=== PATIENT | female | born 1945 | race Caucasian/White ===

== ENCOUNTER → 2016-05-03 | Outpatient (CLI) | payer MEDICARE, OTHER ==
[~2016-05-03] VITALS: Ht 154.9 cm; Wt 93.4 kg
[~2016-05-03] MED LIST: AC325T PO; ALBU0.632 IH; ALBU0.8322 IH; ALBU8.5H2 IH; ASP81TEC PO; BUDE6HFA IH; CATHETER FLUSH 10 ML SYR IV PRN; CEFD300C3 PO; CEPH500C PO; CLOP75TA PO; CYCL10TA9 PO; D50KC PO; DCS100C PO; DOXE25CA46 PO; DOXY100C2 PO; FENO145T2 PO; FLT05NA16 NSEACH; HYDR-1231 PO; HYDR-3812 PO; HYDR-3816 PO; LANS15CA PO; LANS30CA PO; LEVO750T6 PO; LISI5TAB PO; LORA10CA PO; LORA10TA7 PO; LRT10T PO; LVT.088T PO; METO25TA PO; METO25TA2 PO; MNTL10T PO; OMEP20CA12 PO; OXYB5TAB9 PO; PNT40TEC PO; PRD20T PO; PRV20T PO; REGADENOSON 0.4 MG/5 ML SYR (LEXISCAN) IV ONE; ROFL500T3 PO; SIMV20TA3 PO; TIOT18CA IH; TRM50T PO; ZPACK
--- OUTSIDE RECORDS SUMMARY | 2016-05-03 07:53 | XMS REPORT | Continuity of Care Document ---
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 If you do not see the information that you expected, contact Release of Information in the Health Information Management department at [phone] for further assistance in locating additional records.[facility] Active Allergies and Adverse Reactions Not on File Current Medications Not on file Active Problems Not on file Social History Tobacco Use Types Packs/Day Years Used Date Never Assessed Plan of Care Health Maintenance Due Date Last Done Comments Physical (Comprehensive) 1952 Exam Pertussis Vaccine 1957 Tetanus Vaccine 1963 Breast Cancer Screening 1986 Colorectal Cancer 01/22/1996 Screening Shingles Vaccine 2006 Osteoporosis Screening 2011 Prevnar/Pneumovax (#1) 2011 Influenza Vaccine 12/10/2015 Results from Last 3 Months Not on file
[2016-05-03 08:55] VITALS: BP 138/71
[2016-05-03 08:56] VITALS: BP 121/72
[2016-05-03 08:59] VITALS: BP 139/69
[2016-05-03 09:01] VITALS: BP 135/73
--- NOTE | 2016-05-06 08:06 | STRESS TEST ---
PROCEDURE PHYSICIAN: FANTASMA CHEW DATE OF PROCEDURE: 05/03/2016 RESTING AND POST REGADENOSON TECHNETIUM 99M TETROFOSMIN SPECT CT IMAGING: ORDERING PHYSICIAN: Dr. Chew PRIMARY PHYSICIAN: Dr. Win CLINICAL DIAGNOSES: 1. Dyspnea. 2. Coronary artery disease. Baseline images were carried out after injection of 10.92 mCi technetium 99m tetrofosmin. This was followed by 0.4 mg of regadenoson and 32.7 mCi of technetium 99m tetrofosmin. The electrocardiogram showed sinus rhythm at baseline and did not change significantly with regadenoson infusion. She had mild chest discomfort following regadenoson infusion, which resolved within a few minutes. Review of images at rest and following stress, does not indicate any significant perfusion defects consistent with significant myocardial ischemia or infarction. Gated images show normal global left ventricular systolic function with normal regional wall motion. Left ventricular ejection fraction is calculated to be 79%. The left ventricular end-diastolic volume is 29 mL. TID is absent (0.98). CONCLUSION: 1. No evidence of significant myocardial ischemia or infarction on this study. 2. Normal regional wall motion. 3. Normal global left ventricular systolic function with a calculated ejection fraction of 79%. 4. Normal left ventricular cavity size. Job ID: [id number] Dictated Date: 05/05/2016 15:36:53 Manager Primary Date: 05/06/2016 07:59:59 / tbk
== END ==
LOC: CARD 07:50
PROVIDERS: ATTEND Internal Medicine Cardiovascular Disease
DX: I25.10 Atherosclerotic heart disease of native coronary artery without angina pectoris (principal); I65.23 Occlusion and stenosis of bilateral carotid arteries; E78.4 Other hyperlipidemia; R06.02 Shortness of breath
CPT/HCPCS: 78452; 93017

== ENCOUNTER 2016-06-13 12:38 | Emergency (ER) | payer MEDICARE, OTHER ==
[~2016-06-13] VITALS: Ht 154.9 cm; Wt 92.5 kg
[~2016-06-13 12:38] MED LIST changes: -CATHETER FLUSH 10 ML SYR IV PRN; -HYDR-3812 PO; -REGADENOSON 0.4 MG/5 ML SYR (LEXISCAN) IV ONE
--- OUTSIDE RECORDS SUMMARY | 2016-06-13 12:45 | XMS REPORT | Continuity of Care Document ---
Author Author [facility] Organization [facility] Address Unknown Phone Unavailable Care Team Providers Care Orientation And Mobility Instructor Name Role Phone Tawnya Wilson PCP [phone] Source Comments Some departments are not documenting in the electronic medical record. If you do not see the information that you expected, contact Release of Information in the Health Information Management department at [phone] for further assistance in locating additional records.[facility] Active Allergies and Adverse Reactions Not on [...]
[2016-06-13] MEDS ORDERED: NS IV 500 ML 500 ML IV ONE (13:16)
[2016-06-13 13:34] LABS: BASOPHILS % (AUTO) 1 % (0-10); EOSINOPHILS # (AUTO) 0.1 10^3/uL (0.0-0.3); EOSINOPHILS % (AUTO) 1 % (0-10); LYMPHOCYTES # (AUTO) 1.2 X 10^3 (1.0-4.0); LYMPHOCYTES % (AUTO) 21 % (12-44); MEAN CORPUSCULAR HEMOGLOBIN 32 PG (25-34); MEAN CORPUSCULAR HGB CONC 33 G/DL (32-36); MEAN CORPUSCULAR VOLUME 97 FL (80-99); MEAN PLATELET VOLUME 8.9 FL (7.4-10.4); MONOCYTES # (AUTO) 0.4 X 10^3 (0.0-1.0); MONOCYTES % (AUTO) 7 % (0-12); NEUTROPHILS % (AUTO) 71 % (42-75); PLATELET COUNT 275 10^3/uL (130-400); RED BLOOD COUNT 4.56 10^6/uL (4.35-5.85); RED CELL DISTRIBUTION WIDTH 13.4 % (10.0-14.5); WHITE BLOOD COUNT 5.7 10^3/uL (4.3-11.0)
[2016-06-13 13:50] LABS: ERYTHROCYTE SEDIMENTATION RATE 18 MM/HR (0-30)
[2016-06-13 14:13] LABS: ALBUMIN 3.6 G/DL (3.2-4.5); BILIRUBIN,TOTAL 0.4 MG/DL (0.1-1.0); CALCIUM 9.5 MG/DL (8.5-10.1); CREATININE SERUM 1.1 MG/DL (0.60-1.30); POTASSIUM 4.2 MMOL/L (3.6-5.0); TOTAL PROTEIN 7.2 G/DL (6.4-8.2); hs C REACTIVE PROTEIN 3.08 MG/DL (0.00-0.50)
[2016-06-13] MEDS ORDERED: HYDR-3812 PO (14:41)
--- NOTE | 2016-06-13 14:41 | ED General ---
General Chief Complaint: General Problems/Pain Stated Complaint: BODYACHES/NAUSEA POSS MED REACTION Nursing Triage Note: ARRIVED VIA AMBULATORY WITH COMPLAINTS OF GENERALIZED BODY ACHES AND NAUSEA SINCE HAVING HER STRESS TEST ON MAY 03. Nursing Sepsis Screen: No Definite Risk Source of Information: Patient, Old Records Exam Limitations: No Limitations History of Present Illness Time Seen by Provider: 13:06 Initial Comments This 71-year-old woman presents to the emergency room with complaints of generalized pain since having a stress test on May 03. She denies any new medications. She saw her wool classer to stop TriCor and vitamin D. This visit was on June 01. She reports having one episode of rectal bleeding on Monday. She had a colonoscopy in December with reported polyps identified. She also has a history of hemorrhoids. She denies any other acute symptoms such as fever, vomiting, cough, etc. Allergies and Home Medications Allergies Coded Allergies: Sulfa (Sulfonamide Antibiotics) (Verified Allergy, Intermediate, HIVES, ) sulfamethoxazole (Unverified Allergy, Unknown, 02/09/14) trimethoprim (Unverified Allergy, Unknown, 02/09/14) yellow dye (Unverified Allergy, Unknown, 02/09/14) Uncoded Allergies: SULFA (Allergy, Unknown, RASH, 09/26/13) Home Medications Cyclobenzaprine Hcl 10 Mg Tablet #10 1 EACH PO Q8H PRN PRN SPASMS Prescribed by: KARTIK BRANDT on 06/21/14 1114 Docusate Sodium 100 Mg Capsule 300 MG PO DAILY (Reported) TAKES 3 (100MG) CAPSULES DAILY Ergocalciferol 50,000 Unit Capsule 50,000 UNIT PO ON WEDNESDAYS (Reported) Fenofibrate,Micronized 145 Mg Tablet 145 MG PO DAILY (Reported) Hydrocodone Bit/Acetaminophen 1 Tab Tablet #24 1 TAB PO Q6H PRN PRN PAIN Prescribed by: KARTIK BRANDT on 06/21/14 1114 Hydrocodone/Acetaminophen 1 Each Tablet #10 1 EACH PO Q6H PRN PRN PAIN Prescribed by: ZAY FORDE on 06/13/16 1441 Loratadine 10 Mg Tablet 10 MG PO DAILY (Reported) Metoprolol Succinate 25 Mg Tab.sr.24h 25 MG PO DAILY (Reported) Pantoprazole Sodium 40 Mg Tablet. #30 1 TAB PO DAILY Prescribed by: KARINA RUIZ on 09/27/13 1019 Roflumilast 500 Mcg Tablet 500 MCG PO DAILY (Reported) Tiotropium [place] 1 Inh Aerp 1 CAP IH DAILY (Reported) Constitutional: see HPI EENTM: no symptoms reported Respiratory: no symptoms reported Cardiovascular: no symptoms reported Gastrointestinal: see HPI Genitourinary: no symptoms reported Musculoskeletal: see HPI Skin: no symptoms reported Psychiatric/Neurological: No Symptoms Reported Hematologic/Lymphatic: No Symptoms Reported Past Evpkoxd-Cydyle-Eaqxhk Hx Patient Social History Recent Foreign Travel: No Contact w/Someone Who Travel: No Recent Infectious Disease Expo: No Recent Hopitalizations: No Immunizations Up To Date Tetanus Booster (TDap): Unknown PED Vaccines UTD: No Date of Pneumonia Vaccine: Jun 08, 2010 Date of Influenza Vaccine: Dec 29, 2014 Seasonal Allergies Seasonal Allergies: Yes Surgeries HX Surgeries: Yes (CEA, CATARACTS, LEFT FOOT HEEL SPUR) Surgeries: Adenoidectomy, Breast, Cardiac, CABG, Eye Surgery, Gallbladder, Hysterectomy, Tonsillectomy Respiratory Hx Respiratory Disorders: Yes (COPD) Respiratory Disorders: COPD Cardiovascular Hx Cardiac Disorders: Yes (CHF) Cardiac Disorders: Coronary Artery Disease, Hypertension Neurological Hx Neurological Disorders: No Reproductive System Hx Reproductive Disorders: No Sexually Transmitted Disease: No HIV/AIDS: No Female Reproductive Disorders: Denies Genitourinary Hx Genitourinary Disorders: Yes (STAGE 4) Genitourinary Disorders: Renal Failure Gastrointestinal Hx Gastrointestinal Disorders: Yes (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) Gastrointestinal Disorders: Gastroesophageal Reflux Musculoskeletal Hx Musculoskeletal Disorders: Yes Musculoskeletal Disorders: Back Injury, Chronic Back Pain Endocrine Hx Endocrine Disorders: No HEENT HX ENT Disorders: Yes (CATARACT SURGERY) HEENT Disorders: Cataract Loss of Vision: Denies Hearing Impairment: Denies Cancer Hx Cancer: No Psychosocial Hx Psychiatric Problems: No Integumentary HX Skin/Integumentary Disorder: No Blood Transfusions Hx Blood Disorders: No Adverse Reaction to a Blood Tr: No Family Medical History Family Medial History: Family history: Cardiovascular disease 19 MOTHER G8 BROTHER Family history: Diabetes mellitus 19 MOTHER Family history: Gastrointestinal disease 19 FATHER Family history: Hypertension 19 MOTHER G8 BROTHER Myocardial infarction 19 MOTHER Physical Exam Vital Signs Vital Sign - Last 12Hours 06/13/16 13:00 Temp 97.6 Pulse 108 Resp 16 B/P 178/100 Pulse Ox 97 Capillary Refill : Less Than 3 Seconds General Appearance: No Apparent Distress WD/WN HEENT: PERRL/EOMI Normal ENT Inspection Pharynx Normal Neck: Normal Inspection Respiratory: Lungs Clear Normal Breath Sounds No Accessory Muscle Use No Respiratory Distress Cardiovascular: Regular Rate, Rhythm No Edema No Murmur Gastrointestinal: Normal Bowel Sounds Non Tender Soft Back: Normal Inspection Extremity: Normal Inspection No Pedal Edema Neurologic/Psychiatric: Alert Oriented x3 No Motor/Sensory Deficits Normal Mood/Affect hospital cna II-XII Norm as Tested Skin: Normal Color Warm/Dry Progress/Results/Core Measures Results/Orders Lab Results My Orders Medications Given in ED Vital Signs/I&O Blood Pressure Mean: 126 Progress Note : Progress Note No significant abnormalities were found on lab workup or exam. Departure Impression Impression: Primary Impression: Myalgia Disposition: 01 HOME, SELF-CARE Condition: Stable Departure-Patient Inst. Decision time for Depature: 14:35 Referrals: SHOLA BANSAL MD (PCP/Family) Primary Care Physician Patient Instructions: NO INSTRUCTIONS GIVEN Add. Discharge Instructions: Return to care if symptoms worsen. Stay well-hydrated. Follow up with your primary care provider as soon as possible. All discharge instructions reviewed with patient and/or family. Voiced understanding. Scripts Hydrocodone/Acetaminophen (Hydrocodon -Acetaminophen 5-325)1 Each Tablet1 Each PO Q6H PRN PAIN #10 TAB Prov:ZAY ISAAC MD 06/13/16 Copy Copies To 1: SHOLA BANSAL MD, JOSHUA T MD Jun 13, 2016 14:41 Mean Corpuscular Volume 97 80-99 FL Mean Platelet Volume 8.9 7.4-10.4 FL Monocytes # (Auto) 0.4 0.0-1.0 X 10^3 Monocytes (%) (Auto) 7 0-12 % Neutrophils # (Auto) 4.0 1.8-7.8 X 10^3 Neutrophils (%) (Auto) 71 42-75 % Platelet Count 275 130-400 10^3/uL Potassium Level 4.2 3.6-5.0 MMOL/L Red Blood Count 4.56 4.35-5.85 10^6/uL Red Cell Distribution Width 13.4 10.0-14.5 % Rheumatoid Factor NEGATIVE NEGATIVE Sodium Level 137 135-145 MMOL/L Total Bilirubin 0.4 0.1-1.0 MG/DL Total Creatine Kinase 8 L 29-168 U/L Total Protein 7.2 6.4-8.2 G/DL White Blood Count 5.7 4.3-11.0 10^3/uL My Orders Orders-ZAY ISAAC MD Cbc With Automated Diff (06/13/16 13:16) Comprehensive Metabolic Panel (06/13/16 13:16) Creatine Kinase (06/13/16 13:16) Hs C Reactive Protein (06/13/16 13:16) Erythrocyte Sedimentation Rate (06/13/16 13:16) Saline Lock/Iv-Start (06/13/16 13:16) Ns Iv 500 Ml (Sodium Chloride 0.9%) (06/13/16 13:16) Rheumatoid Factor (06/13/16 13:16) Medications Given in ED Current Medications Medications Dose Ordered Sig/Patty Route Start Time Stop Time Status Last Admin Dose Admin Sodium Chloride 500 ml @ 0 mls/hr Q0M ONCE IV 06/13/16 13:16 06/13/16 13:18 DC 06/13/16 13:27 1,000 MLS/HR Vital Signs/I&O Vital Sign - Last 12Hours 06/13/16 13:00 Temp 97.6 Pulse 108 Resp 16 B/P 178/100 Pulse Ox 97 Blood Pressure Mean: 126 Departure Impression Impression: Primary Impression: Myalgia Disposition: 01 HOME, SELF-CARE Condition: Stable Departure-Patient Inst. Decision time for Depature: 14:35 Referrals: SHOLA BANSAL MD (PCP/Family) Primary Care Physician Patient Instructions: NO INSTRUCTIONS GIVEN Add. Discharge Instructions: Return to care if symptoms worsen. Stay well-hydrated. Follow up with your primary care provider as soon as possible. All discharge instructions reviewed with patient and/or family. Voiced understanding. Scripts Hydrocodone/Acetaminophen (Hydrocodon -Acetaminophen 5-325)1 Each Tablet1 Each PO Q6H PRN PAIN #10 TAB Prov:ZAY ISAAC MD 06/13/16 Copy Copies To 1: SHOLA BANSAL MD, JOSHUA T MD Jun 13, 2016 14:41
[2016-06-13 14:54] VITALS: BP 182/92
== END 2016-06-13 14:54 | disposition home or self-care (01) ==
LOC: EDUNIT# 12:38 → ER 12:42
DX: M79.1 Myalgia (principal); I12.9 Hypertensive chronic kidney disease with stage 1 through stage 4 chronic kidney disease, or unspecified chronic kidney disease; N18.4 Chronic kidney disease, stage 4 (severe); J44.9 Chronic obstructive pulmonary disease, unspecified; Z95.1 Presence of aortocoronary bypass graft; Z79.899 Other long term (current) drug therapy
CPT/HCPCS: 36415; 80053; 82550; 85025; 85652; 86141; 86430; 96360

== ENCOUNTER 2016-06-27 21:24 | Emergency (ER) | payer MEDICARE, OTHER ==
[~2016-06-27] VITALS: Ht 154.9 cm; Wt 93.9 kg
[~2016-06-27 21:24] MED LIST changes: +HYDR-3812 PO
--- OUTSIDE RECORDS SUMMARY | 2016-06-27 21:30 | XMS REPORT | Continuity of Care Document ---
Author Author [facility] Organization [facility] Address Unknown Phone Unavailable Care Team Providers Care Health Informatics Instructor Name Role Phone Tawnya Wilson PCP [phone] Source Comments Some departments are not documenting in the electronic medical record. If you do not see the information that you expected, contact Release of Information in the Health Information Management department at [phone] for further assistance in locating additional records.[facility] Active Allergies and Adverse Reactions [...]
[2016-06-27] MEDS ORDERED: HYDROcodone/APAP 7.5 MG/325 MG (LORTAB, LORCET PLUS) TABLET PO STA (23:15)
--- NOTE | 2016-06-27 23:17 | ED Back Pain ---
General Chief Complaint: General Problems/Pain Stated Complaint: L LEG/GROIN PAIN Nursing Triage Note: C/O CHRONIC BILATERAL LEG/HIP/PELVIC PAIN. SEEN HERE APPROX. 1 WEEK AGO FOR SAME. Nursing Sepsis Screen: No Definite Risk Source of Information: Patient Exam Limitations: No Limitations History of Present Illness Time Seen by Provider: 23:05 Initial Comments Here with complaint of low back pain. She fell 2 weeks ago onto the left leg and has had low back pain since. She does have history of kyphoplasty and similar pain when she had lumbar compression fracture. She is unable to get into her doctor. She has tried Tylenol and that has not helped. Denies bowel or bladder incontinence, numbness between her legs or weakness. Location: Lumbar Spine, Paraspinous Muscles Timing/Duration: 1 Week Severity: Moderate Pain/Injury Location: Back Radiation: Buttocks, Upper Legs Method of Injury: Fall Associated Symptoms: muscle spasmsNo weakness, No numbness in legs/feet, No tingling in legs/feet, No sensory/motor loss, lower back painNo loss of bladder control, No loss of bowel control Allergies and Home Medications Allergies Coded Allergies: Sulfa (Sulfonamide Antibiotics) (Verified Allergy, Intermediate, HIVES, ) sulfamethoxazole (Unverified Allergy, Unknown, 02/09/14) trimethoprim (Unverified Allergy, Unknown, 02/09/14) yellow dye (Unverified Allergy, Unknown, 02/09/14) Uncoded Allergies: SULFA (Allergy, Unknown, RASH, 09/26/13) Home Medications Cyclobenzaprine Hcl 10 Mg Tablet #10 1 EACH PO Q8H PRN PRN SPASMS Prescribed by: KARTIK BRANDT on 06/21/14 1114 Docusate Sodium 100 Mg Capsule 300 MG PO DAILY (Reported) TAKES 3 (100MG) CAPSULES DAILY Ergocalciferol 50,000 Unit Capsule 50,000 UNIT PO ON WEDNESDAYS (Reported) Fenofibrate,Micronized 145 Mg Tablet 145 MG PO DAILY (Reported) Hydrocodone Bit/Acetaminophen 1 Tab Tablet #24 1 TAB PO Q6H PRN PRN PAIN Prescribed by: KARTIK BRANDT on 06/21/14 1114 Hydrocodone/Acetaminophen 1 Each Tablet #10 1 EACH PO Q6H PRN PRN PAIN Prescribed by: ZAY FORDE on 06/13/16 1441 Loratadine 10 Mg Tablet 10 MG PO DAILY (Reported) Metoprolol Succinate 25 Mg Tab.sr.24h 25 MG PO DAILY (Reported) Pantoprazole Sodium 40 Mg Tablet. #30 1 TAB PO DAILY Prescribed by: KARINA RUIZ on 09/27/13 1019 Roflumilast 500 Mcg Tablet 500 MCG PO DAILY (Reported) Tiotropium [place] 1 Inh Aerp 1 CAP IH DAILY (Reported) Constitutional: see HPI Respiratory: no symptoms reported Cardiovascular: no symptoms reported Gastrointestinal: no symptoms reported Musculoskeletal: back pain muscle pain muscle stiffness Skin: no symptoms reported Psychiatric/Neurological: No Symptoms Reported Past Hcngqlq-Otnhsf-Vclvak Hx Patient Social History Alcohol Use: Denies Use Recreational Drug Use: No Smoking Status: Never a Smoker Recent Foreign Travel: No Contact w/Someone Who Travel: No Recent Infectious Disease Expo: No Recent Hopitalizations: No Immunizations Up To Date Tetanus Booster (TDap): Unknown PED Vaccines UTD: No Date of Pneumonia Vaccine: Jun 08, 2010 Date of Influenza Vaccine: Dec 29, 2014 Seasonal Allergies Seasonal Allergies: Yes Surgeries HX Surgeries: Yes (CEA, CATARACTS, LEFT FOOT HEEL SPUR) Surgeries: Adenoidectomy, Breast, Cardiac, CABG, Eye Surgery, Gallbladder, Hysterectomy, Tonsillectomy Respiratory Hx Respiratory Disorders: Yes (COPD) Respiratory Disorders: COPD Cardiovascular Hx Cardiac Disorders: Yes (CHF) Cardiac Disorders: Coronary Artery Disease, Hypertension Neurological Hx Neurological Disorders: No Reproductive System : No Hx Reproductive Disorders: No Sexually Transmitted Disease: No HIV/AIDS: No Female Reproductive Disorders: 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, Menopausal Genitourinary Hx Genitourinary Disorders: Yes (STAGE 4) Genitourinary Disorders: Renal Failure Gastrointestinal Hx Gastrointestinal Disorders: Yes (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) Gastrointestinal Disorders: Gastroesophageal Reflux Musculoskeletal Hx Musculoskeletal Disorders: Yes Musculoskeletal Disorders: Back Injury, Chronic Back Pain Endocrine Hx Endocrine Disorders: No HEENT HX ENT Disorders: Yes (CATARACT SURGERY) HEENT Disorders: Cataract Loss of Vision: Denies Hearing Impairment: Denies Cancer Hx Cancer: No Psychosocial Hx Psychiatric Problems: No Integumentary HX Skin/Integumentary Disorder: No Blood Transfusions Hx Blood Disorders: No Adverse Reaction to a Blood Tr: No Reviewed Nursing Assessment Reviewed/Agree w Nursing PMH: Yes Family Medical History Family Medial History: Family history: Cardiovascular disease 19 MOTHER G8 BROTHER Family history: Diabetes mellitus 19 MOTHER Family history: Gastrointestinal disease 19 FATHER Family history: Hypertension 19 MOTHER G8 BROTHER Myocardial infarction 19 MOTHER Physical Exam Vital Signs Vital Sign - Last 12Hours 06/27/16 21:56 Temp 98.0 Pulse 104 Resp 18 B/P 196/89 Pulse Ox 94 O2 Delivery Room Air Capillary Refill : Less Than 3 Seconds General Appearance: No Apparent Distress WD/WN HEENT: PERRL/EOMI Pharynx Normal Neck: Non Tender Supple Cardiovascular: Regular Rate, Rhythm No Murmur Respiratory: Lungs Clear No Respiratory Distress Gastrointestinal: Non Tender Soft Back: Other (mild tenderness to the upper lumbar spine.) Neurologic/Psychiatric: Alert Oriented x3 Skin: Normal Color Warm/Dry Progress/Results/Core Measures Results/Orders My Orders Orders-KARTIK BRANDT MD Hydrocodone/Apap 7.5/325 Tab (Lortab 7. (06/27/16 23:15) Ct Lumbar Spine Wo (06/27/16 23:15) Vital Signs/I&O Vital Sign - Last 12Hours 06/27/16 21:56 Temp 98.0 Pulse 104 Resp 18 B/P 196/89 Pulse Ox 94 O2 Delivery Room Air Blood Pressure Mean: 124 Progress Note : Progress Note Seen and evaluated. Lumbar spine CT ordered. Hydrocodone 7.5 mg by mouth. Improved after meds. No significant findings on CT scan. Discharged home with return precautions. Patient and family verbalized understanding instructions and agreement with plan. Prednisone 40 mg by mouth given. We will continue this outpatient. 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 Mild anterior listhesis of L4 over L5 secondary to degenerative facet disease. No dominant disc herniation or gross central or neuroforaminal stenosis seen. No acute fracture. Reviewed: Reviewed [place] Hawk Study, Reviewed by Me Departure Impression Impression: Primary Impression: Lumbar radiculopathy, acute Disposition: HOME, SELF-CARE Condition: Improved Departure-Patient Inst. Decision time for Depature: 00:49 Referrals: SHOLA BANSAL MD (PCP/Family) Primary Care Physician Patient Instructions: Lumbar Muscle Strain (DC), Radiculopathy (DC) Add. Discharge Instructions: All discharge instructions reviewed with patient and/or family. Voiced understanding. Take medications as directed. Do not take Tylenol with the prescribed hydrocodone as both have acetaminophen and it. Follow-up with your DrWisam this week for recheck. Call in the morning for appointment. Drink plenty of fluids. Return for worse pain, fever, vomiting, weakness, breathing problems or other concerns as needed. Scripts Hydrocodone/Acetaminophen (Hydrocodon-Acetaminoph 7.5-325)1 Each Tablet1 Each PO Q6H #14 TAB Prov:KARTIK BRANDT MD 06/28/16 Prednisone 20 Mg Tab40 Mg PO DAILY #12 TAB Ref 0 Prov:KARTIK BRANDT MD 06/28/16 KARTIK BRANDT MD Jun 27, 2016 23:17
[2016-06-28] MEDS ORDERED: predniSONE 20 MG TAB PO ONE (00:45)
[2016-06-28] MEDS ORDERED: PRD20T PO (00:51)
[2016-06-28] MEDS ORDERED: HYDR-3816 PO (00:51)
[2016-06-28 00:55] VITALS: BP 182/79
--- NOTE | 2016-06-28 08:03 | Diagnostic Imaging Report ---
PROCEDURE: CT lumbar spine without contrast. TECHNIQUE: Multiple contiguous axial images were obtained through the lumbar spine without the use of intravenous contrast. Sagittal and coronal reformations were then performed. INDICATION: Back pain. Bilateral lower extremity pain. COMPARISON: MRI lumbar spine without contrast 08/19/2014. FINDINGS: There are 5 lumbar type vertebral bodies. Stable compression deformity of the L1 vertebral body without retropulsion of fragments. There are interval vertebroplasty changes within L1. There is mild anterolisthesis of L4 on L5. Alignment is otherwise unremarkable. No new compression deformities. No acute fractures. Mild scattered degenerative endplate changes. Moderate to advanced facet arthropathy at L4-L5 and L5-S1. No high-grade spinal canal or neural foraminal narrowing on this noncontrast exam. Arterial calcifications including a normal caliber abdominal aorta. Cholecystectomy. IMPRESSION: 1. Stable compression deformity of L1 with interval vertebroplasty changes. No new fractures in the lumbar spine. 2. Moderate to advanced facet arthropathy bilaterally at L4-L5 and L5-S1 may be a pain generator. 3. No evidence of high-grade neural impingement on this noncontrast exam. Dictated by: Dictated on workstation # [id number]
== END 2016-06-28 00:55 | disposition home or self-care (01) ==
LOC: EDUNIT# 21:24 → ER 21:26
DX: M54.16 Radiculopathy, lumbar region (principal); I10 Essential (primary) hypertension; J44.9 Chronic obstructive pulmonary disease, unspecified
CPT/HCPCS: 72131; 99281

== ENCOUNTER 2016-09-04 13:19 | Emergency (ER) | payer MEDICARE, OTHER ==
[~2016-09-04] VITALS: Ht 63.5 cm; Wt 87.5 kg
[2016-09-04] MEDS ORDERED: fentaNYL INJECTION 100 MCG/2 ML AMP IM STA (13:43)
--- NOTE | 2016-09-04 13:43 | ED Fall/Injury ---
General Chief Complaint: Trauma-Non Activation Stated Complaint: FALL/L SIDE PAIN Nursing Triage Note: AMBULATED TO ROOM 05 WITH COMPLAINTS OF LEFT ARM PAIN AFTER TRIPPING AND FALLING YESTERDAY. Source: patient, family (daughter) Exam Limitations: no limitations History of Present Illness Time seen by provider: 13:34 Initial Comments Last night the patient was getting up to go to the bathroom and had a fall. She is not sure what she tripped on. She no she did not hit her head or lose consciousness. She landed on her left shoulder between the bed and the wall. She immediately got up and did not lose continence. She has no headache or bleeding. She does have 3 or 4 days of nausea. She states she has chronic renal failure ever since her CABG. She also states that she has been putting out less and less urine and attributes this to her eating Advil "like candy". She denies dysuria, hematuria, discharge. Allergies and Home Medications Allergies Coded Allergies: Sulfa (Sulfonamide Antibiotics) (Verified Allergy, Intermediate, HIVES, ) sulfamethoxazole (Unverified Allergy, Unknown, 02/09/14) trimethoprim (Unverified Allergy, Unknown, 02/09/14) yellow dye (Unverified Allergy, Unknown, 02/09/14) Uncoded Allergies: SULFA (Allergy, Unknown, RASH, 09/26/13) Home Medications Cephalexin 500 Mg Capsule, 500 MG PO BID for 5 Days, #10 Ref 0 Prescribed by: IGNACIA BURKETT on 09/04/16 1526 Cyclobenzaprine Hcl 10 Mg Tablet, 1 EACH PO Q8H PRN for SPASMS, #10 Prescribed by: KARTIK BRANDT on 06/21/14 1114 Docusate Sodium 100 Mg Capsule, 300 MG PO DAILY, (Reported) TAKES 3 (100MG) CAPSULES DAILY Ergocalciferol 50,000 Unit Capsule, 50,000 UNIT PO ON WEDNESDAYS, (Reported) Fenofibrate,Micronized 145 Mg Tablet, 145 MG PO DAILY, (Reported) Hydrocodone Bit/Acetaminophen 1 Tab Tablet, 1 TAB PO Q6H PRN for PAIN, #24 Prescribed by: KARTIK BRANDT on 06/21/14 1114 Hydrocodone/Acetaminophen 1 Each Tablet, 1 EACH PO Q6H PRN for PAIN, #10 Prescribed by: ZAY FORDE on 06/13/16 1441 Hydrocodone/Acetaminophen 1 Each Tablet, 1 EACH PO Q6H, #14 Prescribed by: KARTIK BRANDT on 06/28/16 0051 Loratadine 10 Mg Tablet, 10 MG PO DAILY, (Reported) Metoprolol Succinate 25 Mg Tab.sr.24h, 25 MG PO DAILY, (Reported) Pantoprazole Sodium 40 Mg Tablet.dr, 1 TAB PO DAILY, #30 Ref 3 Prescribed by: KARINA RUIZ on 09/27/13 1019 Prednisone 20 Mg Tab, 40 MG PO DAILY, #12 Ref 0 Prescribed by: KARTIK BRANDT on 06/28/16 0051 Roflumilast 500 Mcg Tablet, 500 MCG PO DAILY, (Reported) Tiotropium [place] 1 Inh Aerp, 1 CAP IH DAILY, (Reported) Constitutional: see HPI, No chills, No diaphoresis Eyes: Denies Blurred Vision, Denies Pain, Denies Photophobia Ears, Nose, Mouth, Throat: denies ear pain, denies ear discharge, denies nose pain, denies epistaxis, denies loose teeth Respiratory: No cough, No short of breath Cardiovascular: No chest pain, No syncope Gastrointestinal: No abdominal pain, No constipation, No diarrhea, No nausea, No vomiting Genitourinary: No discharge, No dysuria, frequency, No incontinence, nocturia : No (postmenopausal) Musculoskeletal: see HPI, No back pain, joint pain (left shoulder), No joint swelling Skin: No pruritus, No rash Past Emuhjeg-Whjczf-Glkztx Hx Patient Social History Alcohol Use: Denies Use Recreational Drug Use: No Smoking Status: Never a Smoker Recent Foreign Travel: No Contact w/Someone Who Travel: No Recent Infectious Disease Expo: No Recent Hopitalizations: No Immunizations Up To Date Tetanus Booster (TDap): Unknown PED Vaccines UTD: No Date of Pneumonia Vaccine: Jun 08, 2010 Date of Influenza Vaccine: Dec 29, 2014 Seasonal Allergies Seasonal Allergies: Yes Surgeries HX Surgeries: Yes (CEA, CATARACTS, LEFT FOOT HEEL SPUR) Surgeries: Adenoidectomy, Breast, Cardiac, CABG, Eye Surgery, Gallbladder, Hysterectomy, Tonsillectomy Respiratory Hx Respiratory Disorders: Yes (COPD) Respiratory Disorders: COPD Cardiovascular Hx Cardiac Disorders: Yes (CHF) Cardiac Disorders: Coronary Artery Disease, Hypertension Neurological Hx Neurological Disorders: No Reproductive System Hx Reproductive Disorders: No Sexually Transmitted Disease: No HIV/AIDS: No Female Reproductive Disorders: Denies 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, 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 Genitourinary Hx Genitourinary Disorders: Yes (STAGE 4) Genitourinary Disorders: Renal Failure Gastrointestinal Hx Gastrointestinal Disorders: Yes (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) Gastrointestinal Disorders: Gastroesophageal Reflux Musculoskeletal Hx Musculoskeletal Disorders: Yes Musculoskeletal Disorders: Back Injury, Chronic Back Pain Endocrine Hx Endocrine Disorders: No HEENT HX ENT Disorders: Yes (CATARACT SURGERY) HEENT Disorders: Cataract Loss of Vision: Denies Hearing Impairment: Denies Cancer Hx Cancer: No Psychosocial Hx Psychiatric Problems: No Integumentary HX Skin/Integumentary Disorder: No Blood Transfusions Hx Blood Disorders: No Adverse Reaction to a Blood Tr: No Family Medical History Family Medial History: Family history: Cardiovascular disease 19 MOTHER G8 BROTHER Family history: Diabetes mellitus 19 MOTHER Family history: Gastrointestinal disease 19 FATHER Family history: Hypertension 19 MOTHER G8 BROTHER Myocardial infarction 19 MOTHER Physical Exam Vital Signs Vital Sign - Last 12Hours 09/04/ 13:32 Temp 98.0 Pulse 83 Resp 16 B/P (MAP) 165/93 Pulse Ox 97 Capillary Refill : Less Than 3 Seconds General Appearance: WD/WN, mild distress HEENT: PERRL/EOMI, normal ENT inspection, TMs normal, pharynx normal Neck: non-tender, full range of motion, supple, normal inspection Cardiovascular: normal peripheral pulses, regular rate, rhythm, no edema Respiratory: chest non-tender, lungs clear, normal breath sounds Peripheral Pulses: 3+ Dorsalis Pedis (R), 3+ Left Dors-Pedis (L), 3+ Radial Pulses (R), 3+ Radial Pulses (L) Gastrointestinal: normal bowel sounds, non tender, soft Back: normal inspection, no vertebral tenderness Extremities: normal range of motion, no pedal edema, no calf tenderness, normal capillary refill, swelling (mild left shoulder swelling and tenderness to palpation) Neurologic/Psychiatric: manager telemetry II-XII nml as tested, no motor/sensory deficits, alert, oriented x 3, other (distal left arm wrist and hand and fingers with normal sensation and motor intact) Skin: normal color, warm/dry [place] Coma Score Best Eye Response: (4) Open Spontaneously Best Verbal Response: (5) Oriented Best Motor Response: (6) Obeys Commands Darin Total: 15 Progress/Results/Core Measures Results/Orders Lab Results Laboratory Tests Test 09/04/16 13:50 09/04/16 14:03 Range/Units Urine Color YELLOW Urine Clarity SLIGHTLY CLOUDY Urine pH 6 5-9 Urine Specific [place] 1.015 L 1.016-1.022 Urine Protein NEGATIVE NEGATIVE Urine Glucose (UA) NEGATIVE NEGATIVE Urine Ketones NEGATIVE NEGATIVE Urine Nitrite NEGATIVE NEGATIVE Urine Bilirubin NEGATIVE NEGATIVE Urine Urobilinogen NORMAL NORMAL MG/DL Urine Leukocyte Esterase 3+ H NEGATIVE Urine RBC (Auto) 2+ H NEGATIVE Urine RBC NONE /HPF Urine WBC 10-25 H /HPF Urine Squamous Epithelial Cells 25-50 H /HPF Urine Crystals NONE /LPF Urine Bacteria FEW H /HPF Urine Casts NONE /LPF Urine Mucus NEGATIVE /LPF Urine Culture Indicated NO White Blood Count 6.7 4.3-11.0 10^3/uL Red Blood Count 3.89 L 4.35-5.85 10^6/uL Hemoglobin 12.4 11.5-16.0 G/DL Hematocrit 39 35-52 % Mean Corpuscular Volume 99 80-99 FL Mean Corpuscular Hemoglobin 32 25-34 PG Mean Corpuscular Hemoglobin Concent 32 32-36 G/DL Red Cell Distribution Width 13.4 10.0-14.5 % Platelet Count 276 130-400 10^3/uL Mean Platelet Volume 8.8 7.4-10.4 FL Neutrophils (%) (Auto) 73 42-75 % Lymphocytes (%) (Auto) 16 12-44 % Monocytes (%) (Auto) 8 0-12 % Eosinophils (%) (Auto) 2 0-10 % Basophils (%) (Auto) 1 0-10 % Neutrophils # (Auto) 4.9 1.8-7.8 X 10^3 Lymphocytes # (Auto) 1.1 1.0-4.0 X 10^3 Monocytes # (Auto) 0.5 0.0-1.0 X 10^3 Eosinophils # (Auto) 0.2 0.0-0.3 10^3/uL Basophils # (Auto) 0.0 0.0-0.1 10^3/uL Sodium Level 141 135-145 MMOL/L Potassium Level 3.7 3.6-5.0 MMOL/L Chloride Level 107 98-107 MMOL/L Carbon Dioxide Level 25 21-32 MMOL/L Anion Gap 9 5-14 MMOL/L Blood Urea Nitrogen 19 H 7-18 MG/DL Creatinine 0.93 0.60-1.30 MG/DL Estimat Glomerular Filtration Rate 60 BUN/Creatinine Ratio 20 Glucose Level 102 70-105 MG/DL Calcium Level 8.8 8.5-10.1 MG/DL Total Bilirubin 0.3 0.1-1.0 MG/DL Aspartate Amino Transf (AST/SGOT) 10 5-34 U/L Alanine Aminotransferase (ALT/SGPT) 13 0-55 U/L Alkaline Phosphatase 79 40-136 U/L Total Protein 6.4 6.4-8.2 G/DL Albumin 3.1 L 3.2-4.5 G/DL My Orders Orders - IGNACIA BURKETT Shoulder, Left, 3 Views (09/04/16 13:43) Clavicle, Left (09/04/16 13:43) Elbow, Left, 3 Views (09/04/16 13:43) Cbc With Automated Diff (09/04/16 13:43) Comprehensive Metabolic Panel (09/04/16 13:43) Ua Culture If Indicated (09/04/16 13:43) Fentanyl Injection (Sublimaze Injection (09/04/16 13:43) Ondansetron Injection (Zofran Injectio (09/04/16 13:45) Ondansetron Oral Dissolve Tab (Zofran (09/04/16 14:00) Medications Given in ED Current Medications Medications Dose Ordered Sig/Patty Route Start Time Stop Time Status Last Admin Dose Admin Ondansetron HCl 4 mg ONCE ONCE PO 09/04/16 14:00 09/04/16 14:01 DC 09/04/16 14:05 4 MG Vital Signs/I&O Vital Sign - Last 12Hours 09/04/16 09/04/16 13:32 15:44 Temp 98.0 Pulse 83 78 Resp 16 16 B/P (MAP) 165/93 Pulse Ox 97 98 Blood Pressure Mean: 117 Progress Note : Time: 18:12 Progress Note With her frequency and is not totally clear expiration why she had a fall middle the night we'll get some basic lab and UA as well as x-ray of her painful spots to include the left clavicle, shoulder, elbow. She says she does have some chronic renal failure and has been swallowing Advil wholesale so we will that he wanted that should her creatinine. Diagnostic Imaging Diagonstic Imaging: Xray Comments No [facility] [place], [place] NAME: LA NENA JUSTICE [facility] REC#: [id number] PT STATUS: REG ER : 1945 PHYSICIAN: IGNACIA BURKETT MD ADMIT DATE: 09/04/16/ER Draft Date of Exam:09/04/16 CLAVICLE, LEFT INDICATION: Left clavicular pain after fall. COMPARISON: Left shoulder radiographs performed concurrently. FINDINGS AND IMPRESSION: 1. No acute fracture of the left clavicle. 2. The sternoclavicular and acromioclavicular joints are normal in alignment. Dictated on workstation # [id number] Dict: 09/04/16 1430 Trans: 09/04/16 1432 [id number] Interpreted by: ANNA BELLE MD Electronically signed by: NAME: LA NENA JUSTICE [facility] REC#: [id number] PHYSICIAN: IGNACIA BURKETT MD CC: ANNA BELLE MD; IGNACIA BURKETT Page 1 of 1 RADIOLOGY REPORT [facility] [place] CC: ANNA BELLE MD; IGNACIA BURKETT Page 1 of 1 RADIOLOGY REPORT NAME: LA NENA JUSTICE [facility] REC#: [id number] PT STATUS: REG ER : 1945 PHYSICIAN: IGNACIA BURKETT MD ADMIT DATE: 09/04/16/ER Signed Date of Exam: 09/04/16 ELBOW, LEFT, 3 VIEWS INDICATION: Left elbow pain after injury. COMPARISON: None available. TECHNIQUE: 3 views of left elbow. FINDINGS: No acute fracture or traumatic malalignment. Joint spaces are well-maintained. No elbow joint effusion. IMPRESSION: 1. No acute fracture or traumatic malalignment of the left elbow. Dictated by: Dictated on workstation # [id number] Dict: 09/04/16 1431 Trans: 09/04/16 1506 Interpreted by: ANNA BELLE MD Electronically signed by: ANNA BELLE MD 09/04/16 1506 NAME: LA NENA JUSTICE [facility] REC#: [id number] PHYSICIAN: IGNACIA BURKETT MD CC: ANNA BELLE MD; IGNACIA BURKETT Page 1 of 1 RADIOLOGY REPORT VIA [place], [place] CC: ANNA BELLE MD; IGNACIA BURKETT Page 1 of 1 RADIOLOGY REPORT NAME: LA NENA JUSTICE [facility] REC#: [id number] PT STATUS: REG ER : 1945 PHYSICIAN: IGNACIA BURKETT MD ADMIT DATE: 09/04/16/ER Signed Date of Exam: 09/04/16 SHOULDER, LEFT, 3 VIEWS INDICATION: Left shoulder pain after fall. TECHNIQUE: 3 views of the left shoulder. FINDINGS: No acute fracture or traumatic malalignment. Subacromial space is maintained. No abnormal soft tissue foci of mineralization to indicate calcific tendinitis. No left-sided pneumothorax. Partial imaged CABG changes of the chest. IMPRESSION: 1. No fracture or traumatic malalignment involving the left shoulder. Dictated by: Dictated on workstation # [id number] Dict: 09/04/16 1432 Trans: 09/04/16 1506 Interpreted by: ANNA BELLE MD Electronically signed by: ANNA BELLE MD 09/04/16 1506 Departure Impression Impression: Primary Impression: Fall Qualified Codes: W19.XXXA - Unspecified fall, initial encounter Additional Impression: UTI (urinary tract infection) Qualified Codes: N30.00 - Acute cystitis without hematuria Disposition: 01 HOME, SELF-CARE Condition: Stable Departure-Patient Inst. Decision time for Depature: 15:22 Referrals: SAUD VILLALOBOS MD (PCP/Family) Primary Care Physician Patient Instructions: Preventing Falls in the Older Adult Add. Discharge Instructions: Your urine may have demonstrated you have a small urinary tract infection so you should take the antibiotics twice daily with some food or drink until they' re completed. Follow up with your primary care physician in one to 2 weeks. You may return to the ER or go your primary care physician sooner if you're having new or worsening symptoms such as nausea, fever, chills, diarrhea. If you're having pain you should use Tylenol and be very sparing with the NSAIDs such as Advil, ibuprofen, Aleve, Naprosyn per your primary care physician's instructions. If you're having falls this can be from getting up to go to the bathroom too much at night which can be caused by uncontrolled diabetes or other problems can be followed by her primary care physician. Make sure to have adequate lighting and get all the rugs and small animals or debris out of the way of your path from the bed to the bathroom. If you're taking diuretics you should attempt take these earlier in the afternoon so they are not affecting you after you go to bed. It May be also reasonable to have help getting up going to the bathroom at night from a family member if possible. All discharge instructions reviewed with patient and/or family. Voiced understanding. Scripts Cephalexin (Keflex) 500 Mg Capsule 500 MG PO BID for 5 Days, #10 CAP 0 Refills Prov: IGNACIA BURKETT 09/04/16 Copy Copies To 1: SAUD VILLALOBOS MD, TITUS J September 04, 2016 13:43
[2016-09-04] MEDS ORDERED: ONDANSETRON 4 MG/2 ML (SDV) Z0FRAN IM ONE (13:45)
[2016-09-04 13:58] LABS: BILIRUBIN,URINE NEGATIVE (NEGATIVE); KETONES,URINE NEGATIVE (NEGATIVE); LEUKOCYTE ESTERASE ,URINE 3+ (NEGATIVE); NITRITE,URINE NEGATIVE (NEGATIVE); PH,URINE 6 (5-9); PROTEIN,URINE NEGATIVE (NEGATIVE); UROBILINOGEN,URINE NORMAL (NORMAL)
[2016-09-04] MEDS ORDERED: ONDANSETRON 4 MG (ZOFRAN) ORAL DISSOLVE TAB PO ONE (14:00)
[2016-09-04 14:09] LABS: BASOPHILS % (AUTO) 1 % (0-10); EOSINOPHILS # (AUTO) 0.2 10^3/uL (0.0-0.3); EOSINOPHILS % (AUTO) 2 % (0-10); LYMPHOCYTES # (AUTO) 1.1 X 10^3 (1.0-4.0); LYMPHOCYTES % (AUTO) 16 % (12-44); MEAN CORPUSCULAR HEMOGLOBIN 32 PG (25-34); MEAN CORPUSCULAR HGB CONC 32 G/DL (32-36); MEAN CORPUSCULAR VOLUME 99 FL (80-99); MEAN PLATELET VOLUME 8.8 FL (7.4-10.4); MONOCYTES # (AUTO) 0.5 X 10^3 (0.0-1.0); MONOCYTES % (AUTO) 8 % (0-12); NEUTROPHILS # (AUTO) 4.9 X 10^3 (1.8-7.8); NEUTROPHILS % (AUTO) 73 % (42-75); PLATELET COUNT 276 10^3/uL (130-400); RED BLOOD COUNT 3.89 10^6/uL (4.35-5.85); RED CELL DISTRIBUTION WIDTH 13.4 % (10.0-14.5); WHITE BLOOD COUNT 6.7 10^3/uL (4.3-11.0)
[2016-09-04 14:16] LABS: SQUAMOUS EPITHELIAL CELL,UR 25-50 /HPF
[2016-09-04 14:28] LABS: ALBUMIN 3.1 G/DL (3.2-4.5); BILIRUBIN,TOTAL 0.3 MG/DL (0.1-1.0); CALCIUM 8.8 MG/DL (8.5-10.1); CREATININE SERUM 0.93 MG/DL (0.60-1.30); POTASSIUM 3.7 MMOL/L (3.6-5.0); TOTAL PROTEIN 6.4 G/DL (6.4-8.2)
--- NOTE | 2016-09-04 14:33 | Diagnostic Imaging Report ---
INDICATION: Left clavicular pain after fall. COMPARISON: Left shoulder radiographs performed concurrently. FINDINGS AND IMPRESSION: 1. No acute fracture of the left clavicle. 2. The sternoclavicular and acromioclavicular joints are normal in alignment. Dictated by: Dictated on workstation # [id number]
--- NOTE | 2016-09-04 14:34 | Diagnostic Imaging Report ---
INDICATION: Left elbow pain after injury. COMPARISON: None available. TECHNIQUE: 3 views of left elbow. FINDINGS: No acute fracture or traumatic malalignment. Joint spaces are well-maintained. No elbow joint effusion. IMPRESSION: 1. No acute fracture or traumatic malalignment of the left elbow. Dictated by: Dictated on workstation # [id number]
--- NOTE | 2016-09-04 14:35 | Diagnostic Imaging Report ---
INDICATION: Left shoulder pain after fall. TECHNIQUE: 3 views of the left shoulder. FINDINGS: No acute fracture or traumatic malalignment. Subacromial space is maintained. No abnormal soft tissue foci of mineralization to indicate calcific tendinitis. No left-sided pneumothorax. Partial imaged CABG changes of the chest. IMPRESSION: 1. No fracture or traumatic malalignment involving the left shoulder. Dictated by: Dictated on workstation # [id number]
[2016-09-04] MEDS ORDERED: CEPH-507 PO (15:26)
[2016-09-04 15:44] VITALS: BP 129/68
== END 2016-09-04 15:44 | disposition home or self-care (01) ==
LOC: EDUNIT# 13:19 → ER 13:21
DX: S49.92XA Unspecified injury of left shoulder and upper arm, initial encounter (principal); S59.909A Unspecified injury of unspecified elbow, initial encounter; S29.9XXA Unspecified injury of thorax, initial encounter; N30.00 Acute cystitis without hematuria; I12.9 Hypertensive chronic kidney disease with stage 1 through stage 4 chronic kidney disease, or unspecified chronic kidney disease; N18.9 Chronic kidney disease, unspecified; I25.10 Atherosclerotic heart disease of native coronary artery without angina pectoris; J44.9 Chronic obstructive pulmonary disease, unspecified; Z79.899 Other long term (current) drug therapy; Z95.1 Presence of aortocoronary bypass graft; W01.0XXA Fall on same level from slipping, tripping and stumbling without subsequent striking against object, initial encounter; Y92.013 Bedroom of single-family (private) house as the place of occurrence of the external cause; Y99.8 Other external cause status
CPT/HCPCS: 36415; 73000; 73030; 73080; 80053; 81000; 85025; 99283

== ENCOUNTER 2016-12-29 13:09 | Outpatient (CLI) | payer MEDICARE, OTHER ==
[~2016-12-29] VITALS: Ht 154.9 cm; Wt 89.4 kg
[~2016-12-29 13:09] MED LIST changes: +CEPH-507 PO
[2016-12-29] MEDS ORDERED: HYDR-3812 PO (13:43)
== END 2016-12-29 13:45 ==
LOC: PREOP 13:09
PROVIDERS: ATTEND Surgery
DX: Z01.818 Encounter for other preprocedural examination; R10.13 Epigastric pain; K92.1 Melena; R19.7 Diarrhea, unspecified; R11.0 Nausea

== ENCOUNTER 2017-01-25 05:34 | Outpatient (CLI) | payer MEDICARE, OTHER ==
[~2017-01-25] VITALS: Ht 154.9 cm; Wt 89.4 kg
[2017-01-25] MEDS ORDERED: TIOT18CA2 IH (09:51)
[2017-01-25] MEDS ORDERED: ROFL500T4 PO (09:51)
[2017-01-25] MEDS ORDERED: ASPI-586 PO (09:51)
[2017-01-25] MEDS ORDERED: PANT40TA3 PO (09:51)
[2017-01-25] MEDS ORDERED: FLUT1DIS28 IH (09:51)
[2017-01-25] MEDS ORDERED: METO-270 PO (09:51)
[2017-01-25] MEDS ORDERED: DOCU100C37 PO (09:51)
[2017-01-25] MEDS ORDERED: CHOL200014 PO (09:51)
[2017-01-25] MEDS ORDERED: LORA10TA7 PO (09:51)
[2017-01-25] MEDS ORDERED: CYCL5TAB PO (09:51)
== END 2017-01-25 09:52 ==
LOC: PREOP 05:34
PROVIDERS: ATTEND Surgery
DX: Z01.818 Encounter for other preprocedural examination (principal); R19.7 Diarrhea, unspecified; K92.1 Melena; K21.9 Gastro-esophageal reflux disease without esophagitis; R10.13 Epigastric pain; R11.0 Nausea

== ENCOUNTER 2017-01-30 09:01 | Day surgery (SDC) | payer MEDICARE, OTHER ==
[~2017-01-30] VITALS: Ht 154.9 cm; Wt 89.4 kg
[~2017-01-30 09:01] MED LIST changes: +ASPI-586 PO; +CHOL200014 PO; +CYCL5TAB PO; +DOCU100C37 PO; +FLUT1DIS28 IH; +METO-270 PO; +PANT40TA3 PO; +ROFL500T4 PO; +TIOT18CA2 IH
[2017-01-30] MEDS ORDERED: FLUMAZENIL (ROMAZICON) 0.1 MG/ML 5 ML VIAL INJ ONE (09:02)
[2017-01-30] MEDS ORDERED: NALOXONE 0.4 MG/ML 1 ML (NARCAN) VIAL IV ONE ×2 (09:02→12:45)
[2017-01-30] MEDS ORDERED: ATROPINE INJ 0.4 MG/ML SDV IV ONE (09:02)
--- OUTSIDE RECORDS SUMMARY | 2017-01-30 09:05 | XMS REPORT ---
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 Active 24108365184367988 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 30274961 Problem COPD (chronic obstructive pulmonary disease) J44.9 Active 97409393 Problem Hyperlipidemia E78.5 Active 94874455 Problem Coronary artery disease involving [place] coronary artery of [place] heart without angina pectoris I25.10 Active 3647317991141 Problem Chronic prescription opiate use Z79.899 Active 770069768 Problem Essential hypertension I10 Active 43414328 Problem Osteopenia M85.80 Active 942053513 ALLERGIES Unknown Allergies SOCIAL HISTORY No smoking Hx information available PLAN OF CARE VITAL SIGNS MEDICATIONS Medication Instructions Dosage Frequency Start Date End Date Duration Status Hydrocodone-Acetaminophen 7.5-325 MG Orally every 6 hrs 1 Tablet as needed 6h 25 Jun, 2014 Active RESULTS No Results PROCEDURES No Known procedures IMMUNIZATIONS No Known Immunizations
--- OUTSIDE RECORDS SUMMARY | 2017-01-30 09:05 | XMS REPORT | Clinical Summary ---
Author Author [facility] Organization [facility] Address Unknown Phone Unavailable Care Team Providers Care Cage Manager Name Role Phone PCP Unavailable Source Comments Some departments are not documenting in the electronic medical record. If you do not see the information that you expected, contact Release of Information in the Health Information Management department at [phone] for further assistance in locating additional records.[facility] Allergies Not on File Current Medications Not on file Active Problems Not on file Social History Tobacco Use Types Packs/Day Years Used Date Never Assessed Sex Assigned at Date Recorded Not on file Last Filed Vital Signs Not on file Plan of Treatment Health Maintenance Due Date Last Done Comments HEPATITIS C SCREENING 1945 PHYSICAL (COMPREHENSIVE) 1953 EXAM PERTUSSIS VACCINE 1957 TETANUS VACCINE 1963 BREAST CANCER SCREENING 1986 COLORECTAL CANCER 01/22/1996 SCREENING SHINGLES VACCINE 2006 OSTEOPOROSIS SCREENING 2011 PREVNAR/PNEUMOVAX (#1) 2011 INFLUENZA VACCINE 11/08/2016 Results Not on filefrom Last 3 Months
--- OUTSIDE RECORDS SUMMARY | 2017-01-30 09:05 | XMS REPORT ---
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 Active 40411265371600940 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 91313265 Problem COPD (chronic obstructive pulmonary disease) J44.9 Active 39368412 Problem Hyperlipidemia E78.5 Active 02645697 Problem Coronary artery disease involving [place] coronary artery of [place] heart without angina pectoris I25.10 Active 4648299005525 Problem Chronic prescription opiate use Z79.899 Active 204535681 Problem Essential hypertension I10 Active 60318265 Problem Osteopenia M85.80 Active 439896738 ALLERGIES No Information SOCIAL HISTORY Never Assessed PLAN OF CARE VITAL SIGNS MEDICATIONS Medication Instructions Dosage Frequency Start Date End Date Duration Status Spiriva HandiHaler 18MCG INHALE THE CONTENTS OF 1 CAPSULE DAILY 90 Active Toprol XL 25MG TAKE 1 TABLET DAILY Active Loratadine 10MG TAKE 1 TABLET DAILY Active Tylenol 325 mg 3 Tablet by Oral route every 4 hours PRN Jun, Active Aspirin 81 mg 1 tablet by Oral route 1 time per day Jun, Active Metoprolol Succinate ER 25 MG Orally Once a day 1 tablet 24h Active Advair Diskus 100/50 USE 1 INHALATION TWICE A DAY 90 Active Daliresp 500MCG TAKE 1 TABLET DAILY 90 Active Protonix 40 mg take 1 tablet (40 mg) by oral route once daily Sep, Active Colace 100 mg 1 Tablet by Oral route 1 time per day Apr, Active Vitamin D 1000 UNIT Orally Once a day 1 tablet 24h Active Hydrocodone-Acetaminophen 7.5-325 MG Orally every 6 hrs 1 Tablet as needed 6h Jun, Active RESULTS No Results PROCEDURES No Known procedures IMMUNIZATIONS No Known Immunizations MEDICAL (GENERAL) HISTORY Type Description Date Medical History CT revealed compression fracture at L1. Medical History chronic obstructive pulmonary disease (COPD) Medical History Right breast lump, lumpectomy was performed in 1975. Medical History hypertension Medical History renal failure Medical History hyperlipidemia Medical History obesity Medical History coronary artery disease Medical History Carotid stenosis Surgical History Bilateral cataract removal 01/2014 Surgical History cholecystectomy 08/1993 Surgical History hernia repair 09/1993 Surgical History hysterectomy 02/1995 Surgical History tonsillectomy 1950 Surgical History lumpectomy, right breast 1975 Surgical History carotid endarterectomy 09/2012 Surgical History EGD Surgical History Left foot heel spur removal 1995 Surgical History kyphoplasty 08/26/2014 Surgical History CABG 03/10/2011 Hospitalization History Multiple hospitalizations for cardiac problems and COPD exacerbations.
--- OUTSIDE RECORDS SUMMARY | 2017-01-30 09:05 | XMS REPORT ---
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 94219026462098292 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
--- OUTSIDE RECORDS SUMMARY | 2017-01-30 09:06 | XMS REPORT ---
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
--- OUTSIDE RECORDS SUMMARY | 2017-01-30 09:06 | XMS REPORT ---
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 Active 69815045670522300 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 53326957 Problem COPD (chronic obstructive pulmonary disease) J44.9 Active 39606501 Problem Hyperlipidemia E78.5 Active 44243449 Problem Coronary artery disease involving [place] coronary artery of [place] heart without angina pectoris I25.10 Active 1659924545538 Problem Chronic prescription opiate use Z79.899 Active 661890726 Problem Essential hypertension I10 Active 17812458 Problem Osteopenia M85.80 Active 787200023 ALLERGIES Unknown Allergies SOCIAL HISTORY No smoking Hx information available PLAN OF CARE VITAL SIGNS MEDICATIONS Medication Instructions Dosage Frequency Start Date End Date Duration Status Hydrocodone-Acetaminophen 7.5-325 MG Orally every 6 hrs 1 Tablet as needed 6h 25 Jun, 2014 Active RESULTS No Results PROCEDURES No Known procedures IMMUNIZATIONS No Known Immunizations
[2017-01-30] MEDS ORDERED: NS IV 500 ML 500 ML IV ONE ×2 (09:15→14:15)
[2017-01-30] MEDS ORDERED: NS IV 500 ML 500 ML ONE ×2 (09:16→12:47)
[2017-01-30 09:45] VITALS: BP 142/74
[2017-01-30] MEDS ORDERED: fentaNYL INJECTION 100 MCG/2 ML AMP ONE ×2 (11:24)
[2017-01-30] MEDS ORDERED: MIDAZOLAM 2 MG/2 ML (VERSED) VIAL ONE ×5 (11:24→11:25)
[2017-01-30] MEDS ORDERED: HURRICAINE EXT TUBE (BENZOCAINE) ONE (11:25)
--- NOTE | 2017-01-30 11:35 | History & Physicial ---
History of Present Illness History of Present Illness Reason for visit/HPI to undergo an upper endoscopy regarding epigastric pain and reflux symptoms, along with colonoscopy to investigate chronic diarrhea and hematochezia Date of Admission Date Seen by Provider: Jan 30, 2017 Time Seen by Provider: 11:32 I consulted on this patient on 01/30/17 11:32 Attending Physician Christiane Duran MD Admitting Physician Herb Johnston MD Consult Allergies and Home Medications Allergies Coded Allergies: Sulfa (Sulfonamide Antibiotics) (Verified Allergy, Intermediate, HIVES, ) sulfamethoxazole (Unverified Allergy, Unknown, 02/09/14) trimethoprim (Unverified Allergy, Unknown, 02/09/14) yellow dye (Unverified Allergy, Unknown, 02/09/14) Home Medications Aspirin 81 Mg Tablet.dr, 81 MG PO DAILY, (Reported) Cholecalciferol (Vitamin D3) 2,000 Unit Tablet, 2,000 UNIT PO DAILY, (Reported) Cyclobenzaprine HCl 5 Mg Tablet, 5 MG PO TID PRN for MUSCLE SPASMS, (Reported) Docusate Sodium 100 Mg Capsule, 100 MG PO BID PRN for CONSTIPATION-1ST LINE, ( Reported) Fluticasone/Salmeterol 1 Each Blst.w.dev, 1 EACH IH BID, (Reported) Hydrocodone/Acetaminophen 1 Each Tablet, 1-2 EACH PO Q4H PRN for PAIN, (Reported ) Loratadine 10 Mg Tablet, 10 MG PO DAILY, (Reported) Metoprolol Succinate 25 Mg Tab.er.24h, 25 MG PO DAILY, (Reported) Pantoprazole Sodium 40 Mg Tablet.dr, 40 MG PO DAILY, (Reported) Roflumilast 500 Mcg Tablet, 500 MCG PO DAILY, (Reported) Tiotropium [place] 1 Inh Aerp, 1 CAP IH HS, (Reported) Past Wmrvvbs-Hugztf-Oledxr Hx Patient Social History Marrital Status: Employed/Student: retired Alcohol Use: Denies Use Recreational Drug Use: No Smoking Status: Never a Smoker Recent Foreign Travel: No Contact w/other who traveled: No Recent Hopitalizations: No Recent Infectious Disease Expo: No Immunizations Up To Date Tetanus Booster (TDap): Unknown Pediatric: No Date of Pneumonia Vaccine: Jun 08, 2010 Date of Influenza Vaccine: Dec 29, 2016 Seasonal Allergies Seasonal Allergies: Yes Surgeries Yes (CEA, CATARACTS, LEFT FOOT HEEL SPUR) Adenoidectomy, Breast, Cardiac, CABG, Eye Surgery, Gallbladder, Hysterectomy, Tonsillectomy Respiratory Yes (COPD) Currently Using CPAP: No Currently Using BIPAP: No Cardiovascular Yes (CHF) Coronary Artery Disease, Hypertension Neurological No Reproductive System Hx Reproductive Disorders: No Sexually Transmitted Disease: No HIV/AIDS: No Female Reproductive Disorders: Denies 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, Menopausal Genitourinary Renal Failure Gastrointestinal Yes (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) Gastroesophageal Reflux Musculoskeletal Yes Back Injury, Chronic Back Pain Endocrine History of Endocrine Disorders: No HEENT HEENT Disorders: Cataract Loss of Vision: Denies Hearing Impairment: Denies Cancer No Psychosocial History of Psychiatric Problem: No Integumentary History of Skin or Integumenta: No Blood Transfusions History of Blood Disorders: No Adverse Reaction to a Blood Tr: No Family Medical History Family Hx: Family history: Cardiovascular disease 19 MOTHER G8 BROTHER Family history: Diabetes mellitus 19 MOTHER Family history: Gastrointestinal disease 19 FATHER Family history: Hypertension 19 MOTHER G8 BROTHER Myocardial infarction 19 MOTHER Constitutional: malaise EENTM: no symptoms reported Respiratory: cough Cardiovascular: no symptoms reported Gastrointestinal: abdominal pain (RUQ), diarrhea, other Genitourinary: no symptoms reported Musculoskeletal: no symptoms reported Skin: no symptoms reported Psychiatric/Neurological: No Symptoms Reported Physical Exam Vital Signs Vital Sign - Last 12Hours 01/30/17 09:45 Temp 97.5 Pulse 79 Resp 20 B/P (MAP) 142/74 Pulse Ox 94 O2 Delivery Room Air Capillary Refill : General Appearance: No Apparent Distress HEENT: TMs Normal Neck: Normal Inspection Gastrointestinal: Non Tender, Soft Rectal: Deferred Neurologic/Psychiatric: Alert, Oriented x3 Assessment/Plan Assessment and Plan lady with epigastric pain. Coronary artery disease, stable. Chronic diarrhea and hematochezia. Poor upper endoscopy with colonoscopy. Problems: CHRISTIANE DURAN MD Jan 30, 2017 11:35 am
--- NOTE | 2017-01-30 11:36 | Conscious Sedation/ASA ---
Conscious Sedation Pre-Proced Time Reviewed: 11:36 ASA Class: 2, 3 Airway Mallampati Classification: ([place] appropriate class) I. II. III, IV Lungs Heart ASA score ASA 1: a normal healthy patient ASA 2: a patient with a mild systemic disease (mid diabetes, controlled hypertension, obesity ASA 3: a patient with a severe systemic disease that limits activity (angina , COPD, prior Myocardial infarction) ASA 4: a patient with an incapacitating disease that is a constant threat to life (CHF, renal failure) ASA 5: a moribund patient not expected to survive 24 hrs. (ruptured aneurysm) ASA 6: a declared brain patient whose organs are being harvested. For emergent operations, add the letter E after the classification Grade 2 Sedation Plan: Discussed options with patient/fam Note The patient is an appropriate candidate to undergo the planned procedure, sedation, and anesthesia. The patient immediately re-assessed prior to indication. CHRISTIANE PORTILLO MD Jan 30, 2017 11:36 am
[2017-01-30] MEDS: MIDAZOLAM 2 MG/2 ML (VERSED) VIAL IVP PRN ×5 (11:48→12:04)
[2017-01-30] MEDS: fentaNYL INJECTION 100 MCG/2 ML AMP IVP PRN ×4 (11:49→12:05)
[2017-01-30] MEDS ORDERED: ALBUTEROL INHALER HFA (VENTOLIN HFA) 8 GM IH ONE (12:06)
[2017-01-30] MEDS: FLUMAZENIL (ROMAZICON) 0.1 MG/ML 5 ML VIAL IV PRN ×2 (12:11→12:12)
--- NOTE | 2017-01-30 12:29 | Endo Procedure Record ---
Endo Procedure Report Date of Procedure Jan 30, 2017 Surgeon (s) CHRISTIANE PORTILLO MD Post Procedure/Op Diagnosis EGD: Distal gastritis. Short hiatal hernia Colonoscopy: Internal hemorrhoids. Sigmoid diverticulosis Procedure Performed EGD with antral biopsy Colonoscopy to cecum Description of Procedure Anesthesia Type: Conscious Sedation Specimen(s) collected/removed antral mucosa for H. pylori Description of the Procedure Indication for procedures: This lady came in for an upper endoscopy to evaluate epigastric pain along with symptoms of reflux disease and colonoscopy to investigate chronic diarrhea and intermittent rectal bleeding. Informed consent was obtained after reviewing the procedures in detail. Description of the procedures: EGD: She was placed in left lateral rectus position and her vital signs were monitored. Conscious sedation was achieved using Versed and fentanyl. The flexible gastroscope was introduced down the esophagus, past the stomach, into the proximal duodenum Findings Esophagus: A short hiatal hernia without inflammation. Stomach: Distal gastritis. Biopsy for H. pylori was obtained. Duodenum normal She tolerated the procedure well and was turned around in preparation for colonoscopy. Impression: Epigastric pain.mild distal gastritis. Helicobacter status pending. Colonoscopy: Examination of the perianal area revealed skin tags and a minimal degree of external hemorrhoids. Digital examination was otherwise unremarkable. The colonoscope was then introduced into the rectum and advanced to the cecum. It was then withdrawn slowly and the mucosa examined in a systematic fashion. Findings: Internal hemorrhoids, the possible source of her bleeding Very few sigmoid diverticula. At the end colonoscopy, she became more obtunded and her oxygen saturation decreased. Therefore, we called the REPAIRER VENEER SHEET on-duty, who secured airway by placing a laryngeal mask airway. With a few minutes of assisted ventilation, her oxygen saturation and level of consciousness improved. She was then extubated with quaker of her oxygen saturation and vital signs to satisfactory levels. Impression rectal bleeding due to hemorrhoids. Will treat conservatively. Copies To: SAUD VILLALOBOS MD, XAVIER M MD Jan 30, 2017 12:29 pm
--- NOTE | 2017-01-30 12:31 | Discharge Inst-Simple/Standard ---
Discharge Inst-Standard Discharge Medications New, Converted or Re-Newed RX: Other Patient Instructions/Follow Up Plan of Care/Instructions/FU: follow-up with her primary Activity as Tolerated: Yes Discharge Diet: No Restrictions CHRISTIANE PORTILLO MD Jan 30, 2017 12:31 pm
[2017-01-30 12:40] VITALS: BP 144/76
[2017-01-30] MEDS ORDERED: ONDANSETRON 4 MG/2 ML (SDV) Z0FRAN ONE ×2 (12:47→13:42)
[2017-01-30 13:10] VITALS: BP 123/59
[2017-01-30] MEDS ORDERED: ONDANSETRON 4 MG/2 ML (SDV) Z0FRAN IVP ONE (13:30)
[2017-01-30] MEDS ORDERED: ONDANSETRON 4 MG/5 ML ORAL SOLN (ZOFRAN) 5 ML PO ONE (13:45)
--- NOTE | 2017-01-30 15:25 | Anesthesia-Procedure Note ---
Procedure Start/Stop Time Date of Procedure: Jan 30, 2017 Start Time: 12:05 Stop Time: 12:20 Procedures/Interventions Procedures Called emergently to endo lab for near patient arrest. Upon arrival, patient was apneic with oxygen saturations 45-50%. Agonal respirations present and EKG showed sinus radha of 50. Immediately took over mask ventilations with 100% O2 but after 30-60 seconds, patient was not improving. Reversal of midazolam and fentanyl had been given by nursing. At this point, I intubated patient with #4 Mac blade. Grade 1 view obtained and tube was passed with ease. Ventilations were given and O2 sats improved into the 90s. End tidal CO2 was noted to be mid 80s. Once spontaneous respirations returned, patient was assisted. Vital signs improved and she was following commands. Patient was extubated and in good condition. Care was returned to nursing staff. Please see nursing record for vital signs. RAJAN MARSH CRNA Jan 30, 2017 15:25
[2017-01-30 16:05] VITALS: BP 123/59
== END 2017-01-30 16:05 | disposition home or self-care (01) ==
LOC: ENDO 09:01
PROVIDERS: ATTEND Surgery
DX: K29.70 Gastritis, unspecified, without bleeding (principal); K64.8 Other hemorrhoids; K57.30 Diverticulosis of large intestine without perforation or abscess without bleeding; J44.9 Chronic obstructive pulmonary disease, unspecified; I25.10 Atherosclerotic heart disease of native coronary artery without angina pectoris; I10 Essential (primary) hypertension; I50.9 Heart failure, unspecified; Z95.1 Presence of aortocoronary bypass graft

== ENCOUNTER → 2017-05-26 | Outpatient (CLI) | payer MEDICARE, OTHER ==
[~2017-05-26] MED LIST changes: +ACHD5005 PO; +HYDR-34 PO; -HYDR-3812 PO; -METO-270 PO; +METO-387 PO
--- NOTE | 2017-05-26 13:28 | Diagnostic Imaging Report ---
PROCEDURE: CT head without contrast. TECHNIQUE: Multiple contiguous axial images were obtained through the brain without the use of intravenous contrast. INDICATION: Fall one week ago, complaining of headache and dizziness. COMPARISON: No prior studies are available for comparison. FINDINGS: The ventricles and sulci are within normal limits. There is [id number] periventricular hypodensity noted consistent with chronic microvascular ischemia. No sulcal effacement is identified. There is no midline shift. No acute intra-axial or extra-axial hemorrhage is detected. Cisterns are patent. There is a mucus retention cyst or polyp in the left maxillary sinus. IMPRESSION: Chronic changes. No acute intracranial process is detected. Dictated by: Dictated on workstation # [id number]
== END ==
LOC: RAD 12:59
PROVIDERS: ATTEND Family Medicine
DX: S09.90XA Unspecified injury of head, initial encounter (principal); W19.XXXA Unspecified fall, initial encounter
CPT/HCPCS: 70450

== ENCOUNTER → 2017-09-19 | Outpatient (CLI) | payer MEDICARE, OTHER ==
--- NOTE | 2017-09-19 13:24 | Diagnostic Imaging Report ---
INDICATION: Report of abdominal aortic aneurysm. TECHNIQUE: Multiple real-time grayscale sonographic images were obtained of the abdominal aorta. CORRELATION STUDY: None. FINDINGS: The abdominal aorta is largely obscured by overlying bowel gas. Only the mid aspect is able to be visualized demonstrating dimension of 1.6 cm. IMPRESSION: 1. This is a fairly limited, essentially nondiagnostic abdominal ultrasound evaluation of the aorta. The visualized portions of the mid aspect are nonaneurysmal; however, majority of the abdominal aorta cannot be visualized. Dictated by: Dictated on workstation # [id number]
== END ==
LOC: RAD 08:03
PROVIDERS: ATTEND Internal Medicine Cardiovascular Disease
DX: I71.4 Abdominal aortic aneurysm, without rupture (principal)
CPT/HCPCS: 76775

== ENCOUNTER → 2017-10-06 | Outpatient (CLI) | payer MEDICARE, OTHER | LOC: CARD 10:29 | PROVIDERS: ATTEND Internal Medicine Cardiovascular Disease | DX: I25.10 Atherosclerotic heart disease of native coronary artery without angina pectoris (principal); I77.89 Other specified disorders of arteries and arterioles; J44.9 Chronic obstructive pulmonary disease, unspecified; R60.9 Edema, unspecified; E66.8 Other obesity; N18.9 Chronic kidney disease, unspecified; R09.02 Hypoxemia | CPT/HCPCS: 93306 ==

== ENCOUNTER → 2017-11-08 | Outpatient (CLI) | payer MEDICARE, OTHER ==
--- NOTE | 2017-11-08 11:24 | Diagnostic Imaging Report ---
PROCEDURE: CT abdomen and pelvis without contrast. TECHNIQUE: Multiple contiguous axial images were obtained through the abdomen and pelvis without the use of intravenous contrast. INDICATION: History of left internal iliac aneurysm. Followup. COMPARISON: 09/29/2009 FINDINGS: Included portions of the lung bases are clear. Small hiatal hernia is noted. CT ABDOMEN: Normal appendix is identified. Small bowel loops are nondistended. There is colonic diverticulosis, but no CT evidence of acute diverticulitis. Evaluation of solid organs demonstrates hypodense cysts within the superior pole of the right kidney and hypodense probable pelvic cysts within the inferior pole of the left kidney. No renal or ureteral calculi are seen on either side. Additionally, there is no hydronephrosis or other evidence of obstruction. The spleen, pancreas, liver, and adrenal glands have an unremarkable noncontrast CT appearance. There is no loculated fluid collection, free fluid, nor free air within the abdomen. No abnormal mesenteric or retroperitoneal adenopathy is seen. Note is made of slight stranding of the central mesenteric fat. Note is also made of moderate calcified aortic and arterial atherosclerosis. Right-sided fat-containing Spigelian hernia is identified. [place] measures 2.8 cm in diameter. Bony structures show no acute abnormalities. CT PELVIS: There is focal aneurysmal dilatation involving the left internal iliac artery where it measures 1.6 cm in diameter. This is minimally increased compared to 1.4 cm previously. Urinary bladder is unopacified. No calculi are seen within urinary bladder. There is no loculated fluid collection, free fluid, nor free air within the pelvis. No abnormal adenopathy is identified. Bony structures show interval development of curvilinear sclerosis within the right femoral head consistent with osteonecrosis. IMPRESSION: 1. Minimal increase in size of left internal iliac artery aneurysm. 2. Moderate diffuse calcified aortic and arterial atherosclerosis. 3. 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 4. Minimal stranding of the central mesenteric fat. This is stable compared to prior exam. Findings are also nonspecific, can be seen with mesenteric adenitis/panniculitis. 5. Small hiatal hernia. 6. Colonic diverticulosis, but no CT evidence of acute diverticulitis. Dictated by: Dictated on workstation # [id number]
--- NOTE | 2017-11-08 12:52 | Diagnostic Imaging Report ---
INDICATION: Routine screening. COMPARISON: 09/24/2013 and 01/24/2011. TECHNIQUE: 2D and 3D bilateral screening mammography was performed with CAD. FINDINGS: Scattered fibroglandular densities are identified bilaterally. Extensive vascular calcifications are again noted bilaterally. The intraparenchymal lymph node in the outer left breast is stable. No spiculated mass or malignant appearing microcalcifications are seen. The axillae are unremarkable. IMPRESSION: No mammographic features suspicious for malignancy are identified. ACR BI-RADS Category 2: Benign findings. Result letter will be mailed to the patient. Note: At least 10% of breast cancer is not imaged by mammography. Dictated by: Dictated on workstation # [id number]
== END ==
LOC: RAD 10:41
PROVIDERS: ATTEND Family Medicine
DX: Z12.31 Encounter for screening mammogram for malignant neoplasm of breast (principal); I72.3 Aneurysm of iliac artery; I70.0 Atherosclerosis of aorta; M87.851 Other osteonecrosis, right femur; K44.9 Diaphragmatic hernia without obstruction or gangrene; K57.30 Diverticulosis of large intestine without perforation or abscess without bleeding
CPT/HCPCS: 74176; 77067

== ENCOUNTER 2017-12-10 00:55 | Emergency (ER) | payer MEDICARE, OTHER ==
[~2017-12-10] VITALS: Ht 154.9 cm; Wt 93.4 kg
[~2017-12-10 00:55] MED LIST changes: -CHOL200014 PO; +CHOL200085 PO
[2017-12-10] MEDS ORDERED: NITROGLYCERIN 0.4 MG SL TABS BTL 25'S SL PRN (01:15)
[2017-12-10] MEDS ORDERED: ASPIRIN 81 MG CHEW (CHILDREN'S ASA) PO ONE (01:15)
[2017-12-10] MEDS: ONDANSETRON 4 MG/2 ML (SDV) Z0FRAN IVP ONE (01:28)
[2017-12-10] MEDS: SCOPOLAMINE 1.5 MG (TRANSDERM-SCOP) PATCH TD ONE (01:28)
[2017-12-10 01:35] LABS: BASOPHILS % (AUTO) 1 % (0-10); EOSINOPHILS # (AUTO) 0.1 10^3/uL (0.0-0.3); EOSINOPHILS % (AUTO) 2 % (0-10); HEMATOCRIT 44 % (35-52); HEMOGLOBIN 14.4 G/DL (11.5-16.0); LYMPHOCYTES # (AUTO) 1.5 X 10^3 (1.0-4.0); LYMPHOCYTES % (AUTO) 22 % (12-44); MEAN CORPUSCULAR HEMOGLOBIN 32 PG (25-34); MEAN CORPUSCULAR HGB CONC 33 G/DL (32-36); MEAN CORPUSCULAR VOLUME 98 FL (80-99); MEAN PLATELET VOLUME 8.9 FL (7.4-10.4); MONOCYTES # (AUTO) 0.6 X 10^3 (0.0-1.0); MONOCYTES % (AUTO) 9 % (0-12); NEUTROPHILS # (AUTO) 4.6 X 10^3 (1.8-7.8); NEUTROPHILS % (AUTO) 68 % (42-75); PLATELET COUNT 226 10^3/uL (130-400); RED CELL DISTRIBUTION WIDTH 13.9 % (10.0-14.5); WHITE BLOOD COUNT 6.8 10^3/uL (4.3-11.0)
[2017-12-10 01:43] LABS: PROTHROMBIN TIME PATIENT 13.4 SEC (12.2-14.7)
[2017-12-10 02:05] LABS: ALANINE AMINOTRANSFERASE 15 U/L (0-55); ALBUMIN 4.1 GM/DL (3.2-4.5); ALKALINE PHOSPHATASE 116 U/L (40-136); AMYLASE 87 U/L (25-125); BILIRUBIN,TOTAL 0.4 MG/DL (0.1-1.0); BUN/CREATININE RATIO 16; CALCIUM 9.7 MG/DL (8.5-10.1); CARBON DIOXIDE 27 MMOL/L (21-32); CHLORIDE 103 MMOL/L (98-107); CREATINE KINASE 9 U/L (29-168); GFR ESTIMATED 40; GLUCOSE 110 MG/DL (70-105); LIPASE 147 U/L (8-78); MAGNESIUM 2.2 MG/DL (1.8-2.4); POTASSIUM 3.9 MMOL/L (3.6-5.0); SODIUM 142 MMOL/L (135-145); TOTAL PROTEIN 7.5 GM/DL (6.4-8.2)
[2017-12-10 02:13] LABS: CREATINE KINASE MB 0.5 NG/ML (<6.6); MYOGLOBIN SERUM 34.6 NG/ML (10.0-92.0)
[2017-12-10 02:30] LABS: BILIRUBIN,URINE NEGATIVE (NEGATIVE); CLARITY,URINE CLEAR; COLOR,URINE YELLOW; GLUCOSE, URINE (UA) NEGATIVE (NEGATIVE); KETONES,URINE NEGATIVE (NEGATIVE); NITRITE,URINE NEGATIVE (NEGATIVE); PH,URINE 7 (5-9); PROTEIN,URINE 1+ (NEGATIVE); UROBILINOGEN,URINE NORMAL (NORMAL)
[2017-12-10 02:36] LABS: LEUKOCYTE ESTERASE ,URINE 2+ (NEGATIVE); RBC,URINE 0-2 /HPF
[2017-12-10 02:37] LABS: BACTERIA,URINE TRACE /HPF
[2017-12-10] MEDS: MECLIZINE 25 MG (ANTIVERT) TAB PO ONE (03:03)
[2017-12-10] MEDS ORDERED: SCOP1PAT11 TD (03:33)
[2017-12-10] MEDS ORDERED: ACHD5005 PO (03:33)
[2017-12-10] MEDS ORDERED: RX-MECLIZINE HCL (ANTIVERT) 25 MG TAB #4 PPK PO STA (03:33)
[2017-12-10] MEDS ORDERED: ONDA4TAB8 PO (03:33)
[2017-12-10] MEDS ORDERED: HYDR50CA PO (03:33)
[2017-12-10] MEDS ORDERED: HYOS0.1283 SL (03:33)
[2017-12-10] MEDS ORDERED: RX-HYOSCYAMINE 0.125 MG SL (LEVSIN) PPK#6 SL STA (03:33)
[2017-12-10] MEDS ORDERED: RX-ONDANSETRON 4 MG ODT (ZOFRAN) PPK #4 PO STA (03:33)
--- NOTE | 2017-12-10 03:34 | ED Abdominal Pain ---
General Chief Complaint: Abdominal/GI Problems Stated Complaint: DIZZY,CP,LEFT ARM PAIN,NAUSEA,ABD PAIN(TUMORS) Nursing Triage Note: ABD PAIN DUE TO TUMORS FOUND PREVIOUSLY. NAUSE AND VOMITING. Sepsis Screen: No Definite Risk Source of Information: Patient History of Present Illness Date Seen by Provider: Dec 10, 2017 Time Seen by Provider: 01:03 Initial Comments PT ARRIVES VIA POV C/O GENERALIZED ABDOMINAL PAIN --STATES PAIN MOVES AROUND, BUT HAS BEEN MOSTLY ON RIGHT SIDE AND IN EPIGASTRIC AREA NOW C/O NAUSEA AND VOMITED X 4 NO DIARRHEA, HAS BEEN CONSTIPATED--HAD A SMALL BM TODAY C/O SWEATS WITH NAUSEA C/O DIZZINESS--SPINNING SENSATION C/O LEFT ARM PAIN OFF AND ON STATES PAIN BEGAN SOMETIME THIS AFTERNOON NOTHING WORSENS OR IMPROVES PAIN STATES SHE HAD CT SCAN 11/08/17 FOR FOLLOW UP FROM A CT SCAN DONE A YEAR AGO AT [facility] STATES '[place]" WHEN SHE HAD A CT SCAN AFTER SHE OVERDOSED ON TYLENOL AND WAS ADMITTED TO [facility] PCP: DR. BANSAL--LAST VISIT 11/17 FOR ROUTINE EXAM AND FOLLOW UP ON CT SCAN. NO ADDITIONAL TESTS OR REFERRAL HAS BEEN MADE AT THIS TIME. Allergies and Home Medications Allergies Coded Allergies: Sulfa (Sulfonamide Antibiotics) (Verified Allergy, Intermediate, HIVES, ) sulfamethoxazole (Unverified Allergy, Unknown, 02/09/14) trimethoprim (Unverified Allergy, Unknown, 02/09/14) yellow dye (Unverified Allergy, Unknown, 02/09/14) Home Medications Aspirin 81 Mg Tablet.dr, 81 MG PO DAILY, (Reported) Cholecalciferol (Vitamin D3) 2,000 Unit Tablet, 2,000 UNIT PO DAILY, (Reported) Cyclobenzaprine HCl 5 Mg Tablet, 5 MG PO TID PRN for MUSCLE SPASMS, (Reported) Docusate Sodium 100 Mg Capsule, 100 MG PO BID PRN for CONSTIPATION-1ST LINE, ( Reported) Fluticasone/Salmeterol 1 Each Blst.w.dev, 1 EACH IH BID, (Reported) Hydrocodone Bit/Acetaminophen 1 Each Tablet, 1-2 EACH PO Q4H PRN for PAIN, ( Reported) Hydrocodone Bit/Acetaminophen 1 Tab Tab, 1 EACH PO Q4H Prescribed by: DRAKE ANTUNEZ on 12/10/17 0333 Hydroxyzine Pamoate 50 Mg Capsule, 50 MG PO Q6H Prescribed by: DRAKE ANTUNEZ on 12/10/17332 Hyoscyamine Sulfate 0.125 Mg Tab.subl, 1-2 TAB SL Q4H Prescribed by: DRAKE ANTUNEZ on 12/10/17332 Loratadine 10 Mg Tablet, 10 MG PO DAILY, (Reported) Metoprolol Succinate 25 Mg Tab.er.24h, 25 MG PO DAILY, (Reported) Ondansetron 4 Mg Tab.rapdis, 4 MG PO Q4H Prescribed by: DRAKE ANTUNEZ on 12/10/17332 Pantoprazole Sodium 40 Mg Tablet.dr, 40 MG PO DAILY, (Reported) Roflumilast 500 Mcg Tablet, 500 MCG PO DAILY, (Reported) Scopolamine 1 Each Patch.td72, 1 EACH TD Q72 HOURS Prescribed by: DRAKE ANTUNEZ on 12/10/17332 Tiotropium [place] 1 Inh Aerp, 1 CAP IH HS, (Reported) Patient Home Medication List Home Medication List Reviewed: Yes Review of Systems Review of Systems Constitutional: see HPI, dizziness; No fever Respiratory: No Symptoms Reported; Denies Cough, Denies Shortness of Air Cardiovascular: Lightheadedness; Denies Palpitations, Denies Syncope Gastrointestinal: See HPI, Abdominal Pain, Nausea, Poor Appetite, Poor Fluid Intake, Vomiting Genitourinary: No Symptoms Reported Musculoskeletal: No back pain Skin: no symptoms reported Psychiatric/Neurological: No Symptoms Reported Endocrine: No Symptoms Reported Hematologic/Lymphatic: No Symptoms Reported Past Aknfnea-Taurxc-Qwfoyt Hx Patient Social History Alcohol Use: Denies Use Recreational Drug Use: No Smoking Status: Never a Smoker Recent Foreign Travel: No Contact w/Someone Who Travel: No Recent Infectious Disease Expo: No Recent Hopitalizations: No Physical Abuse: No Sexual Abuse: No Immunizations Up To Date Tetanus Booster (TDap): Unknown PED Vaccines UTD: No Date of Pneumonia Vaccine: Jun 08, 2010 Date of Influenza Vaccine: Dec 29, 2016 Seasonal Allergies Seasonal Allergies: Yes Past Medical History Surgeries: Yes (CEA, CATARACTS, LEFT FOOT HEEL SPUR, KYPHOPLASTY, BILAT KNEE SCOPE,HERNIA REPAIR; BENIGN RIGHT BREAST LUMPECTOMY; HYST/BSO; CARDIAC CATH-- THEN CABG, NO STENTS. 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) Gastroesophageal Reflux Musculoskeletal: Yes Back Injury, Chronic Back Pain Endocrine: No Cataract Loss of Vision: Denies Hearing Impairment: Denies Cancer: No Psychosocial: No Nursing Suicide Risk Score: 0 Integumentary: No Blood Disorders: No Adverse Reaction/Blood Tranf: No Family Medical History Family history: Cardiovascular disease 19 MOTHER G8 BROTHER Family history: Diabetes mellitus 19 MOTHER Family history: Gastrointestinal disease 19 FATHER Family history: Hypertension 19 MOTHER G8 BROTHER Myocardial infarction 19 MOTHER Physical Exam Vital Signs Vital Signs - First Documented 12/10/17 01:01 Temp 97.5 Pulse 82 Resp 36 B/P (MAP) 180/107 (131) Pulse Ox 96 Capillary Refill : Less Than 3 Seconds Height/Weight/BMI Height: 5'1.00" Weight: 206lbs. 0.0oz. 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 tested, no motor/sensory deficits, alert, normal mood/affect, oriented x 3 Skin: normal color, warm/dry Progress/Results/Core Measures Results/Orders Lab Results Laboratory Tests Test 12/10/17 01:25 12/10/17 02:25 Range/Units White Blood Count 6.8 4.3-11.0 10^3/uL Red Blood Count 4.50 4.35-5.85 10^6/uL Hemoglobin 14.4 11.5-16.0 G/DL Hematocrit 44 35-52 % Mean Corpuscular Volume 98 80-99 FL Mean Corpuscular Hemoglobin 32 25-34 PG Mean Corpuscular Hemoglobin Concent 33 32-36 G/DL Red Cell Distribution Width 13.9 10.0-14.5 % Platelet Count 226 130-400 10^3/uL Mean Platelet Volume 8.9 7.4-10.4 FL Neutrophils (%) (Auto) 68 42-75 % Lymphocytes (%) (Auto) 22 12-44 % Monocytes (%) (Auto) 9 0-12 % Eosinophils (%) (Auto) 2 0-10 % Basophils (%) (Auto) 1 0-10 % Neutrophils # (Auto) 4.6 1.8-7.8 X 10^3 Lymphocytes # (Auto) 1.5 1.0-4.0 X 10^3 Monocytes # (Auto) 0.6 0.0-1.0 X 10^3 Eosinophils # (Auto) 0.1 0.0-0.3 10^3/uL Basophils # (Auto) 0.0 0.0-0.1 10^3/uL Prothrombin Time 13.4 12.2-14.7 SEC INR Comment 1.0 0.8-1.4 Activated Partial Thromboplast Time 26 24-35 SEC Sodium Level 142 135-145 MMOL/L Potassium Level 3.9 3.6-5.0 MMOL/L Chloride Level 103 98-107 MMOL/L Carbon Dioxide Level 27 21-32 MMOL/L Anion Gap 12 5-14 MMOL/L Blood Urea Nitrogen 21 H 7-18 MG/DL Creatinine 1.30 0.60-1.30 MG/DL Estimat Glomerular Filtration Rate 40 BUN/Creatinine Ratio 16 Glucose Level 110 H 70-105 MG/DL Calcium Level 9.7 8.5-10.1 MG/DL Corrected Calcium 9.6 8.5-10.1 MG/DL Magnesium Level 2.2 1.8-2.4 MG/DL Total Bilirubin 0.4 0.1-1.0 MG/DL Aspartate Amino Transf (AST/SGOT) 14 5-34 U/L Alanine Aminotransferase (ALT/SGPT) 15 0-55 U/L Alkaline Phosphatase 116 40-136 U/L Total Creatine Kinase 9 L 29-168 U/L Creatine Kinase MB 0.5 <6.6 NG/ML Myoglobin 34.6 10.0-92.0 NG/ML Troponin I < 0.30 <0.30 NG/ML B-Type Natriuretic Peptide 41.0 <100.0 PG/ML Total Protein 7.5 6.4-8.2 GM/DL Albumin 4.1 3.2-4.5 GM/DL Amylase Level 87 25-125 U/L Lipase 147 H 8-78 U/L Urine Color YELLOW Urine Clarity CLEAR Urine pH 7 5-9 [address]rine [address] [place] 1.010 L 1.016-1.022 Urine Protein 1+ H NEGATIVE Urine Glucose (UA) NEGATIVE NEGATIVE Urine Ketones NEGATIVE NEGATIVE Urine Nitrite NEGATIVE NEGATIVE Urine Bilirubin NEGATIVE NEGATIVE Urine Urobilinogen NORMAL NORMAL MG/DL Urine Leukocyte Esterase 2+ H NEGATIVE Urine RBC (Auto) 2+ H NEGATIVE Urine RBC 0-2 /HPF Urine WBC 2-5 /HPF Urine Squamous Epithelial Cells 5-10 /HPF Urine Crystals NONE /LPF Urine Bacteria TRACE /HPF Urine Casts NONE /LPF Urine Mucus SMALL H /LPF Urine Culture Indicated NO My Orders Orders - DRAKE ANTUNEZ DO Cbc With Automated Diff (12/10/17 01:03) Magnesium (12/10/17 01:03) Chest 1 View, Ap/Pa Only (12/10/17 01:03) Ekg Tracing (12/10/17 01:03) Cardiac Profile 1 (12/10/17 01:03) Comprehensive Metabolic Panel (12/10/17 01:03) Myoglobin Serum (12/10/17 01:03) Protime With Inr (12/10/17 01:03) Partial Thromboplastin Time (12/10/17 01:03) O2 (12/10/17 01:03) Monitor-Rhythm Ecg Trace Only (12/10/17 01:03) Aspirin Chewable Tablet (Baby Aspirin Ch (12/10/17 01:15) Nitroglycerin 0.4 Mg Btl 25's (Nitrostat (12/10/17 01:15) Saline Lock/Iv-Start (12/10/17 01:03) Creatine Kinase (12/10/17 01:03) Creatine Kinase Mb (12/10/17 01:03) Lipase (12/10/17 01:03) Amylase (12/10/17 01:03) BNP (12/10/17 01:03) Ondansetron Injection (Zofran Injectio (12/10/17 01:15) Ua Culture If Indicated (12/10/17 01:03) Scopolamine Patch (Transderm-Scop Patch) (12/10/17 01:15) Ct Abdomen/Pelvis Wo (12/10/17 02:09) Meclizine Tablet (Antivert Tablet) (12/10/17 03:00) Rx-Hyoscyamine Tab (Rx-Levsin Sl) (12/10/17 03:33) Rx-Meclizine Hcl (Rx-Antivert) (12/10/17 03:33) Rx-Hydrocodone/Apap 5-325 Mg (Rx-Vicodin (12/10/17 03:45) Rx-Ondansetron Po (Rx-Zofran Po) (12/10/17 03:33) Medications Given in ED Current Medications Medications Dose Ordered Sig/Patty Route Start Time Stop Time Status Last Admin Dose Admin Meclizine HCl 50 mg ONCE ONCE PO 12/10/17 03:00 12/10/17 03:01 DC 12/10/17 03:03 50 MG Ondansetron HCl 4 mg ONCE ONCE IVP 12/10/17 01:15 12/10/17 01:16 DC 12/10/17 01:28 4 MG Scopolamine 1.5 mg ONCE ONCE TD 12/10/17 01:15 12/10/17 01:16 DC 12/10/17 01:28 1.5 MG Vital Signs/I&O 12/10/17 12/10/17 01:01 03:38 Temp 97.5 98.0 Pulse 82 70 Resp 36 18 B/P (MAP) 180/107 (131) 138/112 Pulse Ox 96 96 Blood Pressure Mean: 131 Progress Progress Note : Progress Note ALL SYMPTOMS RESOLVED AT DISMISSAL Initial ECG Impression Date: Dec 09, 2017 Initial ECG Impression Time: 01:11 Initial ECG Rate: 76 Initial ECG Rhythm: Normal Sinus Initial ECG Impression: Normal Diagnostic Imaging Comments CT CHEST/ABDOMEN/PELVIS--MILD STRANDING OF MESENTERIC FAT BELOW PANCREAS- POSSIBLE PANCREATITIS, IF CONSISTENT WITH LAB. OTHERWISE MAY BE MILD PERITONITIS OR MESENTERIC ADENITIS. --PER [facility] VIA FAX @ [phone] ACUTE ABDOMEN XRAYS--NO ACUTE PROCESS, PENDING RADIOLOGIST REVIEW Reviewed: Reviewed by Hi Departure Communication (Admissions) [id number]--SPOKE WITH DR. JANSEN, WILL FOLLOW UP IN CLINIC THIS WEEK Impression Primary Impression: MILD PANCREATITIS Additional Impression: Vertigo Disposition: 01 HOME, SELF-CARE Condition: Improved Departure-Patient Inst. Referrals: SHOLA BANSAL MD (PCP/Family) Primary Care Physician Patient Instructions: Pancreatitis (DC), Vertigo (a Type of Dizziness) (DC), Vestibular Exercises Add. Discharge Instructions: LEAVE SCOPOLAMINE PATCH IN PLACE FOR 3 DAYS SLOW POSITION CHANGES CLEAR LIQUIDS--WATER, BROTH, JELLO, GATORADE--NO FOOD UNTIL YOU ARE RECHECKED TAKE YOUR REGULAR MEDICATIONS PRESCRIBED FOLLOW UP WITH [facility] THIS WEEK FOR FURTHER CARE RETURN TO ER IF WORSE All discharge instructions reviewed with patient and/or family. Voiced understanding. Scripts Hydrocodone Bit/Acetaminophen (Hydrocodone/Acetaminophen 5/325mg Tablet) 1 Tab Tab 1 EACH PO Q4H, #15 TAB Prov: BELINDA ANTUNEZA K DO 12/10/17 Ondansetron (Zofran Odt) 4 Mg Tab.rapdis 4 MG PO Q4H for Nausea/Vomiting, #10 TAB Prov: HARMONYDRAKE K DO 12/10/17 Hydroxyzine Pamoate (Vistaril) 50 Mg Capsule 50 MG PO Q6H for Dizziness, #20 CAP Prov: HARMONYDRAKE K DO 12/10/17 Scopolamine (Transderm-Scop) 1 Each Patch.td72 1 EACH TD Q72 HOURS for Dizziness, #3 PATCH Prov: HARMONYBELINDAA K DO 12/10/17 Hyoscyamine Sulfate (Levsin-Sl) 0.125 Mg Tab.subl 1-2 TAB SL Q4H for Abdominal Pain, #15 TAB Prov: HARMONYBELINDAA K DO 12/10/17 HARMONYBELINDAA K DO Dec 10, 2017 03:34
[2017-12-10 03:38] VITALS: BP 138/112
[2017-12-10] MEDS ORDERED: RX-HYDROCODONE/APAP 5/325 MG #4 TAB PK PO PRN (03:45)
--- NOTE | 2017-12-10 08:47 | Diagnostic Imaging Report ---
PROCEDURE: CT abdomen and pelvis without contrast. TECHNIQUE: Multiple contiguous axial images were obtained through the abdomen and pelvis without the use of intravenous contrast. INDICATION: Abdominal pain. FINDINGS: The heart size is normal. The lung bases are clear. The liver is normal in size without focal lesions. The gallbladder surgically absent. There is no biliary ductal dilatation. Spleen is normal. The pancreas and adrenal glands are unremarkable. There is some atrophy of both kidneys. There is mild atherosclerotic calcification of the aorta which is nonaneurysmal. Bowel gas pattern is nonspecific. There is no free air. There is no ascites. There are no focal inflammatory changes. Bladder is normal. There has been an L1 kyphoplasty. Osseous structures are otherwise unremarkable. IMPRESSION: No acute abnormality in the abdomen or pelvis. Previous L1 kyphoplasty Mild atrophy of the kidneys Dictated by: Dictated on workstation # [id number]
--- NOTE | 2017-12-10 08:50 | Diagnostic Imaging Report ---
INDICATION: Chest pain. TECHNIQUE: Single view chest 1:45 AM. CORRELATION STUDY: 01/21/2016 FINDINGS: Poststernotomy changes. Heart size enlarged. Vasculature overall within normal limits. Minimal scarring or atelectasis left mid lung field. No infiltrate. IMPRESSION: 1. Poststernotomy changes. Cardiac enlargement without failure. Dictated by: Dictated on workstation # [id number]
== END 2017-12-10 03:38 | disposition home or self-care (01) ==
LOC: EDUNIT# 00:55 → ER 00:58
DX: K85.90 Acute pancreatitis without necrosis or infection, unspecified (principal); R42 Dizziness and giddiness; R10.84 Generalized abdominal pain; J44.9 Chronic obstructive pulmonary disease, unspecified; I11.0 Hypertensive heart disease with heart failure; I50.9 Heart failure, unspecified; I25.10 Atherosclerotic heart disease of native coronary artery without angina pectoris; K21.9 Gastro-esophageal reflux disease without esophagitis; Z82.49 Family history of ischemic heart disease and other diseases of the circulatory system; Z88.2 Allergy status to sulfonamides; Z88.8 Allergy status to other drugs, medicaments and biological substances; Z98.890 Other specified postprocedural states; Z87.19 Personal history of other diseases of the digestive system; Z90.11 Acquired absence of right breast and nipple; Z90.710 Acquired absence of both cervix and uterus; Z95.1 Presence of aortocoronary bypass graft; Z90.89 Acquired absence of other organs
CPT/HCPCS: 36415; 71045; 74176; 80053; 81000; 82150; 82550; 82553; 83690; 83735; 83874; 83880; 84484; 85025; 85610; 85730; 93005; 93041; 96374

== ENCOUNTER → 2018-09-14 | Outpatient (CLI) | payer MEDICARE, OTHER ==
[~2018-09-14] MED LIST changes: +CHOL200014 PO; -CHOL200085 PO; +HYDR50CA PO; +HYOS0.1283 SL; +ONDA4TAB8 PO; +ROFL500T PO; -ROFL500T4 PO; +SCOP1PAT11 TD
--- NOTE | 2018-09-14 17:21 | Diagnostic Imaging Report ---
PROCEDURE: US renal, bilateral. TECHNIQUE: Multiple real-time grayscale images were obtained over the kidneys in various projections, bilaterally. INDICATION: Chronic kidney disease, stage III. FINDINGS: Right kidney is small measuring 7.7 x 4.0 x 3.3 cm. Left kidney measures 9.9 x 4.5 x 4.8 cm. There is some cortical thinning, bilaterally, particularly on the right. No calculi are seen. There is no hydronephrosis. There appear to be cysts in each kidney. Right kidney cyst measures 2.8 x 1.1 x 1.7 cm and the left kidney measures 1.8 x 1.2 x 1.5 cm. Bladder is decompressed. IMPRESSION: Cortical thinning, bilaterally, and bilateral renal cysts. No calculi or hydronephrosis is detected. Dictated by: Dictated on workstation # [id number]
== END ==
LOC: RAD 11:08
PROVIDERS: ATTEND Internal Medicine Nephrology
DX: N18.3 Chronic kidney disease, stage 3 (moderate) (principal); N28.1 Cyst of kidney, acquired
CPT/HCPCS: 76770

== ENCOUNTER → 2018-10-02 | Outpatient (CLI) | payer MEDICARE, OTHER ==
[2018-10-02 09:08] LABS: ALBUMIN 3.9 GM/DL (3.2-4.5); BILIRUBIN,TOTAL 0.3 MG/DL (0.1-1.0); CALCIUM 9.3 MG/DL (8.5-10.1); CREATININE SERUM 2.19 MG/DL (0.60-1.30); POTASSIUM 4.7 MMOL/L (3.6-5.0); TOTAL PROTEIN 7.2 GM/DL (6.4-8.2)
== END ==
LOC: CARD 08:00
PROVIDERS: ATTEND Internal Medicine Cardiovascular Disease
DX: I25.10 Atherosclerotic heart disease of native coronary artery without angina pectoris (principal); I77.89 Other specified disorders of arteries and arterioles; E78.2 Mixed hyperlipidemia; R07.9 Chest pain, unspecified
CPT/HCPCS: 36415; 80053; 80061; 93306

== ENCOUNTER → 2018-11-09 | Outpatient (CLI) | payer MEDICARE, OTHER ==
[~2018-11-09] MED LIST changes: +CEPH500T PO; +TRAM50TA2 PO
--- NOTE | 2018-11-09 10:00 | Diagnostic Imaging Report ---
INDICATION: CAROTID ARTERIAL DISEASE. DYSPNEA. MITRAL REGURGITATION. TECHNIQUE: Two views of the chest COMPARISON: 12/10/2017. FINDINGS: The lung volumes are normal. No focal consolidation is seen. Bibasilar atelectasis is present. No large pleural effusion or pneumothorax is seen. Stable enlarged cardiac silhouette with post CABG changes noted. No acute osseous abnormality is seen. IMPRESSION: Bibasilar opacities favored to represent atelectasis. No focal consolidations. Stable cardiomegaly. Dictated by: Dictated on workstation # [id number]
== END ==
LOC: RAD 09:07
PROVIDERS: ATTEND Physician Assistant
DX: I25.10 Atherosclerotic heart disease of native coronary artery without angina pectoris (principal); I65.29 Occlusion and stenosis of unspecified carotid artery; I34.0 Nonrheumatic mitral (valve) insufficiency; E78.2 Mixed hyperlipidemia; R91.8 Other nonspecific abnormal finding of lung field
CPT/HCPCS: 71046

== ENCOUNTER 2018-11-13 09:09 | Emergency (ER) | payer MEDICARE, OTHER ==
[~2018-11-13] VITALS: Ht 157.5 cm; Wt 95.3 kg
[~2018-11-13 09:09] MED LIST changes: -CEPH500T PO; -TRAM50TA2 PO
--- OUTSIDE RECORDS SUMMARY | 2018-11-13 09:14 | XMS REPORT ---
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9 Active 631019984 Problem Lumbar compression fracture, sequela S32.000S Active 702125349 Problem Chronic prescription opiate use Z79.899 Active 053356911 Problem Vertigo R42 Active 374379878 Problem CKD stage G3b/A1, GFR 30-44 and albumin creatinine ratio <30 mg/g N18.3 Active 265175476 Problem Other chronic pain G89.29 Active 25390572 Problem Osteopenia M85.80 Active 545653696 Problem COPD (chronic obstructive pulmonary disease) J44.9 Active 41295851 Problem Chronic gastritis without bleeding, unspecified gastritis type K29.50 Active 6179213 Problem Avascular necrosis of bone of right hip M87.051 Active 031702001 Problem Nocturnal hypoxia G47.34 Active 881105350 ALLERGIES No Information ENCOUNTERS Encounter Location Date Diagnosis [facility] [place] [address] [facility] [id number] [address] Jun, [facility] [place] [id number] [place] [address] Dec, Vertigo R42 ; Acute pancreatitis without infection or necrosis, unspecified pancreatitis type K85.90 ; Essential hypertension I10 ; CKD stage G3b/A1, GFR 30-44 and albumin creatinine ratio <30 mg/g N18.3 and BMI 40.0-44.9, adult Z68.41 [place] [id number] [place] [address] Dec, [place] [address] [address] Dec, [place] [id number] [place] [address] Nov, 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 ; Wheezing R06.2 ; Mesenteric panniculitis K65.4 and BMI 40.0-44.9, adult Z68.41 [place] [id number] [place] [address] Sep, 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 [place] [id number] [place] [address] Sep, 2018 COPD (chronic obstructive pulmonary disease) J44.9 ; BMI 40.0-44.9, adult Z68.41 ; 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 ; Chronic gastritis without bleeding, unspecified gastritis type K29.50 and Breast cancer screening Z12.31 [place] [id number] [place] [address] August, [place] [id number] [place] [address] Jun, [place] [id number] [place] [address] May, Essential hypertension I10 ; Hyperlipidemia E78.5 ; Injury of head, initial encounter S09.90XA ; CKD stage G3b/A1, GFR 30-44 and albumin creatinine ratio <30 mg/g N18.3 ; Generalized edema R60.1 ; COPD (chronic obstructive pulmonary disease) J44.9 ; Tubular adenoma D36.9 ; Chronic gastritis without bleeding, unspecified gastritis type K29.50 ; Vertigo R42 ; Pain in right knee M25.561 ; Pain in left knee M25.562 ; Other chronic pain G89.29 ; Avascular necrosis of bone of right hip M87.051 and BMI 40.0-44.9, adult Z68.41 [facility] [place] [id number] [place] [address] Apr, [facility] [place] [id number] [place] [address] Apr, [facility] [place] [id number] [place] [address], [place] [address] Oct, [facility] [place] [address] [id number] [address] Sep, [facility] [place] [id number] [address] Jun, [facility] [place] [id number] [place] [address] Jun, [facility] [place] [id number] [address] Jun, [facility] [place] [address] [address] Jun, [facility] [place] [address] [id number] [address] May, [facility] [place] [address] [address] Apr, [facility] [place] [address] [id number] [address] Mar, [facility] [place] [address] [address] Feb, [facility] [place] [id number] [place] [address] Jan, Low vitamin B12 level E53.8 and Elevated MCV R71.8 [facility] [place] [id number] [place] [address] Jan, [facility] [place] [id number] [place] [address] Dec, Essential hypertension I10 and Elevated MCV R71.8 [facility] [place] [id number] [place] [address] Dec, Lumbar compression fracture, sequela S32.000S ; Chronic prescription opiate use Z79.899 ; Hyperlipidemia E78.5 ; Essential hypertension I10 and Shortness of breath R06.02 [place] [id number] [place] [address] Nov, [place] [id number] [place] [address] Oct, [facility] [place] [id number] [place] [address] Sep, [facility] [place] [id number] [place] [address] Sep, Primary osteoarthritis of right knee M17.11 [place] [id number] [place] [address] August, Essential hypertension I10 ; Pain in right knee M25.561 ; Pain in left knee M25.562 and Lumbar compression fracture, sequela S32.000S [facility] [place] [address] [place] [address] Jul, [facility] [place] [id number] [place] [address] Jun, [facility] [place] [id number] [place] [address] 09 May, 2015 Chronic prescription opiate use Z79.899 and Lumbar compression fracture, sequela S32.000S [facility] [place] [id number] [place] [address] Apr, [facility] [place] [id number] [place] [address] Apr, [facility] [place] [id number] [place] [address] Apr, Lumbar compression fracture, sequela S32.000S ; Dysuria R30.0 and Chronic prescription opiate use Z79.899 [facility] [place] [id number] [place] [address] Jan, [facility] [place] [address] [address] Nov, Osteopenia 733.90 [place] [id number] [place] [address] Nov, [facility] [place] [id number] [place] [address] Nov, [facility] [place] [id number] [place] [address] Oct, [facility] [place] [id number] [place] [address] Oct, Chronic airway obstruction, not elsewhere classified 496 ; Chronic kidney disease, unspecified 585.9 ; Lumbar compression fracture 805.4 and Screening for colon cancer V76.51 [facility] [place] [id number] [place] [address] Sep, [facility] [place] [id number] [place] [address] August, Status post kyphoplasty V45.89 [facility] [place] [id number] [place] [address] August, Vertebral compression fracture 805.8 [facility] [place] [id number] [place] [address] August, [facility] [place] [address] [facility] [id number] [place] [address] August, Lumbar back pain 724.2 and Frequent falls V15.88 [facility] [address] [id number] [place] [address] August, [facility] [address] [facility] [id number] [place] [address] Jul, [facility] [address] [id number] [address] Jul, [facility] [address] [id number] [place] [address] Jun, [facility] [address] [facility] [id number] [place] [address] Jun, [facility] [address] [facility] [id number] [place] [address] Jun, [facility] [address] [facility] [id number] [address] 24 Jun, 2014 [facility] [address] [facility] [id number] [place] [address] Jun, [facility] [address] [facility] [id number] [place] [address] Jun, [facility] [address] [facility] [id number], [place] [address] Jun, [facility] [place] [facility] [address] [facility] [id number][place] [address] 19 Jun, 2014 [facility] [place] [facility] [address] [id number] [place] [address] 18 Jun, 2014 [facility] [place] [facility] [address] [facility] [id number][place] [address] 18 Jun, 2014 [facility] [place] [facility] [address] [facility] [id number] [address] Jun, [facility] [place] [facility] [address] [facility] [id number] [place] [address] 18 Jun, 2014 [facility] [place] [facility] [address] [id number] [place] [address] 18 Jun, 2014 [facility] [place] [facility] [address] [id number] [place] [address] 18 Jun, 2014 [facility] [place] [facility] [address] [id number] [place] [address] 12 Jun, 2014 [facility] [place] [facility] [address] [id number] [place] [address] 12 Jun, 2014 [facility] [place] [facility] [address] [id number] [place] [address] 10 Jun, 2014 [facility] [place] [facility] [address] [id number] [place] [address] 10 Jun, 2014 [facility] [place] [facility] [address] [id number] [place] [address] 10 Jun, 2014 [facility] [place] [facility] [address] [id number] [place] [address] 10 Jun, 2014 [facility] [place] [facility] [address] [id number] [place] [address] Jun, 2014 [facility] [place] [facility] [address] [id number] [place] [address] Jun, 2014 [facility] [place] [facility] [address] [id number] [place] [address] 08 Jun, 2014 [facility] [place] [facility] [address] [id number] [place] [address] 08 Jun, 2014 [facility] [place] [facility] [address] [id number] [place] [address] 06 Jun, 2014 [facility] [place] [facility] [address] [id number] [place] [address] 05 Jun, 2014 [facility] [place] [facility] [address] [id number] [place] [address] Jun, [facility] [place] [facility] [address] [id number] [place] [address] May, [facility] [place] [facility] [address] [id number] [place] [address] May, [facility] [place] [facility] [address] [id number] [place] [address] Mar, [facility] [place] [facility] [address] [id number] [place] [address] Mar, [facility] [place] [facility] [address] [id number] [place] [address] Mar, [facility] [place] [facility] [address] [id number] [place] [address] Mar, [facility] [place] [facility] [address] [id number] [place] [address] Feb, [facility] [place] [facility] [address] [id number] [place] [address] Feb, [facility] [place] [facility] [address] [id number] [place] [address] Oct, [facility] [place] [facility] [address] [id number] [place] [address] Oct, [facility] [place] [facility] [address] [id number] [place] [address] Sep, [facility] [place] [facility] [address] [id number] [address] Sep, [facility] [place] [facility] [address] [id number] [place] [address] Sep, [facility] [place] [facility] [address] [id number] [place] [address] Sep, [facility] [place] [facility] [address] [id number] [place] [address] Sep, [facility] [place] [facility] [address] [id number] [address] Sep, [facility] [place] [facility] [address] [id number] [place] [address] Sep, [facility] [place] [facility] [address] [id number] [place] [address] Sep, [facility] [place] [facility] [address] [id number] [place] [address] Sep, [facility] [place] [facility] [address] [id number] [place] [address] Jun, [facility] [place] [facility] [address] [id number] [place] [address] Jun, [facility] [place] [facility] [address] [id number] [place] [address] May, [facility] [place] [facility] [address] [id number] [place] [address] May, [facility] [place] [facility] [address] [id number] [place] [address] May, [facility] [place] [facility] [address] [id number] [place] [address] May, [facility] [place] [facility] [address] [facility] [id number] [place] [address] Apr, [facility] [place] [facility] [address] [id number] [place] [address] Apr, [facility] [place] [facility] [address] [id number] [place] [address] Apr, [facility] [place] [facility] [address] [id number] [place] [address] Apr, [facility] [place] [facility] [address] [id number] [place] [address] Mar, [facility] [place] [facility] [address] [id number] [place] [address] Mar, [facility] [place] [address] [facility] [id number] [place] [address] Feb, [facility] [place] [address] [facility] [id number] [address] Feb, IMMUNIZATIONS No Known Immunizations SOCIAL HISTORY Never Assessed REASON FOR VISIT Refill request PLAN OF CARE VITAL SIGNS MEDICATIONS Unknown Medications RESULTS No Results PROCEDURES No Known procedures INSTRUCTIONS MEDICATIONS ADMINISTERED No Known Medications MEDICAL (GENERAL) HISTORY Type Description Date Medical [...] Surgical History carotid endarterectomy 09/2012 Surgical History Left foot heel spur removal 1995 Surgical History kyphoplasty 08/26/2014 Surgical History CABG 03/10/2011 Surgical History Left carpal tunnel release 12/[address] Nix- tubular adenoma repeat colonoscopy 2015 with more polyps removed, recommended follow up colonoscopy in 3 years. 11/2014 Surgical History colonoscopy- internal hemorrhoids, done by Dr. Duran 01/2017 Surgical History EGD- gastritis, done by Dr. Duran 01/2017 Hospitalization History Multiple hospitalizations for cardiac problems and COPD exacerbations. Hospitalization History [place]- for Tylenol overdose 09/2016
--- OUTSIDE RECORDS SUMMARY | 2018-11-13 09:14 | XMS REPORT ---
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 Active [id number] Problem Diverticulosis of large intestine without hemorrhage K57.30 Active 048677299 Problem Bilateral carotid artery stenosis I65.23 Active 12981457 Problem Essential hypertension I10 Active 32074244 Problem Bilateral primary osteoarthritis of knee M17.0 Active 237704539 Problem Coronary artery disease involving paimiut coronary artery of paimiut heart without angina pectoris I25.10 Active 3852881073678 Problem Hyperlipidemia E78.5 Active 52066648 Problem Tubular adenoma D36.9 Active 248929335 Problem Lumbar compression fracture, sequela S32.000S Active 793069855 Problem Chronic prescription opiate use Z79.899 Active 274034537 Problem Vertigo R42 Active 096116922 Problem CKD stage G3b/A1, GFR 30-44 and albumin creatinine ratio <30 mg/g N18.3 Active 343494706 Problem Other chronic pain G89.29 Active 01390780 Problem Osteopenia M85.80 Active 752474565 Problem COPD (chronic obstructive pulmonary disease) J44.9 Active 97674108 Problem Chronic gastritis without bleeding, unspecified gastritis type K29.50 Active 0150989 Problem Avascular necrosis of bone of right hip M87.051 Active 363424921 Problem Nocturnal hypoxia G47.34 Active 608742747 ALLERGIES No Information ENCOUNTERS Encounter Location Date Diagnosis [facility] [address] [facility] [id number] [address] Jun, [facility] [address] [place] [id number] [place] [address] Dec, Vertigo R42 ; Acute pancreatitis without infection or necrosis, unspecified pancreatitis type K85.90 ; Essential hypertension I10 ; CKD stage G3b/A1, GFR 30-44 and albumin creatinine ratio <30 mg/g N18.3 and BMI 40.0-44.9, adult Z68.41 [place] [address] [address] Dec, [place] [address] [address] Dec, [place] [address] [address] Nov, 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 ; Wheezing R06.2 ; Mesenteric panniculitis K65.4 and BMI 40.0-44.9, adult Z68.41 [place] [address] [address] Sep, 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 [place] [address] [place] [id number] [place] [address] Sep, COPD (chronic obstructive pulmonary disease) J44.9 ; BMI 40.0-44.9, adult Z68.41 ; 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 ; Chronic gastritis without bleeding, unspecified gastritis type K29.50 and Breast cancer screening Z12.31 [place] [address] [place] [id number] [place] [address] August, [place] [address] [place] [id number] [place] [address] Jun, [address] [address] May, Essential hypertension I10 ; Hyperlipidemia E78.5 [...] hip M87.051 and BMI 40.0-44.9, adult Z68.41 [facility] [id number] [place] [address] Apr, [facility] [address] [id number] [address] Apr, [facility] [id number] [place] [address] Oct, [facility] [id number] [place] [address] Sep, [facility] [id number] [place] [address] Jun, [facility] [address] [id number] [address] Jun, [facility] [address] [id number] [address] Jun, [facility] [address] [id number] [address] Jun, [facility] [address] [id number] [address] May, [facility] [address] [address] Apr, [facility] [address] [id number] [address] Mar, [facility] [address], [place] [address] Feb, [facility] [id number] [place] [address] Jan, Low vitamin B12 level E53.8 and Elevated MCV R71.8 [facility] [id number] [place] [address] Jan, [facility] [id number] [place] [address] Dec, Essential hypertension I10 and Elevated MCV R71.8 [facility] [address] [id number] [place] [address] Dec, Lumbar compression fracture, sequela S32.000S ; Chronic prescription opiate use Z79.899 ; Hyperlipidemia E78.5 ; Essential hypertension I10 and Shortness of breath R06.02 [facility] [address] [id number] [place] [address] Nov, [facility] [address] [id number] [place] [address] Oct, [facility] [id number] [place] [address] Sep, [facility] [address] [id number] [place] [address] Sep, Primary osteoarthritis of right knee M17.11 [facility] [address] [place] [address] August, Essential hypertension I10 ; Pain in right knee M25.561 ; Pain in left knee M25.562 and Lumbar compression fracture, sequela S32.000S [facility] [address] [place] [address] Jul, [facility] [address] [id number] [place] [address] Jun, [facility] [address] [place] [address] 09 May, 2015 Chronic prescription opiate use Z79.899 and Lumbar compression fracture, sequela S32.000S [facility] [address] [address] Apr, [facility] [address] [place] [id number] [place] [address] Apr, [facility] [address] [place] [id number] [place] [address] Apr, Lumbar compression fracture, sequela S32.000S ; Dysuria R30.0 and Chronic prescription opiate use Z79.899 [facility] [address] [place] [address] Jan, [facility] [address] [place] [id number] [place] [address] Nov, Osteopenia 733.90 [place] [address] [place] [id number] [place] [address] Nov, [facility] [address] [address] [id number] [place] [address] Nov, [facility] [address] [address] [id number] [place] [address] Oct, [facility] [address] [id number] [place] [address] Oct, Chronic airway obstruction, not elsewhere classified 496 ; Chronic kidney disease, unspecified 585.9 ; Lumbar compression fracture 805.4 and Screening for colon cancer V76.51 [facility] [address] [place] [address] Sep, [facility] [address] [id number] [place] [address] August, Status post kyphoplasty V45.89 [facility] [address] [id number] [place] [address] August, Vertebral compression fracture 805.8 [place] [address] [address] [id number] [place] [address] August, [facility] [address] [facility] [id number], [place] [address] August, Lumbar back pain 724.2 and Frequent falls V15.88 [facility] [address] [facility] [id number], [place] [address] August, [facility] [address] [place] [address] Jul, [facility] [address] [facility] [id number], [place] [address] Jul, [facility] [address] [facility] [id number] [place] [address], [place] [address] Jun, [facility] [address] [facility] [id number], [place] [address] Jun, [facility] [address], [place] [address] Jun, [facility] [address] [facility] [id number], [place] [address] 24 Jun, 2014 [facility] [address], [place] [address] Jun, [facility] [address], [place] [address] Jun, [facility] [address], [place] [address] Jun, [facility] [address] [facility] [id number], [place] [address] 19 Jun, 2014 [facility] [id number] [address] 18 Jun, 2014 [facility] [address] [facility] [id number], [place] [address] 18 Jun, 2014 [facility] [address], [place] [address] 18 Jun, 2014 [facility] [place] [facility] [address] [id number] [place] [address] 18 Jun, 2014 [facility] [place] [facility] [address] [id number] [place] [address] 18 Jun, 2014 [facility] [place] [facility] [address] [id number] [place] [address] 18 Jun, 2014 [facility] [place] [facility] [address] [id number] [place] [address] 12 Jun, 2014 [facility] [place] [facility] [address] [id number] [place] [address] 12 Jun, 2014 [facility] [place] [facility] [address] [id number] [place] [address] 10 Jun, 2014 [facility] [place] [facility] [address] [id number] [place] [address] 10 Jun, 2014 [facility] [place] [facility] [address] [id number] [place] [address] 10 Jun, 2014 [facility] [place] [facility] [address] [id number] [place] [address] 10 Jun, 2014 [facility] [place] [facility] [address] [id number] [place] [address] Jun, 2014 [facility] [place] [facility] [address] [id number] [place] [address] 09 Jun, 2014 [facility] [place] [facility] [address] [id number] [place] [address] 08 Jun, 2014 [facility] [place] [facility] [address] [id number] [place] [address] 08 Jun, 2014 [facility] [place] [facility] [address] [id number] [place] [address] 06 Jun, 2014 [facility] [place] [facility] [address] [id number] [place] [address] 05 Jun, 2014 [facility] [place] [facility] [address] [id number] [place] [address] Jun, [facility] [place] [facility] [address] [id number] [place] [address] May, [facility] [place] [facility] [address] [id number] [place] [address] May, [facility] [place] [facility] [address] [facility] [id number] [place] [address] Mar, [facility] [place] [facility] [address] [id number] [place] [address] Mar, [facility] [place] [facility] [address] [id number] [place] [address] Mar, [facility] [place] [facility] [address] [id number] [place] [address] Mar, [facility] [place] [facility] [address] [id number] [place] [address] Feb, [facility] [place] [facility] [address] [id number] [place] [address] Feb, [facility] [place] [facility] [address] [id number] [place] [address] Oct, [facility] [place] [facility] [address] [id number] [place] [address] Oct, [facility] [place] [facility] [address] [id number] [place] [address] Sep, [facility] [place] [facility] [address] [id number], [place] [address] Sep, [facility] [place] [facility] [address] [id number] [place] [address] Sep, [facility] [place] [facility] [address] [id number] [place] [address] Sep, [facility] [place] [facility] [address] [id number] [place] [address] Sep, [facility] [place] [facility] [address] [id number] [place] [address] Sep, [facility] [place] [facility] [address] [id number] [place] [address] Sep, [facility] [place] [facility] [address] [id number] [place] [address] Sep, [facility] [place] [facility] [address] [id number] [place] [address] Sep, [facility] [place] [facility] [address] [id number] [place] [address] Jun, [facility] [place] [facility] [address] [id number] [place] [address] Jun, [facility] [place] [facility] [address] [id number] [place] [address] May, [facility] [place] [facility] [address] [id number] [place] [address] May, [facility] [place] [facility] [address] [id number] [place] [address] May, [facility] [place] [facility] [address] [id number] [place] [address] May, [facility] [place] [facility] [address] [id number] [place] [address] Apr, [facility] [place] [facility] [address] [id number] [place] [address] Apr, [facility] [place] [facility] [address] [id number] [place] [address] Apr, [facility] [place] [facility] [address] [id number] [place] [address] Apr, [facility] [place] [facility] [address] [id number] [place] [address] Mar, [facility] [place] [facility] [address] [id number] [place] [address] Mar, [facility] [address] [facility] [id number] [place] [address] Feb, [facility] [address] [facility] [id number] [place] [address] Feb, IMMUNIZATIONS No Known Immunizations SOCIAL HISTORY Never Assessed REASON FOR VISIT PLAN OF CARE VITAL SIGNS MEDICATIONS Unknown [...] cardiac problems and COPD exacerbations. Hospitalization History [place]- for Tylenol overdose 09/2016
--- OUTSIDE RECORDS SUMMARY | 2018-11-13 09:14 | XMS REPORT | Clinical Summary ---
Author Author [facility] Organization [facility] Address Unknown Phone Unavailable Care Team Providers Care Roaster Helper Name Role Phone Tawnya Wilson NP PCP Source Comments Some departments are not documenting in the electronic medical record. If you d o not see the information that you expected, contact Release of Information in [facility] [employer] Information Management department at [phone] for further assistan ce in locating additional records.[facility] Allergies Not on File Medications Not on file Active Problems Not on file Social History Date Tobacco Use Types Packs/Day Years Used Never Assessed Sex Assigned at Date Recorded Not on file Industry Job Start Date Occupation Not on file Not on file Not on file Travel End Travel History Travel Start No recent travel history available. Last Filed Vital Signs Not on file Plan of Treatment Health Maintenance Due Date Last Done Comments HEPATITIS C SCREENING 1946 PHYSICAL (COMPREHENSIVE) 1953 EXAM DTAP/TDAP VACCINES (1 - 01/22/1964 Tdap) BREAST CANCER SCREENING 1986 COLORECTAL CANCER 01/22/1996 SCREENING SHINGLES RECOMBINANT 01/22/1996 VACCINE (1 of 2) OSTEOPOROSIS 2011 SCREENING/MONITORING PNEUMONIA (PCV13/PPSV23) 2011 VACCINES (1 of 2 - PCV13) INFLUENZA VACCINE 01/08/2019 Results Not on filefrom Last 3 Months Insurance Type Payer Benefit Subscriber ID Effective Phone Address Plan / Dates Group Medicare MEDICARE MEDICARE xxxxxxxxxx 2011- PART A AND Present B HMO xxxxxxxxxxx 2011 FOR LIFE -Present Advance 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
--- OUTSIDE RECORDS SUMMARY | 2018-11-13 09:15 | XMS REPORT ---
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 Active [id number] Problem Diverticulosis of large intestine without hemorrhage K57.30 Active 168963127 Problem Bilateral carotid artery stenosis I65.23 Active 40643991 Problem Essential hypertension I10 Active 23235999 Problem Bilateral primary osteoarthritis of knee M17.0 Active 731541322 Problem 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.10 Active 5220166407566 Problem Hyperlipidemia E78.5 Active 24144431 Problem Tubular adenoma D36.9 Active 972771049 Problem Lumbar compression fracture, sequela S32.000S Active 271462294 Problem Chronic prescription opiate use Z79.899 Active 488933250 Problem Vertigo R42 Active 627052170 Problem CKD stage G3b/A1, GFR 30-44 and albumin creatinine ratio <30 mg/g N18.3 Active 197455354 Problem Other chronic pain G89.29 Active 32944917 Problem Osteopenia M85.80 Active 654835360 Problem COPD (chronic obstructive pulmonary disease) J44.9 Active 16567386 Problem Chronic gastritis without bleeding, unspecified gastritis type K29.50 Active 8535174 Problem Avascular necrosis of bone of right hip M87.051 Active 541937080 Problem Nocturnal hypoxia G47.34 Active [id number] ALLERGIES No Information ENCOUNTERS Encounter Location Date Diagnosis [facility] [place] [address] [facility] [id number] [address] Jun, [facility] [place] [address] [place] [id number] [place] [address] Dec, Vertigo R42 ; Acute pancreatitis without infection or necrosis, unspecified pancreatitis type K85.90 ; Essential hypertension I10 ; CKD stage G3b/A1, GFR 30-44 and albumin creatinine ratio <30 mg/g N18.3 and BMI 40.0-44.9, adult Z68.41 [place] [address] [address] Dec, [place] [address] [address] Dec, [place] [address] [address] Nov, 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 ; Wheezing R06.2 ; Mesenteric panniculitis K65.4 and BMI 40.0-44.9, adult Z68.41 [place] [address] [address] Sep, 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 [place] [id number] [place] [address] Sep, COPD (chronic obstructive pulmonary disease) J44.9 ; BMI 40.0-44.9, adult Z68.41 ; 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 ; Chronic gastritis without bleeding, unspecified gastritis type K29.50 and Breast cancer screening Z12.31 [place] [id number] [place] [address] August, [place] [id number] [place] [address] Jun, [address] [address] May, Essential hypertension I10 ; Hyperlipidemia E78.5 [...] [place] [id number] [place] [address] Apr, [facility] [place] [id number] [address] Apr, [facility] [place] [id number] [place] [address] Oct, [facility] [place] [id number] [place] [address] Sep, [facility] [place] [id number] [place] [address] Jun, [facility] [place] [id number] [address] Jun, [facility] [place] [id number] [address] Jun, [facility] [place] [id number] [address] Jun, [facility] [place] [id number] [address] May, [facility] [place] [address] [address] Apr, [facility] [place] [id number] [address] Mar, [facility] [place] [address] [address] Feb, [facility] [place] [id number] [place] [address] Jan, Low vitamin B12 level E53.8 and Elevated MCV R71.8 [facility] [place] [id number] [place] [address] Jan, [facility] [place] [id number] [place] [address] Dec, Essential hypertension I10 and Elevated MCV R71.8 [facility] [place] [id number] [place] [address] Dec, Lumbar compression fracture, sequela S32.000S ; Chronic prescription opiate use Z79.899 ; Hyperlipidemia E78.5 ; Essential hypertension I10 and Shortness of breath R06.02 [facility] [place] [id number] [place] [address] Nov, [facility] [place] [id number] [place] [address] Oct, [facility] [place] [id number] [place] [address] Sep, [facility] [place] [id number] [place] [address] Sep, Primary osteoarthritis of right knee M17.11 [facility] [place] [address] [place] [address] August, Essential hypertension I10 ; Pain in right knee M25.561 ; Pain in left knee M25.562 and Lumbar compression fracture, sequela S32.000S [facility] [place] [address] [place] [address] Jul, [facility] [place] [id number] [place] [address] Jun, [facility] [place] [address] [place] [address] 09 May, 2015 Chronic prescription opiate use Z79.899 and Lumbar compression fracture, sequela S32.000S [facility] [place] [address] [address] Apr, [facility] [place] [id number] [place] [address] Apr, [facility] [place] [id number] [place] [address] Apr, Lumbar compression fracture, sequela S32.000S ; Dysuria R30.0 and Chronic prescription opiate use Z79.899 [facility] [place] [address] [place] [address] Jan, [facility] [place] [id number] [place] [address] Nov, Osteopenia 733.90 [place] [id number] [place] [address] Nov, [facility] [place] [id number] [place] [address] Nov, [facility] [place] [id number] [place] [address] Oct, [facility] [place] [id number] [place] [address] Oct, Chronic airway obstruction, not elsewhere classified 496 ; Chronic kidney disease, unspecified 585.9 ; Lumbar compression fracture 805.4 and Screening for colon cancer V76.51 [facility] [place] [address] [place] [address] Sep, [facility] [place] [id number] [place] [address] August, Status post kyphoplasty V45.89 [facility] [place] [id number] [place] [address] August, Vertebral compression fracture 805.8 [place] [id number] [place] [address] August, [facility] [address] [facility] [id number] [address] August, Lumbar back pain 724.2 and Frequent falls V15.88 [facility] [address] [facility] [id number] [place] [address] August, [facility] [address] [place] [address] Jul, [facility] [address] [facility] [id number] [place] [address] Jul, [facility] [address] [facility] [id number] [place] [address], [place] [address] Jun, [facility] [address] [facility] [id number] [place] [address] Jun, [facility] [address] [address] Jun, [facility] [address] [facility] [id number] [place] [address] 24 Jun, 2014 [facility] [address] [address] Jun, [facility] [address] [address] Jun, [facility] [address] [address] Jun, [facility] [address] [facility] [id number] [place] [address] 19 Jun, 2014 [facility] [id number] [address] 18 Jun, 2014 [facility] [address] [facility] [id number] [place] [address] 18 Jun, 2014 [facility] [address] [address] 18 Jun, 2014 [facility] [place] [facility] [address] [id number] [place] [address] 18 Jun, 2014 [facility] [place] [facility] [address] [id number] [place] [address] 18 Jun, 2014 [facility] [place] [facility] [address] [id number] [place] [address] 18 Jun, 2014 [facility] [place] [facility] [address] [id number] [place] [address] 12 Jun, 2014 [facility] [place] [facility] [address] [id number] [place] [address] 12 Jun, 2014 [facility] [place] [facility] [address] [id number] [place] [address] 10 Jun, 2014 [facility] [place] [facility] [address] [id number] [place] [address] 10 Jun, 2014 [facility] [place] [facility] [address] [id number] [place] [address] 10 Jun, 2014 [facility] [place] [facility] [address] [id number] [place] [address] 10 Jun, 2014 [facility] [place] [facility] [address] [id number] [place] [address] Jun, 2014 [facility] [place] [facility] [address] [id number] [place] [address] 09 Jun, 2014 [facility] [place] [facility] [address] [id number] [place] [address] 08 Jun, 2014 [facility] [place] [facility] [address] [id number] [place] [address] 08 Jun, 2014 [facility] [place] [facility] [address] [id number] [place] [address] 06 Jun, 2014 [facility] [place] [facility] [address] [id number] [place] [address] 05 Jun, 2014 [facility] [place] [facility] [address] [id number] [place] [address] Jun, [facility] [place] [facility] [address] [id number] [place] [address] May, [facility] [place] [facility] [address] [id number] [place] [address] May, [facility] [place] [facility] [address] [facility] [id number] [place] [address] Mar, [facility] [place] [facility] [address] [id number] [place] [address] Mar, [facility] [place] [facility] [address] [id number] [place] [address] Mar, [facility] [place] [facility] [address] [id number] [place] [address] Mar, [facility] [place] [facility] [address] [id number] [place] [address] Feb, [facility] [place] [facility] [address] [id number] [place] [address] Feb, [facility] [place] [facility] [address] [id number] [place] [address] Oct, [facility] [place] [facility] [address] [id number] [place] [address] Oct, [facility] [place] [facility] [address] [id number] [place] [address] Sep, [facility] [place] [facility] [address] [id number] [place] [address] Sep, [facility] [place] [facility] [address] [id number] [place] [address] Sep, [facility] [place] [facility] [address] [id number] [place] [address] Sep, [facility] [place] [facility] [address] [id number] [place] [address] Sep, [facility] [place] [facility] [address] [id number] [place] [address] Sep, [facility] [place] [facility] [address] [id number] [place] [address] Sep, [facility] [place] [facility] [address] [id number] [place] [address] Sep, [facility] [place] [facility] [address] [id number] [place] [address] Sep, [facility] [place] [facility] [address] [id number] [place] [address] Jun, [facility] [place] [facility] [address] [id number] [place] [address] Jun, [facility] [place] [facility] [address] [id number] [place] [address] May, [facility] [place] [facility] [address] [id number] [place] [address] May, [facility] [place] [facility] [address] [id number] [place] [address] May, [facility] [place] [facility] [address] [id number] [place] [address] May, [facility] [place] [facility] [address] [id number] [place] [address] Apr, [facility] [place] [facility] [address] [id number] [place] [address] Apr, [facility] [place] [facility] [address] [id number] [place] [address] Apr, [facility] [place] [facility] [address] [id number] [place] [address] Apr, [facility] [place] [facility] [address] [id number] [place] [address] Mar, [facility] [place] [facility] [address] [id number] [place] [address] Mar, [facility] [place] [address] [facility] [id number] [place] [address] Feb, [facility] [place] [address] [facility] [id number] [place] [address] Feb, IMMUNIZATIONS No Known Immunizations SOCIAL HISTORY [...] cardiac problems and COPD exacerbations. Hospitalization History [place]- for Tylenol overdose 09/2016
--- OUTSIDE RECORDS SUMMARY | 2018-11-13 09:15 | XMS REPORT ---
Author Author JOSE ANTONIO Alvarez Organization 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 Active [id number] Problem Diverticulosis of large intestine without hemorrhage K57.30 Active 138376580 Problem Bilateral carotid artery stenosis I65.23 Active 42758621 Problem Essential hypertension I10 Active 27887476 Problem Bilateral primary osteoarthritis of knee M17.0 Active 176667131 Problem Coronary artery disease involving jamul coronary artery of jamul heart without angina pectoris I25.10 Active 2195388598082 Problem Hyperlipidemia E78.5 Active 73046476 Problem Tubular adenoma D36.9 Active 202109649 Problem Lumbar compression fracture, sequela S32.000S Active 655838685 Problem Chronic prescription opiate use Z79.899 Active 029744992 Problem Vertigo R42 Active 997997481 Problem CKD stage G3b/A1, GFR 30-44 and albumin creatinine ratio <30 mg/g N18.3 Active 818675536 Problem Other chronic pain G89.29 Active 40716148 Problem Osteopenia M85.80 Active 932011211 Problem COPD (chronic obstructive pulmonary disease) J44.9 Active 90943658 Problem Chronic gastritis without bleeding, unspecified gastritis type K29.50 Active 0894547 Problem Avascular necrosis of bone of right hip M87.051 Active 299142836 Problem Nocturnal hypoxia G47.34 Active 993624630 ALLERGIES No Information ENCOUNTERS Encounter Location Date Diagnosis [facility] [address] [facility] [id number], [place] [address] Jun, 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 ; Wheezing R06.2 ; Mesenteric panniculitis K65.4 and BMI 40.0-44.9, adult Z68.41 [place] [address] [address] Sep, 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 [id number] [place] [address] Apr, [facility] [address] [id number] [address] Apr, [facility] [id number] [place] [address] Oct, [facility] [id number] [place] [address] Sep, [facility] [id number] [place] [address] Jun, [facility] [address] [id number], [place] [address] Jun, [facility] [address] [id number] [address] Jun, [facility] [address] [id number] [address] Jun, [facility] [id number] [address] May, [facility] [address], [place] [address] Apr, [facility] [address] [id number] [address] Mar, [facility] [address], [place] [address] Feb, [facility] [id number] [place] [address] Jan, Low vitamin B12 level E53.8 and Elev[address] MCV R71.8 [facility] [address] [place] [id number] [place] [address] Jan, [facility] [id number] [place] [address] Dec, Essential hypertension I10 and Elevated MCV R71.8 [facility] [address] [place] [id number] [place] [address] Dec, Lumbar compression fracture, sequela S32.000S ; Chronic prescription opiate use Z79.899 ; Hyperlipidemia E78.5 ; Essential hypertension I10 and Shortness of breath R06.02 [facility] [address] [place] [id number] [place] [address] Nov, [facility] [id number] [place] [address] Oct, [facility] [id number] [place] [address] Sep, [facility] [address] [place] [id number] [place] [address] Sep, Primary osteoarthritis of right knee M17.11 [facility] [address] [place] [address] August, Essential hypertension I10 ; Pain in right knee M25.561 ; Pain in left knee M25.562 and Lumbar compression fracture, sequela S32.000S [facility] [id number] [place] [address] Jul, [facility] [address] [id number] [place] [address] Jun, [facility] [address] [place] [address] 09 May, 2015 Chronic prescription opiate use Z79.899 and Lumbar compression fracture, sequela S32.000S [facility] [address], [place] [address] Apr, [facility] [id number] [place] [address] Apr, [facility] [address] [place] [id number] [place] [address] Apr, Lumbar compression fracture, sequela S32.000S ; Dysuria R30.0 and Chronic prescription opiate use Z79.899 [facility] [address] [place] [address] Jan, [facility] [address] [place] [id number] [place] [address] Nov, Osteopenia 733.90 [place] [address] [id number] [place] [address] Nov, [facility] [address] [id number] [place] [address] Nov, [facility] [address] [id number] [place] [address] Oct, [facility] [address] [place] [id number] [place] [address] Oct, Chronic airway obstruction, not elsewhere classified 496 ; Chronic kidney disease, unspecified 585.9 ; Lumbar compression fracture 805.4 and Screening for colon cancer V76.51 [facility] [id number] [place] [address] Sep, [facility] [address] [place] [id number] [place] [address] August, Status post kyphoplasty V45.89 [facility] [address] [place] [id number] [place] [address] August, Vertebral compression fracture 805.8 [place] [address] [id number] [place] [address] August, [facility] [address] [facility] [id number], [place] [address] August, Lumbar back pain 724.2 and Frequent falls V15.88 [facility] [address] [facility] [id number], [place] [address] August, [facility] [id number] [place] [address] Jul, [facility] [address] [facility] [id number], [place] [address] Jul, [facility] [address] [facility] [id number] [place] [address], [place] [address] Jun, [facility] [address] [facility] [id number], [place] [address] Jun, [facility] [address], [place] [address] Jun, [facility] [address] [facility] [id number], [place] [address] 24 Jun, 2014 [facility] [address], [place] [address] Jun, [facility] [address], [place] [address] Jun, [facility] [address], [place] [address] Jun, [facility] [address] [facility] [id number], [place] [address] 19 Jun, 2014 [facility] [address] [place] [id number] [address] 18 Jun, 2014 [facility] [address] [facility] [id number], [place] [address] 18 Jun, 2014 [facility] [address], [place] [address] 18 Jun, 2014 [facility] [place] [facility] [address] [id number] [place] [address] 18 Jun, 2014 [facility] [place] [facility] [address] [id number] [place] [address] 18 Jun, 2014 [facility] [place] [facility] [address] [id number] [place] [address] 18 Jun, 2014 [facility] [place] [facility] [address] [id number] [place] [address] 12 Jun, 2014 [facility] [place] [facility] [address] [id number] [place] [address] 12 Jun, 2014 [facility] [place] [facility] [address] [id number] [place] [address] 10 Jun, 2014 [facility] [place] [facility] [address] [id number] [place] [address] 10 Jun, 2014 [facility] [place] [facility] [address] [id number] [place] [address] 10 Jun, 2014 [facility] [place] [facility] [address] [id number] [place] [address] 10 Jun, 2014 [facility] [place] [facility] [address] [id number] [place] [address] Jun, 2014 [facility] [place] [facility] [address] [id number] [place] [address] 09 Jun, 2014 [facility] [place] [facility] [address] [id number] [place] [address] 08 Jun, 2014 [facility] [place] [facility] [address] [id number] [place] [address] 08 Jun, 2014 [facility] [place] [facility] [address] [id number] [place] [address] 06 Jun, 2014 [facility] [place] [facility] [address] [id number] [place] [address] 05 Jun, 2014 [facility] [place] [facility] [address] [id number] [place] [address] Jun, [facility] [place] [facility] [address] [id number] [place] [address] May, [facility] [place] [facility] [address] [id number] [place] [address] May, [facility] [place] [facility] [address] [facility] [id number] [place] [address] Mar, [facility] [place] [facility] [address] [id number] [place] [address] Mar, [facility] [place] [facility] [address] [id number] [place] [address] Mar, [facility] [place] [facility] [address] [id number] [place] [address] Mar, [facility] [place] [facility] [address] [id number] [place] [address] Feb, [facility] [place] [facility] [address] [id number] [place] [address] Feb, [facility] [place] [facility] [address] [id number] [place] [address] Oct, [facility] [place] [facility] [address] [id number] [place] [address] Oct, [facility] [place] [facility] [address] [id number] [place] [address] Sep, [facility] [place] [facility] [address] [id number], [place] [address] Sep, [facility] [place] [facility] [address] [id number] [place] [address] Sep, [facility] [place] [facility] [address] [id number] [place] [address] Sep, [facility] [place] [facility] [address] [id number] [place] [address] Sep, [facility] [place] [facility] [address] [id number] [place] [address] Sep, [facility] [place] [facility] [address] [id number] [place] [address] Sep, [facility] [place] [facility] [address] [id number] [place] [address] Sep, [facility] [place] [facility] [address] [id number] [place] [address] Sep, [facility] [place] [facility] [address] [id number] [place] [address] Jun, [facility] [place] [facility] [address] [id number] [place] [address] Jun, [facility] [place] [facility] [address] [id number] [place] [address] May, [facility] [place] [facility] [address] [id number] [place] [address] May, [facility] [place] [facility] [address] [id number] [place] [address] May, [facility] [place] [facility] [address] [id number] [place] [address] May, [facility] [place] [facility] [address] [id number] [place] [address] Apr, [facility] [place] [facility] [address] [id number] [place] [address] Apr, [facility] [place] [facility] [address] [id number] [place] [address] Apr, [facility] [place] [facility] [address] [id number] [place] [address] Apr, [facility] [place] [facility] [address] [id number] [place] [address] Mar, [facility] [place] [facility] [address] [id number] [place] [address] Mar, [facility] [address] [facility] [id number] [place] [address] Feb, [facility] [address] [facility] [id number] [place] [address] Feb, IMMUNIZATIONS No Known Immunizations SOCIAL HISTORY [...] cardiac problems and COPD exacerbations. Hospitalization History [place]- for Tylenol overdose 09/2016
--- OUTSIDE RECORDS SUMMARY | 2018-11-13 09:15 | XMS REPORT ---
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 Active [id number] Problem Diverticulosis of large intestine without hemorrhage K57.30 Active 637827173 Problem Bilateral carotid artery stenosis I65.23 Active 90000841 Problem Essential hypertension I10 Active 67649680 Problem Bilateral primary osteoarthritis of knee M17.0 Active 749318618 Problem Coronary artery disease involving omaha coronary 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.10 Active 4835671149914 Problem Hyperlipidemia E78.5 Active 27149343 Problem Tubular adenoma D36.9 Active 511237909 Problem Lumbar compression fracture, sequela S32.000S Active 511782213 Problem Chronic prescription opiate use Z79.899 Active 634066465 Problem Vertigo R42 Active 397832739 Problem CKD stage G3b/A1, GFR 30-44 and albumin creatinine ratio <30 mg/g N18.3 Active 368968152 Problem Other chronic pain G89.29 Active 43189106 Problem Osteopenia M85.80 Active 215930113 Problem COPD (chronic obstructive pulmonary disease) J44.9 Active 12885422 Problem Chronic gastritis without bleeding, unspecified gastritis type K29.50 Active 9046780 Problem Avascular necrosis of bone of right hip M87.051 Active 303549819 Problem Nocturnal hypoxia G47.34 Active 622336593 ALLERGIES No Information ENCOUNTERS Encounter Location Date Diagnosis [facility] [address] [facility] [id number], [place] [address] Jun, [facility] [address] [place] [id number] [place] [address] Dec, Vertigo R42 ; Acute pancreatitis without infection or necrosis, unspecified pancreatitis type K85.90 ; Essential hypertension I10 ; CKD stage G3b/A1, GFR 30-44 and albumin creatinine ratio <30 mg/g N18.3 and BMI 40.0-44.9, adult Z68.41 [place] [address] [address] Dec, [place] [address] [address] Dec, [place] [address] [address] Nov, 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 ; Wheezing R06.2 ; Mesenteric panniculitis K65.4 and BMI 40.0-44.9, adult Z68.41 [place] [address] [address] Sep, 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 [place] [address] [place] [id number] [place] [address] Sep, COPD (chronic obstructive pulmonary disease) J44.9 ; BMI 40.0-44.9, adult Z68.41 ; 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 ; Chronic gastritis without bleeding, unspecified gastritis type K29.50 and Breast cancer screening Z12.31 [place] [address] [place] [id number] [place] [address] August, [place] [address] [id number] [place] [address] Jun, [address] [address] May, Essential hypertension I10 ; Hyperlipidemia E78.5 [...] hip M87.051 and BMI 40.0-44.9, adult Z68.41 [facility] [id number] [place] [address] Apr, [facility] [address] [id number] [address] Apr, [facility] [id number] [place] [address] Oct, [facility] [id number] [place] [address] Sep, [facility] [id number] [place] [address] Jun, [facility] [address] [id number] [address] Jun, [facility] [id number] [address] Jun, [facility] [id number] [address] Jun, [facility] [address] [id number] [address] May, [facility] [address], [place] [address] Apr, [facility] [address] [id number] [address] Mar, [facility] [address], [place] [address] Feb, [facility] [id number] [place] [address] Jan, Low vitamin B12 level E53.8 and Elevated MCV R71.8 [facility] [id number] [place] [address] Jan, [facility] [id number] [place] [address] Dec, Essential hypertension I10 and Elevated MCV R71.8 [facility] [address] [address] [id number] [place] [address] Dec, Lumbar compression fracture, sequela S32.000S ; Chronic prescription opiate use Z79.899 ; Hyperlipidemia E78.5 ; Essential hypertension I10 and Shortness of breath R06.02 [facility] [id number] [place] [address] Nov, [facility] [address] [id number] [place] [address] Oct, [facility] [id number] [place] [address] Sep, [facility] [address] [address] [id number] [place] [address] Sep, Primary osteoarthritis of right knee M17.11 [facility] [address] [place] [address] August, Essential hypertension I10 ; Pain in right knee M25.561 ; Pain in left knee M25.562 and Lumbar compression fracture, sequela S32.000S [facility] [id number] [place] [address] Jul, [facility] [id number] [place] [address] Jun, [facility] [id number] [place] [address] 09 May, 2015 Chronic prescription opiate use Z79.899 and Lumbar compression fracture, sequela S32.000S [facility] [address], [place] [address] Apr, [facility] [address] [place] [id number] [place] [address] Apr, [facility] [address] [address] [id number] [place] [address] Apr, Lumbar compression fracture, sequela S32.000S ; Dysuria R30.0 and Chronic prescription opiate use Z79.899 [facility] [id number] [place] [address] Jan, [facility] [address] [place] [id number] [place] [address] Nov, Osteopenia 733.90 [place] [address] [place] [id number] [place] [address] Nov, [facility] [address] [place] [id number] [place] [address] Nov, [facility] [address] [place] [id number] [place] [address] Oct, [facility] [address] [place] [id number] [place] [address] Oct, Chronic airway obstruction, not elsewhere classified 496 ; Chronic kidney disease, unspecified 585.9 ; Lumbar compression fracture 805.4 and Screening for colon cancer V76.51 [facility] [address] [place] [address] Sep, [facility] [address] [place] [id number] [place] [address] August, Status post kyphoplasty V45.89 [facility] [address] [place] [id number] [place] [address] August, Vertebral compression fracture 805.8 [place] [address] [place] [id number] [place] [address] August, [facility] [address] [facility] [id number], [place] [address] August, Lumbar back pain 724.2 and Frequent falls V15.88 [facility] [address] [facility] [id number], [place] [address] August, [facility] [address] [address] Jul, [facility] [address] [facility] [id number], [place] [address] Jul, [facility] [address] [facility] [id number] [place] [address], [place] [address] Jun, [facility] [address] [facility] [id number], [place] [address] Jun, [facility] [address], [place] [address] Jun, [facility] [address] [facility] [id number], [place] [address] 24 Jun, 2014 [facility] [address], [place] [address] Jun, [facility] [address], [place] [address] Jun, [facility] [address], [place] [address] Jun, [facility] [address] [facility] [id number], [place] [address] 19 Jun, 2014 [facility] [id number] [address] 18 Jun, 2014 [facility] [address] [facility] [id number], [place] [address] 18 Jun, 2014 [facility] [address], [place] [address] 18 Jun, 2014 [facility] [place] [facility] [address] [id number] [place] [address] 18 Jun, 2014 [facility] [place] [facility] [address] [id number] [place] [address] 18 Jun, 2014 [facility] [place] [facility] [address] [id number] [place] [address] 18 Jun, 2014 [facility] [place] [facility] [address] [id number] [place] [address] 12 Jun, 2014 [facility] [place] [facility] [address] [id number] [place] [address] 12 Jun, 2014 [facility] [place] [facility] [address] [id number] [place] [address] 10 Jun, 2014 [facility] [place] [facility] [address] [id number] [place] [address] 10 Jun, 2014 [facility] [place] [facility] [address] [id number] [place] [address] 10 Jun, 2014 [facility] [place] [facility] [address] [id number] [place] [address] 10 Jun, 2014 [facility] [place] [facility] [address] [id number] [place] [address] Jun, 2014 [facility] [place] [facility] [address] [id number] [place] [address] 09 Jun, 2014 [facility] [place] [facility] [address] [id number] [place] [address] 08 Jun, 2014 [facility] [place] [facility] [address] [id number] [place] [address] 08 Jun, 2014 [facility] [place] [facility] [address] [id number] [place] [address] 06 Jun, 2014 [facility] [place] [facility] [address] [id number] [place] [address] 05 Jun, 2014 [facility] [place] [facility] [address] [id number] [place] [address] Jun, [facility] [place] [facility] [address] [id number] [place] [address] May, [facility] [place] [facility] [address] [id number] [place] [address] May, [facility] [place] [facility] [address] [facility] [id number] [place] [address] Mar, [facility] [place] [facility] [address] [id number] [place] [address] Mar, [facility] [place] [facility] [address] [id number] [place] [address] Mar, [facility] [place] [facility] [address] [id number] [place] [address] Mar, [facility] [place] [facility] [address] [id number] [place] [address] Feb, [facility] [place] [facility] [address] [id number] [place] [address] Feb, [facility] [place] [facility] [address] [id number] [place] [address] Oct, [facility] [place] [facility] [address] [id number] [place] [address] Oct, [facility] [place] [facility] [address] [id number] [place] [address] Sep, [facility] [place] [facility] [address] [id number], [place] [address] Sep, [facility] [place] [facility] [address] [id number] [place] [address] Sep, [facility] [place] [facility] [address] [id number] [place] [address] Sep, [facility] [place] [facility] [address] [id number] [place] [address] Sep, [facility] [place] [facility] [address] [id number] [place] [address] Sep, [facility] [place] [facility] [address] [id number] [place] [address] Sep, [facility] [place] [facility] [address] [id number] [place] [address] Sep, [facility] [place] [facility] [address] [id number] [place] [address] Sep, [facility] [place] [facility] [address] [id number] [place] [address] Jun, [facility] [place] [facility] [address] [id number] [place] [address] Jun, [facility] [place] [facility] [address] [id number] [place] [address] May, [facility] [place] [facility] [address] [id number] [place] [address] May, [facility] [place] [facility] [address] [id number] [place] [address] May, [facility] [place] [facility] [address] [id number] [place] [address] May, [facility] [place] [facility] [address] [id number] [place] [address] Apr, [facility] [place] [facility] [address] [id number] [place] [address] Apr, [facility] [place] [facility] [address] [id number] [place] [address] Apr, [facility] [place] [facility] [address] [id number] [place] [address] Apr, [facility] [place] [facility] [address] [id number] [place] [address] Mar, [facility] [place] [facility] [address] [id number] [place] [address] Mar, [facility] [address] [facility] [id number] [place] [address] Feb, [facility] [address] [facility] [id number] [place] [address] Feb, IMMUNIZATIONS No Known Immunizations SOCIAL HISTORY Never Assessed REASON FOR VISIT PLAN OF CARE VITAL SIGNS MEDICATIONS Unknown Medications RESULTS No Results PROCEDURES Procedure Date Ordered Result Body Site US EXAM ABDO BACK WALL, COMP June 15, 2014 INSTRUCTIONS MEDICATIONS ADMINISTERED No Known Medications MEDICAL [...] cardiac problems and COPD exacerbations. Hospitalization History [facility]- for Tylenol overdose 09/2016
--- OUTSIDE RECORDS SUMMARY | 2018-11-13 09:15 | XMS REPORT ---
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 Active [id number] Problem Diverticulosis of large intestine without hemorrhage K57.30 Active 388402095 Problem Bilateral carotid artery stenosis I65.23 Active 31598325 Problem Essential hypertension I10 Active 60864950 Problem Bilateral primary osteoarthritis of knee M17.0 Active 978583310 Problem Coronary artery disease involving hughes coronary artery of hughes heart without angina pectoris I25.10 Active 3343709425355 Problem Hyperlipidemia E78.5 Active 63428716 Problem Tubular adenoma D36.9 Active 714376030 Problem Lumbar compression fracture, sequela S32.000S Active 549325949 Problem Chronic prescription opiate use Z79.899 Active 717848295 Problem Vertigo R42 Active 415443739 Problem CKD stage G3b/A1, GFR 30-44 and albumin creatinine ratio <30 mg/g N18.3 Active 741591463 Problem Other chronic pain G89.29 Active 06581514 Problem Osteopenia M85.80 Active 560781951 Problem COPD (chronic obstructive pulmonary disease) J44.9 Active 59960310 Problem Chronic gastritis without bleeding, unspecified gastritis type K29.50 Active 1894013 Problem Avascular necrosis of bone of right hip M87.051 Active 758543315 Problem Nocturnal hypoxia G47.34 Active 755565644 ALLERGIES No Information ENCOUNTERS Encounter Location Date Diagnosis [facility] [address] [facility] [id number] [address] Jun, [facility] [address] [place] [id number] [place] [address] Dec, Vertigo R42 ; Acute pancreatitis without infection or necrosis, unspecified pancreatitis type K85.90 ; Essential hypertension I10 ; CKD stage G3b/A1, GFR 30-44 and albumin creatinine ratio <30 mg/g N18.3 and BMI 40.0-44.9, adult Z68.41 [place] [address] [address] Dec, [place] [address] [address] Dec, [place] [address] [address] Nov, 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 ; Wheezing R06.2 ; Mesenteric panniculitis K65.4 and BMI 40.0-44.9, adult Z68.41 [place] [address] [address] Sep, 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 [place] [address] [place] [id number] [place] [address] Sep, COPD (chronic obstructive pulmonary disease) J44.9 ; BMI 40.0-44.9, adult Z68.41 ; 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 ; Chronic gastritis without bleeding, unspecified gastritis type K29.50 and Breast cancer screening Z12.31 [place] [address] [place] [id number] [place] [address] August, [place] [address] [place] [id number] [place] [address] Jun, [address] [address] May, Essential hypertension I10 ; Hyperlipidemia E78.5 [...] hip M87.051 and BMI 40.0-44.9, adult Z68.41 [facility] [id number] [place] [address] Apr, [facility] [address] [id number] [address] Apr, [facility] [id number] [place] [address] Oct, [facility] [id number] [place] [address] Sep, [facility] [id number] [place] [address] Jun, [facility] [address] [id number] [address] Jun, [facility] [address] [id number] [address] Jun, [facility] [address] [id number] [address] Jun, [facility] [address] [id number] [address] May, [facility] [address] [address] Apr, [facility] [address] [id number] [address] Mar, [facility] [address] [address] Feb, [facility] [id number] [place] [address] Jan, Low vitamin B12 level E53.8 and Elevated MCV R71.8 [facility] [id number] [place] [address] Jan, [facility] [id number] [place] [address] Dec, Essential hypertension I10 and Elevated MCV R71.8 [facility] [id number] [place] [address] Dec, Lumbar compression fracture, sequela S32.000S ; Chronic prescription opiate use Z79.899 ; Hyperlipidemia E78.5 ; Essential hypertension I10 and Shortness of breath R06.02 [facility] [id number] [place] [address] Nov, [facility] [address] [id number] [place] [address] Oct, [facility] [id number] [place] [address] Sep, [facility] [address] [id number] [place] [address] Sep, Primary osteoarthritis of right knee M17.11 [facility] [id number] [place] [address] August, Essential hypertension I10 ; Pain in right knee M25.561 ; Pain in left knee M25.562 and Lumbar compression fracture, sequela S32.000S [facility] [address] [place] [address] Jul, [facility] [id number] [place] [address] Jun, [facility] [id number] [place] [address] 09 May, 2015 Chronic prescription opiate use Z79.899 and Lumbar compression fracture, sequela S32.000S [facility] [address] [address] Apr, [facility] [address] [id number] [place] [address] Apr, [facility] [address] [id number] [place] [address] Apr, Lumbar compression fracture, sequela S32.000S ; Dysuria R30.0 and Chronic prescription opiate use Z79.899 [facility] [id number] [place] [address] Jan, [facility] [address] [place] [id number] [place] [address] Nov, Osteopenia 733.90 [place] [address] [place] [id number] [place] [address] Nov, [facility] [address] [place] [id number] [place] [address] Nov, [facility] [address] [place] [id number] [place] [address] Oct, [facility] [address] [place] [id number] [place] [address] Oct, Chronic airway obstruction, not elsewhere classified 496 ; Chronic kidney disease, unspecified 585.9 ; Lumbar compression fracture 805.4 and Screening for colon cancer V76.51 [facility] [id number] [place] [address] Sep, [facility] [address] [place] [id number] [place] [address] August, Status post kyphoplasty V45.89 [facility] [address] [id number] [place] [address] August, Vertebral compression fracture 805.8 [place] [address] [place] [id number] [place] [address] August, [facility] [address] [facility] [id number] [address] August, Lumbar back pain 724.2 and Frequent falls V15.88 [facility] [address] [facility] [id number] [address] August, [facility] [id number] [address] Jul, [facility] [address] [facility] [id number] [address] Jul, [facility] [address] [facility] [id number] [place] [address], [place] [address] Jun, [facility] [address] [facility] [id number], [place] [address] Jun, [facility] [address] [address] Jun, [facility] [address] [facility] [id number], [place] [address] 24 Jun, 2014 [facility] [address] [address] Jun, [facility] [address] [address] Jun, [facility] [address] [address] Jun, [facility] [address] [facility] [id number], [place] [address] 19 Jun, 2014 [facility] [address] [place] [place] [id number] [address] 18 Jun, 2014 [facility] [address] [facility] [id number], [place] [address] 18 Jun, 2014 [facility] [address] [address] 18 Jun, 2014 [facility] [place] [facility] [address] [id number] [place] [address] 18 Jun, 2014 [facility] [place] [facility] [address] [id number] [place] [address] 18 Jun, 2014 [facility] [place] [facility] [address] [id number] [place] [address] 18 Jun, 2014 [facility] [place] [facility] [address] [id number] [place] [address] 12 Jun, 2014 [facility] [place] [facility] [address] [id number] [place] [address] 12 Jun, 2014 [facility] [place] [facility] [address] [id number] [place] [address] 10 Jun, 2014 [facility] [place] [facility] [address] [id number] [place] [address] 10 Jun, 2014 [facility] [place] [facility] [address] [id number] [place] [address] 10 Jun, 2014 [facility] [place] [facility] [address] [id number] [place] [address] 10 Jun, 2014 [facility] [place] [facility] [address] [id number] [place] [address] Jun, 2014 [facility] [place] [facility] [address] [id number] [place] [address] 09 Jun, 2014 [facility] [place] [facility] [address] [id number] [place] [address] 08 Jun, 2014 [facility] [place] [facility] [address] [id number] [place] [address] 08 Jun, 2014 [facility] [place] [facility] [address] [id number] [place] [address] 06 Jun, 2014 [facility] [place] [facility] [address] [id number] [place] [address] 05 Jun, 2014 [facility] [place] [facility] [address] [id number] [place] [address] Jun, [facility] [place] [facility] [address] [id number] [place] [address] May, [facility] [place] [facility] [address] [id number] [place] [address] May, [facility] [place] [facility] [address] [facility] [id number] [place] [address] Mar, [facility] [place] [facility] [address] [id number] [place] [address] Mar, [facility] [place] [facility] [address] [id number] [place] [address] Mar, [facility] [place] [facility] [address] [id number] [place] [address] Mar, [facility] [place] [facility] [address] [id number] [place] [address] Feb, [facility] [place] [facility] [address] [id number] [place] [address] Feb, [facility] [place] [facility] [address] [id number] [place] [address] Oct, [facility] [place] [facility] [address] [id number] [place] [address] Oct, [facility] [place] [facility] [address] [id number] [place] [address] Sep, [facility] [place] [facility] [address] [id number], [place] [address] Sep, [facility] [place] [facility] [address] [id number] [place] [address] Sep, [facility] [place] [facility] [address] [id number] [place] [address] Sep, [facility] [place] [facility] [address] [id number] [place] [address] Sep, [facility] [place] [facility] [address] [id number] [place] [address] Sep, [facility] [place] [facility] [address] [id number] [place] [address] Sep, [facility] [place] [facility] [address] [id number] [place] [address] Sep, [facility] [place] [facility] [address] [id number] [place] [address] Sep, [facility] [place] [facility] [address] [id number] [place] [address] Jun, [facility] [place] [facility] [address] [id number] [place] [address] Jun, [facility] [place] [facility] [address] [id number] [place] [address] May, [facility] [place] [facility] [address] [id number] [place] [address] May, [facility] [place] [facility] [address] [id number] [place] [address] May, [facility] [place] [facility] [address] [id number] [place] [address] May, [facility] [place] [facility] [address] [id number] [place] [address] Apr, [facility] [place] [facility] [address] [id number] [place] [address] Apr, [facility] [place] [facility] [address] [id number] [place] [address] Apr, [facility] [place] [facility] [address] [id number] [place] [address] Apr, [facility] [place] [facility] [address] [id number] [place] [address] Mar, [facility] [place] [facility] [address] [id number] [place] [address] Mar, [facility] [address] [facility] [id number] [place] [address] Feb, [facility] [address] [facility] [id number] [place] [address] Feb, IMMUNIZATIONS No Known Immunizations SOCIAL HISTORY [...] cardiac problems and COPD exacerbations. Hospitalization History [facility]- for Tylenol overdose 09/2016
--- OUTSIDE RECORDS SUMMARY | 2018-11-13 09:16 | XMS REPORT ---
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 Active [id number] Problem Diverticulosis of large intestine without hemorrhage K57.30 Active 299191428 Problem Bilateral carotid artery stenosis I65.23 Active 75098421 Problem Essential hypertension I10 Active 79441391 Problem Bilateral primary osteoarthritis of knee M17.0 Active 291009203 Problem Coronary artery disease involving campo coronary artery of campo heart without angina pectoris I25.10 Active 7882987442159 Problem Hyperlipidemia E78.5 Active 70969334 Problem Tubular adenoma D36.9 Active 136173890 Problem Lumbar compression fracture, sequela S32.000S Active 740191033 Problem Chronic prescription opiate use Z79.899 Active 455832043 Problem Vertigo R42 Active 539204120 Problem CKD stage G3b/A1, GFR 30-44 and albumin creatinine ratio <30 mg/g N18.3 Active 648461726 Problem Other chronic pain G89.29 Active 80845590 Problem Osteopenia M85.80 Active 449313662 Problem COPD (chronic obstructive pulmonary disease) J44.9 Active 88277463 Problem Chronic gastritis without bleeding, unspecified gastritis type K29.50 Active 1274437 Problem Avascular necrosis of bone of right hip M87.051 Active 201600608 Problem Nocturnal hypoxia G47.34 Active [id number] ALLERGIES No Information ENCOUNTERS Encounter Location Date Diagnosis [facility] [address] [facility] [id number] [address] Jun, [facility] [address] [place] [id number] [place] [address] Dec, Vertigo R42 ; Acute pancreatitis without infection or necrosis, unspecified pancreatitis type K85.90 ; Essential hypertension I10 ; CKD stage G3b/A1, GFR 30-44 and albumin creatinine ratio <30 mg/g N18.3 and BMI 40.0-44.9, adult Z68.41 [place] [address] [address] Dec, [place] [address] [address] Dec, [place] [address] [address] Nov, 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 ; Wheezing R06.2 ; Mesenteric panniculitis K65.4 and BMI 40.0-44.9, adult Z68.41 [place] [address] [address] Sep, 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 [place] [address] [id number] [place] [address] Sep, COPD (chronic obstructive pulmonary disease) J44.9 ; BMI 40.0-44.9, adult Z68.41 ; 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 ; Chronic gastritis without bleeding, unspecified gastritis type K29.50 and Breast cancer screening Z12.31 [place] [address] [id number] [place] [address] August, [place] [address] [id number] [place] [address] Jun, [address] [address] May, Essential hypertension I10 ; Hyperlipidemia E78.5 [...] hip M87.051 and BMI 40.0-44.9, adult Z68.41 [facility] [id number] [place] [address] Apr, [facility] [address] [id number] [address] Apr, [facility] [id number] [place] [address] Oct, [facility] [id number] [place] [address] Sep, [facility] [id number] [place] [address] Jun, [facility] [address] [id number] [address] Jun, [facility] [id number] [address] Jun, [facility] [id number] [address] Jun, [facility] [id number] [address] May, [facility] [address] [address] Apr, [facility] [id number] [address] Mar, [facility] [address] [address] Feb, [facility] [id number] [place] [address] Jan, Low vitamin B12 level E53.8 and Elevated MCV R71.8 [facility] [id number] [place] [address] Jan, [facility] [id number] [place] [address] Dec, Essential hypertension I10 and Elevated MCV R71.8 [facility] [id number] [place] [address] Dec, Lumbar compression fracture, sequela S32.000S ; Chronic prescription opiate use Z79.899 ; Hyperlipidemia E78.5 ; Essential hypertension I10 and Shortness of breath R06.02 [facility] [id number] [place] [address] Nov, [facility] [id number] [place] [address] Oct, [facility] [id number] [place] [address] Sep, [facility] [address] [id number] [place] [address] Sep, Primary osteoarthritis of right knee M17.11 [facility] [id number] [place] [address] August, Essential hypertension I10 ; Pain in right knee M25.561 ; Pain in left knee M25.562 and Lumbar compression fracture, sequela S32.000S [facility] [id number] [place] [address] Jul, [facility] [id number] [place] [address] Jun, [facility] [id number] [place] [address] 09 May, 2015 Chronic prescription opiate use Z79.899 and Lumbar compression fracture, sequela S32.000S [facility] [address] [address] Apr, [facility] [address] [address] [id number] [place] [address] Apr, [facility] [address] [address] [id number] [place] [address] Apr, Lumbar compression fracture, sequela S32.000S ; Dysuria R30.0 and Chronic prescription opiate use Z79.899 [facility] [id number] [place] [address] Jan, [facility] [address] [id number] [place] [address] Nov, Osteopenia 733.90 [place] [address] [address] [id number] [place] [address] Nov, [facility] [address] [place] [address] [id number] [place] [address] Nov, [facility] [address] [id number] [place] [address] Oct, [facility] [address] [address] [id number] [place] [address] Oct, Chronic airway obstruction, not elsewhere classified 496 ; Chronic kidney disease, unspecified 585.9 ; Lumbar compression fracture 805.4 and Screening for colon cancer V76.51 [facility] [id number] [place] [address] Sep, [facility] [address] [id number] [place] [address] August, Status post kyphoplasty V45.89 [facility] [address] [address] [id number] [place] [address] August, Vertebral compression fracture 805.8 [place] [address] [address] [id number] [place] [address] August, [facility] [address] [facility] [id number], [place] [address] August, Lumbar back pain 724.2 and Frequent falls V15.88 [facility] [address] [facility] [id number], [place] [address] August, [facility] [address] [place] [address] Jul, [facility] [address] [facility] [id number], [place] [address] Jul, [facility] [address] [facility] [id number] [place] [address], [place] [address] Jun, [facility] [address] [facility] [id number], [place] [address] Jun, [facility] [address] [address] Jun, [facility] [address] [facility] [id number], [place] [address] 24 Jun, 2014 [facility] [address] [address] Jun, [facility] [address] [address] Jun, [facility] [address] [address] Jun, [facility] [address] [facility] [id number], [place] [address] 19 Jun, 2014 [facility] [address] [place] [id number] [address] 18 Jun, 2014 [facility] [address] [facility] [id number], [place] [address] 18 Jun, 2014 [facility] [address] [address] 18 Jun, 2014 [facility] [place] [facility] [address] [id number] [place] [address] 18 Jun, 2014 [facility] [place] [facility] [address] [id number] [place] [address] 18 Jun, 2014 [facility] [place] [facility] [address] [id number] [place] [address] 18 Jun, 2014 [facility] [place] [facility] [address] [id number] [place] [address] 12 Jun, 2014 [facility] [place] [facility] [address] [id number] [place] [address] 12 Jun, 2014 [facility] [place] [facility] [address] [id number] [place] [address] 10 Jun, 2014 [facility] [place] [facility] [address] [id number] [place] [address] 10 Jun, 2014 [facility] [place] [facility] [address] [id number] [place] [address] 10 Jun, 2014 [facility] [place] [facility] [address] [id number] [place] [address] 10 Jun, 2014 [facility] [place] [facility] [address] [id number] [place] [address] Jun, 2014 [facility] [place] [facility] [address] [id number] [place] [address] 09 Jun, 2014 [facility] [place] [facility] [address] [id number] [place] [address] 08 Jun, 2014 [facility] [place] [facility] [address] [id number] [place] [address] 08 Jun, 2014 [facility] [place] [facility] [address] [id number] [place] [address] 06 Jun, 2014 [facility] [place] [facility] [address] [id number] [place] [address] 05 Jun, 2014 [facility] [place] [facility] [address] [id number] [place] [address] Jun, [facility] [place] [facility] [address] [id number] [place] [address] May, [facility] [place] [facility] [address] [id number] [place] [address] May, [facility] [place] [facility] [address] [facility] [id number] [place] [address] Mar, [facility] [place] [facility] [address] [id number] [place] [address] Mar, [facility] [place] [facility] [address] [id number] [place] [address] Mar, [facility] [place] [facility] [address] [id number] [place] [address] Mar, [facility] [place] [facility] [address] [id number] [place] [address] Feb, [facility] [place] [facility] [address] [id number] [place] [address] Feb, [facility] [place] [facility] [address] [id number] [place] [address] Oct, [facility] [place] [facility] [address] [id number] [place] [address] Oct, [facility] [place] [facility] [address] [id number] [place] [address] Sep, [facility] [place] [facility] [address] [id number], [place] [address] Sep, [facility] [place] [facility] [address] [id number] [place] [address] Sep, [facility] [place] [facility] [address] [id number] [place] [address] Sep, [facility] [place] [facility] [address] [id number] [place] [address] Sep, [facility] [place] [facility] [address] [id number] [place] [address] Sep, [facility] [place] [facility] [address] [id number] [place] [address] Sep, [facility] [place] [facility] [address] [id number] [place] [address] Sep, [facility] [place] [facility] [address] [id number] [place] [address] Sep, [facility] [place] [facility] [address] [id number] [place] [address] Jun, [facility] [place] [facility] [address] [id number] [place] [address] Jun, [facility] [place] [facility] [address] [id number] [place] [address] May, [facility] [place] [facility] [address] [id number] [place] [address] May, [facility] [place] [facility] [address] [id number] [place] [address] May, [facility] [place] [facility] [address] [id number] [place] [address] May, [facility] [place] [facility] [address] [id number] [place] [address] Apr, [facility] [place] [facility] [address] [id number] [place] [address] Apr, [facility] [place] [facility] [address] [id number] [place] [address] Apr, [facility] [place] [facility] [address] [id number] [place] [address] Apr, [facility] [place] [facility] [address] [id number] [place] [address] Mar, [facility] [place] [facility] [address] [id number] [place] [address] Mar, [facility] [address] [facility] [id number] [place] [address] Feb, [facility] [address] [facility] [id number] [place] [address] Feb, IMMUNIZATIONS No Known Immunizations SOCIAL HISTORY Never Assessed REASON FOR VISIT PLAN OF CARE VITAL SIGNS Height 60 in 2014-06-12 Weight 209 lbs 2014-06-12 Temperature 98.8 degrees Fahrenheit 2014-06-12 Heart Rate 111 bpm 2014-06-12 Respiratory Rate 24 2014-06-12 Blood pressure systolic 160 mmHg 2014-06-12 Blood pressure diastolic 80 mmHg 2014-06-12 MEDICATIONS Unknown Medications RESULTS No Results PROCEDURES Procedure Date Ordered Result Body Site COMPLETE CBC W/AUTO DIFF WBC June 12, 2014 COMPREHEN METABOLIC PANEL June 12, 2014 URINALYSIS, AUTO, W/O SCOPE June 12, 2014 VENIPUNCT, ROUTINE* June 12, 2014 INSTRUCTIONS MEDICATIONS ADMINISTERED No Known Medications [...]
--- OUTSIDE RECORDS SUMMARY | 2018-11-13 09:16 | XMS REPORT ---
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 Active 05128905244248252 Problem Diverticulosis of large intestine without hemorrhage K57.30 Active 713285933 Problem Bilateral carotid artery stenosis I65.23 Active 45515696 Problem Essential hypertension I10 Active 92008648 Problem Bilateral primary osteoarthritis of knee M17.0 Active 577004211 Problem Coronary artery disease involving gambell coronary artery of gambell heart without angina pectoris I25.10 Active 4506499363674 Problem Hyperlipidemia E78.5 Active 32550124 Problem Tubular adenoma D36.9 Active 088118556 Problem Lumbar compression fracture, sequela S32.000S Active 906014014 Problem Chronic prescription opiate use Z79.899 Active 286029440 Problem Vertigo R42 Active 748923771 Problem CKD stage G3b/A1, GFR 30-44 and albumin creatinine ratio <30 mg/g N18.3 Active 973999132 Problem Other chronic pain G89.29 Active 99946312 Problem Osteopenia M85.80 Active 372566755 Problem COPD (chronic obstructive pulmonary disease) J44.9 Active 62796056 Problem Chronic gastritis without bleeding, unspecified gastritis type K29.50 Active 6315725 Problem Avascular necrosis of bone of right hip M87.051 Active 435576658 Problem Nocturnal hypoxia G47.34 Active [id number] ALLERGIES No Information ENCOUNTERS Encounter Location Date Diagnosis [facility] [address] [facility] [id number] [address] Jun, [facility] [address] [place] [id number] [place] [address] Dec, Vertigo R42 ; Acute pancreatitis without infection or necrosis, unspecified pancreatitis type K85.90 ; Essential hypertension I10 ; CKD stage G3b/A1, GFR 30-44 and albumin creatinine ratio <30 mg/g N18.3 and BMI 40.0-44.9, adult Z68.41 [place] [address] [address] Dec, [place] [address] [address] Dec, [place] [address] [address] Nov, 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 ; Wheezing R06.2 ; Mesenteric panniculitis K65.4 and BMI 40.0-44.9, adult Z68.41 [place] [address] [address] Sep, 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 [place] [address] [place] [id number] [place] [address] Sep, COPD (chronic obstructive pulmonary disease) J44.9 ; BMI 40.0-44.9, adult Z68.41 ; 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 ; Chronic gastritis without bleeding, unspecified gastritis type K29.50 and Breast cancer screening Z12.31 [place] [address] [place] [id number] [place] [address] August, [place] [address] [place] [id number] [place] [address] Jun, [address] [address] May, Essential hypertension I10 ; Hyperlipidemia E78.5 [...] adult Z68.41 [facility] [id number] [place] [address] Apr, [facility] [address] [id number] [address] Apr, [facility] [address] [id number] [place] [address] Oct, [facility] [id number] [place] [address] Sep, [facility] [id number] [place] [address] Jun, [facility] [address] [id number] [address] Jun, [facility] [id number] [address] Jun, [facility] [id number] [address] Jun, [facility] [id number] [address] May, [facility] [address] [address] Apr, [facility] [id number] [address] Mar, [facility] [address] [address] Feb, [facility] [id number] [place] [address] Jan, Low vitamin B12 level E53.8 and Elevated MCV R71.8 [facility] [id number] [place] [address] Jan, [facility] [id number] [place] [address] Dec, Essential hypertension I10 and Elevated MCV R71.8 [facility] [address] [place] [id number] [place] [address] Dec, Lumbar compression fracture, sequela S32.000S ; Chronic prescription opiate use Z79.899 ; Hyperlipidemia E78.5 ; Essential hypertension I10 and Shortness of breath R06.02 [facility] [id number] [place] [address] Nov, [facility] [address] [place] [id number] [place] [address] Oct, [facility] [id number] [place] [address] Sep, [facility] [address] [place] [id number] [place] [address] Sep, Primary osteoarthritis of right knee M17.11 [facility] [address] [place] [address] August, Essential hypertension I10 ; Pain in right knee M25.561 ; Pain in left knee M25.562 and Lumbar compression fracture, sequela S32.000S [facility] [address] [place] [address] Jul, [facility] [address] [place] [id number] [place] [address] Jun, [facility] [id number] [place] [address] 09 May, 2015 Chronic prescription opiate use Z79.899 and Lumbar compression fracture, sequela S32.000S [facility] [address] [address] Apr, [facility] [address] [place] [id number] [place] [address] Apr, [facility] [address] [place] [id number] [place] [address] Apr, Lumbar compression fracture, sequela S32.000S ; Dysuria R30.0 and Chronic prescription opiate use Z79.899 [facility] [address] [place] [address] Jan, [facility] [address] [place] [id number] [place] [address] Nov, Osteopenia 733.90 [place] [address] [place] [id number] [place] [address] Nov, [facility] [address] [place] [id number] [place] [address] Nov, [facility] [address] [place] [id number] [place] [address] Oct, [facility] [address] [place] [id number] [place] [address] Oct, Chronic airway obstruction, not elsewhere classified 496 ; Chronic kidney disease, unspecified 585.9 ; Lumbar compression fracture 805.4 and Screening for colon cancer V76.51 [facility] [id number] [place] [address] Sep, [facility] [address] [place] [id number] [place] [address] August, Status post kyphoplasty V45.89 [facility] [address] [place] [id number] [place] [address] August, Vertebral compression fracture 805.8 [place] [address] [place] [id number] [place] [address] August, [facility] [address] [facility] [id number] [address] August, Lumbar back pain 724.2 and Frequent falls V15.88 [facility] [address] [facility] [id number] [address] August, [facility] [id number] [place] [address] Jul, [facility] [address] [facility] [id number] [address] Jul, [facility] [address] [facility] [id number] [place] [address], [place] [address] Jun, [facility] [address] [facility] [id number][place] [address] Jun, [facility] [address] [address] Jun, [facility] [address] [facility] [id number], [place] [address] 24 Jun, 2014 [facility] [address] [address] Jun, [facility] [address] [address] Jun, [facility] [address] [address] Jun, [facility] [address] [facility] [id number][place] [address] 19 Jun, 2014 [facility] [address] [place] [id number] [address] 18 Jun, 2014 [facility] [address] [facility] [id number][place] [address] 18 Jun, 2014 [facility] [address] [address] 18 Jun, 2014 [facility] [place] [facility] [address] [id number] [place] [address] 18 Jun, 2014 [facility] [place] [facility] [address] [id number] [place] [address] 18 Jun, 2014 [facility] [place] [facility] [address] [id number] [place] [address] 18 Jun, 2014 [facility] [place] [facility] [address] [id number] [place] [address] 12 Jun, 2014 [facility] [place] [facility] [address] [id number] [place] [address] 12 Jun, 2014 [facility] [place] [facility] [address] [id number] [place] [address] 10 Jun, 2014 [facility] [place] [facility] [address] [id number] [place] [address] 10 Jun, 2014 [facility] [place] [facility] [address] [id number] [place] [address] 10 Jun, 2014 [facility] [place] [facility] [address] [id number] [place] [address] 10 Jun, 2014 [facility] [place] [facility] [address] [id number] [place] [address] Jun, 2014 [facility] [place] [facility] [address] [id number] [place] [address] 09 Jun, 2014 [facility] [place] [facility] [address] [id number] [place] [address] 08 Jun, 2014 [facility] [place] [facility] [address] [id number] [place] [address] 08 Jun, 2014 [facility] [place] [facility] [address] [id number] [place] [address] 06 Jun, 2014 [facility] [place] [facility] [address] [id number] [place] [address] 05 Jun, 2014 [facility] [place] [facility] [address] [id number] [place] [address] Jun, [facility] [place] [facility] [address] [id number] [place] [address] May, [facility] [place] [facility] [address] [id number] [place] [address] May, [facility] [place] [facility] [address] [facility] [id number] [place] [address] Mar, [facility] [place] [facility] [address] [id number] [place] [address] Mar, [facility] [place] [facility] [address] [id number] [place] [address] Mar, [facility] [place] [facility] [address] [id number] [place] [address] Mar, [facility] [place] [facility] [address] [id number] [place] [address] Feb, [facility] [place] [facility] [address] [id number] [place] [address] Feb, [facility] [place] [facility] [address] [id number] [place] [address] Oct, [facility] [place] [facility] [address] [id number] [place] [address] Oct, [facility] [place] [facility] [address] [id number] [place] [address] Sep, [facility] [place] [facility] [address] [id number][place] [address] Sep, [facility] [place] [facility] [address] [id number] [place] [address] Sep, [facility] [place] [facility] [address] [id number] [place] [address] Sep, [facility] [place] [facility] [address] [id number] [place] [address] Sep, [facility] [place] [facility] [address] [id number] [place] [address] Sep, [facility] [place] [facility] [address] [id number] [place] [address] Sep, [facility] [place] [facility] [address] [id number] [place] [address] Sep, [facility] [place] [facility] [address] [id number] [place] [address] Sep, [facility] [place] [facility] [address] [id number] [place] [address] Jun, [facility] [place] [facility] [address] [id number] [place] [address] Jun, [facility] [place] [facility] [address] [id number] [place] [address] May, [facility] [place] [facility] [address] [id number] [place] [address] May, [facility] [place] [facility] [address] [id number] [place] [address] May, [facility] [place] [facility] [address] [id number] [place] [address] May, [facility] [place] [facility] [address] [id number] [place] [address] Apr, [facility] [place] [facility] [address] [id number] [place] [address] Apr, [facility] [place] [facility] [address] [id number] [place] [address] Apr, [facility] [place] [facility] [address] [id number] [place] [address] Apr, [facility] [place] [facility] [address] [id number] [place] [address] Mar, [facility] [place] [facility] [address] [id number] [place] [address] Mar, [facility] [address] [facility] [id number] [place] [address] Feb, [facility] [address] [facility] [id number] [place] [address] Feb, IMMUNIZATIONS No Known Immunizations SOCIAL HISTORY [...] cardiac problems and COPD exacerbations. Hospitalization History [place]- for Tylenol overdose 09/2016
--- OUTSIDE RECORDS SUMMARY | 2018-11-13 09:16 | XMS REPORT ---
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 Active [id number] Problem Diverticulosis of large intestine without hemorrhage K57.30 Active 263838098 Problem Bilateral carotid artery stenosis I65.23 Active 65317749 Problem Essential hypertension I10 Active 93062422 Problem Bilateral primary osteoarthritis of knee M17.0 Active 365389572 Problem Coronary artery disease involving [place] coronary artery of [place] heart without angina pectoris I25.10 Active 6067517253648 Problem Hyperlipidemia E78.5 Active 55804279 Problem Tubular adenoma D36.9 Active 051866505 Problem Lumbar compression fracture, sequela S32.000S Active 852984683 Problem Chronic prescription opiate use Z79.899 Active 586406849 Problem Vertigo R42 Active 861015148 Problem CKD stage G3b/A1, GFR 30-44 and albumin creatinine ratio <30 mg/g N18.3 Active 175348329 Problem Other chronic pain G89.29 Active 07328466 Problem Osteopenia M85.80 Active 345507976 Problem COPD (chronic obstructive pulmonary disease) J44.9 Active 02369756 Problem Chronic gastritis without bleeding, unspecified gastritis type K29.50 Active 8855704 Problem Avascular necrosis of bone of right hip M87.051 Active 374895032 Problem Nocturnal hypoxia G47.34 Active 460752239 ALLERGIES No Information ENCOUNTERS Encounter Location Date Diagnosis [facility] [address] [id number] [address] Jun, [facility] [id number] [place] [address] Dec, Vertigo R42 ; Acute pancreatitis without infection or necrosis, unspecified pancreatitis type K85.90 ; Essential hypertension I10 ; CKD stage G3b/A1, GFR 30-44 and albumin creatinine ratio <30 mg/g N18.3 and BMI 40.0-44.9, adult Z68.41 [place] [address] [address] Dec, [place] [address] [address] Dec, [place] [address] [address] Nov, 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 ; Wheezing R06.2 ; Mesenteric panniculitis K65.4 and BMI 40.0-44.9, adult Z68.41 [place] [address] [address] Sep, 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 [place] [id number] [place] [address] Sep, COPD (chronic obstructive pulmonary disease) J44.9 ; BMI 40.0-44.9, adult Z68.41 ; 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 ; Chronic gastritis without bleeding, unspecified gastritis type K29.50 and Breast cancer screening Z12.31 [place] [id number] [place] [address] August, [place] [id number] [place] [address] Jun, [address] [address] May, Essential hypertension I10 ; Hyperlipidemia E78.5 [...] hip M87.051 and BMI 40.0-44.9, adult Z68.41 [facility] [id number] [place] [address] Apr, [facility] [address] [id number] [address] Apr, [facility] [id number] [place] [address] Oct, [facility] [id number] [place] [address] Sep, [facility] [id number] [place] [address] Jun, [facility] [address] [id number] [address] Jun, [facility] [address] [id number] [address] Jun, [facility] [address] [id number] [address] Jun, [facility] [address] [id number] [address] May, [facility] [address] [address] Apr, [facility] [address] [id number] [address] Mar, [facility] [address] [address] Feb, [facility] [id number] [place] [address] Jan, Low vitamin B12 level E53.8 and Elevated MCV R71.8 [facility] [id number] [place] [address] Jan, [facility] [id number] [place] [address] Dec, Essential hypertension I10 and Elevated MCV R71.8 [facility] [id number] [place] [address] Dec, Lumbar compression fracture, sequela S32.000S ; Chronic prescription opiate use Z79.899 ; Hyperlipidemia E78.5 ; Essential hypertension I10 and Shortness of breath R06.02 [facility] [id number] [place] [address] Nov, [facility] [id number] [place] [address] Oct, [facility] [id number] [place] [address] Sep, [facility] [id number] [place] [address] Sep, Primary osteoarthritis of right knee M17.11 [facility] [address] [place] [address] August, Essential hypertension I10 ; Pain in right knee M25.561 ; Pain in left knee M25.562 and Lumbar compression fracture, sequela S32.000S [facility] [address] [place] [address] Jul, [facility] [id number] [place] [address] Jun, [facility] [address] [place] [address] 09 May, 2015 Chronic prescription opiate use Z79.899 and Lumbar compression fracture, sequela S32.000S [facility] [address], [place] [address] Apr, [facility] [id number] [place] [address] Apr, [facility] [id number] [place] [address] Apr, Lumbar compression fracture, sequela S32.000S ; Dysuria R30.0 and Chronic prescription opiate use Z79.899 [facility] [address] [place] [address] Jan, [facility] [id number] [place] [address] Nov, Osteopenia 733.90 [place] [id number] [place] [address] Nov, [facility] [id number] [place] [address] Nov, [facility] [id number] [place] [address] Oct, [facility] [id number] [place] [address] Oct, Chronic airway obstruction, not elsewhere classified 496 ; Chronic kidney disease, unspecified 585.9 ; Lumbar compression fracture 805.4 and Screening for colon cancer V76.51 [facility] [address] [place] [address] Sep, [facility] [id number] [place] [address] August, Status post kyphoplasty V45.89 [facility] [id number] [place] [address] August, Vertebral compression fracture 805.8 [place] [id number] [place] [address] August, [facility] [address] [id number], [place] [address] August, Lumbar back pain 724.2 and Frequent falls V15.88 [facility] [address] [id number], [place] [address] August, [facility] [address] [place] [address] Jul, [facility] [address] [id number], [place] [address] Jul, [facility] [id number] [place] [address], [place] [address] Jun, [facility] [address] [id number], [place] [address] Jun, [facility] [address], [place] [address] Jun, [facility] [address] [id number], [place] [address] 24 Jun, 2014 [facility] [address], [place] [address] Jun, [facility] [address], [place] [address] Jun, [facility] [address], [place] [address] Jun, [facility] [address] [id number], [place] [address] 19 Jun, 2014 [facility] [address] [id number], [place] [address] 18 Jun, 2014 [facility] [address] [id number], [place] [address] 18 Jun, 2014 [facility] [address], [place] [address] 18 Jun, 2014 [facility] [place] [facility] [address] [id number] [place] [address] 18 Jun, 2014 [facility] [place] [facility] [address] [id number] [place] [address] 18 Jun, 2014 [facility] [place] [facility] [address] [id number] [place] [address] 18 Jun, 2014 [facility] [place] [facility] [address] [id number] [place] [address] 12 Jun, 2014 [facility] [place] [facility] [address] [id number] [place] [address] 12 Jun, 2014 [facility] [place] [facility] [address] [id number] [place] [address] 10 Jun, 2014 [facility] [place] [facility] [address] [id number] [place] [address] 10 Jun, 2014 [facility] [place] [facility] [address] [id number] [place] [address] 10 Jun, 2014 [facility] [place] [facility] [address] [id number] [place] [address] 10 Jun, 2014 [facility] [place] [facility] [address] [id number] [place] [address] Jun, 2014 [facility] [place] [facility] [address] [id number] [place] [address] 09 Jun, 2014 [facility] [place] [facility] [address] [id number] [place] [address] 08 Jun, 2014 [facility] [place] [facility] [address] [id number] [place] [address] 08 Jun, 2014 [facility] [place] [facility] [address] [id number] [place] [address] 06 Jun, 2014 [facility] [place] [facility] [address] [id number] [place] [address] 05 Jun, 2014 [facility] [place] [facility] [address] [id number] [place] [address] Jun, [facility] [place] [facility] [address] [id number] [place] [address] May, [facility] [place] [facility] [address] [id number] [place] [address] May, [facility] [place] [facility] [address] [id number] [place] [address] Mar, [facility] [place] [facility] [address] [id number] [place] [address] Mar, [facility] [place] [facility] [address] [id number] [place] [address] Mar, [facility] [place] [facility] [address] [id number] [place] [address] Mar, [facility] [place] [facility] [address] [id number] [place] [address] Feb, [facility] [place] [facility] [address] [id number] [place] [address] Feb, [facility] [place] [facility] [address] [id number] [place] [address] Oct, [facility] [place] [facility] [address] [id number] [place] [address] Oct, [facility] [place] [facility] [address] [id number] [place] [address] Sep, [facility] [place] [facility] [address] [id number], [place] [address] Sep, [facility] [place] [facility] [address] [id number] [place] [address] Sep, [facility] [place] [facility] [address] [id number] [place] [address] Sep, [facility] [place] [facility] [address] [id number] [place] [address] Sep, [facility] [place] [facility] [address] [id number] [place] [address] Sep, [facility] [place] [facility] [address] [id number] [place] [address] Sep, [facility] [place] [facility] [address] [id number] [place] [address] Sep, [facility] [place] [facility] [address] [id number] [place] [address] Sep, [facility] [place] [facility] [address] [id number] [place] [address] Jun, [facility] [place] [facility] [address] [id number] [place] [address] Jun, [facility] [place] [facility] [address] [id number] [place] [address] May, [facility] [place] [facility] [address] [id number] [place] [address] May, [facility] [place] [facility] [address] [id number] [place] [address] May, [facility] [place] [facility] [address] [id number] [place] [address] May, [facility] [place] [facility] [address] [id number] [place] [address] Apr, [facility] [place] [facility] [address] [id number] [place] [address] Apr, [facility] [place] [facility] [address] [id number] [place] [address] Apr, [facility] [place] [facility] [address] [id number] [place] [address] Apr, [facility] [place] [facility] [address] [id number] [place] [address] Mar, [facility] [place] [facility] [address] [id number] [place] [address] Mar, [facility] [address] [id number] [place] [address] Feb, [facility] [address] [id number] [place] [address] Feb, IMMUNIZATIONS No Known Immunizations SOCIAL HISTORY [...] cardiac problems and COPD exacerbations. Hospitalization History [place]- for Tylenol overdose 09/2016
--- OUTSIDE RECORDS SUMMARY | 2018-11-13 09:17 | XMS REPORT ---
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 Active [id number] Problem Diverticulosis of large intestine without hemorrhage K57.30 Active 295362129 Problem Bilateral carotid artery stenosis I65.23 Active 39632732 Problem Essential hypertension I10 Active 68934959 Problem Bilateral primary osteoarthritis of knee M17.0 Active 862308150 Problem Coronary artery disease involving [place] coronary artery of [place] heart without angina pectoris I25.10 Active 8939959876804 Problem Hyperlipidemia E78.5 Active 35981019 Problem Tubular adenoma D36.9 Active 167044595 Problem Lumbar compression fracture, sequela S32.000S Active 372195078 Problem Chronic prescription opiate use Z79.899 Active 920779076 Problem Vertigo R42 Active 942089133 Problem CKD stage G3b/A1, GFR 30-44 and albumin creatinine ratio <30 mg/g N18.3 Active 988163670 Problem Other chronic pain G89.29 Active 89587031 Problem Osteopenia M85.80 Active 038154192 Problem COPD (chronic obstructive pulmonary disease) J44.9 Active 59488606 Problem Chronic gastritis without bleeding, unspecified gastritis type K29.50 Active 6641737 Problem Avascular necrosis of bone of right hip M87.051 Active 268307517 Problem Nocturnal hypoxia G47.34 Active [id number] ALLERGIES No Information ENCOUNTERS Encounter Location Date Diagnosis [facility] [address] [facility] [id number] [address] Jun, [facility] [id number] [place] [address] Dec, Vertigo R42 ; Acute pancreatitis without infection or necrosis, unspecified pancreatitis type K85.90 ; Essential hypertension I10 ; CKD stage G3b/A1, GFR 30-44 and albumin creatinine ratio <30 mg/g N18.3 and BMI 40.0-44.9, adult Z68.41 [place] [address] [address] Dec, [place] [address] [address] Dec, [place] [address] [address] Nov, 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 ; Wheezing R06.2 ; Mesenteric panniculitis K65.4 and BMI 40.0-44.9, adult Z68.41 [place] [address] [address] Sep, 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 [place] [id number] [place] [address] Sep, COPD (chronic obstructive pulmonary disease) J44.9 ; BMI 40.0-44.9, adult Z68.41 ; 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 ; Chronic gastritis without bleeding, unspecified gastritis type K29.50 and Breast cancer screening Z12.31 [place] [id number] [place] [address] August, [place] [id number] [place] [address] Jun, [address] [address] May, Essential hypertension I10 ; Hyperlipidemia E78.5 [...] and BMI 40.0-44.9, adult Z68.41 [facility] [id number] [place] [address] Apr, [facility] [address] [id number] [address] Apr, [facility] [id number] [place] [address] Oct, [facility] [id number] [place] [address] Sep, [facility] [id number] [place] [address] Jun, [facility] [address] [id number] [address] Jun, [facility] [id number] [address] Jun, [facility] [id number] [address] Jun, [facility] [id number] [address] May, [facility] [address] [address] Apr, [facility] [id number] [address] Mar, [facility] [address], [place] [address] Feb, [facility] [id number] [place] [address] Jan, Low vitamin B12 level E53.8 and Elevated MCV R71.8 [facility] [id number] [place] [address] Jan, [facility] [id number] [place] [address] Dec, Essential hypertension I10 and Elevated MCV R71.8 [facility] [id number] [place] [address] Dec, Lumbar compression fracture, sequela S32.000S ; Chronic prescription opiate use Z79.899 ; Hyperlipidemia E78.5 ; Essential hypertension I10 and Shortness of breath R06.02 [facility] [id number] [place] [address] Nov, [facility] [id number] [place] [address] Oct, [facility] [id number] [place] [address] Sep, [facility] [id number] [place] [address] Sep, Primary osteoarthritis of right knee M17.11 [facility] [address] [place] [address] August, Essential hypertension I10 ; Pain in right knee M25.561 ; Pain in left knee M25.562 and Lumbar compression fracture, sequela S32.000S [facility] [address] [place] [address] Jul, [facility] [id number] [place] [address] Jun, [facility] [address] [place] [address] 09 May, 2015 Chronic prescription opiate use Z79.899 and Lumbar compression fracture, sequela S32.000S [facility] [address], [place] [address] Apr, [facility] [id number] [place] [address] Apr, [facility] [id number] [place] [address] Apr, Lumbar compression fracture, sequela S32.000S ; Dysuria R30.0 and Chronic prescription opiate use Z79.899 [facility] [address] [place] [address] Jan, [facility] [id number] [place] [address] Nov, Osteopenia 733.90 [place] [id number] [place] [address] Nov, [facility] [id number] [place] [address] Nov, [facility] [id number] [place] [address] Oct, [facility] [id number] [place] [address] Oct, Chronic airway obstruction, not elsewhere classified 496 ; Chronic kidney disease, unspecified 585.9 ; Lumbar compression fracture 805.4 and Screening for colon cancer V76.51 [facility] [address] [place] [address] Sep, [facility] [id number] [place] [address] August, Status post kyphoplasty V45.89 [facility] [id number] [place] [address] August, Vertebral compression fracture 805.8 [place] [id number] [place] [address] August, [facility] [address] [facility] [id number], [place] [address] August, Lumbar back pain 724.2 and Frequent falls V15.88 [facility] [address] [facility] [id number], [place] [address] August, [facility] [address] [place] [address] Jul, [facility] [address] [facility] [id number], [place] [address] Jul, [facility] [address] [facility] [id number] [place] [address], [place] [address] Jun, [facility] [address] [facility] [id number], [place] [address] Jun, [facility] [address], [place] [address] Jun, [facility] [address] [facility] [id number], [place] [address] 24 Jun, 2014 [facility] [address], [place] [address] Jun, [facility] [address], [place] [address] Jun, [facility] [address], [place] [address] Jun, [facility] [address] [facility] [id number], [place] [address] 19 Jun, 2014 [facility] [id number], [place] [address] 18 Jun, 2014 [facility] [address] [facility] [id number], [place] [address] 18 Jun, 2014 [facility] [address], [place] [address] 18 Jun, 2014 [facility] [place] [facility] [address] [id number] [place] [address] 18 Jun, 2014 [facility] [place] [facility] [address] [id number] [place] [address] 18 Jun, 2014 [facility] [place] [facility] [address] [id number] [place] [address] 18 Jun, 2014 [facility] [place] [facility] [address] [id number] [place] [address] 12 Jun, 2014 [facility] [place] [facility] [address] [id number] [place] [address] 12 Jun, 2014 [facility] [place] [facility] [address] [id number] [place] [address] 10 Jun, 2014 [facility] [place] [facility] [address] [id number] [place] [address] 10 Jun, 2014 [facility] [place] [facility] [address] [id number] [place] [address] 10 Jun, 2014 [facility] [place] [facility] [address] [id number] [place] [address] 10 Jun, 2014 [facility] [place] [facility] [address] [id number] [place] [address] Jun, 2014 [facility] [place] [facility] [address] [id number] [place] [address] 09 Jun, 2014 [facility] [place] [facility] [address] [id number] [place] [address] 08 Jun, 2014 [facility] [place] [facility] [address] [id number] [place] [address] 08 Jun, 2014 [facility] [place] [facility] [address] [id number] [place] [address] 06 Jun, 2014 [facility] [place] [facility] [address] [id number] [place] [address] 05 Jun, 2014 [facility] [place] [facility] [address] [id number] [place] [address] Jun, [facility] [place] [facility] [address] [id number] [place] [address] May, [facility] [place] [facility] [address] [id number] [place] [address] May, [facility] [place] [facility] [address] [facility] [id number] [place] [address] Mar, [facility] [place] [facility] [address] [id number] [place] [address] Mar, [facility] [place] [facility] [address] [id number] [place] [address] Mar, [facility] [place] [facility] [address] [id number] [place] [address] Mar, [facility] [place] [facility] [address] [id number] [place] [address] Feb, [facility] [place] [facility] [address] [id number] [place] [address] Feb, [facility] [place] [facility] [address] [id number] [place] [address] Oct, [facility] [place] [facility] [address] [id number] [place] [address] Oct, [facility] [place] [facility] [address] [id number] [place] [address] Sep, [facility] [place] [facility] [address] [id number], [place] [address] Sep, [facility] [place] [facility] [address] [id number] [place] [address] Sep, [facility] [place] [facility] [address] [id number] [place] [address] Sep, [facility] [place] [facility] [address] [id number] [place] [address] Sep, [facility] [place] [facility] [address] [id number] [place] [address] Sep, [facility] [place] [facility] [address] [id number] [place] [address] Sep, [facility] [place] [facility] [address] [id number] [place] [address] Sep, [facility] [place] [facility] [address] [id number] [place] [address] Sep, [facility] [place] [facility] [address] [id number] [place] [address] Jun, [facility] [place] [facility] [address] [id number] [place] [address] Jun, [facility] [place] [facility] [address] [id number] [place] [address] May, [facility] [place] [facility] [address] [id number] [place] [address] May, [facility] [place] [facility] [address] [id number] [place] [address] May, [facility] [place] [facility] [address] [id number] [place] [address] May, [facility] [place] [facility] [address] [id number] [place] [address] Apr, [facility] [place] [facility] [address] [id number] [place] [address] Apr, [facility] [place] [facility] [address] [id number] [place] [address] Apr, [facility] [place] [facility] [address] [id number] [place] [address] Apr, [facility] [place] [facility] [address] [id number] [place] [address] Mar, [facility] [place] [facility] [address] [id number] [place] [address] Mar, [facility] [address] [facility] [id number] [place] [address] Feb, [facility] [address] [facility] [id number] [place] [address] Feb, IMMUNIZATIONS No Known Immunizations SOCIAL HISTORY [...] cardiac problems and COPD exacerbations. Hospitalization History [facility]- for Tylenol overdose 09/2016
--- OUTSIDE RECORDS SUMMARY | 2018-11-13 09:17 | XMS REPORT ---
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 Active [id number] Problem Diverticulosis of large intestine without hemorrhage K57.30 Active 649871427 Problem Bilateral carotid artery stenosis I65.23 Active 59016824 Problem Essential hypertension I10 Active 79752196 Problem Bilateral primary osteoarthritis of knee M17.0 Active 059584831 Problem Coronary artery disease involving [place] coronary artery of [place] heart without angina pectoris I25.10 Active 1741260672688 Problem Hyperlipidemia E78.5 Active 57082959 Problem Tubular adenoma D36.9 Active 656711530 Problem Lumbar compression fracture, sequela S32.000S Active 609475827 Problem Chronic prescription opiate use Z79.899 Active 627877962 Problem Vertigo R42 Active 953719633 Problem CKD stage G3b/A1, GFR 30-44 and albumin creatinine ratio <30 mg/g N18.3 Active 013859598 Problem Other chronic pain G89.29 Active 21917129 Problem Osteopenia M85.80 Active 918176403 Problem COPD (chronic obstructive pulmonary disease) J44.9 Active 28128140 Problem Chronic gastritis without bleeding, unspecified gastritis type K29.50 Active 2875788 Problem Avascular necrosis of bone of right hip M87.051 Active 214071555 Problem Nocturnal hypoxia G47.34 Active [id number] ALLERGIES No Information ENCOUNTERS Encounter Location Date Diagnosis [facility] [address] [id number] [address] Jun, [facility] [id number] [place] [address] Dec, Vertigo R42 ; Acute pancreatitis without infection or necrosis, unspecified pancreatitis type K85.90 ; Essential hypertension I10 ; CKD stage G3b/A1, GFR 30-44 and albumin creatinine ratio <30 mg/g N18.3 and BMI 40.0-44.9, adult Z68.41 [place] [address] [address] Dec, [place] [address] [address] Dec, [place] [address] [address] Nov, 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 ; Wheezing R06.2 ; Mesenteric panniculitis K65.4 and BMI 40.0-44.9, adult Z68.41 [place] [address] [address] Sep, 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.] hip M87.051 and BMI 40.0-44.9, adult Z68.41 [facility] [id number] [place] [address] Apr, [facility] [address] [id number] [address] Apr, [facility] [id number] [place] [address] Oct, [facility] [id number] [place] [address] Sep, [facility] [id number] [place] [address] Jun, [facility] [address] [id number] [address] Jun, [facility] [address] [id number] [address] Jun, [facility] [address] [id number] [address] Jun, [facility] [address] [id number] [address] May, [facility] [address] [address] Apr, [facility] [address] [id number] [address] Mar, [facility] [id number] [address] Feb, [facility] [id number] [place] [address] Jan, Low vitamin B12 level E53.8 and Elevated MCV R71.8 [facility] [id number] [place] [address] Jan, [facility] [id number] [place] [address] Dec, Essential hypertension I10 and Elevated MCV R71.8 [facility] [id number] [place] [address] Dec, Lumbar compression fracture, sequela S32.000S ; Chronic prescription opiate use Z79.899 ; Hyperlipidemia E78.5 ; Essential hypertension I10 and Shortness of breath R06.02 [facility] [id number] [place] [address] Nov, [facility] [id number] [place] [address] Oct, [facility] [id number] [place] [address] Sep, [facility] [id number] [place] [address] Sep, Primary osteoarthritis of right knee M17.11 [facility] [id number] [place] [address] August, Essential hypertension I10 ; Pain in right knee M25.561 ; Pain in left knee M25.562 and Lumbar compression fracture, sequela S32.000S [facility] [id number] [place] [address] Jul, [facility] [id number] [place] [address] Jun, [facility] [id number] [place] [address] 09 May, 2015 Chronic prescription opiate use Z79.899 and Lumbar compression fracture, sequela S32.000S [facility] [address], [place] [address] Apr, [facility] [id number] [place] [address] Apr, [facility] [id number] [place] [address] Apr, Lumbar compression fracture, sequela S32.000S ; Dysuria R30.0 and Chronic prescription opiate use Z79.899 [facility] [id number] [place] [address] Jan, [facility] [id number] [place] [address] Nov, Osteopenia 733.90 [place] [id number] [place] [address] Nov, [facility] [id number] [place] [address] Nov, [facility] [id number] [place] [address] Oct, [facility] [id number] [place] [address] Oct, Chronic airway obstruction, not elsewhere classified 496 ; Chronic kidney disease, unspecified 585.9 ; Lumbar compression fracture 805.4 and Screening for colon cancer V76.51 [facility] [id number] [place] [address] Sep, [facility] [id number] [place] [address] August, Status post kyphoplasty V45.89 [facility] [id number] [place] [address] August, Vertebral compression fracture 805.8 [place] [id number] [place] [address] August, [facility] [address] [id number], [place] [address] August, Lumbar back pain 724.2 and Frequent falls V15.88 [facility] [address] [id number], [place] [address] August, [facility] [address] [address] Jul, [facility] [address] [id number], [place] [address] Jul, [facility] [id number] [place] [address], [place] [address] Jun, [facility] [address] [id number], [place] [address] Jun, [facility] [address], [place] [address] Jun, [facility] [address] [id number], [place] [address] 24 Jun, 2014 [facility] [address], [place] [address] Jun, [facility] [address], [place] [address] Jun, [facility] [address], [place] [address] Jun, [facility] [address] [id number], [place] [address] 19 Jun, 2014 [facility] [address] [id number] [address] 18 Jun, 2014 [facility] [address] [id number], [place] [address] 18 Jun, 2014 [facility] [address], [place] [address] 18 Jun, 2014 [facility] [place] [facility] [address] [id number] [place] [address] 18 Jun, 2014 [facility] [place] [facility] [address] [id number] [place] [address] 18 Jun, 2014 [facility] [place] [facility] [address] [id number] [place] [address] 18 Jun, 2014 [facility] [place] [facility] [address] [id number] [place] [address] 12 Jun, 2014 [facility] [place] [facility] [address] [id number] [place] [address] 12 Jun, 2014 [facility] [place] [facility] [address] [id number] [place] [address] 10 Jun, 2014 [facility] [place] [facility] [address] [id number] [place] [address] 10 Jun, 2014 [facility] [place] [facility] [address] [id number] [place] [address] 10 Jun, 2014 [facility] [place] [facility] [address] [id number] [place] [address] 10 Jun, 2014 [facility] [place] [facility] [address] [id number] [place] [address] Jun, 2014 [facility] [place] [facility] [address] [id number] [place] [address] 09 Jun, 2014 [facility] [place] [facility] [address] [id number] [place] [address] 08 Jun, 2014 [facility] [place] [facility] [address] [id number] [place] [address] 08 Jun, 2014 [facility] [place] [facility] [address] [id number] [place] [address] 06 Jun, 2014 [facility] [place] [facility] [address] [id number] [place] [address] 05 Jun, 2014 [facility] [place] [facility] [address] [id number] [place] [address] Jun, [facility] [place] [facility] [address] [id number] [place] [address] May, [facility] [place] [facility] [address] [id number] [place] [address] May, [facility] [place] [facility] [address] [id number] [place] [address] Mar, [facility] [place] [facility] [address] [id number] [place] [address] Mar, [facility] [place] [facility] [address] [id number] [place] [address] Mar, [facility] [place] [facility] [address] [id number] [place] [address] Mar, [facility] [place] [facility] [address] [id number] [place] [address] Feb, [facility] [place] [facility] [address] [id number] [place] [address] Feb, [facility] [place] [facility] [address] [id number] [place] [address] Oct, [facility] [place] [facility] [address] [id number] [place] [address] Oct, [facility] [place] [facility] [address] [id number] [place] [address] Sep, [facility] [place] [facility] [address] [id number], [place] [address] Sep, [facility] [place] [facility] [address] [id number] [place] [address] Sep, [facility] [place] [facility] [address] [id number] [place] [address] Sep, [facility] [place] [facility] [address] [id number] [place] [address] Sep, [facility] [place] [facility] [address] [id number] [place] [address] Sep, [facility] [place] [facility] [address] [id number] [place] [address] Sep, [facility] [place] [facility] [address] [id number] [place] [address] Sep, [facility] [place] [facility] [address] [id number] [place] [address] Sep, [facility] [place] [facility] [address] [id number] [place] [address] Jun, [facility] [place] [facility] [address] [id number] [place] [address] Jun, [facility] [place] [facility] [address] [id number] [place] [address] May, [facility] [place] [facility] [address] [id number] [place] [address] May, [facility] [place] [facility] [address] [id number] [place] [address] May, [facility] [place] [facility] [address] [id number] [place] [address] May, [facility] [place] [facility] [address] [id number] [place] [address] Apr, [facility] [place] [facility] [address] [id number] [place] [address] Apr, [facility] [place] [facility] [address] [id number] [place] [address] Apr, [facility] [place] [facility] [address] [id number] [place] [address] Apr, [facility] [place] [facility] [address] [id number] [place] [address] Mar, [facility] [place] [facility] [address] [id number] [place] [address] Mar, [facility] [address] [id number] [place] [address] Feb, [facility] [address] [id number] [place] [address] Feb, IMMUNIZATIONS No Known Immunizations SOCIAL HISTORY [...] cardiac problems and COPD exacerbations. Hospitalization History [place]- for Tylenol overdose 09/2016
--- OUTSIDE RECORDS SUMMARY | 2018-11-13 09:17 | XMS REPORT ---
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 Active [id number] Problem Diverticulosis of large intestine without hemorrhage K57.30 Active 759434860 Problem Bilateral carotid artery stenosis I65.23 Active 60571013 Problem Essential hypertension I10 Active 80736346 Problem Bilateral primary osteoarthritis of knee M17.0 Active 931070847 Problem Coronary artery disease involving sokaogon coronary artery of sokaogon heart without angina pectoris I25.10 Active 3983475254823 Problem Hyperlipidemia E78.5 Active 18339830 Problem Tubular adenoma D36.9 Active 313895392 Problem Lumbar compression fracture, sequela S32.000S Active 454614314 Problem Chronic prescription opiate use Z79.899 Active 342221276 Problem Vertigo R42 Active 923404383 Problem CKD stage G3b/A1, GFR 30-44 and albumin creatinine ratio <30 mg/g N18.3 Active 390830687 Problem Other chronic pain G89.29 Active 62150720 Problem Osteopenia M85.80 Active 286217240 Problem COPD (chronic obstructive pulmonary disease) J44.9 Active 82300799 Problem Chronic gastritis without bleeding, unspecified gastritis type K29.50 Active 8372277 Problem Avascular necrosis of bone of right hip M87.051 Active 916038205 Problem Nocturnal hypoxia G47.34 Active 259614650 ALLERGIES No Information ENCOUNTERS Encounter Location Date Diagnosis [facility] [address] [facility] [id number] [address] Jun, [facility] [address] [place] [place] [id number] [place] [address] Dec, Vertigo R42 ; Acute pancreatitis without infection or necrosis, unspecified pancreatitis type K85.90 ; Essential hypertension I10 ; CKD stage G3b/A1, GFR 30-44 and albumin creatinine ratio <30 mg/g N18.3 and BMI 40.0-44.9, adult Z68.41 [place] [address] [address] Dec, [place] [address] [address] Dec, [place] [address] [address] Nov, 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 ; Wheezing R06.2 ; Mesenteric panniculitis K65.4 and BMI 40.0-44.9, adult Z68.41 [place] [address] [address] Sep, 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 [place] [address] [place] [id number] [place] [address] Sep, COPD (chronic obstructive pulmonary disease) J44.9 ; BMI 40.0-44.9, adult Z68.41 ; 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 ; Chronic gastritis without bleeding, unspecified gastritis type K29.50 and Breast cancer screening Z12.31 [place] [address] [place] [id number] [place] [address] August, [place] [address] [id number] [place] [address] Jun, [address] [address] May, Essential hypertension I10 ; Hyperlipidemia E78.5 [...] hip M87.051 and BMI 40.0-44.9, adult Z68.41 [facility] [id number] [place] [address] Apr, [facility] [address] [id number] [address] Apr, [facility] [id number] [place] [address] Oct, [facility] [id number] [place] [address] Sep, [facility] [id number] [place] [address] Jun, [facility] [address] [id number] [address] Jun, [facility] [address] [id number] [address] Jun, [facility] [id number] [address] Jun, [facility] [address] [id number] [address] May, [facility] [address] [address] Apr, [facility] [address] [id number] [address] Mar, [facility] [address], [place] [address] Feb, [facility] [id number] [place] [address] Jan, Low vitamin B12 level E53.8 and Elevated MCV R71.8 [facility] [id number] [place] [address] Jan, [facility] [id number] [place] [address] Dec, Essential hypertension I10 and Elevated MCV R71.8 [facility] [id number] [place] [address] Dec, Lumbar compression fracture, sequela S32.000S ; Chronic prescription opiate use Z79.899 ; Hyperlipidemia E78.5 ; Essential hypertension I10 and Shortness of breath R06.02 [facility] [id number] [place] [address] Nov, [facility] [id number] [place] [address] Oct, [facility] [id number] [place] [address] Sep, [facility] [id number] [place] [address] Sep, Primary osteoarthritis of right knee M17.11 [facility] [address] [place] [address] August, Essential hypertension I10 ; Pain in right knee M25.561 ; Pain in left knee M25.562 and Lumbar compression fracture, sequela S32.000S [facility] [address] [place] [address] Jul, [facility] [id number] [place] [address] Jun, [facility] [address] [place] [address] 09 May, 2015 Chronic prescription opiate use Z79.899 and Lumbar compression fracture, sequela S32.000S [facility] [address] [address] Apr, [facility] [id number] [place] [address] Apr, [facility] [id number] [place] [address] Apr, Lumbar compression fracture, sequela S32.000S ; Dysuria R30.0 and Chronic prescription opiate use Z79.899 [facility] [address] [place] [address] Jan, [facility] [address] [id number] [place] [address] Nov, Osteopenia 733.90 [place] [address] [id number] [place] [address] Nov, [facility] [address] [id number] [place] [address] Nov, [facility] [address] [id number] [place] [address] Oct, [facility] [address] [id number] [place] [address] Oct, Chronic airway obstruction, not elsewhere classified 496 ; Chronic kidney disease, unspecified 585.9 ; Lumbar compression fracture 805.4 and Screening for colon cancer V76.51 [facility] [address] [place] [address] Sep, [facility] [address] [place] [id number] [place] [address] August, Status post kyphoplasty V45.89 [facility] [address] [id number] [place] [address] August, Vertebral compression fracture 805.8 [place] [address] [id number] [place] [address] August, [facility] [address] [facility] [id number], [place] [address] August, Lumbar back pain 724.2 and Frequent falls V15.88 [facility] [address] [facility] [id number], [place] [address] August, [facility] [id number] [place] [address] Jul, [facility] [address] [facility] [id number], [place] [address] Jul, [facility] [address] [facility] [id number] [place] [address], [place] [address] Jun, [facility] [address] [facility] [id number], [place] [address] Jun, [facility] [address], [place] [address] Jun, [facility] [address] [facility] [id number], [place] [address] 24 Jun, 2014 [facility] [address], [place] [address] Jun, [facility] [address], [place] [address] Jun, [facility] [address], [place] [address] Jun, [facility] [address] [facility] [id number], [place] [address] 19 Jun, 2014 [facility] [address] [place] [address] [id number], [place] [address] 18 Jun, 2014 [facility] [address] [facility] [id number], [place] [address] 18 Jun, 2014 [facility] [address], [place] [address] 18 Jun, 2014 [facility] [place] [facility] [address] [id number] [place] [address] 18 Jun, 2014 [facility] [place] [facility] [address] [id number] [place] [address] 18 Jun, 2014 [facility] [place] [facility] [address] [id number] [place] [address] 18 Jun, 2014 [facility] [place] [facility] [address] [id number] [place] [address] 12 Jun, 2014 [facility] [place] [facility] [address] [id number] [place] [address] 12 Jun, 2014 [facility] [place] [facility] [address] [id number] [place] [address] 10 Jun, 2014 [facility] [place] [facility] [address] [id number] [place] [address] 10 Jun, 2014 [facility] [place] [facility] [address] [id number] [place] [address] 10 Jun, 2014 [facility] [place] [facility] [address] [id number] [place] [address] 10 Jun, 2014 [facility] [place] [facility] [address] [id number] [place] [address] Jun, 2014 [facility] [place] [facility] [address] [id number] [place] [address] 09 Jun, 2014 [facility] [place] [facility] [address] [id number] [place] [address] 08 Jun, 2014 [facility] [place] [facility] [address] [id number] [place] [address] 08 Jun, 2014 [facility] [place] [facility] [address] [id number] [place] [address] 06 Jun, 2014 [facility] [place] [facility] [address] [id number] [place] [address] 05 Jun, 2014 [facility] [place] [facility] [address] [id number] [place] [address] Jun, [facility] [place] [facility] [address] [id number] [place] [address] May, [facility] [place] [facility] [address] [id number] [place] [address] May, [facility] [place] [facility] [address] [facility] [id number] [place] [address] Mar, [facility] [place] [facility] [address] [id number] [place] [address] Mar, [facility] [place] [facility] [address] [id number] [place] [address] Mar, [facility] [place] [facility] [address] [id number] [place] [address] Mar, [facility] [place] [facility] [address] [id number] [place] [address] Feb, [facility] [place] [facility] [address] [id number] [place] [address] Feb, [facility] [place] [facility] [address] [id number] [place] [address] Oct, [facility] [place] [facility] [address] [id number] [place] [address] Oct, [facility] [place] [facility] [address] [id number] [place] [address] Sep, [facility] [place] [facility] [address] [id number], [place] [address] Sep, [facility] [place] [facility] [address] [id number] [place] [address] Sep, [facility] [place] [facility] [address] [id number] [place] [address] Sep, [facility] [place] [facility] [address] [id number] [place] [address] Sep, [facility] [place] [facility] [address] [id number] [place] [address] Sep, [facility] [place] [facility] [address] [id number] [place] [address] Sep, [facility] [place] [facility] [address] [id number] [place] [address] Sep, [facility] [place] [facility] [address] [id number] [place] [address] Sep, [facility] [place] [facility] [address] [id number] [place] [address] Jun, [facility] [place] [facility] [address] [id number] [place] [address] Jun, [facility] [place] [facility] [address] [id number] [place] [address] May, [facility] [place] [facility] [address] [id number] [place] [address] May, [facility] [place] [facility] [address] [id number] [place] [address] May, [facility] [place] [facility] [address] [id number] [place] [address] May, [facility] [place] [facility] [address] [id number] [place] [address] Apr, [facility] [place] [facility] [address] [id number] [place] [address] Apr, [facility] [place] [facility] [address] [id number] [place] [address] Apr, [facility] [place] [facility] [address] [id number] [place] [address] Apr, [facility] [place] [facility] [address] [id number] [place] [address] Mar, [facility] [place] [facility] [address] [id number] [place] [address] Mar, [facility] [address] [facility] [id number] [place] [address] Feb, [facility] [address] [facility] [id number] [place] [address] Feb, IMMUNIZATIONS No Known Immunizations SOCIAL HISTORY [...] cardiac problems and COPD exacerbations. Hospitalization History [place]- for Tylenol overdose 09/2016
--- OUTSIDE RECORDS SUMMARY | 2018-11-13 09:17 | XMS REPORT ---
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 Active [id number] Problem Diverticulosis of large intestine without hemorrhage K57.30 Active 717858211 Problem Bilateral carotid artery stenosis I65.23 Active 91042717 Problem Essential hypertension I10 Active 31844580 Problem Bilateral primary osteoarthritis of knee M17.0 Active 820367700 Problem Coronary artery disease involving [place] coronary artery of [place] heart without angina pectoris I25.10 Active 5118164529323 Problem Hyperlipidemia E78.5 Active 11834531 Problem Tubular adenoma D36.9 Active 911597790 Problem Lumbar compression fracture, sequela S32.000S Active 341621414 Problem Chronic prescription opiate use Z79.899 Active 042458483 Problem Vertigo R42 Active 844299544 Problem CKD stage G3b/A1, GFR 30-44 and albumin creatinine ratio <30 mg/g N18.3 Active 153103462 Problem Other chronic pain G89.29 Active 14612044 Problem Osteopenia M85.80 Active 487790257 Problem COPD (chronic obstructive pulmonary disease) J44.9 Active 39264199 Problem Chronic gastritis without bleeding, unspecified gastritis type K29.50 Active 0631784 Problem Avascular necrosis of bone of right hip M87.051 Active 147686902 Problem Nocturnal hypoxia G47.34 Active [id number] ALLERGIES No Information ENCOUNTERS Encounter Location Date Diagnosis [facility] [address] 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 ; Wheezing R06.2 ; Mesenteric panniculitis K65.4 and BMI 40.0-44.9, adult Z68.41 [place] [address] [address] Sep, 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 [place] [id number] [place] [address] Sep, COPD (chronic obstructive pulmonary disease) J44.9 ; BMI 40.0-44.9, adult Z68.41 ; 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 ; Chronic gastritis without bleeding, unspecified gastritis type K29.50 and Breast cancer screening Z12.31 [place] [id number] [place] [address] August, [place] [id number] [place] [address] Jun, [address] [address] May, Essential hypertension I10 ; Hyperlipidemia E78.5 [...] hip M87.051 and BMI 40.0-44.9, adult Z68.41 [facility] [id number] [place] [address] Apr, [facility] [address] [id number] [address] Apr, [facility] [id number] [place] [address] Oct, [facility] [id number] [place] [address] Sep, [facility] [id number] [place] [address] Jun, [facility] [address] [id number] [address] Jun, [facility] [id number] [address] Jun, [facility] [id number] [address] Jun, [facility] [id number], [place] [address] May, [facility] [address], [place] [address] Apr, [facility] [address] [id number] [address] Mar, [facility] [address], [place] [address] Feb, [facility] [id number] [place] [address] Jan, Low vitamin B12 level E53.8 and Elevated MCV R71.8 [facility] [id number] [place] [address] Jan, [facility] [id number] [place] [address] Dec, Essential hypertension I10 and Elevated MCV R71.8 [facility] [id number] [place] [address] Dec, Lumbar compression fracture, sequela S32.000S ; Chronic prescription opiate use Z79.899 ; Hyperlipidemia E78.5 ; Essential hypertension I10 and Shortness of breath R06.02 [facility] [id number] [place] [address] Nov, [facility] [id number] [place] [address] Oct, [facility] [id number] [place] [address] Sep, [facility] [id number] [place] [address] Sep, Primary osteoarthritis of right knee M17.11 [facility] [id number] [place] [address] August, Essential hypertension I10 ; Pain in right knee M25.561 ; Pain in left knee M25.562 and Lumbar compression fracture, sequela S32.000S [facility] [address] [place] [address] Jul, [facility] [id number] [place] [address] Jun, [facility] [id number] [place] [address] 09 May, 2015 Chronic prescription opiate use Z79.899 and Lumbar compression fracture, sequela S32.000S [facility] [address], [place] [address] Apr, [facility] [id number] [place] [address] Apr, [facility] [id number] [place] [address] Apr, Lumbar compression fracture, sequela S32.000S ; Dysuria R30.0 and Chronic prescription opiate use Z79.899 [facility] [id number] [place] [address] Jan, [facility] [id number] [place] [address] Nov, Osteopenia 733.90 [place] [id number] [place] [address] Nov, [facility] [id number] [place] [address] Nov, [facility] [id number] [place] [address] Oct, [facility] [id number] [place] [address] Oct, Chronic airway obstruction, not elsewhere classified 496 ; Chronic kidney disease, unspecified 585.9 ; Lumbar compression fracture 805.4 and Screening for colon cancer V76.51 [facility] [address] [place] [address] Sep, [facility] [id number] [place] [address] August, Status post kyphoplasty V45.89 [facility] [id number] [place] [address] August, Vertebral compression fracture 805.8 [place] [address] [address] [id number] [place] [address] August, [facility] [address] [facility] [id number] [address] August, Lumbar back pain 724.2 and Frequent falls V15.88 [facility] [address] [facility] [id number], [place] [address] August, [facility] [address] [address] Jul, [facility] [address] [facility] [id number], [place] [address] Jul, [facility] [address] [facility] [id number] [place] [address], [place] [address] Jun, [facility] [address] [facility] [id number], [place] [address] Jun, [facility] [address], [place] [address] Jun, [facility] [address] [facility] [id number], [place] [address] 24 Jun, 2014 [facility] [address], [place] [address] Jun, [facility] [address], [place] [address] Jun, [facility] [address], [place] [address] Jun, [facility] [address] [facility] [id number], [place] [address] 19 Jun, 2014 [facility] [id number] [address] 18 Jun, 2014 [facility] [address] [facility] [id number], [place] [address] 18 Jun, 2014 [facility] [address], [place] [address] 18 Jun, 2014 [facility] [place] [facility] [address] [id number] [place] [address] 18 Jun, 2014 [facility] [place] [facility] [address] [id number] [place] [address] 18 Jun, 2014 [facility] [place] [facility] [address] [id number] [place] [address] 18 Jun, 2014 [facility] [place] [facility] [address] [id number] [place] [address] 12 Jun, 2014 [facility] [place] [facility] [address] [id number] [place] [address] 12 Jun, 2014 [facility] [place] [facility] [address] [id number] [place] [address] 10 Jun, 2014 [facility] [place] [facility] [address] [id number] [place] [address] 10 Jun, 2014 [facility] [place] [facility] [address] [id number] [place] [address] 10 Jun, 2014 [facility] [place] [facility] [address] [id number] [place] [address] 10 Jun, 2014 [facility] [place] [facility] [address] [id number] [place] [address] Jun, 2014 [facility] [place] [facility] [address] [id number] [place] [address] 09 Jun, 2014 [facility] [place] [facility] [address] [id number] [place] [address] 08 Jun, 2014 [facility] [place] [facility] [address] [id number] [place] [address] 08 Jun, 2014 [facility] [place] [facility] [address] [id number] [place] [address] 06 Jun, 2014 [facility] [place] [facility] [address] [id number] [place] [address] 05 Jun, 2014 [facility] [place] [facility] [address] [id number] [place] [address] Jun, [facility] [place] [facility] [address] [id number] [place] [address] May, [facility] [place] [facility] [address] [id number] [place] [address] May, [facility] [place] [facility] [address] [facility] [id number] [place] [address] Mar, [facility] [place] [facility] [address] [id number] [place] [address] Mar, [facility] [place] [facility] [address] [id number] [place] [address] Mar, [facility] [place] [facility] [address] [id number] [place] [address] Mar, [facility] [place] [facility] [address] [id number] [place] [address] Feb, [facility] [place] [facility] [address] [id number] [place] [address] Feb, [facility] [place] [facility] [address] [id number] [place] [address] Oct, [facility] [place] [facility] [address] [id number] [place] [address] Oct, [facility] [place] [facility] [address] [id number] [place] [address] Sep, [facility] [place] [facility] [address] [id number], [place] [address] Sep, [facility] [place] [facility] [address] [id number] [place] [address] Sep, [facility] [place] [facility] [address] [id number] [place] [address] Sep, [facility] [place] [facility] [address] [id number] [place] [address] Sep, [facility] [place] [facility] [address] [id number] [place] [address] Sep, [facility] [place] [facility] [address] [id number] [place] [address] Sep, [facility] [place] [facility] [address] [id number] [place] [address] Sep, [facility] [place] [facility] [address] [id number] [place] [address] Sep, [facility] [place] [facility] [address] [id number] [place] [address] Jun, [facility] [place] [facility] [address] [id number] [place] [address] Jun, [facility] [place] [facility] [address] [id number] [place] [address] May, [facility] [place] [facility] [address] [id number] [place] [address] May, [facility] [place] [facility] [address] [id number] [place] [address] May, [facility] [place] [facility] [address] [id number] [place] [address] May, [facility] [place] [facility] [address] [id number] [place] [address] Apr, [facility] [place] [facility] [address] [id number] [place] [address] Apr, [facility] [place] [facility] [address] [id number] [place] [address] Apr, [facility] [place] [facility] [address] [id number] [place] [address] Apr, [facility] [place] [facility] [address] [id number] [place] [address] Mar, [facility] [place] [facility] [address] [id number] [place] [address] Mar, [facility] [address] [facility] [id number] [place] [address] Feb, [facility] [address] [facility] [id number] [place] [address] Feb, IMMUNIZATIONS No Known Immunizations SOCIAL HISTORY Never Assessed REASON FOR VISIT PLAN OF CARE VITAL SIGNS Height 60 in 2014-06-26 Weight 206.21 lbs 2014-06-26 Temperature 97.8 degrees Fahrenheit 2014-06-26 Heart Rate 108 bpm 2014-06-26 Respiratory Rate 26 2014-06-26 Blood pressure systolic 140 mmHg 2014-06-26 Blood pressure diastolic 80 mmHg 2014-06-26 MEDICATIONS Unknown Medications RESULTS No Results PROCEDURES [...]
--- OUTSIDE RECORDS SUMMARY | 2018-11-13 09:18 | XMS REPORT ---
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 Active 76572020442479027 Problem Diverticulosis of large intestine without hemorrhage K57.30 Active 025919558 Problem Bilateral carotid artery stenosis I65.23 Active 38100288 Problem Essential hypertension I10 Active 15669498 Problem Bilateral primary osteoarthritis of knee M17.0 Active 520487171 Problem Coronary artery disease involving [place] coronary artery of [place] heart without angina pectoris I25.10 Active 0221156288370 Problem Hyperlipidemia E78.5 Active 58653680 Problem Tubular adenoma D36.9 Active 633397845 Problem Lumbar compression fracture, sequela S32.000S Active 396130559 Problem Chronic prescription opiate use Z79.899 Active 487009005 Problem Vertigo R42 Active 775506321 Problem CKD stage G3b/A1, GFR 30-44 and albumin creatinine ratio <30 mg/g N18.3 Active 198653828 Problem Other chronic pain G89.29 Active 88439486 Problem Osteopenia M85.80 Active 432606697 Problem COPD (chronic obstructive pulmonary disease) J44.9 Active 61485315 Problem Chronic gastritis without bleeding, unspecified gastritis type K29.50 Active 7552280 Problem Avascular necrosis of bone of right hip M87.051 Active 534162933 Problem Nocturnal hypoxia G47.34 Active 644527153 ALLERGIES No Information ENCOUNTERS Encounter Location Date Diagnosis [facility] [address] 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 ; Wheezing R06.2 ; Mesenteric panniculitis K65.4 and BMI 40.0-44.9, adult Z68.41 [place] [address] [address] Sep, 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 [place] [address] [place] [id number] [place] [address] Sep, COPD (chronic obstructive pulmonary disease) J44.9 ; BMI 40.0-44.9, adult Z68.41 ; 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 ; Chronic gastritis without bleeding, unspecified gastritis type K29.50 and Breast cancer screening Z12.31 [place] [address] [id number] [place] [address] August, [place] [address] [place] [id number] [place] [address] Jun, [address] [address] May, Essential hypertension I10 ; Hyperlipidemia E78.5 [...] hip M87.051 and BMI 40.0-44.9, adult Z68.41 [facility] [id number] [place] [address] Apr, [facility] [address] [id number] [address] Apr, [facility] [id number] [place] [address] Oct, [facility] [id number] [place] [address] Sep, [facility] [id number] [place] [address] Jun, [facility] [address] [id number] [address] Jun, [facility] [id number] [address] Jun, [facility] [address] [id number] [address] Jun, [facility] [id number] [address] May, [facility] [address], [place] [address] Apr, [facility] [address] [id number] [address] Mar, [facility] [address], [place] [address] Feb, [facility] [id number] [place] [address] Jan, Low vitamin B12 level E53.8 and Elevated MCV R71.8 [facility] [id number] [place] [address] Jan, [facility] [id number] [place] [address] Dec, Essential hypertension I10 and Elevated MCV R71.8 [facility] [id number] [place] [address] Dec, Lumbar compression fracture, sequela S32.000S ; Chronic prescription opiate use Z79.899 ; Hyperlipidemia E78.5 ; Essential hypertension I10 and Shortness of breath R06.02 [facility] [id number] [place] [address] Nov, [facility] [id number] [place] [address] Oct, [facility] [id number] [place] [address] Sep, [facility] [id number] [place] [address] Sep, Primary osteoarthritis of right knee M17.11 [facility] [address] [place] [address] August, Essential hypertension I10 ; Pain in right knee M25.561 ; Pain in left knee M25.562 and Lumbar compression fracture, sequela S32.000S [facility] [address] [place] [address] Jul, [facility] [id number] [place] [address] Jun, [facility] [address] [place] [address] 09 May, 2015 Chronic prescription opiate use Z79.899 and Lumbar compression fracture, sequela S32.000S [facility] [address], [place] [address] Apr, [facility] [address] [place] [id number] [place] [address] Apr, [facility] [id number] [place] [address] Apr, Lumbar compression fracture, sequela S32.000S ; Dysuria R30.0 and Chronic prescription opiate use Z79.899 [facility] [address] [place] [address] Jan, [facility] [address] [place] [id number] [place] [address] Nov, Osteopenia 733.90 [place] [address] [place] [id number] [place] [address] Nov, [facility] [address] [place] [id number] [place] [address] Nov, [facility] [address] [place] [id number] [place] [address] Oct, [facility] [address] [place] [id number] [place] [address] Oct, Chronic airway obstruction, not elsewhere classified 496 ; Chronic kidney disease, unspecified 585.9 ; Lumbar compression fracture 805.4 and Screening for colon cancer V76.51 [facility] [address] [place] [address] Sep, [facility] [address] [place] [id number] [place] [address] August, Status post kyphoplasty V45.89 [facility] [address] [place] [id number] [place] [address] August, Vertebral compression fracture 805.8 [place] [address] [place] [id number] [place] [address] August, [facility] [address] [facility] [id number], [place] [address] August, Lumbar back pain 724.2 and Frequent falls V15.88 [facility] [address] [facility] [id number], [place] [address] August, [facility] [address] [place] [address] Jul, [facility] [address] [facility] [id number], [place] [address] Jul, [facility] [address] [facility] [id number] [place] [address], [place] [address] Jun, [facility] [address] [facility] [id number], [place] [address] Jun, [facility] [address], [place] [address] Jun, [facility] [address] [facility] [id number], [place] [address] 24 Jun, 2014 [facility] [address], [place] [address] Jun, [facility] [address], [place] [address] Jun, [facility] [address], [place] [address] Jun, [facility] [address] [facility] [id number], [place] [address] 19 Jun, 2014 [facility] [address] [id number], [place] [address] 18 Jun, 2014 [facility] [address] [facility] [id number], [place] [address] 18 Jun, 2014 [facility] [address], [place] [address] 18 Jun, 2014 [facility] [place] [facility] [address] [id number] [place] [address] 18 Jun, 2014 [facility] [place] [facility] [address] [id number] [place] [address] 18 Jun, 2014 [facility] [place] [facility] [address] [id number] [place] [address] 18 Jun, 2014 [facility] [place] [facility] [address] [id number] [place] [address] 12 Jun, 2014 [facility] [place] [facility] [address] [id number] [place] [address] 12 Jun, 2014 [facility] [place] [facility] [address] [id number] [place] [address] 10 Jun, 2014 [facility] [place] [facility] [address] [id number] [place] [address] 10 Jun, 2014 [facility] [place] [facility] [address] [id number] [place] [address] 10 Jun, 2014 [facility] [place] [facility] [address] [id number] [place] [address] 10 Jun, 2014 [facility] [place] [facility] [address] [id number] [place] [address] Jun, 2014 [facility] [place] [facility] [address] [id number] [place] [address] 09 Jun, 2014 [facility] [place] [facility] [address] [id number] [place] [address] 08 Jun, 2014 [facility] [place] [facility] [address] [id number] [place] [address] 08 Jun, 2014 [facility] [place] [facility] [address] [id number] [place] [address] 06 Jun, 2014 [facility] [place] [facility] [address] [id number] [place] [address] 05 Jun, 2014 [facility] [place] [facility] [address] [id number] [place] [address] Jun, [facility] [place] [facility] [address] [id number] [place] [address] May, [facility] [place] [facility] [address] [id number] [place] [address] May, [facility] [place] [facility] [address] [facility] [id number] [place] [address] Mar, [facility] [place] [facility] [address] [id number] [place] [address] Mar, [facility] [place] [facility] [address] [id number] [place] [address] Mar, [facility] [place] [facility] [address] [id number] [place] [address] Mar, [facility] [place] [facility] [address] [id number] [place] [address] Feb, [facility] [place] [facility] [address] [id number] [place] [address] Feb, [facility] [place] [facility] [address] [id number] [place] [address] Oct, [facility] [place] [facility] [address] [id number] [place] [address] Oct, [facility] [place] [facility] [address] [id number] [place] [address] Sep, [facility] [place] [facility] [address] [id number], [place] [address] Sep, [facility] [place] [facility] [address] [id number] [place] [address] Sep, [facility] [place] [facility] [address] [id number] [place] [address] Sep, [facility] [place] [facility] [address] [id number] [place] [address] Sep, [facility] [place] [facility] [address] [id number] [place] [address] Sep, [facility] [place] [facility] [address] [id number] [place] [address] Sep, [facility] [place] [facility] [address] [id number] [place] [address] Sep, [facility] [place] [facility] [address] [id number] [place] [address] Sep, [facility] [place] [facility] [address] [id number] [place] [address] Jun, [facility] [place] [facility] [address] [id number] [place] [address] Jun, [facility] [place] [facility] [address] [id number] [place] [address] May, [facility] [place] [facility] [address] [id number] [place] [address] May, [facility] [place] [facility] [address] [id number] [place] [address] May, [facility] [place] [facility] [address] [id number] [place] [address] May, [facility] [place] [facility] [address] [id number] [place] [address] Apr, [facility] [place] [facility] [address] [id number] [place] [address] Apr, [facility] [place] [facility] [address] [id number] [place] [address] Apr, [facility] [place] [facility] [address] [id number] [place] [address] Apr, [facility] [place] [facility] [address] [id number] [place] [address] Mar, [facility] [place] [facility] [address] [id number] [place] [address] Mar, [facility] [address] [facility] [id number] [place] [address] Feb, [facility] [address] [facility] [id number] [place] [address] Feb, IMMUNIZATIONS No Known Immunizations SOCIAL HISTORY [...] cardiac problems and COPD exacerbations. Hospitalization History [place]- for Tylenol overdose 09/2016
--- OUTSIDE RECORDS SUMMARY | 2018-11-13 09:18 | XMS REPORT ---
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 Active [id number] Problem Diverticulosis of large intestine without hemorrhage K57.30 Active 338170214 Problem Bilateral carotid artery stenosis I65.23 Active 88020473 Problem Essential hypertension I10 Active 65829960 Problem Bilateral primary osteoarthritis of knee M17.0 Active 902744904 Problem Coronary artery disease involving [place] coronary artery of [place] heart without angina pectoris I25.10 Active 9318217228889 Problem Hyperlipidemia E78.5 Active 59402188 Problem Tubular adenoma D36.9 Active 994145795 Problem Lumbar compression fracture, sequela S32.000S Active 243064376 Problem Chronic prescription opiate use Z79.899 Active 748355658 Problem Vertigo R42 Active 461011004 Problem CKD stage G3b/A1, GFR 30-44 and albumin creatinine ratio <30 mg/g N18.3 Active 320645974 Problem Other chronic pain G89.29 Active 47312304 Problem Osteopenia M85.80 Active 946034839 Problem COPD (chronic obstructive pulmonary disease) J44.9 Active 93708939 Problem Chronic gastritis without bleeding, unspecified gastritis type K29.50 Active 3305611 Problem Avascular necrosis of bone of right hip M87.051 Active 899695302 Problem Nocturnal hypoxia G47.34 Active 880903906 ALLERGIES Substance Reaction Event Type Date Status Sulfa (sulfonamide Antibiotics) Unknown Non Drug Allergy Jul, Active ENCOUNTERS Encounter Location Date Diagnosis [facility] [place] [facility] [address] [facility] [id number], [place] [address] Jun, [facility] [place] [facility] [address] [facility] [id number], [place] [address] Dec, Vertigo R42 ; Acute pancreatitis without infection or necrosis, unspecified pancreatitis type K85.90 ; Essential hypertension I10 ; CKD stage G3b/A1, GFR 30-44 and albumin creatinine ratio <30 mg/g N18.3 and BMI 40.0-44.9, adult Z68.41 [place] [address] [place] [id number] [place] [address] Dec, [place] [address] [address] Dec, [place] [address] [address] Nov, 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 ; Wheezing R06.2 ; Mesenteric panniculitis K65.4 and BMI 40.0-44.9, adult Z68.41 [place] [id number] [place] [address] Sep, 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 [place] [id number] [place] [address] Sep, COPD (chronic obstructive pulmonary disease) J44.9 ; BMI 40.0-44.9, adult Z68.41 ; 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 ; Chronic gastritis without bleeding, unspecified gastritis type K29.50 and Breast cancer screening Z12.31 [place] [id number] [place] [address] August, [place] [id number] [place] [address] Jun, [place] [id number] [place] [address] May, Essential hypertension I10 ; Hyperlipidemia E78.5 [...] hip M87.051 and BMI 40.0-44.9, adult Z68.41 [facility] [place] [facility] [id number] [place] [address] Apr, [facility] [place] [facility] [id number] [place] [address] Apr, [facility] [place] [facility] [id number] [place] [address] Oct, [facility] [place] [facility] [id number] [place] [address] Sep, [facility] [place] [facility] [id number] [place] [address] Jun, [facility] [place] [facility] [address] [id number] [address] Jun, [facility] [place] [facility] [id number] [place] [address] Jun, [facility] [place] [facility] [address] [id number] [address] Jun, [facility] [place] [facility] [address] [address] May, [facility] [place] [facility] [address] [id number] [address] Apr, [facility] [place] [facility] [id number] [place] [address] Mar, [facility] [place] [facility] [address] [id number] [address] Feb, [facility] [place] [facility] [id number] [place] [address] Jan, Low vitamin B12 level E53.8 and Elevated MCV R71.8 [facility] [place] [facility] [id number] [place] [address] Jan, [facility] [place] [facility] [id number] [place] [address] Dec, Essential hypertension I10 and Elevated MCV R71.8 [place] [id number] [place] [address] Dec, Lumbar compression fracture, sequela S32.000S ; Chronic prescription opiate use Z79.899 ; Hyperlipidemia E78.5 ; Essential hypertension I10 and Shortness of breath R06.02 [place] [id number] [place] [address] Nov, [place] [id number] [place] [address] Oct, [place] [id number] [place] [address] Sep, [place] [id number] [place] [address] Sep, Primary osteoarthritis of right knee M17.11 [place] [id number] [place] [address] August, Essential hypertension I10 ; Pain in right knee M25.561 ; Pain in left knee M25.562 and Lumbar compression fracture, sequela S32.000S [facility] [place] [facility] [id number] [place] [address] Jul, [facility] [place] [facility] [id number] [place] [address] Jun, [place] [id number] [place] [address] 09 May, 2015 Chronic prescription opiate use Z79.899 and Lumbar compression fracture, sequela S32.000S [place] [id number] [place] [address] Apr, [facility] [place] [facility] [id number] [place] [address] Apr, [facility] [place] [facility] [id number] [place] [address] Apr, Lumbar compression fracture, sequela S32.000S ; Dysuria R30.0 and Chronic prescription opiate use Z79.899 [facility] [place] [facility] [address] [address] Jan, [facility] [place] [facility] [address] [address] Nov, Osteopenia 733.90 [facility] [place] [facility] [address] [address] Nov, [facility] [place] [facility] [address] [address] Nov, [facility] [place] [facility] [id number] [place] [address] Oct, [facility] [place] [facility] [id number] [place] [address] Oct, Chronic airway obstruction, not elsewhere classified 496 ; Chronic kidney disease, unspecified 585.9 ; Lumbar compression fracture 805.4 and Screening for colon cancer V76.51 [facility] [place] [facility] [id number] [place] [address] Sep, [facility] [place] [facility] [id number] [place] [address] August, Status post kyphoplasty V45.89 [facility] [place] [facility] [address] [address] August, Vertebral compression fracture 805.8 [facility] [place] [facility] [id number] [place] [address] August, [facility] [place] [facility] [address] [place] [address] August, Lumbar back pain 724.2 and Frequent falls V15.88 [facility] [address] [facility] [id number] [place] [address] August, [facility] [address] [facility] [id number] [place] [address] Jul, [facility] [place] [facility] [address] [facility] [id number] [place] [address] Jul, [facility] [address] [id number] [place] [address] Jun, [facility] [address] [facility] [id number] [place] [address] Jun, [facility] [id number] [place] [address] Jun, [facility] [address] [id number], [place] [address] 24 Jun, 2014 [facility] [address] [id number], [place] [address] Jun, [facility] [address] [id number], [place] [address] Jun, [facility] [address] [id number], [place] [address] Jun, [facility] [place] [facility] [address] [facility] [id number], [place] [address] 19 Jun, 2014 [facility] [place] [facility] [address] [facility] [id number], [place] [address] 18 Jun, 2014 [facility] [place] [facility] [address] [facility] [id number], [place] [address] 18 Jun, 2014 [facility] [place] [facility] [address] [facility] [id number], [place] [address] 18 Jun, 2014 [facility] [place] [facility] [address] [id number] [address] Jun, [facility] [place] [facility] [address] [id number] [place] [address] 18 Jun, 2014 [facility] [place] [facility] [address] [id number] [place] [address] Jun, [facility] [place] [facility] [address] [id number] [place] [address] Jun, [facility] [place] [facility] [address] [id number] [place] [address] Jun, [facility] [place] [facility] [address] [id number] [place] [address] 10 Jun, 2014 [facility] [place] [facility] [address] [id number] [place] [address] Jun, [facility] [place] [facility] [address] [id number] [place] [address] Jun, [facility] [place] [facility] [address] [id number] [place] [address] Jun, [facility] [place] [facility] [address] [id number] [place] [address] Jun, [facility] [place] [facility] [address] [id number] [place] [address] Jun, [facility] [place] [facility] [address] [id number] [place] [address] Jun, [facility] [place] [facility] [address] [id number] [place] [address] 08 Jun, 2014 [facility] [place] [facility] [address] [id number] [place] [address] Jun, 2014 [facility] [place] [facility] [address] [id number] [place] [address] Jun, 2014 [facility] [place] [facility] [address] [id number] [place] [address] Jun, 2014 [facility] [place] [facility] [address] [id number] [place] [address] May, [facility] [place] [facility] [address] [id number] [place] [address] May, [facility] [place] [facility] [address] [id number] [place] [address] Mar, [facility] [place] [facility] [address] [id number] [place] [address] Mar, [facility] [place] [facility] [address] [id number] [place] [address] Mar, [facility] [place] [facility] [address] [id number] [place] [address] Mar, [facility] [place] [facility] [address] [id number] [place] [address] Feb, [facility] [place] [facility] [address] [id number] [place] [address] Feb, [facility] [place] [facility] [address] [id number] [place] [address] Oct, [facility] [place] [facility] [address] [id number] [place] [address] Oct, [facility] [place] [facility] [address] [id number] [place] [address] Sep, [facility] [place] [facility] [address] [id number] [place] [address] Sep, [facility] [place] [facility] [address] [id number] [place] [address] Sep, [facility] [place] [facility] [address] [id number] [place] [address] Sep, [facility] [place] [facility] [address] [id number] [place] [address] Sep, [facility] [place] [facility] [address] [id number] [place] [address] Sep, [facility] [place] [facility] [address] [id number] [place] [address] Sep, [facility] [place] [facility] [address] [id number] [place] [address] Sep, [facility] [place] [facility] [address] [id number] [place] [address] Sep, [facility] [place] [facility] [address] [id number] [place] [address] Jun, [facility] [place] [facility] [address] [id number] [place] [address] Jun, [facility] [place] [facility] [address] [id number] [place] [address] May, [facility] [place] [facility] [address] [id number] [place] [address] May, [facility] [place] [facility] [address] [id number] [place] [address] May, [facility] [place] [facility] [address] [id number] [place] [address] May, [facility] [place] [facility] [address] [id number] [place] [address] Apr, [facility] [place] [facility] [address] [id number] [place] [address] Apr, [facility] [place] [facility] [address] [id number] [place] [address] Apr, [facility] [place] [facility] [address] [id number] [place] [address] Apr, [facility] [place] [facility] [address] [id number] [place] [address] Mar, [facility] [place] [facility] [address] [id number] [place] [address] Mar, [facility] [place] [facility] [address] [facility] [id number] [place] [address] Feb, [facility] [place] [facility] [address] [facility] [id number], [place] [address] Feb, IMMUNIZATIONS No Known Immunizations SOCIAL HISTORY Never Assessed REASON FOR VISIT [facility] [place] PLAN OF CARE VITAL SIGNS MEDICATIONS Medication Instructions Dosage Frequency Start Date End Date Duration Status Hydrocodone-Acetaminophen 7.5-325 mg 1 Tablet by Oral route every 6 hours PRN must last 30 days Jun, Active Tricor 145 mg take 1 tablet (145 mg) by oral route once daily Feb, Active Omeprazole 20 mg take 1 capsule (20 mg) by oral route once daily before a meal May, Active Azithromycin 250 mg 2 Tablet by Oral route on day 1 then take 1 daily for 4 days Feb, Active HydrOXYzine HCl 25 mg 1 Tablet by Oral route 2 times per day for anxiety May, Active Aspirin 81 mg 1 tablet by Oral route 1 time per day Jun, Active Metoprolol Succinate 25 mg take 1 tablet by Oral route 1 time per day qAM; Make and keep follow-up appt for refills Mar, Active Plavix 75 mg take 1 tablet (75 mg) by oral route once daily Feb, Active PredniSONE 10 mg 1 Tablet by Oral route 2 times per day for 5 days Take at 8 am and noon. Apr, Active Nitrofurantoin Macrocrystal 100 mg 1 capsule by Oral route 2 times per day for 7 day(s) Sep, Active cyclobenzaprine 10 mg 1 tablet 3 times per day PRN Jun, Active Protonix 40 mg take 1 tablet (40 mg) by oral route once daily Sep, Active Clindamycin HCl 300 mg 1 capsule by Oral route every 12 hours for 7 day(s) Apr, Active Symbicort 160-4.5 mcg/actuation inhale 2 puffs by inhalation route 2 times per day in the morning and evening Oct, Active Tylenol 325 mg 3 Tablet by Oral route every 4 hours PRN Jun, Active Colace 100 mg 1 Tablet by Oral route 1 time per day Apr, Active RESULTS No Results PROCEDURES No Known [...] cardiac problems and COPD exacerbations. Hospitalization History [facility]- for Tylenol overdose 09/2016
--- OUTSIDE RECORDS SUMMARY | 2018-11-13 09:18 | XMS REPORT ---
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 Active [id number] Problem Diverticulosis of large intestine without hemorrhage K57.30 Active 527218737 Problem Bilateral carotid artery stenosis I65.23 Active 34610470 Problem Essential hypertension I10 Active 38027372 Problem Bilateral primary osteoarthritis of knee M17.0 Active 380647949 Problem Coronary artery disease involving shosh[place]bannock coronary artery of shoshone[place]bannock heart without angina pectoris I25.10 Active 1153185866168 Problem Hyperlipidemia E78.5 Active 05319538 Problem Tubular adenoma D36.9 Active 663397707 Problem Lumbar compression fracture, sequela S32.000S Active 137311996 Problem Chronic prescription opiate use Z79.899 Active 722248935 Problem Vertigo R42 Active 435712699 Problem CKD stage G3b/A1, GFR 30-44 and albumin creatinine ratio <30 mg/g N18.3 Active 470451077 Problem Other chronic pain G89.29 Active 35903024 Problem Osteopenia M85.80 Active 497284701 Problem COPD (chronic obstructive pulmonary disease) J44.9 Active 94446618 Problem Chronic gastritis without bleeding, unspecified gastritis type K29.50 Active 6399698 Problem Avascular necrosis of bone of right hip M87.051 Active 252560212 Problem Nocturnal hypoxia G47.34 Active [id number] ALLERGIES No Information ENCOUNTERS Encounter Location Date Diagnosis [facility] [address] [id number] [address] Jun, [facility] [address] [place] [id number] [place] [address] Dec, Vertigo R42 ; Acute pancreatitis without infection or necrosis, unspecified pancreatitis type K85.90 ; Essential hypertension I10 ; CKD stage G3b/A1, GFR 30-44 and albumin creatinine ratio <30 mg/g N18.3 and BMI 40.0-44.9, adult Z68.41 [place] [address] [address] Dec, [place] [address] [address] Dec, [place] [address] [address] Nov, 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 ; Wheezing R06.2 ; Mesenteric panniculitis K65.4 and BMI 40.0-44.9, adult Z68.41 [place] [address] [address] Sep, 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 [place] [address] [place] [id number] [place] [address] Sep, COPD (chronic obstructive pulmonary disease) J44.9 ; BMI 40.0-44.9, adult Z68.41 ; 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 ; Chronic gastritis without bleeding, unspecified gastritis type K29.50 and Breast cancer screening Z12.31 [place] [address] [place] [id number] [place] [address] August, [place] [address] [id number] [place] [address] Jun, [address] [address] May, Essential hypertension I10 ; Hyperlipidemia E78.5 [...] adult Z68.41 [facility] [id number] [place] [address] Apr, [facility] [address] [id number] [address] Apr, [facility] [id number] [place] [address] Oct, [facility] [id number] [place] [address] Sep, [facility] [id number] [place] [address] Jun, [facility] [address] [id number] [address] Jun, [facility] [address] [id number] [address] Jun, [facility] [address] [id number] [address] Jun, [facility] [address] [id number] [address] May, [facility] [address] [address] Apr, [facility] [address] [id number] [address] Mar, [facility] [address] [address] Feb, [facility] [id number] [place] [address] Jan, Low vitamin B12 level E53.8 and Elevated MCV R71.8 [facility] [id number] [place] [address] Jan, [facility] [id number] [place] [address] Dec, Essential hypertension I10 and Elevated MCV R71.8 [facility] [id number] [place] [address] Dec, Lumbar compression fracture, sequela S32.000S ; Chronic prescription opiate use Z79.899 ; Hyperlipidemia E78.5 ; Essential hypertension I10 and Shortness of breath R06.02 [facility] [id number] [place] [address] Nov, [facility] [address] [id number] [place] [address] Oct, [facility] [id number] [place] [address] Sep, [facility] [address] [id number] [place] [address] Sep, Primary osteoarthritis of right knee M17.11 [facility] [address] [place] [address] August, Essential hypertension I10 ; Pain in right knee M25.561 ; Pain in left knee M25.562 and Lumbar compression fracture, sequela S32.000S [facility] [address] [place] [address] Jul, [facility] [id number] [place] [address] Jun, [facility] [address] [place] [address] 09 May, 2015 Chronic prescription opiate use Z79.899 and Lumbar compression fracture, sequela S32.000S [facility] [address] [address] Apr, [facility] [address] [address] [id number] [place] [address] Apr, [facility] [address] [id number] [place] [address] Apr, Lumbar compression fracture, sequela S32.000S ; Dysuria R30.0 and Chronic prescription opiate use Z79.899 [facility] [address] [place] [address] Jan, [facility] [address] [place] [id number] [place] [address] Nov, Osteopenia 733.90 [place] [address] [address] [id number] [place] [address] Nov, [facility] [address] [place] [id number] [place] [address] Nov, [facility] [address] [place] [address] [id number] [place] [address] Oct, [facility] [address] [address] [id number] [place] [address] Oct, Chronic airway obstruction, not elsewhere classified 496 ; Chronic kidney disease, unspecified 585.9 ; Lumbar compression fracture 805.4 and Screening for colon cancer V76.51 [facility] [address] [place] [address] Sep, [facility] [address] [place] [id number] [place] [address] August, Status post kyphoplasty V45.89 [facility] [address] [place] [id number] [place] [address] August, Vertebral compression fracture 805.8 [place] [address] [place] [id number] [place] [address] August, [facility] [address] [facility] [id number], [place] [address] August, Lumbar back pain 724.2 and Frequent falls V15.88 [facility] [address] [facility] [id number], [place] [address] August, [facility] [address] [place] [address] Jul, [facility] [address] [facility] [id number], [place] [address] Jul, [facility] [address] [facility] [id number] [place] [address], [place] [address] Jun, [facility] [address] [facility] [id number], [place] [address] Jun, [facility] [address], [place] [address] Jun, [facility] [address] [facility] [id number], [place] [address] 24 Jun, 2014 [facility] [address], [place] [address] Jun, [facility] [address], [place] [address] Jun, [facility] [address], [place] [address] Jun, [facility] [address] [facility] [id number], [place] [address] 19 Jun, 2014 [facility] [id number] [address] 18 Jun, 2014 [facility] [address] [facility] [id number], [place] [address] 18 Jun, 2014 [facility] [address], [place] [address] 18 Jun, 2014 [facility] [place] [facility] [address] [id number] [place] [address] 18 Jun, 2014 [facility] [place] [facility] [address] [id number] [place] [address] 18 Jun, 2014 [facility] [place] [facility] [address] [id number] [place] [address] 18 Jun, 2014 [facility] [place] [facility] [address] [id number] [place] [address] 12 Jun, 2014 [facility] [place] [facility] [address] [id number] [place] [address] 12 Jun, 2014 [facility] [place] [facility] [address] [id number] [place] [address] 10 Jun, 2014 [facility] [place] [facility] [address] [id number] [place] [address] 10 Jun, 2014 [facility] [place] [facility] [address] [id number] [place] [address] 10 Jun, 2014 [facility] [place] [facility] [address] [id number] [place] [address] 10 Jun, 2014 [facility] [place] [facility] [address] [id number] [place] [address] Jun, 2014 [facility] [place] [facility] [address] [id number] [place] [address] 09 Jun, 2014 [facility] [place] [facility] [address] [id number] [place] [address] 08 Jun, 2014 [facility] [place] [facility] [address] [id number] [place] [address] 08 Jun, 2014 [facility] [place] [facility] [address] [id number] [place] [address] 06 Jun, 2014 [facility] [place] [facility] [address] [id number] [place] [address] 05 Jun, 2014 [facility] [place] [facility] [address] [id number] [place] [address] Jun, [facility] [place] [facility] [address] [id number] [place] [address] May, [facility] [place] [facility] [address] [id number] [place] [address] May, [facility] [place] [facility] [address] [facility] [id number] [place] [address] Mar, [facility] [place] [facility] [address] [id number] [place] [address] Mar, [facility] [place] [facility] [address] [id number] [place] [address] Mar, [facility] [place] [facility] [address] [id number] [place] [address] Mar, [facility] [place] [facility] [address] [id number] [place] [address] Feb, [facility] [place] [facility] [address] [id number] [place] [address] Feb, [facility] [place] [facility] [address] [id number] [place] [address] Oct, [facility] [place] [facility] [address] [id number] [place] [address] Oct, [facility] [place] [facility] [address] [id number] [place] [address] Sep, [facility] [place] [facility] [address] [id number], [place] [address] Sep, [facility] [place] [facility] [address] [id number] [place] [address] Sep, [facility] [place] [facility] [address] [id number] [place] [address] Sep, [facility] [place] [facility] [address] [id number] [place] [address] Sep, [facility] [place] [facility] [address] [id number] [place] [address] Sep, [facility] [place] [facility] [address] [id number] [place] [address] Sep, [facility] [place] [facility] [address] [id number] [place] [address] Sep, [facility] [place] [facility] [address] [id number] [place] [address] Sep, [facility] [place] [facility] [address] [id number] [place] [address] Jun, [facility] [place] [facility] [address] [id number] [place] [address] Jun, [facility] [place] [facility] [address] [id number] [place] [address] May, [facility] [place] [facility] [address] [id number] [place] [address] May, [facility] [place] [facility] [address] [id number] [place] [address] May, [facility] [place] [facility] [address] [id number] [place] [address] May, [facility] [place] [facility] [address] [id number] [place] [address] Apr, [facility] [place] [facility] [address] [id number] [place] [address] Apr, [facility] [place] [facility] [address] [id number] [place] [address] Apr, [facility] [place] [facility] [address] [id number] [place] [address] Apr, [facility] [place] [facility] [address] [id number] [place] [address] Mar, [facility] [place] [facility] [address] [id number] [place] [address] Mar, [facility] [address] [facility] [id number] [place] [address] Feb, [facility] [address] [facility] [id number] [place] [address] Feb, IMMUNIZATIONS No Known Immunizations SOCIAL HISTORY [...] cardiac problems and COPD exacerbations. Hospitalization History [facility]- for Tylenol overdose 09/2016
--- OUTSIDE RECORDS SUMMARY | 2018-11-13 09:19 | XMS REPORT ---
Author Author ROLF SHOLA [facility] Address [address] [place] [address] Care Team Providers Care Print Support Specialist Name Role Phone ROLFTU ROSSIHANY Unavailable PROBLEMS Type Condition ICD9-CM Code UJD46-WI Code Onset Dates Condition Status SNOMED Code Problem Tubular adenoma D36.9 Active 913485900 Problem Chronic prescription opiate use Z79.899 Active 901334652 Problem Lumbar compression fracture, sequela S32.000S Active 481614799 Problem Other chronic pain G89.29 Active 91644173 Problem Vertigo R42 Active 095981603 Problem Chronic gastritis without bleeding, unspecified gastritis type K29.50 Active 6297956 Problem COPD (chronic obstructive pulmonary disease) J44.9 Active 08227182 Problem Nocturnal hypoxia G47.34 Active 009886266 Problem Avascular necrosis of bone of right hip M87.051 Active 289167532 Problem Bilateral carotid artery stenosis I65.23 Active 62793845 Problem Diverticulosis of large intestine without hemorrhage K57.30 Active 368909352 Problem 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 Active 37193025020080500 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 58207995 Problem Hyperlipidemia E78.5 Active 66048883 Problem Coronary artery disease involving [place] coronary artery of [place] heart without angina pectoris I25.10 Active 4827429296212 Problem Bilateral primary osteoarthritis of knee M17.0 Active 274502731 Problem Osteopenia M85.80 Active 971347561 Problem Essential hypertension I10 Active 28818950 Problem CKD stage G3b/A1, GFR 30-44 and albumin creatinine ratio <30 mg/g N18.3 Active 132765290 ALLERGIES Substance Reaction Event Type Date Status Sulfamethoxazole-Trimethoprim Unknown Drug Allergy Dec, Active ENCOUNTERS Encounter Location Date Diagnosis [facility] [address] [facility] [id number] [address] Dec, Vertigo R42 ; Acute pancreatitis without infection or necrosis, unspecified pancreatitis type K85.90 ; Essential hypertension I10 ; CKD stage G3b/A1, GFR 30-44 and albumin creatinine ratio <30 mg/g N18.3 and BMI 40.0-44.9, adult Z68.41 [place] [id number] [place] [address] Dec, [place] [address] [address] Dec, [place] [id number] [place] [address] Nov, 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 ; Wheezing R06.2 ; Mesenteric panniculitis K65.4 and BMI 40.0-44.9, adult Z68.41 [place] [id number] [place] [address] Sep, 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 [place] [id number] [place] [address] Sep, COPD (chronic obstructive pulmonary disease) J44.9 ; BMI 40.0-44.9, adult Z68.41 ; 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 ; Chronic gastritis without bleeding, unspecified gastritis type K29.50 and Breast cancer screening Z12.31 [place] [id number] [place] [address] August, [place] [id number] [place] [address] Jun, [place] [id number] [place] [address] May, Essential hypertension I10 ; Hyperlipidemia E78.5 [...] hip M87.051 and BMI 40.0-44.9, adult Z68.41 [facility] [id number] [place] [address] Apr, [facility] [id number] [place] [address] Apr, [facility] [id number] [place] [address] Oct, [facility] [id number] [place] [address] Sep, [facility] [id number] [place] [address] Jun, [facility] [id number] [place] [address] Jun, [facility] [id number] [place] [address] Jun, [facility] [id number] [place] [address] Jun, [facility] [id number] [place] [address] May, [facility] [id number] [place] [address] Apr, [facility] [id number] [place] [address] Mar, [facility] [id number] [place] [address] Feb, [facility] [id number] [place] [address] Jan, Low vitamin B12 level E53.8 and Elevated MCV R71.8 [facility] [id number] [place] [address] Jan, [facility] [id number] [place] [address] Dec, Essential hypertension I10 and Elevated MCV R71.8 [facility] [id number] [place] [address] Dec, Lumbar compression fracture, sequela S32.000S ; Chronic prescription opiate use Z79.899 ; Hyperlipidemia E78.5 ; Essential hypertension I10 and Shortness of breath R06.02 [place] [id number] [place] [address] Nov, [facility] [id number] [place] [address] Oct, [facility] [address] [address] Sep, [facility] [id number] [place] [address] Sep, Primary osteoarthritis of right knee M17.11 [place] [id number] [place] [address] August, Essential hypertension I10 ; Pain in right knee M25.561 ; Pain in left knee M25.562 and Lumbar compression fracture, sequela S32.000S [facility] [id number] [place] [address] Jul, [facility] [id number] [place] [address] Jun, [facility] [id number] [place] [address] May, Chronic prescription opiate use Z79.899 and Lumbar compression fracture, sequela S32.000S [place] [id number] [place] [address] Apr, [facility] [id number] [place] [address] Apr, [facility] [id number] [place] [address] Apr, Lumbar compression fracture, sequela S32.000S ; Dysuria R30.0 and Chronic prescription opiate use Z79.899 [facility] [address] [address] Jan, [facility] [address] [address] Nov, Osteopenia 733.90 [place] [address] [address] Nov, [place] [id number] [place] [address] Nov, [facility] [id number] [place] [address] Oct, [facility] [address] [address] Oct, Chronic airway obstruction, not elsewhere classified 496 ; Chronic kidney disease, unspecified 585.9 ; Lumbar compression fracture 805.4 and Screening for colon cancer V76.51 [place] [id number] [place] [address] Sep, [facility] [id number] [place] [address] August, Status post kyphoplasty V45.89 [facility] [address] [address] August, Vertebral compression fracture 805.8 [facility] [id number] [place] [address] August, [facility] [address] [address] August, Lumbar back pain 724.2 and Frequent falls V15.88 [facility] [address] [facility] [id number] [place] [address] August, [facility] [address] [facility] [id number] [place] [address] 14 Jul, 2014 [facility] [address] [facility] [id number] [place] [address] Jul, [facility] [address] [id number] [place] [address] Jun, [facility] [address] [facility] [id number] [place] [address] 25 Jun, 2014 [facility] [address] [facility] [id number] [place] [address] Jun, [facility] [address] [facility] [id number] [place] [address] 24 Jun, 2014 [facility] [address] [facility] [id number] [place] [address] Jun, [facility] [address] [facility] [id number] [place] [address] 20 Jun, 2014 [facility] [address] [facility] [id number] [address] 19 Jun, 2014 [facility] [address] [facility] [id number] [place] [address] 19 Jun, 2014 [facility] [address] [facility] [id number] [address] 18 Jun, 2014 [facility] [place] [facility] [address] [facility] [id number] [place] [address] 18 Jun, 2014 [facility] [address] [facility] [id number] [place] [address] 18 Jun, 2014 [facility] [address] [facility] [id number] [address] 18 Jun, 2014 [facility] [place] [facility] [address] [id number] [place] [address] 18 Jun, 2014 [facility] [place] [facility] [address] [id number] [place] [address] 18 Jun, 2014 [facility] [place] [facility] [address] [id number] [place] [address] 12 Jun, 2014 [facility] [place] [facility] [address] [id number] [place] [address] 12 Jun, 2014 [facility] [place] [facility] [address] [id number] [place] [address] 10 Jun, 2014 [facility] [place] [facility] [address] [id number] [place] [address] 10 Jun, 2014 [facility] [place] [facility] [address] [id number] [place] [address] Jun, [facility] [place] [facility] [address] [id number] [place] [address] 10 Jun, 2014 [facility] [place] [facility] [address] [id number] [place] [address] Jun, [facility] [place] [facility] [address] [id number] [place] [address] Jun, 2014 [facility] [place] [facility] [address] [id number] [place] [address] Jun, 2014 [facility] [place] [facility] [address] [id number] [place] [address] 08 Jun, 2014 [facility] [place] [facility] [address] [id number] [place] [address] Jun, 2014 [facility] [place] [facility] [address] [id number] [place] [address] Jun, 2014 [facility] [place] [facility] [address] [id number] [place] [address] 05 Jun, 2014 [facility] [place] [facility] [address] [id number] [place] [address] May, [facility] [place] [facility] [address] [id number] [place] [address] May, [facility] [place] [facility] [address] [id number] [place] [address] Mar, [facility] [place] [facility] [address] [id number] [place] [address] Mar, [facility] [place] [facility] [address] [id number] [place] [address] Mar, [facility] [place] [facility] [address] [id number] [place] [address] Mar, [facility] [place] [facility] [address] [id number] [place] [address] Feb, [facility] [place] [facility] [address] [id number] [place] [address] Feb, [facility] [place] [facility] [address] [id number] [place] [address] Oct, [facility] [place] [facility] [address] [id number] [place] [address] Oct, [facility] [place] [facility] [address] [id number] [place] [address] Sep, [facility] [place] [facility] [address] [id number] [place] [address] Sep, [facility] [place] [facility] [address] [id number] [place] [address] Sep, [facility] [place] [facility] [address] [id number] [place] [address] Sep, [facility] [place] [facility] [address] [id number] [place] [address] Sep, [facility] [place] [facility] [address] [id number] [place] [address] Sep, [facility] [place] [facility] [address] [id number] [place] [address] Sep, [facility] [place] [facility] [address] [id number] [place] [address] Sep, [facility] [place] [facility] [address] [id number] [place] [address] Sep, [facility] [place] [facility] [address] [id number] [place] [address] Jun, [facility] [place] [facility] [address] [id number] [place] [address] Jun, [facility] [place] [facility] [address] [id number] [place] [address] May, [facility] [place] [facility] [address] [id number] [place] [address] May, [facility] [place] [facility] [address] [id number] [place] [address] May, [facility] [place] [facility] [address] [id number] [place] [address] May, [facility] [place] [facility] [address] [id number] [place] [address] Apr, [facility] [place] [facility] [address] [id number] [place] [address] Apr, [facility] [place] [facility] [address] [id number] [place] [address] Apr, [facility] [place] [facility] [address] [id number] [place] [address] Apr, [facility] [place] [facility] [address] [id number] [place] [address] Mar, [facility] [place] [facility] [address] [id number] [place] [address] Mar, [facility] [place] [facility] [address] [id number] [place] [address] Feb, [facility] [address] [facility] [id number] [place] [address] Feb, IMMUNIZATIONS No Known Immunizations SOCIAL HISTORY Never Assessed REASON FOR VISIT [facility] follow up, for dizziness , vomiting patient statesshe is doing much better -- fatimah rausch PLAN OF CARE Activity Details Follow Up 3 Months Reason:HTN VITAL SIGNS Height 60 in 2017-12-14 Weight 207.0 lbs 2017-12-14 Temperature 98.0 degrees Fahrenheit 2017-12-14 Heart Rate 80 bpm 2017-12-14 Respiratory Rate 22 2017-12-14 BMI 40.42 kg/m2 2017-12-14 Blood pressure systolic 138 mmHg 2017-12-14 Blood pressure diastolic 86 mmHg 2017-12-14 MEDICATIONS Medication Instructions Dosage Frequency Start Date End Date Duration Status Tylenol 325 mg 3 Tablet by Oral route every 4 hours PRN Jun, Active Metoprolol Succinate ER 25 MG Orally Once a day 1 tablet 24h Active Aspirin 81 mg 1 tablet by Oral route 1 time per day Jun, Active Loratadine 10MG TAKE 1 TABLET DAILY Active Daliresp 500 MCG Orally Once a day 1 tablet 24h Active Spiriva HandiHaler 18 MCG Inhalation Once a day 1 capsule 24h Active Vitamin D-3 1000 UNIT Orally Once a day 1 capsule 24h Active Advair Diskus 100-50 MCG/DOSE Inhalation Twice a day 1 puff 12h Active Scopolamine 1 MG/3DAYS 1 patch to skin as needed Active Protonix 40 MG Orally Once a day 1 tablet 24h Sep, 90 days Active Lasix 40 MG Orally Once a day 1 tablet 24h Active Vitamin D 1000 UNIT Orally Once a day 1 tablet 24h Active HydrOXYzine HCl 50 MG Orally every 6 hrs 1 tablet as needed 6h Active RESULTS No Results PROCEDURES Procedure Date Ordered Result Body Site LAB NOT BILLED BY [facility] Dec 14, 2017 [facility] VISIT ESTABLISHED PATIENT Dec 14, 2017 [facility]* Dec 14, 2017 INSTRUCTIONS MEDICATIONS ADMINISTERED No Known Medications MEDICAL [...] tonsillectomy 1950 Surgical History lumpectomy, right breast 1976 Surgical History carotid endarterectomy 09/2012 Surgical History [...]
--- OUTSIDE RECORDS SUMMARY | 2018-11-13 09:19 | XMS REPORT ---
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 Active [id number] Problem Diverticulosis of large intestine without hemorrhage K57.30 Active 411187177 Problem Bilateral carotid artery stenosis I65.23 Active 56489447 Problem Essential hypertension I10 Active 72449773 Problem Bilateral primary osteoarthritis of knee M17.0 Active 400304313 Problem Coronary artery disease involving [place] coronary artery of [place] heart without angina pectoris I25.10 Active 9062623239319 Problem Hyperlipidemia E78.5 Active 91131340 Problem Tubular adenoma D36.9 Active 221767393 Problem Lumbar compression fracture, sequela S32.000S Active 844841605 Problem Chronic prescription opiate use Z79.899 Active 349957746 Problem Vertigo R42 Active 971414896 Problem CKD stage G3b/A1, GFR 30-44 and albumin creatinine ratio <30 mg/g N18.3 Active 894227996 Problem Other chronic pain G89.29 Active 70744361 Problem Osteopenia M85.80 Active 826589777 Problem COPD (chronic obstructive pulmonary disease) J44.9 Active 52782883 Problem Chronic gastritis without bleeding, unspecified gastritis type K29.50 Active 2549596 Problem Avascular necrosis of bone of right hip M87.051 Active 311040944 Problem Nocturnal hypoxia G47.34 Active 643970941 ALLERGIES No Information ENCOUNTERS Encounter Location Date Diagnosis [facility] [address] [facility] [id number] [address] Jun, [facility] [address] [facility] [id number], [place] [address] Dec, Vertigo R42 ; Acute pancreatitis without infection or necrosis, unspecified pancreatitis type K85.90 ; Essential hypertension I10 ; CKD stage G3b/A1, GFR 30-44 and albumin creatinine ratio <30 mg/g N18.3 and BMI 40.0-44.9, adult Z68.41 [place] [address] [id number] [place] [address] Dec, [place] [address] [address] Dec, [place] [address] [address] Nov, 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 ; Wheezing R06.2 ; Mesenteric panniculitis K65.4 and BMI 40.0-44.9, adult Z68.41 [place] [id number] [place] [address] Sep, 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 [place] [address] [address] Sep, COPD (chronic obstructive pulmonary disease) J44.9 ; BMI 40.0-44.9, adult Z68.41 ; 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 ; Chronic gastritis without bleeding, unspecified gastritis type K29.50 and Breast cancer screening Z12.31 [place] [id number] [place] [address] August, [place] [id number] [place] [address] Jun, [place] [id number] [place] [address] May, Essential hypertension I10 ; Hyperlipidemia E78.5 [...] hip M87.051 and BMI 40.0-44.9, adult Z68.41 [facility] [id number] [place] [address] Apr, [facility] [address] [address] Apr, [facility] [id number] [place] [address] Oct, [facility] [address] [address] Sep, [facility] [id number] [place] [address] Jun, [facility] [id number] [place] [address] Jun, [facility] [id number] [place] [address] Jun, [facility] [id number] [place] [address] Jun, [facility] [id number] [place] [address] May, [facility] [id number] [place] [address] Apr, [facility] [id number] [place] [address] Mar, [facility] [address] [address] Feb, [facility] [id number] [place] [address] Jan, Low vitamin B12 level E53.8 and Elevated MCV R71.8 [facility] [address] [address] Jan, [facility] [id number] [place] [address] Dec, Essential hypertension I10 and Elevated MCV R71.8 [facility] [id number] [place] [address] Dec, Lumbar compression fracture, sequela S32.000S ; Chronic prescription opiate use Z79.899 ; Hyperlipidemia E78.5 ; Essential hypertension I10 and Shortness of breath R06.02 [facility] [id number] [place] [address] Nov, [facility] [id number] [place] [address] Oct, [place] [id number] [place] [address] Sep, [facility] [id number] [place] [address] Sep, Primary osteoarthritis of right knee M17.11 [place] [id number] [place] [address] August, Essential hypertension I10 ; Pain in right knee M25.561 ; Pain in left knee M25.562 and Lumbar compression fracture, sequela S32.000S [facility] [id number] [place] [address] Jul, [facility] [id number] [place] [address] Jun, [facility] [id number] [place] [address] May, Chronic prescription opiate use Z79.899 and Lumbar compression fracture, sequela S32.000S [place] [id number] [place] [address] Apr, [place] [id number] [place] [address] Apr, [facility] [id number] [place] [address] Apr, Lumbar compression fracture, sequela S32.000S ; Dysuria R30.0 and Chronic prescription opiate use Z79.899 [facility] [id number] [place] [address] Jan, [facility] [id number] [place] [address] Nov, Osteopenia 733.90 [place] [address] [address] Nov, [facility] [id number] [place] [address] Nov, [facility] [id number] [place] [address] Oct, [facility] [id number] [place] [address] Oct, Chronic airway obstruction, not elsewhere classified 496 ; Chronic kidney disease, unspecified 585.9 ; Lumbar compression fracture 805.4 and Screening for colon cancer V76.51 [facility] [id number] [place] [address] Sep, [facility] [id number] [place] [address] August, Status post kyphoplasty V45.89 [facility] [id number] [place] [address] August, Vertebral compression fracture 805.8 [facility] [id number] [place] [address] August, [facility] [id number] [place] [address] August, Lumbar back pain 724.2 and Frequent falls V15.88 [facility] [address] [id number] [place] [address] August, [facility] [place] [facility] [address] [facility] [id number] [place] [address] Jul, [facility] [place] [facility] [address] [facility] [id number] [place] [address] Jul, [facility] [place] [facility] [address] [id number], [place] [address] Jun, [facility] [place] [facility] [address] [id number] [place] [address] Jun, [facility] [place] [facility] [address] [facility] [id number] [place] [address] Jun, [facility] [address] [place] [address] Jun, [facility] [place] [facility] [id number] [place] [address] Jun, [facility] [place] [facility] [id number] [place] [address] Jun, [facility] [place] [facility] [address] [facility] [id number] [place] [address] Jun, [facility] [place] [facility] [address] [id number] [address] Jun, [facility] [place] [facility] [address] [facility] [id number], [place] [address] 18 Jun, 2014 [facility] [place] [facility] [address] [facility] [id number], [place] [address] 18 Jun, 2014 [facility] [place] [facility] [address] [facility] [id number], [place] [address] Jun, [facility] [place] [facility] [address] [id number], [place] [address] Jun, [facility] [place] [facility] [address] [id number] [place] [address] 18 Jun, 2014 [facility] [place] [facility] [address] [id number] [place] [address] 18 Jun, 2014 [facility] [place] [facility] [address] [id number] [place] [address] Jun, 2014 [facility] [place] [facility] [address] [id number] [place] [address] Jun, 2014 [facility] [place] [facility] [address] [id number] [place] [address] Jun, 2014 [facility] [place] [facility] [address] [id number] [place] [address] Jun, 2014 [facility] [place] [facility] [address] [id number] [place] [address] Jun, 2014 [facility] [place] [facility] [address] [id number] [place] [address] Jun, 2014 [facility] [place] [facility] [address] [id number] [place] [address] Jun, [facility] [place] [facility] [address] [id number] [place] [address] Jun, [facility] [place] [facility] [address] [id number] [place] [address] Jun, [facility] [place] [facility] [address] [id number] [place] [address] Jun, 2014 [facility] [place] [facility] [address] [id number] [place] [address] Jun, 2014 [facility] [place] [facility] [address] [id number] [place] [address] Jun, 2014 [facility] [place] [facility] [address] [id number] [place] [address] Jun, [facility] [place] [facility] [address] [id number] [place] [address] May, [facility] [place] [facility] [address] [id number] [place] [address] May, [facility] [place] [facility] [address] [id number] [place] [address] Mar, [facility] [place] [facility] [address] [id number] [place] [address] Mar, [facility] [place] [facility] [address] [id number] [place] [address] Mar, [facility] [place] [facility] [address] [id number] [place] [address] Mar, [facility] [place] [facility] [address] [id number] [place] [address] Feb, [facility] [place] [facility] [address] [id number] [place] [address] Feb, [facility] [place] [facility] [address] [id number] [place] [address] Oct, [facility] [place] [facility] [address] [id number] [place] [address] Oct, [facility] [place] [facility] [address] [id number] [place] [address] Sep, [facility] [place] [facility] [address] [id number] [place] [address] Sep, [facility] [place] [facility] [address] [id number], [place] [address] Sep, [facility] [place] [facility] [address] [id number] [place] [address] Sep, [facility] [place] [facility] [address] [id number] [place] [address] Sep, [facility] [place] [facility] [address] [id number] [place] [address] Sep, [facility] [place] [facility] [address] [id number] [place] [address] Sep, [facility] [place] [facility] [address] [id number] [place] [address] Sep, [facility] [place] [facility] [address] [id number] [place] [address] Sep, [facility] [place] [facility] [address] [id number] [place] [address] Jun, [facility] [place] [facility] [address] [id number] [place] [address] Jun, [facility] [place] [facility] [address] [id number] [place] [address] May, [facility] [place] [facility] [address] [id number] [place] [address] May, [facility] [place] [facility] [address] [facility] [id number] [place] [address] May, [facility] [place] [facility] [address] [id number] [place] [address] May, [facility] [place] [facility] [address] [id number] [place] [address] Apr, [facility] [place] [facility] [address] [facility] [id number] [place] [address] Apr, [facility] [place] [facility] [address] [id number] [place] [address] Apr, [facility] [place] [facility] [address] [id number] [place] [address] Apr, [facility] [place] [facility] [address] [id number] [place] [address] Mar, [facility] [place] [facility] [address] [id number] [place] [address] Mar, [facility] [place] [facility] [address] [facility] [id number] [place] [address] Feb, [facility] [address] [facility] [id number] [place] [address] Feb, IMMUNIZATIONS No Known Immunizations SOCIAL HISTORY Never Assessed REASON FOR VISIT [place] [place] VITAL SIGNS MEDICATIONS Unknown [...]
--- OUTSIDE RECORDS SUMMARY | 2018-11-13 09:19 | XMS REPORT ---
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 Active [id number] Problem Diverticulosis of large intestine without hemorrhage K57.30 Active 324823608 Problem Bilateral carotid artery stenosis I65.23 Active 82592984 Problem Essential hypertension I10 Active 95863593 Problem Bilateral primary osteoarthritis of knee M17.0 Active 507916619 Problem Coronary artery disease involving [place] coronary artery of [place] heart without angina pectoris I25.10 Active 1759947853204 Problem Hyperlipidemia E78.5 Active 25693370 Problem Tubular adenoma D36.9 Active 476963224 Problem Lumbar compression fracture, sequela S32.000S Active 367899840 Problem Chronic prescription opiate use Z79.899 Active 238465314 Problem Vertigo R42 Active 105283153 Problem CKD stage G3b/A1, GFR 30-44 and albumin creatinine ratio <30 mg/g N18.3 Active 694361705 Problem Other chronic pain G89.29 Active 46761135 Problem Osteopenia M85.80 Active 651422439 Problem COPD (chronic obstructive pulmonary disease) J44.9 Active 36977094 Problem Chronic gastritis without bleeding, unspecified gastritis type K29.50 Active 4056104 Problem Avascular necrosis of bone of right hip M87.051 Active 177362261 Problem Nocturnal hypoxia G47.34 Active 908290291 ALLERGIES No Information ENCOUNTERS Encounter Location Date Diagnosis [facility] [address] [facility] [id number] [address] Jun, [facility] [address] [facility] [id number] [address] Dec, Vertigo R42 ; Acute pancreatitis without infection or necrosis, unspecified pancreatitis type K85.90 ; Essential hypertension I10 ; CKD stage G3b/A1, GFR 30-44 and albumin creatinine ratio <30 mg/g N18.3 and BMI 40.0-44.9, adult Z68.41 [place] [id number] [place] [address] Dec, [place] [address] [address] Dec, [place] [address] [address] Nov, 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 ; Wheezing R06.2 ; Mesenteric panniculitis K65.4 and BMI 40.0-44.9, adult Z68.41 [place] [id number] [place] [address] Sep, 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 [place] [address] [address] Sep, COPD (chronic obstructive pulmonary disease) J44.9 ; BMI 40.0-44.9, adult Z68.41 ; 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 ; Chronic gastritis without bleeding, unspecified gastritis type K29.50 and Breast cancer screening Z12.31 [place] [id number] [place] [address] August, [place] [id number] [place] [address] Jun, [place] [address] [id number] [place] [address] May, Essential hypertension I10 ; Hyperlipidemia E78.5 [...] hip M87.051 and BMI 40.0-44.9, adult Z68.41 [facility] [id number] [place] [address] Apr, [facility] [address] [address] Apr, [facility] [id number] [place] [address] Oct, [facility] [address] [address] Sep, [facility] [id number] [place] [address] Jun, [facility] [id number] [place] [address] Jun, [facility] [id number] [place] [address] Jun, [facility] [id number] [place] [address] Jun, [facility] [id number] [place] [address] May, [facility] [id number] [place] [address] Apr, [facility] [id number] [place] [address] Mar, [facility] [address] [address] Feb, [facility] [id number] [place] [address] Jan, Low vitamin B12 level E53.8 and Elevated MCV R71.8 [facility] [id number] [address] Jan, [facility] [id number] [place] [address] Dec, Essential hypertension I10 and Elevated MCV R71.8 [facility] [id number] [place] [address] Dec, Lumbar compression fracture, sequela S32.000S ; Chronic prescription opiate use Z79.899 ; Hyperlipidemia E78.5 ; Essential hypertension I10 and Shortness of breath R06.02 [facility] [id number] [place] [address] Nov, [facility] [id number] [place] [address] Oct, [place] [id number] [place] [address] Sep, [facility] [id number] [place] [address] Sep, Primary osteoarthritis of right knee M17.11 [place] [id number] [place] [address] August, Essential hypertension I10 ; Pain in right knee M25.561 ; Pain in left knee M25.562 and Lumbar compression fracture, sequela S32.000S [facility] [id number] [place] [address] Jul, [facility] [id number] [place] [address] Jun, [facility] [id number] [place] [address] May, Chronic prescription opiate use Z79.899 and Lumbar compression fracture, sequela S32.000S [place] [id number] [place] [address] Apr, [place] [id number] [place] [address] Apr, [facility] [id number] [place] [address] Apr, Lumbar compression fracture, sequela S32.000S ; Dysuria R30.0 and Chronic prescription opiate use Z79.899 [facility] [id number] [place] [address] Jan, [facility] [id number] [place] [address] Nov, Osteopenia 733.90 [place] [address] [address] Nov, [facility] [id number] [place] [address] Nov, [facility] [id number] [place] [address] Oct, [facility] [id number] [place] [address] Oct, Chronic airway obstruction, not elsewhere classified 496 ; Chronic kidney disease, unspecified 585.9 ; Lumbar compression fracture 805.4 and Screening for colon cancer V76.51 [facility] [id number] [place] [address] Sep, [facility] [id number] [place] [address] August, Status post kyphoplasty V45.89 [facility] [id number] [place] [address] August, Vertebral compression fracture 805.8 [facility] [id number] [place] [address] August, [facility] [id number] [place] [address] August, Lumbar back pain 724.2 and Frequent falls V15.88 [facility] [address] [id number] [place] [address] August, [facility] [place] [facility] [address] [facility] [id number] [place] [address] Jul, [facility] [place] [facility] [address] [facility] [id number] [place] [address] Jul, [facility] [place] [facility] [address] [id number] [address] Jun, [facility] [place] [facility] [address] [id number] [place] [address] Jun, [facility] [place] [facility] [address] [facility] [id number] [place] [address] Jun, [facility] [id number] [place] [address] Jun, [facility] [place] [facility] [address] [id number] [place] [address] Jun, [facility] [place] [facility] [id number] [place] [address] Jun, [facility] [place] [facility] [address] [facility] [id number] [place] [address] Jun, [facility] [place] [facility] [address] [id number] [address] Jun, [facility] [place] [facility] [address] [facility] [id number] [place] [address] 18 Jun, 2014 [facility] [place] [facility] [address] [facility] [id number] [address] 18 Jun, 2014 [facility] [place] [facility] [address] [facility] [id number] [place] [address] Jun, [facility] [place] [facility] [id number] [address] Jun, [facility] [place] [facility] [address] [id number] [place] [address] 18 Jun, 2014 [facility] [place] [facility] [address] [id number] [place] [address] 18 Jun, 2014 [facility] [place] [facility] [address] [id number] [place] [address] Jun, 2014 [facility] [place] [facility] [address] [id number] [place] [address] Jun, 2014 [facility] [place] [facility] [address] [id number] [place] [address] Jun, 2014 [facility] [place] [facility] [address] [id number] [place] [address] Jun, 2014 [facility] [place] [facility] [address] [id number] [place] [address] Jun, 2014 [facility] [place] [facility] [address] [id number] [place] [address] Jun, 2014 [facility] [place] [facility] [address] [id number] [place] [address] Jun, [facility] [place] [facility] [address] [id number] [place] [address] Jun, [facility] [place] [facility] [address] [id number] [place] [address] Jun, [facility] [place] [facility] [address] [id number] [place] [address] Jun, 2014 [facility] [place] [facility] [address] [id number] [place] [address] Jun, 2014 [facility] [place] [facility] [address] [id number] [place] [address] Jun, 2014 [facility] [place] [facility] [address] [id number] [place] [address] Jun, [facility] [place] [facility] [address] [id number] [place] [address] May, [facility] [place] [facility] [address] [id number] [place] [address] May, [facility] [place] [facility] [address] [id number] [place] [address] Mar, [facility] [place] [facility] [address] [id number] [place] [address] Mar, [facility] [place] [facility] [address] [id number] [place] [address] Mar, [facility] [place] [facility] [address] [id number] [place] [address] Mar, [facility] [place] [facility] [address] [id number] [place] [address] Feb, [facility] [place] [facility] [address] [id number] [place] [address] Feb, [facility] [place] [facility] [address] [id number] [place] [address] Oct, [facility] [place] [facility] [address] [id number] [place] [address] Oct, [facility] [place] [facility] [address] [id number] [place] [address] Sep, [facility] [place] [facility] [address] [id number] [place] [address] Sep, [facility] [place] [facility] [address] [id number] [address] Sep, [facility] [place] [facility] [address] [id number] [place] [address] Sep, [facility] [place] [facility] [address] [id number] [place] [address] Sep, [facility] [place] [facility] [address] [id number] [place] [address] Sep, [facility] [place] [facility] [address] [id number] [place] [address] Sep, [facility] [place] [facility] [address] [id number] [place] [address] Sep, [facility] [place] [facility] [address] [id number] [place] [address] Sep, [facility] [place] [facility] [address] [id number] [place] [address] Jun, [facility] [place] [facility] [address] [id number] [place] [address] Jun, [facility] [place] [facility] [address] [id number] [place] [address] May, [facility] [place] [facility] [address] [id number] [place] [address] May, [facility] [place] [facility] [address] [facility] [id number] [place] [address] May, [facility] [place] [facility] [address] [id number] [place] [address] May, [facility] [place] [facility] [address] [id number] [place] [address] Apr, [facility] [place] [facility] [address] [facility] [id number] [place] [address] Apr, [facility] [place] [facility] [address] [id number] [place] [address] Apr, [facility] [place] [facility] [address] [id number] [place] [address] Apr, [facility] [place] [facility] [address] [id number] [place] [address] Mar, [facility] [place] [facility] [address] [id number] [place] [address] Mar, [facility] [place] [facility] [address] [facility] [id number] [place] [address] Feb, [facility] [address] [facility] [id number] [place] [address] Feb, IMMUNIZATIONS No Known Immunizations SOCIAL HISTORY Never Assessed REASON FOR VISIT EMR[place] PLAN OF CARE VITAL SIGNS MEDICATIONS Unknown [...]
--- OUTSIDE RECORDS SUMMARY | 2018-11-13 09:20 | XMS REPORT ---
Author Author ROLF SHOLA [facility] Address [address] [place] [address] Care Team Providers Care Molder Machine Name Role Phone ROLFTU ROSSIHANY Unavailable PROBLEMS Type Condition ICD9-CM Code OLQ47-IZ Code Onset Dates Condition Status SNOMED Code Problem Tubular adenoma D36.9 Active 058485061 Problem Chronic prescription opiate use Z79.899 Active 594255713 Problem Lumbar compression fracture, sequela S32.000S Active 793479163 Problem Other chronic pain G89.29 Active 38592980 Problem Vertigo R42 Active 857381933 Problem Chronic gastritis without bleeding, unspecified gastritis type K29.50 Active 4377685 Problem COPD (chronic obstructive pulmonary disease) J44.9 Active 34544243 Problem Nocturnal hypoxia G47.34 Active 687566689 Problem Avascular necrosis of bone of right hip M87.051 Active 527525854 Problem Bilateral carotid artery stenosis I65.23 Active 95023859 Problem Diverticulosis of large intestine without hemorrhage K57.30 Active 519363425 Problem 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 ; Wheezing R06.2 ; Mesenteric panniculitis K65.4 and BMI 40.0-44.9, adult Z68.41 [facility] [place] [address] [id number] [place] [address] Sep, 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 [facility] [id number] [place] [address] Sep, COPD (chronic obstructive pulmonary disease) J44.9 ; BMI 40.0-44.9, adult Z68.41 ; 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 [address] [address] Apr, [facility] [id number] [place] [address] Apr, [facility] [id number] [place] [address] Oct, [facility] [id number] [place] [address] Sep, [facility] [id number] [place] [address] Jun, [facility] [id number] [place] [address] Jun, [facility] [id number] [address] Jun, [facility] [id number] [place] [address] Jun, [facility] [address] [address] May, [facility] [address] [address] Apr, [facility] [address] [address] Mar, [facility] [id number] [place] [address] Feb, [facility] [address] [address] Jan, Low vitamin B12 level E53.8 and Elevated MCV R71.8 [facility] [id number] [place] [address] Jan, [facility] [id number] [place] [address] Dec, Essential hypertension I10 and Elevated MCV R71.8 [facility] [id number] [place] [address] Dec, Lumbar compression fracture, sequela S32.000S ; Chronic prescription opiate use Z79.899 ; Hyperlipidemia E78.5 ; Essential hypertension I10 and Shortness of breath R06.02 [facility] [id number] [place] [address] Nov, [place] [id number] [place] [address] Oct, [place] [address] [id number] [place] [address] Sep, [place] [address] [place] [address] [id number] [place] [address] Sep, Primary osteoarthritis of right knee M17.11 [facility] [place] [id number] [place] [address] August, Essential hypertension I10 ; Pain in right knee M25.561 ; Pain in left knee M25.562 and Lumbar compression fracture, sequela S32.000S [place] [id number] [place] [address] Jul, [facility] [id number] [place] [address] Jun, [place] [address] [place] [address] [id number] [place] [address] May, Chronic prescription opiate use Z79.899 and Lumbar compression fracture, sequela S32.000S [facility] [id number] [place] [address] Apr, [place] [address] [address] [id number] [place] [address] Apr, [facility] [id number] [place] [address] Apr, Lumbar compression fracture, sequela S32.000S ; Dysuria R30.0 and Chronic prescription opiate use Z79.899 [facility] [id number] [place] [address] Jan, [facility] [address] [address] Nov, Osteopenia 733.90 [place] [address] [address] Nov, [place] [address] [place] [address] [id number] [place] [address] Nov, [place] [address] [address] Oct, [facility] [id number] [place] [address] Oct, Chronic airway obstruction, not elsewhere classified 496 ; Chronic kidney disease, unspecified 585.9 ; Lumbar compression fracture 805.4 and Screening for colon cancer V76.51 [place] [id number] [place] [address] Sep, [place] [address] [id number] [place] [address] August, Status post kyphoplasty V45.89 [place] [id number] [place] [address] August, Vertebral compression fracture 805.8 [facility] [id number] [place] [address] August, [facility] [id number] [place] [address] August, Lumbar back pain 724.2 and Frequent falls V15.88 [facility] [place] [facility] [address] [id number] [place] [address] August, [facility] [place] [facility] [address] [facility] [id number] [place] [address] 14 Jul, 2014 [facility] [place] [facility] [address] [facility] [id number] [place] [address] Jul, [facility] [place] [facility] [address] [id number] [place] [address] Jun, [facility] [place] [facility] [address] [facility] [id number] [place] [address] Jun, [facility] [place] [facility] [address] [facility] [id number] [place] [address] Jun, [facility] [place] [facility] [address] [facility] [id number] [place] [address] 24 Jun, 2014 [facility] [place] [facility] [address] [facility] [id number] [place] [address] Jun, [facility] [place] [facility] [address] [facility] [id number] [place] [address] Jun, [facility] [place] [facility] [address] [facility] [id number] [place] [address] Jun, [facility] [place] [facility] [address] [facility] [id number] [place] [address] 19 Jun, 2014 [facility] [place] [facility] [address] [facility] [id number] [place] [address] 18 Jun, 2014 [facility] [place] [facility] [address] [facility] [id number] [place] [address] 18 Jun, 2014 [facility] [place] [facility] [address] [facility] [id number] [place] [address] 18 Jun, 2014 [facility] [place] [facility] [address] [id number] [address] Jun, [facility] [place] [facility] [address] [facility] [id number] [place] [address] 18 Jun, 2014 [facility] [place] [facility] [address] [id number] [place] [address] Jun, [facility] [place] [facility] [address] [id number] [place] [address] Jun, [facility] [place] [facility] [address] [id number] [place] [address] Jun, [facility] [place] [facility] [address] [id number] [place] [address] Jun, [facility] [place] [facility] [address] [id number] [place] [address] Jun, [facility] [place] [facility] [address] [id number] [place] [address] Jun, [facility] [place] [facility] [address] [id number] [place] [address] Jun, [facility] [place] [facility] [address] [id number] [place] [address] Jun, [facility] [place] [facility] [address] [id number] [place] [address] Jun, [facility] [place] [facility] [address] [id number] [place] [address] Jun, [facility] [place] [facility] [address] [id number] [place] [address] Jun, [facility] [place] [facility] [address] [id number] [place] [address] Jun, [facility] [place] [facility] [address] [id number] [place] [address] Jun, [facility] [place] [facility] [address] [id number] [place] [address] Jun, [facility] [place] [facility] [address] [id number] [place] [address] May, [facility] [place] [facility] [address] [id number] [place] [address] May, [facility] [place] [facility] [address] [id number] [place] [address] Mar, [facility] [place] [facility] [address] [id number] [place] [address] Mar, [facility] [place] [facility] [address] [id number] [place] [address] Mar, [facility] [place] [facility] [address] [id number] [place] [address] Mar, [facility] [place] [facility] [address] [id number] [place] [address] Feb, [facility] [place] [facility] [address] [id number] [place] [address] Feb, [facility] [place] [facility] [address] [id number] [place] [address] Oct, [facility] [place] [facility] [address] [id number] [place] [address] Oct, [facility] [place] [facility] [address] [id number] [place] [address] Sep, [facility] [place] [facility] [address] [id number] [place] [address] Sep, [facility] [place] [facility] [address] [id number] [place] [address] Sep, [facility] [place] [facility] [address] [id number] [place] [address] Sep, [facility] [place] [facility] [address] [id number] [place] [address] Sep, [facility] [place] [facility] [address] [id number] [place] [address] Sep, [facility] [place] [facility] [address] [id number] [place] [address] Sep, [facility] [place] [facility] [address] [id number] [place] [address] Sep, [facility] [place] [facility] [address] [id number] [place] [address] Sep, [facility] [place] [facility] [address] [id number] [place] [address] Jun, [facility] [place] [facility] [address] [id number] [place] [address] Jun, [facility] [place] [facility] [address] [id number] [place] [address] May, [facility] [place] [facility] [address] [id number] [place] [address] May, [facility] [place] [facility] [address] [id number] [place] [address] May, [facility] [place] [facility] [address] [id number] [place] [address] May, [facility] [place] [facility] [address] [id number] [place] [address] Apr, [facility] [place] [facility] [address] [facility] [id number] [place] [address] Apr, [facility] [place] [facility] [address] [id number] [place] [address] Apr, [facility] [place] [facility] [address] [id number] [place] [address] Apr, [facility] [place] [facility] [address] [id number] [place] [address] Mar, [facility] [place] [facility] [address] [id number] [place] [address] Mar, [facility] [place] [facility] [address] [id number] [place] [address] Feb, [facility] [address] [facility] [id number] [place] [address] Feb, IMMUNIZATIONS No Known Immunizations SOCIAL HISTORY Never Assessed REASON FOR VISIT Requests return call PLAN OF CARE VITAL SIGNS MEDICATIONS No Known Medications RESULTS No Results PROCEDURES No Known [...]
--- OUTSIDE RECORDS SUMMARY | 2018-11-13 09:20 | XMS REPORT ---
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 Role Phone ROLFTU ROSSIHANY Unavailable PROBLEMS Type Condition ICD9-CM Code APX52-MO Code Onset Dates Condition Status SNOMED Code Problem Tubular adenoma D36.9 Active 786781551 Problem Chronic prescription opiate use Z79.899 Active 985643123 Problem Lumbar compression fracture, sequela S32.000S Active 665763939 Problem Other chronic pain G89.29 Active 60506876 Problem Vertigo R42 Active 357890201 Problem Chronic gastritis without bleeding, unspecified gastritis type K29.50 Active 6458037 Problem COPD (chronic obstructive pulmonary disease) J44.9 Active 39196923 Problem Nocturnal hypoxia G47.34 Active 161972292 Problem Avascular necrosis of bone of right hip M87.051 Active 386026303 Problem Bilateral carotid artery stenosis I65.23 Active 51883185 Problem Diverticulosis of large intestine without hemorrhage K57.30 Active 121878077 Problem 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 Active [id number] 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 57316395 Problem Hyperlipidemia E78.5 Active 78909414 Problem Coronary artery disease involving naknek coronary artery of naknek heart without angina pectoris I25.10 Active 5535962613884 Problem Bilateral primary osteoarthritis of knee M17.0 Active 084780723 Problem Osteopenia M85.80 Active 356244043 Problem Essential hypertension I10 Active 49309846 Problem CKD stage G3b/A1, GFR 30-44 and albumin creatinine ratio <30 mg/g N18.3 Active 044180255 ALLERGIES No Information ENCOUNTERS Encounter Location Date Diagnosis [facility] [address] [facility] [id number] [place] [address] Dec, Vertigo R42 ; Acute pancreatitis without infection or necrosis, unspecified pancreatitis type K85.90 ; Essential hypertension I10 ; CKD stage G3b/A1, GFR 30-44 and albumin creatinine ratio <30 mg/g N18.3 and BMI 40.0-44.9, adult Z68.41 [facility] [id number] [place] [address] Dec, [facility] [id number] [place] [address] Dec, [facility] [address] [address] Nov, 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 ; Wheezing R06.2 ; Mesenteric panniculitis K65.4 and BMI 40.0-44.9, adult Z68.41 [facility] [id number] [place] [address] Sep, 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 [facility] [id number] [place] [address] Sep, COPD (chronic obstructive pulmonary disease) J44.9 ; BMI 40.0-44.9, adult Z68.41 ; 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 ; Chronic gastritis without bleeding, unspecified gastritis type K29.50 and Breast cancer screening Z12.31 [facility] [id number] [place] [address] August, [facility] [id number] [place] [address] Jun, [facility] [id number] [place] [address] May, Essential hypertension I10 ; Hyperlipidemia E78.5 [...] hip M87.051 and BMI 40.0-44.9, adult Z68.41 [facility] [address] [address] Apr, [facility] [id number] [place] [address] Apr, [facility] [id number] [place] [address] Oct, [facility] [id number] [place] [address] Sep, [facility] [id number] [place] [address] Jun, [facility] [id number] [place] [address] Jun, [facility] [id number] [address] Jun, [facility] [id number] [place] [address] Jun, [facility] [address], [place] [address] May, [facility] [address], [place] [address] Apr, [facility] [address], [place] [address] Mar, [facility] [id number] [place] [address] Feb, [facility] [address], [place] [address] Jan, Low vitamin B12 level E53.8 and Elevated MCV R71.8 [facility] [id number] [place] [address] Jan, [facility] [id number] [place] [address] Dec, Essential hypertension I10 and Elevated MCV R71.8 [facility] [id number] [place] [address] Dec, Lumbar compression fracture, sequela S32.000S ; Chronic prescription opiate use Z79.899 ; Hyperlipidemia E78.5 ; Essential hypertension I10 and Shortness of breath R06.02 [facility] [id number] [place] [address] Nov, [facility] [id number] [place] [address] Oct, [facility] [id number] [place] [address] Sep, [facility] [id number] [place] [address] Sep, Primary osteoarthritis of right knee M17.11 [facility] [id number] [place] [address] August, Essential hypertension I10 ; Pain in right knee M25.561 ; Pain in left knee M25.562 and Lumbar compression fracture, sequela S32.000S [facility] [id number] [place] [address] Jul, [facility] [id number] [place] [address] Jun, [facility] [place] [id number] [place] [address] May, Chronic prescription opiate use Z79.899 and Lumbar compression fracture, sequela S32.000S [facility] [id number] [place] [address] Apr, [facility] [id number] [place] [address] Apr, [facility] [id number] [place] [address] Apr, Lumbar compression fracture, sequela S32.000S ; Dysuria R30.0 and Chronic prescription opiate use Z79.899 [facility] [id number] [place] [address] Jan, [facility] [address] [address] Nov, Osteopenia 733.90 [facility] [place] [address] [address] Nov, [facility] [id number] [place] [address] Nov, [facility] [place] [address] [address] Oct, [facility] [id number] [place] [address] Oct, Chronic airway obstruction, not elsewhere classified 496 ; Chronic kidney disease, unspecified 585.9 ; Lumbar compression fracture 805.4 and Screening for colon cancer V76.51 [facility] [id number] [place] [address] Sep, [facility] [place] [id number] [place] [address] August, Status post kyphoplasty V45.89 [facility] [id number] [place] [address] August, Vertebral compression fracture 805.8 [facility] [id number] [place] [address] August, [facility] [id number] [place] [address] August, Lumbar back pain 724.2 and Frequent falls V15.88 [facility] [place] [facility] [address] [id number] [place] [address] August, [facility] [place] [facility] [address] [facility] [id number] [place] [address] 14 Jul, 2014 [facility] [place] [facility] [address] [facility] [id number] [place] [address] Jul, [facility] [place] [facility] [address] [id number], [place] [address] Jun, [facility] [place] [facility] [address] [facility] [id number] [place] [address] Jun, [facility] [place] [facility] [address] [facility] [id number], [place] [address] Jun, [facility] [place] [facility] [address] [facility] [id number] [place] [address] 24 Jun, 2014 [facility] [place] [facility] [address] [facility] [id number], [place] [address] Jun, [facility] [place] [facility] [address] [facility] [id number], [place] [address] Jun, [facility] [place] [facility] [address] [facility] [id number], [place] [address] Jun, [facility] [place] [facility] [address] [facility] [id number], [place] [address] 19 Jun, 2014 [facility] [place] [facility] [address] [facility] [id number], [place] [address] 18 Jun, 2014 [facility] [place] [facility] [address] [facility] [id number], [place] [address] 18 Jun, 2014 [facility] [place] [facility] [address] [facility] [id number], [place] [address] 18 Jun, 2014 [facility] [place] [facility] [id number], [place] [address] Jun, [facility] [place] [facility] [address] [facility] [id number] [place] [address] 18 Jun, 2014 [facility] [place] [facility] [address] [id number] [place] [address] Jun, [facility] [place] [facility] [address] [id number] [place] [address] Jun, [facility] [place] [facility] [address] [id number] [place] [address] Jun, [facility] [place] [facility] [address] [id number] [place] [address] Jun, [facility] [place] [facility] [address] [id number] [place] [address] Jun, [facility] [place] [facility] [address] [id number] [place] [address] Jun, [facility] [place] [facility] [address] [id number] [place] [address] Jun, [facility] [place] [facility] [address] [id number] [place] [address] Jun, [facility] [place] [facility] [address] [id number] [place] [address] Jun, [facility] [place] [facility] [address] [id number] [place] [address] Jun, [facility] [place] [facility] [address] [id number] [place] [address] Jun, [facility] [place] [facility] [address] [id number] [place] [address] Jun, [facility] [place] [facility] [address] [id number] [place] [address] Jun, [facility] [place] [facility] [address] [id number] [place] [address] Jun, [facility] [place] [facility] [address] [id number] [place] [address] May, [facility] [place] [facility] [address] [id number] [place] [address] May, [facility] [place] [facility] [address] [id number] [place] [address] Mar, [facility] [place] [facility] [address] [id number] [place] [address] Mar, [facility] [place] [facility] [address] [id number] [place] [address] Mar, [facility] [place] [facility] [address] [id number] [place] [address] Mar, [facility] [place] [facility] [address] [id number] [place] [address] Feb, [facility] [place] [facility] [address] [id number] [place] [address] Feb, [facility] [place] [facility] [address] [id number] [place] [address] Oct, [facility] [place] [facility] [address] [id number] [place] [address] Oct, [facility] [place] [facility] [address] [id number] [place] [address] Sep, [facility] [place] [facility] [address] [id number] [place] [address] Sep, [facility] [place] [facility] [address] [id number], [place] [address] Sep, [facility] [place] [facility] [address] [id number] [place] [address] Sep, [facility] [place] [facility] [address] [id number] [place] [address] Sep, [facility] [place] [facility] [address] [id number] [place] [address] Sep, [facility] [place] [facility] [address] [id number], [place] [address] Sep, [facility] [place] [facility] [address] [id number] [place] [address] Sep, [facility] [place] [facility] [address] [id number] [place] [address] Sep, [facility] [place] [facility] [address] [id number] [place] [address] Jun, [facility] [place] [facility] [address] [id number] [place] [address] Jun, [facility] [place] [facility] [address] [id number] [place] [address] May, [facility] [place] [facility] [address] [id number] [place] [address] May, [facility] [place] [facility] [address] [id number] [place] [address] May, [facility] [place] [facility] [address] [id number] [place] [address] May, [facility] [place] [facility] [address] [id number] [place] [address] Apr, [facility] [place] [facility] [address] [facility] [id number] [place] [address] Apr, [facility] [place] [facility] [address] [id number] [place] [address] Apr, [facility] [place] [facility] [address] [id number] [place] [address] Apr, [facility] [place] [facility] [address] [id number] [place] [address] Mar, [facility] [place] [facility] [address] [id number] [place] [address] Mar, [facility] [place] [facility] [address] [id number] [place] [address] Feb, [facility] [address] [facility] [id number] [place] [address] Feb, IMMUNIZATIONS No Known Immunizations SOCIAL HISTORY Never Assessed 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
--- OUTSIDE RECORDS SUMMARY | 2018-11-13 09:20 | XMS REPORT ---
Author Author ROLF SHOLA [facility] Address [address] [place] [address] Care Team Providers Care Lead Enterprise Architect Name Role Phone ROLFTU ROSSIHANY Unavailable PROBLEMS Type Condition ICD9-CM Code DHH45-SR Code Onset Dates Condition Status SNOMED Code Problem Tubular adenoma D36.9 Active 825313215 Problem Chronic prescription opiate use Z79.899 Active 934050714 Problem Lumbar compression fracture, sequela S32.000S Active 685389928 Problem Other chronic pain G89.29 Active 59945116 Problem Vertigo R42 Active 525475675 Problem Chronic gastritis without bleeding, unspecified gastritis type K29.50 Active 4453792 Problem COPD (chronic obstructive pulmonary disease) J44.9 Active 95929392 Problem Nocturnal hypoxia G47.34 Active 843879825 Problem Avascular necrosis of bone of right hip M87.051 Active 335153912 Problem Bilateral carotid artery stenosis I65.23 Active 85551078 Problem Diverticulosis of large intestine without hemorrhage K57.30 Active 556816803 Problem 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 Active [id number] 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 03222312 Problem Hyperlipidemia E78.5 Active 00117578 Problem Coronary artery disease involving [place] coronary artery of [place] heart without angina pectoris I25.10 Active 9405769155720 Problem Bilateral primary osteoarthritis of knee M17.0 Active 940928345 Problem Osteopenia M85.80 Active 828734414 Problem Essential hypertension I10 Active 21561191 Problem CKD stage G3b/A1, GFR 30-44 and albumin creatinine ratio <30 mg/g N18.3 Active 411422752 ALLERGIES Substance Reaction Event Type Date Status Sulfamethoxazole-Trimethoprim Unknown Drug Allergy Nov, Active ENCOUNTERS Encounter Location Date Diagnosis [facility] [address] [facility] [id number] [address] Dec, Vertigo R42 ; Acute pancreatitis without infection or necrosis, unspecified pancreatitis type K85.90 ; Essential hypertension I10 ; CKD stage G3b/A1, GFR 30-44 and albumin creatinine ratio <30 mg/g N18.3 and BMI 40.0-44.9, adult Z68.41 [place] [address] [place] [id number] [place] [address] Dec, [place] [address] [address] Dec, [place] [address] [id number] [place] [address] Nov, 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 ; Wheezing R06.2 ; Mesenteric panniculitis K65.4 and BMI 40.0-44.9, adult Z68.41 [place] [address] [place] [id number] [place] [address] Sep, 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 [place] [address] [place] [id number] [place] [address] Sep, COPD (chronic obstructive pulmonary disease) J44.9 ; BMI 40.0-44.9, adult Z68.41 ; 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 ; Chronic gastritis without bleeding, unspecified gastritis type K29.50 and Breast cancer screening Z12.31 [place] [address] [place] [id number] [place] [address] August, [place] [address] [place] [id number] [place] [address] Jun, [place] [address] [place] [id number] [place] [address] May, Essential hypertension I10 ; Hyperlipidemia E78.5 [...] hip M87.051 and BMI 40.0-44.9, adult Z68.41 [facility] [id number] [place] [address] Apr, [facility] [id number] [place] [address] Apr, [facility] [id number] [place] [address] Oct, [facility] [address] [id number] [place] [address] Sep, [facility] [address] [id number] [place] [address] Jun, [facility] [id number] [place] [address] Jun, [facility] [id number] [place] [address] Jun, [facility] [address] [id number] [place] [address] Jun, [facility] [id number] [place] [address] May, [facility] [id number] [place] [address] Apr, [facility] [id number] [place] [address] Mar, [facility] [id number] [place] [address] Feb, [facility] [id number] [place] [address] Jan, Low vitamin B12 level E53.8 and Elevated MCV R71.8 [facility] [id number] [place] [address] Jan, [facility] [id number] [place] [address] Dec, Essential hypertension I10 and Elevated MCV R71.8 [facility] [id number] [place] [address] Dec, Lumbar compression fracture, sequela S32.000S ; Chronic prescription opiate use Z79.899 ; Hyperlipidemia E78.5 ; Essential hypertension I10 and Shortness of breath R06.02 [place] [address] [place] [id number] [place] [address] Nov, [facility] [address] [address] [id number] [place] [address] Oct, [facility] [address] [address] Sep, [facility] [address] [id number] [place] [address] Sep, Primary osteoarthritis of right knee M17.11 [place] [address] [place] [id number] [place] [address] August, Essential hypertension I10 ; Pain in right knee M25.561 ; Pain in left knee M25.562 and Lumbar compression fracture, sequela S32.000S [facility] [address] [id number] [place] [address] Jul, [facility] [address] [address] [id number] [place] [address] Jun, [facility] [address] [address] [id number] [place] [address] May, Chronic prescription opiate use Z79.899 and Lumbar compression fracture, sequela S32.000S [place] [address] [place] [id number] [place] [address] Apr, [facility] [id number] [place] [address] Apr, [facility] [address] [address] [id number] [place] [address] Apr, Lumbar compression fracture, sequela S32.000S ; Dysuria R30.0 and Chronic prescription opiate use Z79.899 [facility] [address] [address] Jan, [facility] [address] [address] Nov, Osteopenia 733.90 [place] [address] [address] Nov, [place] [address] [place] [id number] [place] [address] Nov, [facility] [address] [id number] [place] [address] Oct, [facility] [address] [address] Oct, Chronic airway obstruction, not elsewhere classified 496 ; Chronic kidney disease, unspecified 585.9 ; Lumbar compression fracture 805.4 and Screening for colon cancer V76.51 [place] [address] [place] [id number] [place] [address] Sep, [facility] [id number] [place] [address] August, Status post kyphoplasty V45.89 [facility] [address] [address] August, Vertebral compression fracture 805.8 [facility] [address] [id number] [place] [address] August, [facility] [address] [address] August, Lumbar back pain 724.2 and Frequent falls V15.88 [facility] [address] [facility] [id number] [place] [address] August, [facility] [address] [facility] [id number] [place] [address] 14 Jul, 2014 [facility] [address] [facility] [id number] [place] [address] Jul, [facility] [address] [id number] [place] [address] Jun, [facility] [address] [facility] [id number] [place] [address] 25 Jun, 2014 [facility] [address] [facility] [id number] [place] [address] Jun, [facility] [address] [facility] [id number] [place] [address] 24 Jun, 2014 [facility] [address] [facility] [id number] [place] [address] Jun, [facility] [address] [facility] [id number] [place] [address] 20 Jun, 2014 [facility] [address] [facility] [id number] [address] 19 Jun, 2014 [facility] [address] [facility] [id number] [place] [address] 19 Jun, 2014 [facility] [address] [facility] [id number] [address] 18 Jun, 2014 [facility] [place] [facility] [address] [facility] [id number] [place] [address] 18 Jun, 2014 [facility] [address] [facility] [id number] [place] [address] 18 Jun, 2014 [facility] [address] [facility] [id number] [address] 18 Jun, 2014 [facility] [place] [facility] [address] [id number] [place] [address] 18 Jun, 2014 [facility] [place] [facility] [address] [id number] [place] [address] 18 Jun, 2014 [facility] [place] [facility] [address] [id number] [place] [address] 12 Jun, 2014 [facility] [place] [facility] [address] [id number] [place] [address] 12 Jun, 2014 [facility] [place] [facility] [address] [id number] [place] [address] 10 Jun, 2014 [facility] [place] [facility] [address] [id number] [place] [address] 10 Jun, 2014 [facility] [place] [facility] [address] [id number] [place] [address] Jun, [facility] [place] [facility] [address] [id number] [place] [address] 10 Jun, 2014 [facility] [place] [facility] [address] [id number] [place] [address] Jun, [facility] [place] [facility] [address] [id number] [place] [address] Jun, 2014 [facility] [place] [facility] [address] [id number] [place] [address] Jun, 2014 [facility] [place] [facility] [address] [id number] [place] [address] 08 Jun, 2014 [facility] [place] [facility] [address] [id number] [place] [address] Jun, 2014 [facility] [place] [facility] [address] [id number] [place] [address] Jun, 2014 [facility] [place] [facility] [address] [id number] [place] [address] 05 Jun, 2014 [facility] [place] [facility] [address] [id number] [place] [address] May, [facility] [place] [facility] [address] [id number] [place] [address] May, [facility] [place] [facility] [address] [id number] [place] [address] Mar, [facility] [place] [facility] [address] [id number] [place] [address] Mar, [facility] [place] [facility] [address] [id number] [place] [address] Mar, [facility] [place] [facility] [address] [id number] [place] [address] Mar, [facility] [place] [facility] [address] [id number] [place] [address] Feb, [facility] [place] [facility] [address] [id number] [place] [address] Feb, [facility] [place] [facility] [address] [id number] [place] [address] Oct, [facility] [place] [facility] [address] [id number] [place] [address] Oct, [facility] [place] [facility] [address] [id number] [place] [address] Sep, [facility] [place] [facility] [address] [id number] [place] [address] Sep, [facility] [place] [facility] [address] [id number] [place] [address] Sep, [facility] [place] [facility] [address] [id number] [place] [address] Sep, [facility] [place] [facility] [address] [id number] [place] [address] Sep, [facility] [place] [facility] [address] [id number] [place] [address] Sep, [facility] [place] [facility] [address] [id number] [place] [address] Sep, [facility] [place] [facility] [address] [id number] [place] [address] Sep, [facility] [place] [facility] [address] [id number] [place] [address] Sep, [facility] [place] [facility] [address] [id number] [place] [address] Jun, [facility] [place] [facility] [address] [id number] [place] [address] Jun, [facility] [place] [facility] [address] [id number] [place] [address] May, [facility] [place] [facility] [address] [id number] [place] [address] May, [facility] [place] [facility] [address] [id number] [place] [address] May, [facility] [place] [facility] [address] [id number] [place] [address] May, [facility] [place] [facility] [address] [id number] [place] [address] Apr, [facility] [place] [facility] [address] [id number] [place] [address] Apr, [facility] [place] [facility] [address] [id number] [place] [address] Apr, [facility] [place] [facility] [address] [id number] [place] [address] Apr, [facility] [place] [facility] [address] [id number] [place] [address] Mar, [facility] [place] [facility] [address] [id number] [place] [address] Mar, [facility] [place] [facility] [address] [id number] [place] [address] Feb, [facility] [address] [facility] [id number] [place] [address] Feb, IMMUNIZATIONS No Known Immunizations SOCIAL HISTORY Never Assessed REASON FOR VISIT patient states she is here to follow up on her test result-- fatimah rausch PLAN OF CARE Activity Details Follow Up 3 Months Reason: VITAL SIGNS Height 60 in 2017-11-17 Weight 212.0 lbs 2017-11-17 Temperature 98.0 degrees Fahrenheit 2017-11-17 Heart Rate 86 bpm 2017-11-17 Respiratory Rate 24 2017-11-17 BMI 41.40 kg/m2 2017-11-17 Blood pressure systolic 142 mmHg 2017-11-17 Blood pressure diastolic 88 mmHg 2017-11-17 MEDICATIONS Medication Instructions Dosage Frequency Start Date End Date Duration Status Tylenol 325 mg 3 Tablet by Oral route every 4 hours PRN Jun, Active Lasix 40 MG Orally Once a day 1 tablet 24h Active Metoprolol Succinate ER 25 MG Orally Once a day 1 tablet 24h Active Daliresp 500 MCG Orally Once a day 1 tablet 24h Active Aspirin 81 mg 1 tablet by Oral route 1 time per day Jun, Active Loratadine 10MG TAKE 1 TABLET DAILY Active Advair Diskus 100-50 MCG/DOSE Inhalation Twice a day 1 puff 12h Active Vitamin D 1000 UNIT Orally Once a day 1 tablet 24h Active Vitamin D-3 1000 UNIT Orally Once a day 1 capsule 24h Active Spiriva HandiHaler 18 MCG Inhalation Once a day 1 capsule 24h Active Protonix 40 MG Orally Once a day 1 tablet 24h Sep, 90 days Active RESULTS No Results PROCEDURES Procedure Date Ordered Result Body Site [facility] VISIT ESTABLISHED PATIENT Nov 17, 2017 INSTRUCTIONS MEDICATIONS ADMINISTERED No Known Medications [...]
--- OUTSIDE RECORDS SUMMARY | 2018-11-13 09:21 | XMS REPORT ---
Author Author ROLF SHOLA [facility] Address [address] [place] [address] Care Team Providers Care Electrophysiology Scientist Name Role Phone ROLFTU ROSSIHANY Unavailable PROBLEMS Type Condition ICD9-CM Code FUT25-BP Code Onset Dates Condition Status SNOMED Code Problem Tubular adenoma D36.9 Active 355160749 Problem Chronic prescription opiate use Z79.899 Active 012333110 Problem Lumbar compression fracture, sequela S32.000S Active 195059807 Problem Other chronic pain G89.29 Active 62896317 Problem Vertigo R42 Active 383314686 Problem Chronic gastritis without bleeding, unspecified gastritis type K29.50 Active 5670465 Problem COPD (chronic obstructive pulmonary disease) J44.9 Active 58321821 Problem Nocturnal hypoxia G47.34 Active 358276004 Problem Avascular necrosis of bone of right hip M87.051 Active 853729132 Problem Bilateral carotid artery stenosis I65.23 Active 43633411 Problem Diverticulosis of large intestine without hemorrhage K57.30 Active 101715631 Problem 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 Active 34807987552762710 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 18493358 Problem Hyperlipidemia E78.5 Active 43579901 Problem Coronary artery disease involving [place]ct[place] coronary artery of choctaw heart without angina pectoris I25.10 Active 4808829816840 Problem Bilateral primary osteoarthritis of knee M17.0 Active 447652300 Problem Osteopenia M85.80 Active 059536031 Problem Essential hypertension I10 Active 54248315 Problem CKD stage G3b/A1, GFR 30-44 and albumin creatinine ratio <30 mg/g N18.3 Active 461921178 ALLERGIES Substance Reaction Event Type Date Status Sulfamethoxazole-Trimethoprim Unknown Drug Allergy Sep, Active ENCOUNTERS Encounter Location Date Diagnosis [facility] [address] [facility] [id number] [address] 10 Aug, 2018 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 ; Wheezing R06.2 ; Mesenteric panniculitis K65.4 and BMI 40.0-44.9, adult Z68.[address] [address] Sep, 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 [address] Sep, COPD (chronic obstructive pulmonary disease) J44.9 ; BMI 40.0-44.9, adult Z68.41 ; 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 ; Chronic gastritis without bleeding, unspecified gastritis type K29.50 and Breast cancer screening Z12.[address] [address] August, [address] [address] Jun, [address] [address] May, Essential hypertension I10 ; Hyperlipidemia E78.5 [...] hip M87.051 and BMI 40.0-44.9, adult Z68.[address] [address] Apr, [address] [address] Apr, [address] [address] Oct, [facility] [address] [address] Sep, [facility] [id number] [place] [address] Jun, [facility] [id number] [place] [address] Jun, [facility] [id number] [place] [address] Jun, [facility] [id number] [place] [address] Jun, [facility] [id number] [place] [address] May, [facility] [id number] [place] [address] Apr, [facility] [id number] [place] [address] Mar, [facility] [id number] [place] [address] Feb, [facility] [id number] [place] [address] Jan, Low vitamin B12 level E53.8 and Elevated MCV R71.8 [facility] [id number] [place] [address] Jan, [facility] [id number] [place] [address] Dec, Essential hypertension I10 and Elevated MCV R71.8 [facility] [id number] [place] [address] Dec, Lumbar compression fracture, sequela S32.000S ; Chronic prescription opiate use Z79.899 ; Hyperlipidemia E78.5 ; Essential hypertension I10 and Shortness of breath R06.02 [facility] [address], [place] [address] Nov, [facility] [address] [address] Oct, [facility] [address] [address] Sep, [facility] [id number] [place] [address] Sep, Primary osteoarthritis of right knee M17.11 [facility] [id number] [place] [address] August, Essential hypertension I10 ; Pain in right knee M25.561 ; Pain in left knee M25.562 and Lumbar compression fracture, sequela S32.000S [facility] [address] [address] Jul, [facility] [address] [address] Jun, [facility] [address] [place] [address] May, Chronic prescription opiate use Z79.899 and Lumbar compression fracture, sequela S32.000S [facility] [address] [address] Apr, [facility] [address] [address] Apr, [facility] [id number] [address] Apr, Lumbar compression fracture, sequela S32.000S ; Dysuria R30.0 and Chronic prescription opiate use Z79.899 [facility] [address] [address] Jan, [facility] [id number] [place] [address] Nov, Osteopenia 733.90 [facility] [address] [address] Nov, [facility] [id number] [place] [address] Nov, [facility] [id number] [place] [address] Oct, [facility] [id number] [place] [address] Oct, Chronic airway obstruction, not elsewhere classified 496 ; Chronic kidney disease, unspecified 585.9 ; Lumbar compression fracture 805.4 and Screening for colon cancer V76.51 [facility] [id number] [place] [address] Sep, [facility] [id number] [place] [address] August, Status post kyphoplasty V45.89 [facility] [id number] [place] [address] August, Vertebral compression fracture 805.8 [facility] [id number] [place] [address] August, [facility] [id number] [place] [address] August, Lumbar back pain 724.2 and Frequent falls V15.88 [facility] [address] [id number] [address] August, [facility] [id number] [place] [address] Jul, [facility] [id number] [place] [address] Jul, [facility] [address] [id number] [address] Jun, [facility] [address] [facility] [id number] [place] [address] 25 Jun, 2014 [facility] [place] [facility] [address] [id number] [place] [address] 24 Jun, 2014 [facility] [place] [facility] [address] [id number] [place] [address] 24 Jun, 2014 [facility] [place] [facility] [address] [id number] [place] [address] 20 Jun, 2014 [facility] [place] [facility] [address] [id number] [place] [address] 20 Jun, 2014 [facility] [place] [facility] [address] [id number] [place] [address] 19 Jun, 2014 [facility] [place] [facility] [address] [id number] [place] [address] 19 Jun, 2014 [facility] [place] [facility] [address] [id number] [place] [address] 18 Jun, 2014 [facility] [place] [facility] [address] [id number] [place] [address] 18 Jun, 2014 [facility] [place] [facility] [address] [id number] [place] [address] 18 Jun, 2014 [facility] [place] [facility] [address] [id number] [place] [address] 18 Jun, 2014 [facility] [place] [facility] [address] [id number] [place] [address] 18 Jun, 2014 [facility] [place] [facility] [address] [id number] [place] [address] 18 Jun, 2014 [facility] [place] [facility] [address] [id number] [place] [address] 12 Jun, 2014 [facility] [place] [facility] [address] [id number] [place] [address] 12 Jun, 2014 [facility] [place] [facility] [address] [id number] [place] [address] Jun, 2014 [facility] [place] [facility] [address] [id number] [place] [address] 10 Jun, 2014 [facility] [place] [facility] [address] [id number] [place] [address] Jun, 2014 [facility] [place] [facility] [address] [id number] [place] [address] 10 Jun, 2014 [facility] [place] [facility] [address] [id number] [place] [address] Jun, 2014 [facility] [place] [facility] [address] [id number] [place] [address] Jun, 2014 [facility] [place] [facility] [address] [id number] [place] [address] Jun, 2014 [facility] [place] [facility] [address] [id number] [place] [address] Jun, 2014 [facility] [place] [facility] [address] [id number] [place] [address] Jun, 2014 [facility] [place] [facility] [address] [id number] [place] [address] Jun, 2014 [facility] [place] [facility] [address] [id number] [place] [address] Jun, 2014 [facility] [place] [facility] [address] [id number] [place] [address] May, 2014 [facility] [place] [facility] [address] [id number] [address] May, 2014 [facility] [place] [facility] [address] [id number] [place] [address] Mar, [facility] [place] [facility] [address] [id number] [place] [address] Mar, [facility] [place] [facility] [address] [id number] [place] [address] Mar, [facility] [place] [facility] [address] [id number] [place] [address] Mar, [facility] [place] [facility] [address] [id number] [place] [address] Feb, [facility] [place] [facility] [address] [id number] [place] [address] Feb, [facility] [place] [facility] [address] [id number] [place] [address] Oct, [facility] [place] [facility] [address] [id number] [place] [address] Oct, [facility] [place] [facility] [address] [id number] [place] [address] Sep, [facility] [place] [facility] [address] [id number] [place] [address] Sep, [facility] [place] [facility] [address] [id number] [place] [address] Sep, [facility] [place] [facility] [address] [id number] [place] [address] Sep, [facility] [place] [facility] [address] [id number] [place] [address] Sep, [facility] [place] [facility] [address] [facility] [id number] [place] [address] Sep, [facility] [place] [facility] [address] [id number] [place] [address] Sep, [facility] [place] [facility] [address] [id number] [place] [address] Sep, [facility] [place] [facility] [address] [id number] [place] [address] Sep, [facility] [place] [facility] [address] [id number] [place] [address] Jun, [facility] [place] [facility] [address] [id number] [place] [address] Jun, [facility] [address] [facility] [id number], [place] [address] May, [facility] [address] [facility] [id number], [place] [address] May, [facility] [address] [facility] [id number], [place] [address] May, [facility] [address] [facility] [id number], [place] [address] May, [facility] [address] [facility] [id number], [place] [address] Apr, [facility] [address] [place] [address] Apr, [facility] [address], [place] [address] Apr, [facility] [address], [place] [address] Apr, [facility] [id number] [address] Mar, [facility] [id number] [address] Mar, [facility] [id number] [address] Feb, [facility] [id number] [address] Feb, IMMUNIZATIONS No Known Immunizations SOCIAL HISTORY Never Assessed REASON FOR VISIT CHM, states she is just here to follow up-[place] PLAN OF CARE Activity Details Follow Up 4 Weeks Reason:Follow up Cardiology testing VITAL SIGNS Height 60 in 2017-10-03 Weight 214.0 lbs 2017-10-03 Temperature 97.0 degrees Fahrenheit 2017-10-03 Heart Rate 74 bpm 2017-10-03 Respiratory Rate 24 2017-10-03 Oximetry on room air:99 % 2017-10-03 BMI 41.79 kg/m2 2017-10-03 Blood pressure systolic 132 mmHg 2017-10-03 Blood pressure diastolic 82 mmHg 2017-10-03 MEDICATIONS Medication Instructions Dosage Frequency Start Date End Date Duration Status Aspirin 81 mg 1 tablet by Oral route 1 time per day Jun, Active Protonix 40 MG Orally Once a day 1 tablet 24h Sep, 90 days Active Tylenol 325 mg 3 Tablet by Oral route every 4 hours PRN Jun, Active Spiriva HandiHaler 18 MCG Inhalation Once a day 1 capsule 24h Active Vitamin D 1000 UNIT Orally Once a day 1 tablet 24h Active Loratadine 10MG TAKE 1 TABLET DAILY Active Vitamin D-3 1000 UNIT Orally Once a day 1 capsule 24h Active Metoprolol Succinate ER 25 MG Orally Once a day 1 tablet 24h Active Daliresp 500 MCG Orally Once a day 1 tablet 24h Active Lasix 40 MG Orally Once a day 1 tablet 24h Active Advair Diskus 100-50 MCG/DOSE Inhalation Twice a day 1 puff 12h Active RESULTS No Results PROCEDURES Procedure Date Ordered Result Body Site [facility] VISIT ESTABLISHED PATIENT October 03, 2017 INSTRUCTIONS MEDICATIONS ADMINISTERED No Known Medications [...] cardiac problems and COPD exacerbations. Hospitalization History [facility]- for Tylenol overdose 09/2016
--- OUTSIDE RECORDS SUMMARY | 2018-11-13 09:21 | XMS REPORT ---
Author Author SHOLA BANSAL [facility] Address [address] [place] [address] Care Team Providers Care Cash Shortage Investigator Name Role Phone SHOLA BANSAL Unavailable PROBLEMS Type Condition ICD9-CM Code OGF96-NX Code Onset Dates Condition Status SNOMED Code Problem Tubular adenoma D36.9 Active 264920633 Problem Chronic prescription opiate use Z79.899 Active 498795182 Problem Lumbar compression fracture, sequela S32.000S Active 491996469 Problem Other chronic pain G89.29 Active 64294386 Problem Vertigo R42 Active 663360701 Problem Chronic gastritis without bleeding, unspecified gastritis type K29.50 Active 5855137 Problem COPD (chronic obstructive pulmonary disease) J44.9 Active 21269884 Problem Nocturnal hypoxia G47.34 Active 290747094 Problem Avascular necrosis of bone of right hip M87.051 Active 067603569 Problem Bilateral carotid artery stenosis I65.23 Active 43737109 Problem Diverticulosis of large intestine without hemorrhage K57.30 Active 363358608 Problem 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 Active 12820764862650473 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 16582910 Problem Hyperlipidemia E78.5 Active 31810084 Problem Coronary artery disease involving [place] coronary artery of [place] heart without angina pectoris I25.10 Active 9813598140314 Problem Bilateral primary osteoarthritis of knee M17.0 Active 571113765 Problem Osteopenia M85.80 Active 042496540 Problem Essential hypertension I10 Active 24338001 Problem CKD stage G3b/A1, GFR 30-44 and albumin creatinine ratio <30 mg/g N18.3 Active 879727428 ALLERGIES No Information ENCOUNTERS Encounter Location Date Diagnosis [facility] [address] [facility] [id number] [place] [address] Nov, Wheezing R06.2 ; 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 ; Mesenteric panniculitis K65.4 and BMI 40.0-44.9, adult Z68.41 [facility] [id number] [place] [address] Sep, 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 [facility] [id number] [place] [address] Sep, COPD (chronic obstructive pulmonary disease) J44.9 ; BMI 40.0-44.9, adult Z68.41 ; 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 ; Chronic gastritis without bleeding, unspecified gastritis type K29.50 and Breast cancer screening Z12.[address] [address] August, [address] [address] Jun, [address] [address] May, Essential hypertension I10 ; Hyperlipidemia E78.5 [...] hip M87.051 and BMI 40.0-44.9, adult Z68.41 [facility] [id number] [place] [address] Apr, [facility] [address] [address] Apr, [facility] [id number] [place] [address] Oct, [facility] [address] [address] Sep, [facility] [id number] [place] [address] Jun, [facility] [address] [address] Jun, [facility] [id number] [place] [address] Jun, [facility] [id number] [place] [address] Jun, [facility] [id number] [place] [address] May, [facility] [id number] [place] [address] Apr, [facility] [id number] [place] [address] Mar, [facility] [id number] [place] [address] Feb, [facility] [id number] [place] [address] Jan, Low vitamin B12 level E53.8 and Elevated MCV R71.8 [facility] [id number] [place] [address] Jan, [facility] [id number] [place] [address] Dec, Essential hypertension I10 and Elevated MCV R71.8 [facility] [id number] [place] [address] Dec, Lumbar compression fracture, sequela S32.000S ; Chronic prescription opiate use Z79.899 ; Hyperlipidemia E78.5 ; Essential hypertension I10 and Shortness of breath R06.02 [facility] [id number] [place] [address] Nov, [facility] [address] [address] Oct, [facility] [id number] [place] [address] Sep, [facility] [id number] [place] [address] Sep, Primary osteoarthritis of right knee M17.11 [facility] [id number] [place] [address] August, Essential hypertension I10 ; Pain in right knee M25.561 ; Pain in left knee M25.562 and Lumbar compression fracture, sequela S32.000S [facility] [id number] [place] [address] Jul, [facility] [id number] [place] [address] Jun, [facility] [id number] [place] [address] May, Chronic prescription opiate use Z79.899 and Lumbar compression fracture, sequela S32.000S [facility] [address] [address] Apr, [facility] [id number] [place] [address] Apr, [facility] [id number] [place] [address] Apr, Lumbar compression fracture, sequela S32.000S ; Dysuria R30.0 and Chronic prescription opiate use Z79.899 [facility] [address] [address] Jan, [facility] [address], [place] [address] Nov, Osteopenia 733.90 [facility] [id number] [address] Nov, [facility] [id number] [place] [address] Nov, [facility] [id number] [place] [address] Oct, [facility] [id number] [place] [address] Oct, Chronic airway obstruction, not elsewhere classified 496 ; Chronic kidney disease, unspecified 585.9 ; Lumbar compression fracture 805.4 and Screening for colon cancer V76.51 [facility] [id number] [place] [address] Sep, [facility] [id number] [place] [address] August, Status post kyphoplasty V45.89 [facility] [id number] [place] [address] August, Vertebral compression fracture 805.8 [facility] [id number] [place] [address] August, [facility] [id number] [place] [address] August, Lumbar back pain 724.2 and Frequent falls V15.88 [facility] [id number] [place] [address] August, [facility] [id number] [place] [address] Jul, [facility] [id number] [place] [address] Jul, [facility] [id number] [place] [address] Jun, [facility] [id number] [place] [address] Jun, 2014 [facility] [place] [facility] [address] [id number] [place] [address] 24 Jun, 2014 [facility] [place] [facility] [address] [id number] [place] [address] 24 Jun, 2014 [facility] [place] [facility] [address] [id number] [place] [address] 20 Jun, 2014 [facility] [place] [facility] [address] [id number] [place] [address] 20 Jun, 2014 [facility] [place] [facility] [address] [id number] [place] [address] 19 Jun, 2014 [facility] [place] [facility] [address] [id number] [place] [address] 19 Jun, 2014 [facility] [place] [facility] [address] [id number] [place] [address] 18 Jun, 2014 [facility] [place] [facility] [address] [id number] [place] [address] 18 Jun, 2014 [facility] [place] [facility] [address] [id number] [place] [address] 18 Jun, 2014 [facility] [place] [facility] [address] [id number] [place] [address] 18 Jun, 2014 [facility] [place] [facility] [address] [id number] [place] [address] 18 Jun, 2014 [facility] [place] [facility] [address] [id number] [address] 18 Jun, 2014 [facility] [place] [facility] [address] [id number] [place] [address] 12 Jun, 2014 [facility] [place] [facility] [address] [id number] [place] [address] 12 Jun, 2014 [facility] [place] [facility] [address] [id number] [place] [address] 10 Jun, 2014 [facility] [place] [facility] [address] [id number] [place] [address] 10 Jun, 2014 [facility] [place] [facility] [address] [id number] [place] [address] 10 Jun, 2014 [facility] [place] [facility] [address] [id number] [place] [address] 10 Jun, 2014 [facility] [place] [facility] [address] [id number] [place] [address] Jun, 2014 [facility] [place] [facility] [address] [id number] [place] [address] Jun, 2014 [facility] [place] [facility] [address] [id number] [place] [address] Jun, 2014 [facility] [place] [facility] [address] [id number] [place] [address] Jun, 2014 [facility] [place] [facility] [address] [id number] [place] [address] Jun, 2014 [facility] [place] [facility] [address] [id number] [place] [address] Jun, 2014 [facility] [place] [facility] [address] [id number] [place] [address] Jun, 2014 [facility] [place] [facility] [address] [facility] [id number] [place] [address] May, 2014 [facility] [place] [facility] [address] [id number] [place] [address] May, 2014 [facility] [place] [facility] [address] [id number] [place] [address] Mar, [facility] [place] [facility] [address] [id number] [place] [address] Mar, [facility] [place] [facility] [address] [facility] [id number] [place] [address] Mar, [facility] [place] [facility] [address] [id number] [place] [address] Mar, [facility] [place] [facility] [address] [id number] [place] [address] Feb, [facility] [place] [facility] [address] [id number] [place] [address] Feb, [facility] [place] [facility] [address] [id number] [place] [address] Oct, [facility] [place] [facility] [address] [id number] [place] [address] Oct, [facility] [place] [facility] [address] [id number] [place] [address] Sep, [facility] [place] [facility] [address] [id number] [place] [address] Sep, [facility] [place] [facility] [address] [id number] [place] [address] Sep, [facility] [place] [facility] [address] [id number] [place] [address] Sep, [facility] [place] [facility] [address] [id number] [place] [address] Sep, [facility] [place] [facility] [address] [id number] [place] [address] Sep, [facility] [place] [facility] [address] [id number] [place] [address] Sep, [facility] [place] [facility] [address] [id number] [place] [address] Sep, [facility] [place] [facility] [address] [id number] [place] [address] Sep, [facility] [place] [facility] [address] [id number] [place] [address] Jun, [facility] [place] [facility] [address] [id number] [place] [address] Jun, [facility] [place] [facility] [address] [id number], [place] [address] May, [facility] [id number], [place] [address] May, [facility] [id number], [place] [address] May, [facility] [id number], [place] [address] May, [facility] [address], [place] [address] Apr, [facility] [id number], [place] [address] Apr, [facility] [address], [place] [address] Apr, [facility] [address], [place] [address] Apr, [facility] [id number], [place] [address] Mar, [facility] [address], [place] [address] Mar, [facility] [id number], [place] [address] Feb, [facility] [id number], [place] [address] Feb, IMMUNIZATIONS No Known Immunizations SOCIAL HISTORY Never Assessed REASON FOR VISIT CT Scan PLAN OF CARE VITAL SIGNS MEDICATIONS No Known Medications RESULTS Name Result Date Reference Range CT Scan : Abdomen & Pelvis w/o Contrast 2017-11-08 PROCEDURES No Known procedures INSTRUCTIONS MEDICATIONS ADMINISTERED [...]
--- OUTSIDE RECORDS SUMMARY | 2018-11-13 09:21 | XMS REPORT ---
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 Role Phone SHOLA BANSAL Unavailable PROBLEMS Type Condition ICD9-CM Code [id number] Code Onset Dates Condition Status SNOMED Code Problem Tubular adenoma D36.9 Active 804736652 Problem Chronic prescription opiate use Z79.899 Active 945367371 Problem Lumbar compression fracture, sequela S32.000S Active 544823893 Problem Other chronic pain G89.29 Active 09492257 Problem Vertigo R42 Active 094225813 Problem Chronic gastritis without bleeding, unspecified gastritis type K29.50 Active 8430504 Problem COPD (chronic obstructive pulmonary disease) J44.9 Active 11202061 Problem Nocturnal hypoxia G47.34 Active 794526568 Problem Avascular necrosis of bone of right hip M87.051 Active 325381318 Problem Bilateral carotid artery stenosis I65.23 Active 32609093 Problem Diverticulosis of large intestine without hemorrhage K57.30 Active 632141207 Problem 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 Active 89158463317049144 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 89738862 Problem Hyperlipidemia E78.5 Active 14468226 Problem Coronary artery disease involving [place] coronary artery of [place] heart without angina pectoris I25.10 Active 0332162313815 Problem Bilateral primary osteoarthritis of knee M17.0 Active 165656527 Problem Osteopenia M85.80 Active 591848724 Problem Essential hypertension I10 Active 53057836 Problem CKD stage G3b/A1, GFR 30-44 and albumin creatinine ratio <30 mg/g N18.3 Active 093991842 ALLERGIES No Information ENCOUNTERS Encounter Location Date Diagnosis [facility] [address] [facility] [id number] [place] [address] Nov, 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 ; Wheezing R06.2 ; Mesenteric panniculitis K65.4 and BMI 40.0-44.9, adult Z68.41 [facility] [id number] [place] [address] Sep, 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 [place] [facility] [id number] [place] [address] Sep, COPD (chronic obstructive pulmonary disease) J44.9 ; BMI 40.0-44.9, adult Z68.41 ; 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 ; Chronic gastritis without bleeding, unspecified gastritis type K29.50 and Breast cancer screening Z12.[address] [address] August, [address] [address] Jun, [address] [address] May, Essential hypertension I10 ; Hyperlipidemia E78.5 [...] hip M87.051 and BMI 40.0-44.9, adult Z68.41 [place] [id number] [place] [address] Apr, [place] [address] [address] Apr, [place] [id number] [place] [address] Oct, [place] [address] [address] Sep, [facility] [id number] [place] [address] Jun, [facility] [address] [address] Jun, [facility] [id number] [place] [address] Jun, [facility] [id number] [place] [address] Jun, [facility] [id number] [place] [address] May, [facility] [id number] [place] [address] Apr, [facility] [id number] [place] [address] Mar, [facility] [id number] [place] [address] Feb, [facility] [id number] [place] [address] Jan, Low vitamin B12 level E53.8 and Elevated MCV R71.8 [facility] [id number] [place] [address] Jan, [facility] [id number] [place] [address] Dec, Essential hypertension I10 and Elevated MCV R71.8 [facility] [id number] [place] [address] Dec, Lumbar compression fracture, sequela S32.000S ; Chronic prescription opiate use Z79.899 ; Hyperlipidemia E78.5 ; Essential hypertension I10 and Shortness of breath R06.02 [facility] [id number] [place] [address] Nov, [facility] [address], [place] [address] Oct, [facility] [id number] [place] [address] Sep, [facility] [id number] [place] [address] Sep, Primary osteoarthritis of right knee M17.11 [facility] [id number] [place] [address] August, Essential hypertension I10 ; Pain in right knee M25.561 ; Pain in left knee M25.562 and Lumbar compression fracture, sequela S32.000S [facility] [id number] [place] [address] Jul, [facility] [id number] [place] [address] Jun, [facility] [id number] [place] [address] May, Chronic prescription opiate use Z79.899 and Lumbar compression fracture, sequela S32.000S [facility] [address] [address] Apr, [facility] [id number] [place] [address] Apr, [facility] [id number] [place] [address] Apr, Lumbar compression fracture, sequela S32.000S ; Dysuria R30.0 and Chronic prescription opiate use Z79.899 [facility] [address] [address] Jan, [facility] [address] [address] Nov, Osteopenia 733.90 [facility] [id number] [address] Nov, [facility] [id number] [place] [address] Nov, [facility] [id number] [place] [address] Oct, [facility] [id number] [place] [address] Oct, Chronic airway obstruction, not elsewhere classified 496 ; Chronic kidney disease, unspecified 585.9 ; Lumbar compression fracture 805.4 and Screening for colon cancer V76.51 [facility] [id number] [place] [address] Sep, [facility] [id number] [place] [address] August, Status post kyphoplasty V45.89 [facility] [id number] [place] [address] August, Vertebral compression fracture 805.8 [facility] [id number] [place] [address] August, [facility] [id number] [place] [address] August, Lumbar back pain 724.2 and Frequent falls V15.88 [facility] [id number] [place] [address] August, [facility] [id number] [place] [address] Jul, [facility] [id number] [place] [address] Jul, [facility] [id number] [place] [address] Jun, [facility] [id number] [place] [address] Jun, 2014 [facility] [place] [facility] [address] [id number] [place] [address] 24 Jun, 2014 [facility] [place] [facility] [address] [id number] [place] [address] 24 Jun, 2014 [facility] [place] [facility] [address] [id number] [place] [address] 20 Jun, 2014 [facility] [place] [facility] [address] [id number] [place] [address] 20 Jun, 2014 [facility] [place] [facility] [address] [id number] [place] [address] 19 Jun, 2014 [facility] [place] [facility] [address] [id number] [place] [address] 19 Jun, 2014 [facility] [place] [facility] [address] [id number] [place] [address] 18 Jun, 2014 [facility] [place] [facility] [address] [id number] [place] [address] 18 Jun, 2014 [facility] [place] [facility] [address] [id number] [place] [address] 18 Jun, 2014 [facility] [place] [facility] [address] [id number] [place] [address] 18 Jun, 2014 [facility] [place] [facility] [address] [id number] [place] [address] 18 Jun, 2014 [facility] [place] [facility] [address] [id number] [address] 18 Jun, 2014 [facility] [place] [facility] [address] [id number] [place] [address] 12 Jun, 2014 [facility] [place] [facility] [address] [id number] [place] [address] 12 Jun, 2014 [facility] [place] [facility] [address] [id number] [place] [address] 10 Jun, 2014 [facility] [place] [facility] [address] [id number] [place] [address] 10 Jun, 2014 [facility] [place] [facility] [address] [id number] [place] [address] 10 Jun, 2014 [facility] [place] [facility] [address] [id number] [place] [address] 10 Jun, 2014 [facility] [place] [facility] [address] [id number] [place] [address] Jun, 2014 [facility] [place] [facility] [address] [id number] [place] [address] Jun, 2014 [facility] [place] [facility] [address] [id number] [place] [address] Jun, 2014 [facility] [place] [facility] [address] [id number] [place] [address] Jun, 2014 [facility] [place] [facility] [address] [id number] [place] [address] Jun, 2014 [facility] [place] [facility] [address] [id number] [place] [address] Jun, 2014 [facility] [place] [facility] [address] [id number] [place] [address] Jun, 2014 [facility] [place] [facility] [address] [facility] [id number] [place] [address] May, 2014 [facility] [place] [facility] [address] [id number] [place] [address] May, 2014 [facility] [place] [facility] [address] [id number] [place] [address] Mar, [facility] [place] [facility] [address] [id number] [place] [address] Mar, [facility] [place] [facility] [address] [facility] [id number] [place] [address] Mar, [facility] [place] [facility] [address] [id number] [place] [address] Mar, [facility] [place] [facility] [address] [id number] [place] [address] Feb, [facility] [place] [facility] [address] [id number] [place] [address] Feb, [facility] [place] [facility] [address] [id number] [place] [address] Oct, [facility] [place] [facility] [address] [id number] [place] [address] Oct, [facility] [place] [facility] [address] [id number] [place] [address] Sep, [facility] [place] [facility] [address] [id number] [place] [address] Sep, [facility] [place] [facility] [address] [id number] [place] [address] Sep, [facility] [place] [facility] [address] [id number] [place] [address] Sep, [facility] [place] [facility] [address] [id number] [place] [address] Sep, [facility] [place] [facility] [address] [id number] [place] [address] Sep, [facility] [place] [facility] [address] [id number] [place] [address] Sep, [facility] [place] [facility] [address] [id number] [place] [address] Sep, [facility] [place] [facility] [address] [id number] [place] [address] Sep, [facility] [place] [facility] [address] [id number] [place] [address] Jun, [facility] [place] [facility] [address] [id number] [place] [address] Jun, [facility] [place] [facility] [address] [id number] [address] May, [facility] [id number] [address] May, [facility] [id number] [address] May, [facility] [id number], [place] [address] May, [facility] [address], [place] [address] Apr, [facility] [id number], [place] [address] Apr, [facility] [address], [place] [address] Apr, [facility] [address], [place] [address] Apr, [facility] [id number] [address] Mar, [facility] [id number] [address] Mar, [facility] [id number], [place] [address] Feb, [facility] [id number], [place] [address] Feb, IMMUNIZATIONS No Known Immunizations SOCIAL HISTORY [...] cardiac problems and COPD exacerbations. Hospitalization History [place]- for Tylenol overdose 09/2016
--- OUTSIDE RECORDS SUMMARY | 2018-11-13 09:22 | XMS REPORT ---
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 Name Role Phone ROLFTU ROSSIHANY Unavailable PROBLEMS Type Condition ICD9-CM Code QYM89-HP Code Onset Dates Condition Status SNOMED Code Problem Tubular adenoma D36.9 Active 270258174 Problem Chronic prescription opiate use Z79.899 Active 258202388 Problem Lumbar compression fracture, sequela S32.000S Active 774907604 Problem Other chronic pain G89.29 Active 09037646 Problem Vertigo R42 Active 405004330 Problem Chronic gastritis without bleeding, unspecified gastritis type K29.50 Active 0829508 Problem COPD (chronic obstructive pulmonary disease) J44.9 Active 30076857 Problem Nocturnal hypoxia G47.34 Active 672364279 Problem Avascular necrosis of bone of right hip M87.051 Active 747621449 Problem Bilateral carotid artery stenosis I65.23 Active 69331105 Problem Diverticulosis of large intestine without hemorrhage K57.30 Active 343661845 Problem 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 Active [id number] 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 [address] [facility] [id number] [address] Nov, 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 ; Chronic gastritis without bleeding, unspecified gastritis type K29.50 and Breast cancer screening Z12.31 [place] [id number] [place] [address] August, [place] [id number] [place] [address] Jun, [place] [id number] [place] [address] May, Essential hypertension I10 ; Hyperlipidemia E78.5 [...] hip M87.051 and BMI 40.0-44.9, adult Z68.41 [place] [id number] [place] [address] Apr, [place] [id number] [place] [address] Apr, [place] [id number] [place] [address] Oct, [place] [id number] [place] [address] Sep, [place] [address] [place] [address] Jun, [facility] [id number] [place] [address] Jun, [facility] [id number] [place] [address] Jun, [facility] [id number] [place] [address] Jun, [facility] [id number] [place] [address] May, [facility] [id number] [place] [address] Apr, [facility] [id number] [place] [address] Mar, [facility] [id number] [place] [address] Feb, [facility] [id number] [place] [address] Jan, Low vitamin B12 level E53.8 and Elevated MCV R71.8 [facility] [id number] [place] [address] Jan, [facility] [id number] [place] [address] Dec, Essential hypertension I10 and Elevated MCV R71.8 [facility] [id number] [place] [address] Dec, Lumbar compression fracture, sequela S32.000S ; Chronic prescription opiate use Z79.899 ; Hyperlipidemia E78.5 ; Essential hypertension I10 and Shortness of breath R06.02 [facility] [address] [address] Nov, [facility] [id number] [place] [address] Oct, [facility] [address] [address] Sep, [facility] [id number] [place] [address] Sep, Primary osteoarthritis of right knee M17.11 [facility] [id number] [place] [address] August, Essential hypertension I10 ; Pain in right knee M25.561 ; Pain in left knee M25.562 and Lumbar compression fracture, sequela S32.000S [facility] [id number] [place] [address] Jul, [facility] [id number] [place] [address] Jun, [facility] [id number] [place] [address] May, Chronic prescription opiate use Z79.899 and Lumbar compression fracture, sequela S32.000S [facility] [address] [place] [address] Apr, [facility] [id number] [place] [address] Apr, [facility] [address] [address] Apr, Lumbar compression fracture, sequela S32.000S ; Dysuria R30.0 and Chronic prescription opiate use Z79.899 [facility] [address] [address] Jan, [facility] [id number] [place] [address] Nov, Osteopenia 733.90 [facility] [id number] [place] [address] Nov, [facility] [address] [id number] [address] Nov, [facility] [id number] [place] [address] Oct, [facility] [id number] [place] [address] Oct, Chronic airway obstruction, not elsewhere classified 496 ; Chronic kidney disease, unspecified 585.9 ; Lumbar compression fracture 805.4 and Screening for colon cancer V76.51 [facility] [id number] [place] [address] Sep, [facility] [id number] [place] [address] August, Status post kyphoplasty V45.89 [facility] [id number] [place] [address] August, Vertebral compression fracture 805.8 [facility] [id number] [place] [address] August, [facility] [id number] [place] [address] August, Lumbar back pain 724.2 and Frequent falls V15.88 [facility] [id number] [place] [address] August, [facility] [id number] [place] [address] Jul, [facility] [id number] [place] [address] Jul, [facility] [id number] [place] [address] Jun, [facility] [id number] [place] [address] Jun, [facility] [id number] [place] [address] Jun, [facility] [place] [facility] [address] [id number] [place] [address] 24 Jun, 2014 [facility] [place] [facility] [address] [id number] [place] [address] 20 Jun, 2014 [facility] [place] [facility] [address] [id number] [place] [address] 20 Jun, 2014 [facility] [place] [facility] [address] [id number] [place] [address] 19 Jun, 2014 [facility] [place] [facility] [address] [id number] [place] [address] 19 Jun, 2014 [facility] [place] [facility] [address] [id number] [place] [address] 18 Jun, 2014 [facility] [place] [facility] [address] [id number] [place] [address] 18 Jun, 2014 [facility] [place] [facility] [address] [id number] [place] [address] 18 Jun, 2014 [facility] [place] [facility] [address] [id number] [place] [address] 18 Jun, 2014 [facility] [place] [facility] [address] [id number] [place] [address] 18 Jun, 2014 [facility] [place] [facility] [address] [id number] [place] [address] 18 Jun, 2014 [facility] [place] [facility] [address] [id number] [place] [address] 12 Jun, 2014 [facility] [place] [facility] [address] [id number] [place] [address] 12 Jun, 2014 [facility] [place] [facility] [address] [id number] [place] [address] 10 Jun, 2014 [facility] [place] [facility] [address] [id number] [place] [address] 10 Jun, 2014 [facility] [place] [facility] [address] [id number] [place] [address] Jun, [facility] [place] [facility] [address] [id number] [place] [address] Jun, [facility] [place] [facility] [address] [id number] [place] [address] Jun, [facility] [place] [facility] [address] [id number] [place] [address] Jun, 2014 [facility] [place] [facility] [address] [id number] [place] [address] Jun, 2014 [facility] [place] [facility] [address] [id number] [place] [address] Jun, [facility] [place] [facility] [address] [id number] [place] [address] Jun, 2014 [facility] [place] [facility] [address] [id number] [place] [address] Jun, [facility] [place] [facility] [address] [id number] [place] [address] Jun, 2014 [facility] [place] [facility] [address] [id number] [place] [address] May, 2014 [facility] [place] [facility] [address] [id number] [place] [address] May, [facility] [place] [facility] [address] [id number] [place] [address] Mar, [facility] [place] [facility] [address] [id number] [place] [address] Mar, [facility] [place] [facility] [address] [id number] [place] [address] Mar, [facility] [place] [facility] [address] [id number] [place] [address] Mar, [facility] [place] [facility] [address] [id number] [place] [address] Feb, [facility] [place] [facility] [address] [id number] [place] [address] Feb, [facility] [place] [facility] [address] [id number] [place] [address] Oct, [facility] [place] [facility] [address] [id number] [place] [address] Oct, [facility] [place] [facility] [address] [id number] [place] [address] Sep, [facility] [place] [facility] [address] [id number] [place] [address] Sep, [facility] [place] [facility] [address] [id number] [place] [address] Sep, [facility] [place] [facility] [address] [id number] [place] [address] Sep, [facility] [place] [facility] [address] [id number] [place] [address] Sep, [facility] [place] [facility] [address] [id number] [place] [address] Sep, [facility] [place] [facility] [address] [id number] [place] [address] Sep, [facility] [place] [facility] [address] [id number] [place] [address] Sep, [facility] [place] [facility] [address] [id number] [place] [address] Sep, [facility] [place] [facility] [address] [id number] [place] [address] Jun, [facility] [place] [facility] [address] [id number] [place] [address] Jun, [facility] [place] [facility] [address] [id number] [place] [address] May, [facility] [place] [facility] [address] [id number] [place] [address] May, [facility] [address] [facility] [id number] [address] May, [facility] [address] [facility] [id number] [address] May, [facility] [id number], [place] [address] Apr, [facility] [id number], [place] [address] Apr, [facility] [id number] [address] Apr, [facility] [id number], [place] [address] Apr, [facility] [id number], [place] [address] Mar, [facility] [id number], [place] [address] Mar, [facility] [id number], [place] [address] Feb, [facility] [id number], [place] [address] Feb, IMMUNIZATIONS No Known Immunizations SOCIAL HISTORY Never Assessed REASON FOR VISIT Requests return call PLAN OF CARE VITAL SIGNS MEDICATIONS Unknown [...] cardiac problems and COPD exacerbations. Hospitalization History [place]- for Tylenol overdose 09/2016
--- OUTSIDE RECORDS SUMMARY | 2018-11-13 09:22 | XMS REPORT ---
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 Role Phone ROLFTU ROSSIHANY Unavailable PROBLEMS Type Condition ICD9-CM Code NZA66-ET Code Onset Dates Condition Status SNOMED Code Problem Tubular adenoma D36.9 Active 110320469 Problem Chronic prescription opiate use Z79.899 Active 346704267 Problem Lumbar compression fracture, sequela S32.000S Active 795008298 Problem Other chronic pain G89.29 Active 45770032 Problem Vertigo R42 Active 271963446 Problem Chronic gastritis without bleeding, unspecified gastritis type K29.50 Active 7123824 Problem COPD (chronic obstructive pulmonary disease) J44.9 Active 99190229 Problem Nocturnal hypoxia G47.34 Active 613839423 Problem Avascular necrosis of bone of right hip M87.051 Active 167744803 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 78191549 Problem Diverticulosis of large intestine without hemorrhage K57.30 Active 605808088 Problem 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 Active 41053667345032176 Problem Hyperlipidemia E78.5 Active 27555598 Problem Coronary artery disease involving picayune coronary artery of 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 I25.10 Active 6484831551950 Problem Bilateral primary osteoarthritis of knee M17.0 Active 660975280 Problem Osteopenia M85.80 Active 794773232 Problem Essential hypertension I10 Active 56743776 Problem CKD stage G3b/A1, GFR 30-44 and albumin creatinine ratio <30 mg/g N18.3 Active 731842988 ALLERGIES No Information ENCOUNTERS Encounter Location Date Diagnosis [facility] [address] [facility] [id number] [address] Sep, [facility] [address] [facility] [id number] [place] [address] August, [facility] [address] [address] Jun, [facility] [id number] [place] [address] May, Essential hypertension I10 ; Hyperlipidemia E78.5 [...] hip M87.051 and BMI 40.0-44.9, adult Z68.41 [facility] [id number] [place] [address] Apr, [facility] [id number] [place] [address] Apr, [facility] [id number] [place] [address] Oct, [facility] [id number] [place] [address] Sep, [facility] [id number] [place] [address] Jun, [facility] [id number] [place] [address] Jun, [facility] [id number] [place] [address] Jun, [facility] [id number] [place] [address] Jun, [facility] [id number] [place] [address] May, [facility] [id number] [place] [address] Apr, [facility] [id number] [place] [address] Mar, [facility] [id number] [place] [address] Feb, [facility] [address] [address] Jan, Low vitamin B12 level E53.8 and Elevated MCV R71.8 [place] [facility] [id number] [place] [address] Jan, [facility] [id number] [place] [address] Dec, Essential hypertension I10 and Elevated MCV R71.8 [place] [facility] [id number] [place] [address] Dec, Lumbar compression fracture, sequela S32.000S ; Chronic prescription opiate use Z79.899 ; Hyperlipidemia E78.5 ; Essential hypertension I10 and Shortness of breath R06.02 [place] [facility] [id number] [place] [address] Nov, [facility] [id number] [place] [address] Oct, [facility] [id number] [place] [address] Sep, [facility] [id number] [place] [address] Sep, Primary osteoarthritis of right knee M17.11 [place] [facility] [id number] [place] [address] August, Essential hypertension I10 ; Pain in right knee M25.561 ; Pain in left knee M25.562 and Lumbar compression fracture, sequela S32.000S [place] [address] [address] Jul, [facility] [id number] [place] [address] Jun, [facility] [address] [place] [address] May, Chronic prescription opiate use Z79.899 and Lumbar compression fracture, sequela S32.000S [facility] [address] [address] Apr, [facility] [id number] [place] [address] Apr, [facility] [id number] [place] [address] Apr, Lumbar compression fracture, sequela S32.000S ; Dysuria R30.0 and Chronic prescription opiate use Z79.899 [facility] [address] [place] [address] Jan, [facility] [id number] [place] [address] Nov, Osteopenia 733.90 [facility] [address] [place] [address] Nov, [facility] [id number] [place] [address] Nov, [facility] [address] [place] [address] Oct, [facility] [id number] [place] [address] Oct, Chronic airway obstruction, not elsewhere classified 496 ; Chronic kidney disease, unspecified 585.9 ; Lumbar compression fracture 805.4 and Screening for colon cancer V76.51 [facility] [id number] [place] [address] Sep, [facility] [address] [address] August, Status post kyphoplasty V45.89 [facility] [address] [address] August, Vertebral compression fracture 805.8 [facility] [id number] [place] [address] August, [facility] [id number] [place] [address] August, Lumbar back pain 724.2 and Frequent falls V15.88 [facility] [id number] [place] [address] August, [facility] [id number] [place] [address] Jul, [facility] [id number] [place] [address] Jul, [facility] [address] [address] Jun, [facility] [address] [place] [address] Jun, [facility] [address] [address] Jun, [facility] [address] [address] Jun, [facility] [address] [address] Jun, [facility] [id number] [place] [address] Jun, [facility] [address] [address] Jun, [facility] [id number] [place] [address] 19 Jun, 2014 [facility] [place] [facility] [address] [id number] [place] [address] 18 Jun, 2014 [facility] [place] [facility] [address] [id number] [place] [address] 18 Jun, 2014 [facility] [place] [facility] [address] [id number] [place] [address] 18 Jun, 2014 [facility] [place] [facility] [address] [id number] [place] [address] 18 Jun, 2014 [facility] [place] [facility] [address] [id number] [place] [address] Jun, [facility] [place] [facility] [address] [id number] [place] [address] Jun, [facility] [place] [facility] [address] [id number] [place] [address] Jun, [facility] [place] [facility] [address] [id number] [place] [address] 12 Jun, 2014 [facility] [place] [facility] [address] [id number] [place] [address] 10 Jun, 2014 [facility] [place] [facility] [address] [id number] [place] [address] 10 Jun, 2014 [facility] [place] [facility] [address] [id number] [place] [address] 10 Jun, 2014 [facility] [place] [facility] [address] [id number] [place] [address] 10 Jun, 2014 [facility] [place] [facility] [address] [id number] [place] [address] Jun, 2014 [facility] [place] [facility] [address] [id number] [place] [address] Jun, 2014 [facility] [place] [facility] [address] [id number] [place] [address] 08 Jun, 2014 [facility] [place] [facility] [address] [id number] [place] [address] Jun, 2014 [facility] [place] [facility] [address] [id number] [place] [address] Jun, 2014 [facility] [place] [facility] [address] [id number] [place] [address] Jun, 2014 [facility] [place] [facility] [address] [id number] [place] [address] Jun, 2014 [facility] [place] [facility] [address] [id number] [place] [address] May, 2014 [facility] [place] [facility] [address] [id number] [place] [address] May, 2014 [facility] [place] [facility] [address] [id number] [place] [address] Mar, [facility] [place] [facility] [address] [id number] [place] [address] Mar, [facility] [place] [facility] [address] [id number] [place] [address] Mar, [facility] [place] [facility] [address] [id number] [place] [address] Mar, [facility] [place] [facility] [address] [id number] [place] [address] Feb, [facility] [place] [facility] [address] [id number] [place] [address] Feb, [facility] [place] [facility] [address] [id number] [place] [address] Oct, [facility] [place] [facility] [address] [id number] [place] [address] Oct, [facility] [place] [facility] [address] [id number] [place] [address] Sep, [facility] [place] [facility] [address] [id number] [place] [address] Sep, [facility] [place] [facility] [address] [id number] [place] [address] Sep, [facility] [place] [facility] [address] [id number] [place] [address] Sep, [facility] [place] [facility] [address] [id number] [place] [address] Sep, [facility] [place] [facility] [address] [id number] [place] [address] Sep, [facility] [place] [facility] [address] [id number] [place] [address] Sep, [facility] [place] [facility] [address] [id number] [place] [address] Sep, [facility] [place] [facility] [address] [id number] [place] [address] Sep, [facility] [place] [facility] [address] [id number] [place] [address] Jun, [facility] [place] [facility] [address] [id number] [place] [address] Jun, [facility] [place] [facility] [address] [id number] [place] [address] May, [facility] [place] [facility] [address] [id number] [place] [address] May, [facility] [place] [facility] [address] [id number] [place] [address] May, [facility] [place] [facility] [address] [id number] [place] [address] May, [facility] [place] [facility] [address] [id number] [place] [address] Apr, [facility] [place] [facility] [address] [id number] [place] [address] Apr, [facility] [place] [facility] [address] [facility] [id number] [place] [address] Apr, [facility] [address] [facility] [id number] [place] [address] Apr, [facility] [address] [facility] [id number] [place] [address] Mar, [facility] [address] [facility] [id number] [place] [address] Mar, [facility] [address] [facility] [id number] [place] [address] Feb, [facility] [address] [facility] [id number] [place] [address] Feb, IMMUNIZATIONS No Known Immunizations SOCIAL HISTORY [...] Surgical History Left carpal tunnel release 12/2016 Hospitalization History Multiple hospitalizations for cardiac problems and COPD exacerbations. Hospitalization History [facility]- for Tylenol overdose 09/2016
--- OUTSIDE RECORDS SUMMARY | 2018-11-13 09:22 | XMS REPORT ---
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 Phone ROLFTU ROSSIHANY Unavailable PROBLEMS Type Condition ICD9-CM Code JPU21-YF Code Onset Dates Condition Status SNOMED Code Problem Tubular adenoma D36.9 Active 102813357 Problem Chronic prescription opiate use Z79.899 Active 631381879 Problem Lumbar compression fracture, sequela S32.000S Active 885497358 Problem Other chronic pain G89.29 Active 79960472 Problem Vertigo R42 Active 056781263 Problem Chronic gastritis without bleeding, unspecified gastritis type K29.50 Active 3293615 Problem COPD (chronic obstructive pulmonary disease) J44.9 Active 34586281 Problem Nocturnal hypoxia G47.34 Active 543232165 Problem Avascular necrosis of bone of right hip M87.051 Active 106967322 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 52819778 Problem Diverticulosis of large intestine without hemorrhage K57.30 Active 109361532 Problem 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 [address] [facility] [id number] [address] Jul, [facility] [address] [facility] [id number] [place] [address] Jun, [facility] [address] [place] [address] 16 May, 2017 Essential hypertension I10 ; Hyperlipidemia E78.5 ; [...] M87.051 and BMI 40.0-44.9, adult Z68.41 [facility] [id number] [address] Apr, [facility] [id number] [place] [address] Apr, [facility] [id number] [address] Oct, [facility] [id number] [place] [address] Sep, [facility] [id number] [address] Jun, [facility] [id number] [address] Jun, [facility] [id number] [address] Jun, [facility] [id number] [place] [address] Jun, [facility] [id number] [address] May, [facility] [id number] [place] [address] Apr, [facility] [id number] [place] [address] Mar, [facility] [address] [address] Feb, [facility] [id number] [place] [address] Jan, Low vitamin B12 level E53.8 and Elevated MCV R71.8 [place] [address] [address] Jan, [facility] [id number] [place] [address] Dec, Essential hypertension I10 and Elevated MCV R71.8 [place] [id number] [place] [address] Dec, Lumbar compression fracture, sequela S32.000S ; Chronic prescription opiate use Z79.899 ; Hyperlipidemia E78.5 ; Essential hypertension I10 and Shortness of breath R06.02 [facility] [id number] [place] [address] Nov, [place] [id number] [place] [address] Oct, [place] [id number] [place] [address] Sep, [place] [id number] [place] [address] Sep, Primary osteoarthritis of right knee M17.11 [place] [id number] [place] [address] August, Essential hypertension I10 ; Pain in right knee M25.561 ; Pain in left knee M25.562 and Lumbar compression fracture, sequela S32.000S [place] [id number] [place] [address] Jul, [place] [address] [address] Jun, [facility] [id number] [place] [address] May, Chronic prescription opiate use Z79.899 and Lumbar compression fracture, sequela S32.000S [facility] [address] [place] [address] Apr, [facility] [id number] [place] [address] Apr, [facility] [id number] [place] [address] Apr, Lumbar compression fracture, sequela S32.000S ; Dysuria R30.0 and Chronic prescription opiate use Z79.899 [facility] [address] [place] [address] Jan, [facility] [id number] [place] [address] Nov, Osteopenia 733.90 [facility] [id number] [place] [address] Nov, [facility] [address] [place] [address] Nov, [facility] [id number] [place] [address] Oct, [facility] [id number] [place] [address] Oct, Chronic airway obstruction, not elsewhere classified 496 ; Chronic kidney disease, unspecified 585.9 ; Lumbar compression fracture 805.4 and Screening for colon cancer V76.51 [facility] [address] [place] [address] Sep, [facility] [id number] [place] [address] August, Status post kyphoplasty V45.89 [facility] [address] [address] August, Vertebral compression fracture 805.8 [facility] [address] [address] August, [facility] [id number] [place] [address] August, Lumbar back pain 724.2 and Frequent falls V15.88 [facility] [address] [address] August, [facility] [id number] [place] [address] Jul, [facility] [id number] [place] [address] Jul, [facility] [id number] [place] [address] Jun, [facility] [address] [address] Jun, [facility] [address] [address] Jun, [facility] [address] [address] Jun, [facility] [address] [address] Jun, [facility] [address] [address] Jun, [facility] [id number] [address] Jun, [facility] [address] [address] Jun, [facility] [id number] [place] [address] 18 Jun, 2014 [facility] [place] [facility] [address] [id number] [place] [address] 18 Jun, 2014 [facility] [place] [facility] [address] [id number] [place] [address] Jun, [facility] [place] [facility] [address] [id number] [place] [address] Jun, 2014 [facility] [place] [facility] [address] [id number] [place] [address] Jun, [facility] [place] [facility] [address] [id number] [place] [address] Jun, [facility] [place] [facility] [address] [id number] [place] [address] Jun, [facility] [place] [facility] [address] [id number] [place] [address] Jun, [facility] [place] [facility] [address] [id number] [place] [address] 10 Jun, 2014 [facility] [place] [facility] [address] [id number] [place] [address] Jun, [facility] [place] [facility] [address] [id number] [place] [address] Jun, [facility] [place] [facility] [address] [id number] [place] [address] Jun, [facility] [place] [facility] [address] [id number] [place] [address] Jun, [facility] [place] [facility] [address] [id number] [place] [address] Jun, [facility] [place] [facility] [address] [id number] [place] [address] Jun, [facility] [place] [facility] [address] [id number] [place] [address] Jun, 2014 [facility] [place] [facility] [address] [id number] [place] [address] Jun, 2014 [facility] [place] [facility] [address] [id number] [place] [address] Jun, 2014 [facility] [place] [facility] [address] [id number] [place] [address] Jun, 2014 [facility] [place] [facility] [address] [id number] [place] [address] May, 2014 [facility] [place] [facility] [address] [id number] [place] [address] May, 2014 [facility] [place] [facility] [address] [id number] [place] [address] Mar, [facility] [place] [facility] [address] [id number] [place] [address] Mar, [facility] [place] [facility] [address] [id number] [place] [address] Mar, [facility] [place] [facility] [address] [id number] [place] [address] Mar, [facility] [place] [facility] [address] [id number] [place] [address] Feb, [facility] [place] [facility] [address] [id number] [place] [address] Feb, [facility] [place] [facility] [address] [id number] [place] [address] Oct, [facility] [place] [facility] [address] [id number] [place] [address] Oct, [facility] [place] [facility] [address] [id number] [place] [address] Sep, [facility] [place] [facility] [address] [id number] [place] [address] Sep, [facility] [place] [facility] [address] [id number] [place] [address] Sep, [facility] [place] [facility] [address] [id number] [place] [address] Sep, [facility] [place] [facility] [address] [id number] [place] [address] Sep, [facility] [place] [facility] [address] [id number] [place] [address] Sep, [facility] [place] [facility] [address] [id number] [place] [address] Sep, [facility] [place] [facility] [address] [id number] [place] [address] Sep, [facility] [place] [facility] [address] [id number] [place] [address] Sep, [facility] [place] [facility] [address] [id number] [place] [address] Jun, [facility] [place] [facility] [address] [id number] [place] [address] Jun, [facility] [place] [facility] [address] [id number] [place] [address] May, [facility] [place] [facility] [address] [id number] [place] [address] May, [facility] [place] [facility] [address] [id number] [place] [address] May, [facility] [place] [facility] [address] [id number] [place] [address] May, [facility] [place] [facility] [address] [id number] [place] [address] Apr, [facility] [place] [facility] [address] [id number] [place] [address] Apr, [facility] [place] [facility] [address] [id number] [place] [address] Apr, [facility] [place] [facility] [address] [facility] [id number] [place] [address] Apr, [facility] [address] [facility] [id number] [place] [address] Mar, [facility] [address] [facility] [id number] [place] [address] Mar, [facility] [address] [facility] [id number] [place] [address] Feb, [facility] [address] [facility] [id number] [place] [address] Feb, IMMUNIZATIONS No Known Immunizations SOCIAL HISTORY Never Assessed REASON FOR VISIT requesting a returned call PLAN OF CARE VITAL SIGNS MEDICATIONS [...]
--- OUTSIDE RECORDS SUMMARY | 2018-11-13 09:23 | XMS REPORT ---
Author Author ROLF SHOLA [facility] Address [address] [place] [address] Care Team Providers Care Patients Transporter Name Role Phone ROLFTU ROSSIHANY Unavailable PROBLEMS Type Condition ICD9-CM Code QKY64-LO Code Onset Dates Condition Status SNOMED Code Problem Tubular adenoma D36.9 Active 264194900 Problem Chronic prescription opiate use Z79.899 Active 684394066 Problem Lumbar compression fracture, sequela S32.000S Active 921891404 Problem Other chronic pain G89.29 Active 49097413 Problem Vertigo R42 Active 216944897 Problem Chronic gastritis without bleeding, unspecified gastritis type K29.50 Active 0683628 Problem COPD (chronic obstructive pulmonary disease) J44.9 Active 42067360 Problem Nocturnal hypoxia G47.34 Active 351707174 Problem Avascular necrosis of bone of right hip M87.051 Active 291574766 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3 Active 390308893 ALLERGIES No Information ENCOUNTERS Encounter Location Date Diagnosis [facility] [address] [facility] [id number] [address] Sep, [facility] [address] [facility] [id number] [place] [address] August, [facility] [address] [address] Jun, [facility] [id number] [place] [address] May, Essential hypertension I10 ; Hyperlipidemia E78.5 [...] hip M87.051 and BMI 40.0-44.9, adult Z68.41 [facility] [id number] [place] [address] Apr, [facility] [id number] [place] [address] Apr, [facility] [id number] [place] [address] Oct, [facility] [id number] [place] [address] Sep, [facility] [id number] [place] [address] Jun, [facility] [id number] [place] [address] Jun, [facility] [id number] [place] [address] Jun, [facility] [id number] [place] [address] Jun, [facility] [id number] [place] [address] May, [facility] [id number] [place] [address] Apr, [facility] [id number] [place] [address] Mar, [facility] [id number] [place] [address] Feb, [facility] [address] [address] Jan, Low vitamin B12 level E53.8 and Elevated MCV R71.8 [facility] [id number] [place] [address] Jan, [facility] [id number] [place] [address] Dec, Essential hypertension I10 and Elevated MCV R71.8 [facility] [id number] [place] [address] Dec, Lumbar compression fracture, sequela S32.000S ; Chronic prescription opiate use Z79.899 ; Hyperlipidemia E78.5 ; Essential hypertension I10 and Shortness of breath R06.02 [facility] [id number] [place] [address] Nov, [facility] [id number] [place] [address] Oct, [facility] [id number] [place] [address] Sep, [facility] [id number] [place] [address] Sep, Primary osteoarthritis of right knee M17.11 [facility] [place] [id number] [place] [address] August, Essential hypertension I10 ; Pain in right knee M25.561 ; Pain in left knee M25.562 and Lumbar compression fracture, sequela S32.000S [place] [address] [address] Jul, [facility] [id number] [place] [address] Jun, [facility] [id number] [place] [address] May, Chronic prescription opiate use Z79.899 and Lumbar compression fracture, sequela S32.000S [facility] [address] [address] Apr, [facility] [id number] [place] [address] Apr, [facility] [id number] [place] [address] Apr, Lumbar compression fracture, sequela S32.000S ; Dysuria R30.0 and Chronic prescription opiate use Z79.899 [facility] [id number] [place] [address] Jan, [facility] [id number] [place] [address] Nov, Osteopenia 733.90 [facility] [id number] [place] [address] Nov, [facility] [id number] [place] [address] Nov, [facility] [id number] [place] [address] Oct, [facility] [id number] [place] [address] Oct, Chronic airway obstruction, not elsewhere classified 496 ; Chronic kidney disease, unspecified 585.9 ; Lumbar compression fracture 805.4 and Screening for colon cancer V76.51 [facility] [id number] [place] [address] Sep, [facility] [address] [address] August, Status post kyphoplasty V45.89 [facility] [address] [address] August, Vertebral compression fracture 805.8 [facility] [id number] [place] [address] August, [facility] [id number] [place] [address] August, Lumbar back pain 724.2 and Frequent falls V15.88 [facility] [id number] [place] [address] August, [facility] [id number] [place] [address] Jul, [facility] [id number] [place] [address] Jul, [facility] [address] [address] Jun, [facility] [id number] [place] [address] Jun, [facility] [address] [address] Jun, [facility] [address] [address] Jun, [facility] [address] [address] Jun, [facility] [id number] [place] [address] Jun, [facility] [address] [address] Jun, [facility] [id number] [place] [address] 19 Jun, 2014 [facility] [place] [facility] [address] [id number] [place] [address] 18 Jun, 2014 [facility] [place] [facility] [address] [id number] [place] [address] 18 Jun, 2014 [facility] [place] [facility] [address] [id number] [place] [address] 18 Jun, 2014 [facility] [place] [facility] [address] [id number] [place] [address] 18 Jun, 2014 [facility] [place] [facility] [address] [id number] [place] [address] Jun, [facility] [place] [facility] [address] [id number] [place] [address] Jun, [facility] [place] [facility] [address] [id number] [place] [address] Jun, [facility] [place] [facility] [address] [id number] [place] [address] 12 Jun, 2014 [facility] [place] [facility] [address] [id number] [place] [address] 10 Jun, 2014 [facility] [place] [facility] [address] [id number] [place] [address] 10 Jun, 2014 [facility] [place] [facility] [address] [id number] [place] [address] 10 Jun, 2014 [facility] [place] [facility] [address] [id number] [place] [address] 10 Jun, 2014 [facility] [place] [facility] [address] [id number] [place] [address] Jun, 2014 [facility] [place] [facility] [address] [id number] [place] [address] Jun, 2014 [facility] [place] [facility] [address] [id number] [place] [address] 08 Jun, 2014 [facility] [place] [facility] [address] [id number] [place] [address] Jun, 2014 [facility] [place] [facility] [address] [id number] [place] [address] Jun, 2014 [facility] [place] [facility] [address] [id number] [place] [address] Jun, 2014 [facility] [place] [facility] [address] [id number] [place] [address] Jun, 2014 [facility] [place] [facility] [address] [id number] [place] [address] May, 2014 [facility] [place] [facility] [address] [id number] [place] [address] May, 2014 [facility] [place] [facility] [address] [id number] [place] [address] Mar, [facility] [place] [facility] [address] [id number] [place] [address] Mar, [facility] [place] [facility] [address] [id number] [place] [address] Mar, [facility] [place] [facility] [address] [id number] [place] [address] Mar, [facility] [place] [facility] [address] [id number] [place] [address] Feb, [facility] [place] [facility] [address] [id number] [place] [address] Feb, [facility] [place] [facility] [address] [id number] [place] [address] Oct, [facility] [place] [facility] [address] [id number] [place] [address] Oct, [facility] [place] [facility] [address] [id number] [place] [address] Sep, [facility] [place] [facility] [address] [id number] [place] [address] Sep, [facility] [place] [facility] [address] [id number] [place] [address] Sep, [facility] [place] [facility] [address] [id number] [place] [address] Sep, [facility] [place] [facility] [address] [id number] [place] [address] Sep, [facility] [place] [facility] [address] [id number] [place] [address] Sep, [facility] [place] [facility] [address] [id number] [place] [address] Sep, [facility] [place] [facility] [address] [id number] [place] [address] Sep, [facility] [place] [facility] [address] [id number] [place] [address] Sep, [facility] [place] [facility] [address] [id number] [place] [address] Jun, [facility] [place] [facility] [address] [id number] [place] [address] Jun, [facility] [place] [facility] [address] [id number] [place] [address] May, [facility] [place] [facility] [address] [id number] [place] [address] May, [facility] [place] [facility] [address] [id number] [place] [address] May, [facility] [place] [facility] [address] [id number] [place] [address] May, [facility] [place] [facility] [address] [id number] [place] [address] Apr, [facility] [place] [facility] [address] [id number] [place] [address] Apr, [facility] [place] [facility] [address] [facility] [id number] [place] [address] Apr, [facility] [address] [facility] [id number] [place] [address] Apr, [facility] [address] [facility] [id number] [place] [address] Mar, [facility] [address] [facility] [id number] [place] [address] Mar, [facility] [address] [facility] [id number] [place] [address] Feb, [facility] [address] [facility] [id number] [place] [address] Feb, IMMUNIZATIONS No Known Immunizations SOCIAL HISTORY [...] cardiac problems and COPD exacerbations. Hospitalization History [facility]- for Tylenol overdose 09/2016
--- OUTSIDE RECORDS SUMMARY | 2018-11-13 09:27 | XMS REPORT | Continuity of Care Document ---
Author Organization Unknown Address Unknown Phone Unavailable Allergies Active Description Code Type Severity Reaction Onset Reported/Identified Relationship to Patient Clinical Status Yes Sulfa (Sulfonamide Antibiotics) Drug Allergy N/A N/A 02/08/2013 Yes SULFA SULFA Unknown RASH 09/26/2013 Yes sulfamethoxazole [id number] Drug Allergy Unknown N/A 02/09/2014 Yes trimethoprim [id number] Drug Allergy Unknown N/A 02/09/2014 Yes yellow dye [id number] Drug Allergy Unknown N/A 02/09/2014 Yes Sulfa (Sulfonamide Antibiotics) [id number] Drug Allergy Moderate HIVES 12/09/2014 Medications There is no data. Problems Date Dx Coded Attending Type Code Diagnosis Diagnosed By 10/01/2009 Ot 427.31 10/01/2009 Ot 482.2 10/01/2009 Ot 518.0 10/01/2009 Ot 593.2 10/01/2009 Ot 593.9 10/01/2009 Ot 786.6 10/01/2009 Ot 790.6 12/14/2010 Ot 272.4 12/14/2010 Ot 412 12/14/2010 Ot 414.01 12/14/2010 Ot 477.9 12/14/2010 Ot 486 12/14/2010 Ot 493.22 12/14/2010 Ot 518.0 12/14/2010 Ot 530.81 03/09/2011 Ot 244.9 HYPOTHYROIDISM NOS 03/09/2011 Ot 272.4 HYPERLIPIDEMIA NEC/NOS 03/09/2011 Ot 403.90 HYPTNSV CHR KID DIS, UNSPEC, W CHR KD ST 03/09/2011 Ot 414.01 CORONARY ATHEROSCLEROSIS OF [place] CORON 03/09/2011 Ot 496 CHR AIRWAY OBSTRUCT NEC 03/09/2011 Ot 585.9 CHRONIC KIDNEY DISEASE, UNSPECIFIED 03/09/2011 Ot 790.29 OTHER ABNORMAL GLUCOSE 03/09/2011 Ot 794.30 ABN CARDIOVASC STUDY NOS 03/09/2011 Ot V12.53 PERSONAL HISTORY OF SUDDEN CARDIAC ARRES 03/09/2011 Ot V17.49 FAMILY HISTORY OF OTHER CARDIOVASCULAR D 03/09/2011 Ot V58.66 LONG-TERM (CURRENT) USE OF ASPIRIN 03/09/2011 Ot V58.69 OTH MED,LT,CURRENT USE 03/21/2011 Ot 038.9 SEPTICEMIA NOS 03/21/2011 Ot 244.9 HYPOTHYROIDISM NOS 03/21/2011 Ot 272.4 HYPERLIPIDEMIA NEC/NOS 03/21/2011 Ot 285.9 ANEMIA NOS 03/21/2011 Ot 403.90 HYPTNSV CHR KID DIS, UNSPEC, W CHR KD ST 03/21/2011 Ot 414.00 CORON ATHEROSCLER NOS TYPE VESSEL, NATIV 03/21/2011 Ot 486 PNEUMONIA, ORGANISM NOS 03/21/2011 Ot 496 CHR AIRWAY OBSTRUCT NEC 03/21/2011 Ot 511.9 PLEURAL EFFUSION NOS 03/21/2011 Ot 564.00 UNSPEC CONSTIPATION 03/21/2011 Ot 585.9 CHRONIC KIDNEY DISEASE, UNSPECIFIED 03/21/2011 Ot 995.91 SEPSIS 03/21/2011 Ot V45.81 AORTOCORONARY BYPASS 05/11/2011 Ot V45.81 AORTOCORONARY BYPASS 05/11/2011 Ot V57.89 REHABILITATION PROC NEC 06/02/2011 Ot 272.4 HYPERLIPIDEMIA NEC/NOS 06/02/2011 Ot 403.90 HYPTNSV CHR KID DIS, UNSPEC, W CHR KD ST 06/02/2011 Ot 414.00 CORON ATHEROSCLER NOS TYPE VESSEL, NATIV 06/02/2011 Ot 585.9 CHRONIC KIDNEY DISEASE, UNSPECIFIED 06/02/2011 Ot 786.59 CHEST PAIN NEC 06/02/2011 Ot V45.81 AORTOCORONARY BYPASS 02/03/2012 Ot 599.0 URIN TRACT INFECTION NOS 02/03/2012 Ot 787.03 VOMITING ALONE 02/03/2012 Ot 788.20 RETENTION OF URINE NOS 09/27/2012 LAQUITA VARGHESE, MARK Tinoco Ot 272.4 HYPERLIPIDEMIA NEC/NOS 09/27/2012 LAQUITA VARGHESE, MARK [place] Ot 354.9 MONONEURITIS ARM NOS 09/27/2012 LAQUITA VARGHESE, MARK Tinoco Ot 403.90 HYPTNSV CHR KID DIS, UNSPEC, W CHR KD ST 09/27/2012 MARK COELHO MD Ot 414.00 CORON ATHEROSCLER NOS TYPE VESSEL, NATIV 09/27/2012 LAQUITA VARGHESEMARK Ot 433.10 CAROTID ARTERY OCCLUSION W O CEREBRAL IN 09/27/2012 MARK COELHO MD Ot 496 CHR AIRWAY OBSTRUCT NEC 09/27/2012 MARK COELHO MD Ot 530.81 ESOPHAGEAL REFLUX 09/27/2012 MARK COELHO MD Ot 585.9 CHRONIC KIDNEY DISEASE, UNSPECIFIED 09/27/2012 MARK COELHO MD Ot 790.29 OTHER ABNORMAL GLUCOSE 09/27/2012 MARK COELHO MD Ot V12.51 HX-VENOUS THROMBOSIS EMBOLISM 09/27/2012 MARK COELHO MD Ot V17.1 FAMILY HX-STROKE 09/27/2012 MARK COELHO MD Ot V17.3 FAM HX-ISCHEM HEART DIS 09/27/2012 MARK COELHO MD Ot V17.49 FAMILY HISTORY OF OTHER CARDIOVASCULAR D 09/27/2012 MARK COELHO MD Ot V18.0 FAM HX-DIABETES MELLITUS 09/27/2012 MARK COELOH MD Ot V45.79 ACQRD ABSENCE OF OTH ORGAN 09/27/2012 MARK COELHO MD Ot V45.81 AORTOCORONARY BYPASS 09/27/2012 MARK COELHO MD Ot V58.63 LONG-TERM(CURRENT)USE OF ANTIPLATELET/AN 09/27/2012 MARK COELHO MD Ot V58.66 LONG-TERM (CURRENT) USE OF ASPIRIN 09/27/2012 MARK COELHO MD Ot V58.69 OTH MED,LT,CURRENT USE 09/27/2012 MARK COELHO MD Ot V88.01 ACQUIRED ABSENCE OF BOTH CERVIX AND UTER 02/08/2013 JOSE ANTONIO BRISENO APRN R 388.70 OTALGIA 02/08/2013 JOSE ANTONIO BRISENO APRN R 786.2 COUGH 02/08/2013 DEGROOT DO, HEATHER K 388.70 OTALGIA 02/08/2013 DEGROOT DO, HEATHER K 786.2 COUGH 02/08/2013 JOSE ANTONIO BRISENO APRN R 388.70 OTALGIA 02/08/2013 SUZANNA JASMINE, JOSE ANTONIO R 786.2 COUGH 02/08/2013 SUZANNA JASMINE JOSE ANTONIO R 388.70 OTALGIA 02/08/2013 JOSE ANTONIO BRISENO APRN R 786.2 COUGH 02/08/2013 SUZANNA GRIT BLASTER, JOSE ANTONIO R 388.70 OTALGIA 02/08/2013 SUZANNA GRIT BLASTER, JOSE ANTONIO R 786.2 COUGH 02/08/2013 SUZANNA GRIT BLASTER, JOSE ANTONIO R 388.70 OTALGIA 02/08/2013 SUZANNA GRIT BLASTER, JOSE ANTONIO R 786.2 COUGH 02/08/2013 SUZANNA GRIT BLASTER, JOSE ANTONIO R 388.70 OTALGIA 02/08/2013 SUZANNA GRIT BLASTER, JOSE ANTONIO R 786.2 COUGH 04/26/2013 SUZANNA GRIT BLASTER, JOSE ANTONIO R 300.00 ANXIETY UNSPEC 04/26/2013 SUZANNA GRIT BLASTER, JOSE ANTONIO R 414.00 CAD 04/26/2013 SUZANNA GRIT BLASTER, JOSE ANTONIO R 496 COPD 04/26/2013 SUZANNA GRIT BLASTER, JOSE ANTONIO R 782.1 RASH 04/26/2013 SUZANNA GRIT BLASTER, JOSE ANTONIO R 782.3 EDEMA 04/26/2013 DEGROOT DO, HEATHER K 300.00 ANXIETY UNSPEC 04/26/2013 DEGROOT DO, HEATHER K 414.00 CAD 04/26/2013 DEGROOT DO, HEATHER K 496 COPD 04/26/2013 DEGROOT DO, HEATHER K 782.1 RASH 04/26/2013 DEGROOT DO, HEATHER K 782.3 EDEMA 04/26/2013 SUZANNA GRIT BLASTER, JOSE ANTONIO R 300.00 ANXIETY UNSPEC 04/26/2013 SUZANNA GRIT BLASTER, JOSE ANTONIO R 414.00 CAD 04/26/2013 SUZANNA GRIT BLASTER, JOSE ANTONIO R 496 COPD 04/26/2013 SUZANNA GRIT BLASTER, JOSE ANTONIO R 782.1 RASH 04/26/2013 SUZANNA GRIT BLASTER, JOSE ANTONIO R 782.3 EDEMA 04/26/2013 SUZANNA GRIT BLASTER, JOSE ANTONIO R 300.00 ANXIETY UNSPEC 04/26/2013 SUZANNA GRIT BLASTER, JOSE ANTONIO R 414.00 CAD 04/26/2013 SUZANNA GRIT BLASTER, JOSE ANTONIO R 496 COPD 04/26/2013 SUZANNA GRIT BLASTER, JOSE ANTONIO R 782.1 RASH 04/26/2013 SUZANNA GRIT BLASTER, JOSE ANTONIO R 782.3 EDEMA 04/26/2013 SUZANNA GRIT BLASTER, JOSE ANTONIO R 300.00 ANXIETY UNSPEC 04/26/2013 SUZANNA GRIT BLASTER, JOSE ANTONIO R 414.00 CAD 04/26/2013 SUZANNA GRIT BLASTER, JOSE ANTONIO R 496 COPD 04/26/2013 SUZANNA GRIT BLASTER, JOSE ANTONIO R 782.1 RASH 04/26/2013 SUZANNA GRIT BLASTER, JOSE ANTONIO R 782.3 EDEMA 04/26/2013 SUZANNA GRIT BLASTER, JOSE ANTONIO R 300.00 ANXIETY UNSPEC 04/26/2013 SUZANNA GRIT BLASTER, JOSE ANTONIO R 414.00 CAD 04/26/2013 SUZANNA GRIT BLASTER, JOSE ANTONIO R 496 COPD 04/26/2013 SUZANNA GRIT BLASTER, JOSE ANTONIO R 782.1 RASH 04/26/2013 SUZANNA GRIT BLASTER, JOSE ANTONIO R 782.3 EDEMA 04/26/2013 SUZANNA GRIT BLASTER, JOSE ANTONIO R 300.00 ANXIETY UNSPEC 04/26/2013 SUZANNA GRIT BLASTER, JOSE ANTONIO R 414.00 CAD 04/26/2013 SUZANNA GRIT BLASTER, JOSE ANTONIO R 496 COPD 04/26/2013 SUZANNA GRIT BLASTER, JOSE ANTONIO R 782.1 RASH 04/26/2013 SUZANNA GRIT BLASTER, JOSE ANTONIO R 782.3 EDEMA 09/12/2013 SUZANNA GRAHAMN, JOSE ANTONIO R 625.8 OTHER SPECIFIED SYMPTOMS ASSOCIATED WITH FEMALE GENITAL ORGANS 09/12/2013 SUZANNA JASMINE, JOSE ANTONIO R V70.0 ROUTINE GENERAL MEDICAL EXAMINATION AT A HEALTH CARE FACILITY 09/12/2013 SUZANNA JASMINE JOSE ANTONIO R V72.31 ROUTINE GYNECOLOGICAL EXAMINATION 09/12/2013 SUZANNA JASMINE JOSE ANTONIO R 625.8 OTHER SPECIFIED SYMPTOMS ASSOCIATED WITH FEMALE GENITAL ORGANS 09/12/2013 SUZANNA JASMINE JOSE ANTONIO R V70.0 ROUTINE GENERAL MEDICAL EXAMINATION AT A HEALTH CARE FACILITY 09/12/2013 SUZANNA JASMINE JOSE ANTONIO R V72.31 ROUTINE GYNECOLOGICAL EXAMINATION 09/12/2013 SUZANNA JASMIEN, JOSE ANTONIO R 625.8 OTHER SPECIFIED SYMPTOMS ASSOCIATED WITH FEMALE GENITAL ORGANS 09/12/2013 SUZANNA JASMINE JOSE ANTONIO R V70.0 ROUTINE GENERAL MEDICAL EXAMINATION AT A HEALTH CARE FACILITY 09/12/2013 SUZANNA JASMINE JOSE ANTONIO R V72.31 ROUTINE GYNECOLOGICAL EXAMINATION 09/12/2013 SUZANNA JASMINE, JOSE ANTONIO R 625.8 OTHER SPECIFIED SYMPTOMS ASSOCIATED WITH FEMALE GENITAL ORGANS 09/12/2013 SUZANNA JASMINE, JOSE ANTONIO R V70.0 ROUTINE GENERAL MEDICAL EXAMINATION AT A HEALTH CARE FACILITY 09/12/2013 SUZANNA JASMINE, JOSE ANTONIO R V72.31 ROUTINE GYNECOLOGICAL EXAMINATION 09/12/2013 SUZANNA JASMINE, JOSE ANTONIO R 625.8 OTHER SPECIFIED SYMPTOMS ASSOCIATED WITH FEMALE GENITAL ORGANS 09/12/2013 SUZANNA JASMINE, JOSE ANTONIO R V70.0 ROUTINE GENERAL MEDICAL EXAMINATION AT A HEALTH CARE FACILITY 09/12/2013 SUZANNA JASMINE, JOSE ANTONIO R V72.31 ROUTINE GYNECOLOGICAL EXAMINATION 09/27/2013 VIRGINIA VARGHESE FACC, ALI FACP CCDS Ot 493.20 CHRONIC OBSTRUCTIVE ASTHMA, NOS 09/27/2013 VIRGINIA VARGHESE FAC, ALI FACP CCDS Ot 530.81 ESOPHAGEAL REFLUX 09/27/2013 VIR[place] PRIETO, ALI FACP CCDS Ot 577.0 ACUTE PANCREATITIS 09/27/2013 [place] PRIETO, ALI FACP CCDS Ot 585.3 CHRONIC KIDNEY DISEASE, STAGE III (MODER 09/27/2013 [place] PRIETO, ALI FACP CCDS Ot 786.50 CHEST PAIN NOS 09/27/2013 [place] PRIETO, ALI FACP CCDS Ot V45.81 AORTOCORONARY BYPASS 10/03/2013 JOSE ANTONIO BRISENO APRN R 585.9 CHRONIC KIDNEY DISEASE UNSPECIFIED 10/03/2013 JOSE ANTONIO BRISENO APRN R 585.9 CHRONIC KIDNEY DISEASE UNSPECIFIED 10/03/2013 JOSE ANTONIO BRISENO APRN 585.9 CHRONIC KIDNEY DISEASE UNSPECIFIED 02/09/2014 RODDY ARRIOLA MD Ot 892.0 OPEN WOUND OF FOOT 02/09/2014 ZEINAB VARGHESE, RODDY [place] Ot 959.7 LOWER LEG INJURY NOS 02/09/2014 RODDY ARRIOLA MD Ot E000.8 OTHER EXTERNAL CAUSE STATUS 02/09/2014 RODDY ARRIOLA MD Ot E917.9 STRUCK BY OBJ/PERSON NEC 05/05/2014 Ot 786.09 05/05/2014 Ot 793.1 05/05/2014 Ot 486 05/05/2014 Ot 486 05/05/2014 Ot 486 05/05/2014 Ot 611.71 05/05/2014 Ot 401.9 05/05/2014 Ot 786.09 05/05/2014 Ot 786.50 05/05/2014 Ot 530.10 05/05/2014 Ot 530.3 05/05/2014 Ot 553.3 05/05/2014 LAQUITA VARGHESE, MARK S Ot 433.10 05/05/2014 LAQUITA VARGHESE, MARK S Ot V72.63 05/05/2014 LAQUITA VARGHESE, MARK S Ot V72.81 05/05/2014 LAQUITA VARGHESE, MARK S Ot V72.83 05/05/2014 LAQUITA VARGHESE, MARK S Ot V74.8 05/05/2014 JOSE ANTONIO BRISENO APRN Ot 625.8 05/05/2014 JOSE ANTONIO BRISENO APRN Ot V70.0 05/05/2014 JOSE ANTONIO BRISENO R GRIT BLASTER Ot V72.31 05/05/2014 JOSE ANTONIO BRISENO R GRIT BLASTER Ot V76.12 05/05/2014 Ot 486 05/08/2014 Ot 611.71 05/08/2014 Ot 401.9 05/08/2014 Ot 786.09 05/08/2014 Ot 786.50 05/08/2014 Ot 530.10 05/08/2014 Ot 530.3 05/08/2014 Ot 553.3 05/08/2014 LAQUITA VARGHESE, MARK S Ot 433.10 05/08/2014 LAQUITA VARGHESE, MARK S Ot V72.63 05/08/2014 LAQUITA VARGHESE, MARK S Ot V72.81 05/08/2014 LAQUITA VARGHESE, MARK S Ot V72.83 05/08/2014 LAQUITA VARGHESE, MARK S Ot V74.8 05/08/2014 JOSE ANTONIO BRISENO APRN Ot 625.8 05/08/2014 JOSE ANTONIO BRISENO APRN Ot V70.0 05/08/2014 JOSE ANTONIO BRISENO R GRIT BLASTER Ot V72.31 05/08/2014 JOSE ANTONIO BRISENO APRN Ot V76.12 05/09/2014 EDUARDO PETERS DO Ot 493.90 ASTHMA, UNSPECIFIED 05/09/2014 EDUARDO PETERS DO Ot 786.05 SHORTNESS OF BREATH 05/09/2014 EDUARDO PETERS DO Ot V58.69 OTH MED,LT,CURRENT USE 06/12/2014 JOSE ANTONIO BRISENO APRN R 780.4 DIZZINESS AND GIDDINESS 06/12/2014 JOSE ANTONIO BRISENO APRN R 789.09 ABDOMINAL PAIN OTHER SPECIFIED SITE 06/12/2014 JOSE ANTONIO BRISENO APRN R 780.4 DIZZINESS AND GIDDINESS 06/12/2014 MARYAM BRISENO APRNINA R 789.09 ABDOMINAL PAIN OTHER SPECIFIED SITE 06/15/2014 JOSE ANTONIO BRISENO APRN R 586 RENAL FAILURE UNSPECIFIED 06/15/2014 JOSE ANTONIO BRISENO APRN R 586 RENAL FAILURE UNSPECIFIED 06/21/2014 Ot 722.52 LUMB/LUMBOSAC DISC DEGEN 06/21/2014 Ot 724.2 LUMBAGO 06/21/2014 Ot 733.13 PATHOLOGIC FRACTURE, VERTEBRAE 06/26/2014 SUZANNA GRIT BLASTER, JOSE ANTONIO R 805.8 CLOSED FRACTURE OF UNSPECIFIED PART OF VERTEBRAL COLUMN WITHOUT SPINAL CORD INJURY 06/26/2014 SUZANNA GRIT BLASTER, JOSE ANTONIO R 805.8 CLOSED FRACTURE OF UNSPECIFIED PART OF VERTEBRAL COLUMN WITHOUT SPINAL CORD INJURY 07/11/2014 Ot 584.9 07/11/2014 Ot 585.3 08/23/2014 SUZANNA, JOSE ANTONIO R GRIT BLASTER Ot 805.4 08/23/2014 SUZANNA, JOSE ANTONIO R GRIT BLASTER Ot E000.8 08/23/2014 SUZANNA, JOSE ANTONIO R GRIT BLASTER Ot E888.9 08/26/2014 SUZANNA, JOSE ANTONIO R GRIT BLASTER Ot 805.4 08/26/2014 SUZANNA, JOSE ANTONIO R GRIT BLASTER Ot E000.8 08/26/2014 SUZANNA, JOSE ANTONIO R GRIT BLASTER Ot E888.9 08/29/2014 JUAN VARGHESE, ROBERTO Z Ot 733.13 09/02/2014 JUAN VARGHESE, ROBERTO Z Ot 733.13 09/19/2014 JUAN VARGHESE, ROBERTO Z Ot 733.13 09/19/2014 JUAN VARGHESE, ROBERTO Z Ot V72.63 09/19/2014 JUAN VARGHESE, ROBERTO Z Ot V74.8 09/19/2014 SUZANNA, JOSE ANTONIO R GRIT BLASTER Ot 805.4 09/19/2014 SUZANNA, JOSE ANTONIO R GRIT BLASTER Ot E000.8 09/19/2014 SUZANNA, JOSE ANTONIO R GRIT BLASTER Ot E888.9 09/24/2014 SUZANNA, JOSE ANTONIO R GRIT BLASTER Ot 805.4 09/24/2014 SUZANNA, JOSE ANTONIO R GRIT BLASTER Ot E000.8 09/24/2014 SUZANNA, JOSE ANTONIO R GRIT BLASTER Ot E888.9 10/02/2014 JUAN VARGHESE, ROBERTO Z Ot 733.13 10/04/2014 JUAN VARGHESE, ROBERTO Z Ot 733.13 10/04/2014 Ot 584.9 10/04/2014 Ot 585.3 11/20/2014 Ot 611.71 11/20/2014 Ot 401.9 11/20/2014 Ot 786.09 11/20/2014 Ot 786.50 11/20/2014 Ot 530.10 11/20/2014 Ot 530.3 11/20/2014 Ot 553.3 11/20/2014 LAQUITA VARGHESE, MARK Tinoco Ot 433.10 11/20/2014 LAQUITA VARGHESE, MARK S Ot V72.63 11/20/2014 LAQUITA VARGHESE, MARK S Ot V72.81 11/20/2014 LAQUITA VARGHESE, MARK S Ot V72.83 11/20/2014 LAQUITA VARGHESE, MARK S Ot V74.8 11/20/2014 SUZANNA, JOSE ANTONIO R GRIT BLASTER Ot 625.8 11/20/2014 SUZANNA, JOSE ANTONIO R GRIT BLASTER Ot V70.0 11/20/2014 SUZANNA, JOSE ANTONIO R GRIT BLASTER Ot V72.31 11/20/2014 SUZANNA, JOSE ANTONIO R GRIT BLASTER Ot V76.12 11/20/2014 Ot 584.9 11/20/2014 Ot 585.3 11/20/2014 SUZANNA, JOSE ANTONIO R GRIT BLASTER Ot 805.4 11/20/2014 SUZANNA, JOSE ANTONIO R GRIT BLASTER Ot E000.8 11/20/2014 SUZANNA, JOSE ANTONIO R GRIT BLASTER Ot E888.9 11/20/2014 JUAN VARGHESE, ROBERTO Z Ot 733.13 11/20/2014 JUAN VARGHESE, ROBERTO Z Ot 733.13 11/20/2014 JUAN VARGHESE, ROBERTO Z Ot V72.63 11/20/2014 JUAN VARGHESE, ROBERTO Z Ot V74.8 11/26/2014 ROLF VARGHESE, SHOLA N Ot 733.90 12/02/2014 ROLF VARGHESE, SHOLA N Ot 733.90 12/03/2014 ROLF VARGHESE, SHOLA Lopes Ot 733.90 12/09/2014 CORINE FREGOSO DO Ot 211.3 BENIGN NEOPLASM LG BOWEL 12/09/2014 CORINE FREGOSO DO Ot 787.91 DIARRHEA 12/10/2014 SHOLA BANSAL MD N Ot 733.90 2016 Ot 611.71 MASTODYNIA 2016 Ot 401.9 HYPERTENSION NOS 2016 Ot 786.09 RESPIRATORY ABNORM NEC 2016 Ot 786.50 CHEST PAIN NOS 2016 Ot 530.10 ESOPHAGITIS NOS 2016 Ot 530.3 ESOPHAGEAL STRICTURE 2016 Ot 553.3 DIAPHRAGMATIC HERNIA 2016 LAQUITA VARGHESE, MARK Tinoco Ot 433.10 CAROTID ARTERY OCCLUSION W O CEREBRAL IN 2016 MARK COELHO MD Ot V72.63 PRE-PROCEDURAL LABORATORY EXAMINATION 2016 MARK COELHO MD Ot V72.81 [id number] CARDIOVASCULAR 2016 MARK COELHO MD Ot V72.83 EXAM PRE-OPERATIVE NEC 2016 MARK COELHO MD Ot V74.8 SCREEN-BACTERIAL DIS NEC 2016 JOSE ANTONIO BRISENO GRIT BLASTER Ot 625.8 FEM GENITAL SYMPTOMS NEC 2016 JOSE ANTONIO BRISENO GRIT BLASTER Ot V70.0 ROUTINE MEDICAL EXAM 2016 JOSE ANTONIO BRISENO GRIT BLASTER Ot V72.31 ROUTINE GYNECOLOGICAL EXAMINATION 2016 JOSE ANTONIO BRISENO GRIT BLASTER Ot V76.12 OTH SCREEN MAMMO-MALIGN NEOPLASM OF [place] 2016 Ot 584.9 ACUTE RENAL FAILURE, UNSPECIFIED 2016 Ot 585.3 CHRONIC KIDNEY DISEASE, STAGE III (MODER 2016 JOSE ANTONIO BRISENO GRIT BLASTER Ot 805.4 FX LUMBAR VERTEBRA-CLOSE 2016 JOSE ANTONIO BRISENO GRIT BLASTER Ot E000.8 OTHER EXTERNAL CAUSE STATUS 2016 JOSE ANTONIO BRISENO GRIT BLASTER Ot E888.9 FALL NOS 2016 JUAN VARGHESE, ROBERTO Z Ot 733.13 PATHOLOGIC FRACTURE, VERTEBRAE 2016 JUAN VARGHESE, ROBERTO Z Ot 733.13 PATHOLOGIC FRACTURE, VERTEBRAE 2016 JUAN VARGHESE, ROBERTO Z Ot V72.63 PRE-PROCEDURAL LABORATORY EXAMINATION 2016 JUAN VARGHESE, ROBERTO Z Ot V74.8 SCREEN-BACTERIAL DIS NEC 2016 ROLF VARGHESE, SHOLA Lopes Ot 733.90 BONE CARTILAGE DIS NOS 2016 CORINE FREGOSO DO Ot 787.91 DIARRHEA 2016 CORINE FREGOSO DO Ot V72.84 EXAM PRE-OPERATIVE NOS 01/22/2016 MARIA A MORSE DO Ot E66.9 OBESITY, UNSPECIFIED 01/22/2016 MARIA A MORSE DO Ot I25.10 ATHSCL HEART DISEASE OF [place] CORONARY 01/22/2016 MARIA A MORSE DO Ot I51.7 CARDIOMEGALY 01/22/2016 MARIA A MORSE DO Ot J44.9 CHRONIC OBSTRUCTIVE PULMONARY DISEASE, U 01/22/2016 MARIA A MORSE DO Ot E66.9 OBESITY, UNSPECIFIED 01/22/2016 MARIA A MORSE DO Ot I25.10 ATHSCL HEART DISEASE OF [place] CORONARY 01/22/2016 MARIA A MORSE DO Ot I51.7 CARDIOMEGALY 01/22/2016 MARI AA MORSE DO Ot J44.9 CHRONIC OBSTRUCTIVE PULMONARY DISEASE, U 01/22/2016 CORINE FREGOSO DO Ot Z01.818 ENCOUNTER FOR OTHER PREPROCEDURAL EXAMIN 01/22/2016 CORINE FREGOSO DO Ot Z86.010 PERSONAL HISTORY OF COLONIC POLYPS 01/26/2016 Ot 611.71 MASTODYNIA 01/26/2016 Ot 401.9 HYPERTENSION NOS 01/26/2016 Ot 786.09 RESPIRATORY ABNORM NEC 01/26/2016 Ot 786.50 CHEST PAIN NOS 01/26/2016 Ot 530.10 ESOPHAGITIS NOS 01/26/2016 Ot 530.3 ESOPHAGEAL STRICTURE 01/26/2016 Ot 553.3 DIAPHRAGMATIC HERNIA 01/26/2016 LAQUITA VARGHESE, MARK Tin[place] Ot 433.10 CAROTID ARTERY OCCLUSION W O CEREBRAL IN 01/26/2016 LAQUITA VARGHESE, MARK Tinoco Ot V72.63 PRE-PROCEDURAL LABORATORY EXAMINATION 01/26/2016 LAQUITA VARGHESE, MARK Tinoco Ot V72.81 [id number] CARDIOVASCULAR 01/26/2016 MARK COELHO MD Ot V72.83 EXAM PRE-OPERATIVE NEC 01/26/2016 MARK COELHO MD Ot V74.8 SCREEN-BACTERIAL DIS NEC 01/26/2016 JOSE ANTONIO BRISENO APRN Ot 625.8 FEM GENITAL SYMPTOMS NEC 01/26/2016 JOSE ANTONIO BRISENO APRN Ot V70.0 ROUTINE MEDICAL EXAM 01/26/2016 JOSE ANTONIO BRISENO APRN Ot V72.31 ROUTINE GYNECOLOGICAL EXAMINATION 01/26/2016 JOSE ANTONIO BRISENO APRN Ot V76.12 OTH SCREEN MAMMO-MALIGN NEOPLASM OF [place] 01/26/2016 Ot 584.9 ACUTE RENAL FAILURE, UNSPECIFIED 01/26/2016 Ot 585.3 CHRONIC KIDNEY DISEASE, STAGE III (MODER 01/26/2016 JOSE ANTONIO BRISENO APRN Ot 805.4 FX LUMBAR VERTEBRA-CLOSE 01/26/2016 JOSE ANTONIO BRISENO APRN Ot E000.8 OTHER EXTERNAL CAUSE STATUS 01/26/2016 JOSE ANTONIO BRISENO GRIT BLASTER Ot E888.9 FALL NOS 01/26/2016 JUAN VARGHESE, ROBERTO Z Ot 733.13 PATHOLOGIC FRACTURE, VERTEBRAE 01/26/2016 JUAN VARGHESE, ROBERTO Z Ot 733.13 PATHOLOGIC FRACTURE, VERTEBRAE 01/26/2016 JUAN VARGHESE, ROBERTO Z Ot V72.63 PRE-PROCEDURAL LABORATORY EXAMINATION 01/26/2016 JUAN VARGHESE, ROBERTO Z Ot V74.8 SCREEN-BACTERIAL DIS NEC 01/26/2016 ROLF VARGHESE, SHOLA N Ot 733.90 BONE CARTILAGE DIS NOS 01/26/2016 CORINE FREGOSO DO Ot 787.91 DIARRHEA 01/26/2016 CORINE FREGOSO DO Ot V72.84 EXAM PRE-OPERATIVE NOS 01/26/2016 CORINE FREGOSO DO Ot Z01.818 ENCOUNTER FOR OTHER PREPROCEDURAL EXAMIN 01/26/2016 CORINE FREGOSO DO Ot Z86.010 PERSONAL HISTORY OF COLONIC POLYPS 01/26/2016 MARIA A MORSE DO Ot E66.9 OBESITY, UNSPECIFIED 01/26/2016 MARIA A MORSE DO Ot I25.10 ATHSCL HEART DISEASE OF [place] CORONARY 01/26/2016 MARIA A MORSE DO Ot I51.7 CARDIOMEGALY 01/26/2016 MARIA A MORSE DO Ot J44.9 CHRONIC OBSTRUCTIVE PULMONARY DISEASE, U 01/26/2016 CORINE FREGOSO DO Ot D12.2 BENIGN NEOPLASM OF ASCENDING COLON 01/26/2016 CORINE FREGOSO DO Ot D12.3 BENIGN NEOPLASM OF TRANSVERSE COLON 01/26/2016 CORINE FREGOSO DO Ot K52.9 NONINFECTIVE GASTROENTERITIS AND COLITIS 01/26/2016 CORINE FREGOSO DO Ot Z86.010 PERSONAL HISTORY OF COLONIC POLYPS 01/28/2016 CORINE FREGOSO DO Ot D12.2 BENIGN NEOPLASM OF ASCENDING COLON 01/28/2016 CORINE FREGOSO DO Ot D12.3 BENIGN NEOPLASM OF TRANSVERSE COLON 01/28/2016 CORINE FREGOSO DO Ot K52.9 NONINFECTIVE GASTROENTERITIS AND COLITIS 01/28/2016 CORINE FREGOSO DO Ot Z86.010 PERSONAL HISTORY OF COLONIC POLYPS 02/01/2016 FREGOSO DO, CORINE D Ot D12.2 BENIGN NEOPLASM OF ASCENDING COLON 02/01/2016 FREGOSO DO, CORINE D Ot D12.3 BENIGN NEOPLASM OF TRANSVERSE COLON 02/01/2016 [facility], CORINE D Ot K52.9 NONINFECTIVE GASTROENTERITIS AND COLITIS 02/01[facility].010 PERSONAL HISTORY OF COLONIC POLYPS 02/01/2016 [facility], CORINE D Ot D12.2 BENIGN NEOPLASM OF ASCENDING COLON 02/01/2016 [facility], CORINE D Ot D12.3 BENIGN NEOPLASM OF TRANSVERSE COLON 02/01/2016 [facility], CORINE D Ot K52.9 NONINFECTIVE GASTROENTERITIS AND COLITIS 02/01/2016 [facility].010 PERSONAL HISTORY OF COLONIC POLYPS 02/03/2016 Ot 611.71 MASTODYNIA 02/03/2016 Ot 401.9 HYPERTENSION NOS 02/03/2016 Ot 786.09 RESPIRATORY ABNORM NEC 02/03/2016 Ot 786.50 CHEST PAIN NOS 02/03/2016 Ot 530.10 ESOPHAGITIS NOS 02/03/2016 Ot 530.3 ESOPHAGEAL STRICTURE 02/03/2016 Ot 553.3 DIAPHRAGMATIC HERNIA 02/03/2016 LAQUITA VARGHESE, MARK [place] Ot 433.10 CAROTID ARTERY OCCLUSION W O CEREBRAL IN 02/03/2016 LAQUITA VARGHESE, MARK [place] Ot V72.63 PRE-PROCEDURAL LABORATORY EXAMINATION 02/03/2016 MARK COELHO MD Ot V72.81 [id number] CARDIOVASCULAR 02/03/2016 MARK COELHO MD Ot V72.83 EXAM PRE-OPERATIVE NEC 02/03/2016 LAQUITA VARGHESE, MARK [place] Ot V74.8 SCREEN-BACTERIAL DIS NEC 02/03/2016 JOSE ANTONIO BRISENO GRIT BLASTER Ot 625.8 FEM GENITAL SYMPTOMS NEC 02/03/2016 JOSE ANTONIO BRISENO APRN Ot V70.0 ROUTINE MEDICAL EXAM 02/03/2016 JOSE ANTONIO BRISENO APRN Ot V72.31 ROUTINE GYNECOLOGICAL EXAMINATION 02/03/2016 JOSE ANTONIO BRISENO APRN Ot V76.12 OTH SCREEN MAMMO-MALIGN NEOPLASM OF [place] 02/03/2016 Ot 584.9 ACUTE RENAL FAILURE, UNSPECIFIED 02/03/2016 Ot 585.3 CHRONIC KIDNEY DISEASE, STAGE III (MODER 02/03/2016 JOSE ANTONIO BRISENO APRN Ot 805.4 FX LUMBAR VERTEBRA-CLOSE 02/03/2016 JOSE ANTONIO BRISENO APRN Ot E000.8 OTHER EXTERNAL CAUSE STATUS 02/03/2016 JOSE ANTONIO BRISENO APRN Ot E888.9 FALL NOS 02/03/2016 JUAN VARGHESE, ROBERTO Z Ot 733.13 PATHOLOGIC FRACTURE, VERTEBRAE 02/03/2016 JUAN VARGHESE, ROBERTO Z Ot 733.13 PATHOLOGIC FRACTURE, VERTEBRAE 02/03/2016 JUAN VARGHESE, ROBERTO Z Ot V72.63 PRE-PROCEDURAL LABORATORY EXAMINATION 02/03/2016 JUAN VARGHESE, ROBERTO Z Ot V74.8 SCREEN-BACTERIAL DIS NEC 02/03/2016 ROLF VARGHESE, SHOLA Lopes Ot 733.90 BONE CARTILAGE DIS NOS 02/03/2016 CORINE FREGOSO DO Ot 787.91 DIARRHEA 02/03/2016 CORINE FREGOSO DO Ot V72.84 EXAM PRE-OPERATIVE NOS 02/03/2016 CORINE FREGOSO DO Ot Z01.818 ENCOUNTER FOR OTHER PREPROCEDURAL EXAMIN 02/03/2016 CORINE FREGOSO DO Ot Z86.010 PERSONAL HISTORY OF COLONIC POLYPS 02/03/2016 MARIA A MORSE DO Ot E66.9 OBESITY, UNSPECIFIED 02/03/2016 MARIA A MORSE DO Ot I25.10 ATHSCL HEART DISEASE OF [place] CORONARY 02/03/2016 MARIA A MORSE DO Ot I51.7 CARDIOMEGALY 02/03/2016 MARIA A MORSE DO Ot J44.9 CHRONIC OBSTRUCTIVE PULMONARY DISEASE, U 02/04/2016 MARIA A MORSE DO Ot E66.9 OBESITY, UNSPECIFIED 02/04/2016 MARIA A MORSE DO Ot I25.10 ATHSCL HEART DISEASE OF [place] CORONARY 02/04/2016 MARIA A MORSE DO Ot J30.2 OTHER SEASONAL ALLERGIC RHINITIS 02/04/2016 MARIA A MORSE DO Ot J44.9 CHRONIC OBSTRUCTIVE PULMONARY DISEASE, U 02/04/2016 MARIA A MORSE DO Ot R60.9 EDEMA, UNSPECIFIED 02/11/2016 MARIA A MORSE DO Ot E66.9 OBESITY, UNSPECIFIED 02/11/2016 MARIA A MORSE DO Ot I25.10 ATHSCL HEART DISEASE OF [place] CORONARY 02/11/2016 MARIA A MORSE DO Ot I51.7 CARDIOMEGALY 02/11/2016 MARIA A MORSE DO Ot J44.9 CHRONIC OBSTRUCTIVE PULMONARY DISEASE, U 02/25/2016 MARIA A MORSE DO Ot E66.9 OBESITY, UNSPECIFIED 02/25/2016 MARIA A MORSE DO Ot I25.10 ATHSCL HEART DISEASE OF [place] CORONARY 02/25/2016 MARIA A MORSE DO Ot J30.2 OTHER SEASONAL ALLERGIC RHINITIS 02/25/2016 MARIA A MORSE DO Ot J44.9 CHRONIC OBSTRUCTIVE PULMONARY DISEASE, U 02/25/2016 MARIA A MORSE DO Ot R60.9 EDEMA, UNSPECIFIED 03/08/2016 MARIA A MORSE DO Ot E66.9 OBESITY, UNSPECIFIED 03/08/2016 MARIA A MORSE DO Ot I25.10 ATHSCL HEART DISEASE OF [place] CORONARY 03/08/2016 MARIA A MORSE DO Ot I51.7 CARDIOMEGALY 03/08/2016 MARIA A MORSE DO Ot J44.9 CHRONIC OBSTRUCTIVE PULMONARY DISEASE, U 03/22/2016 MARIA A MORSE DO Ot E66.9 OBESITY, UNSPECIFIED 03/22/2016 MARIA A MORSE DO Ot I25.10 ATHSCL HEART DISEASE OF [place] CORONARY 03/22/2016 MARIA A MORSE DO Ot J30.2 OTHER SEASONAL ALLERGIC RHINITIS 03/22/2016 MARIA A MORSE DO Ot J44.9 CHRONIC OBSTRUCTIVE PULMONARY DISEASE, U 03/22/2016 MARIA A MORSE DO Ot R60.9 EDEMA, UNSPECIFIED 03/23/2016 MARIA A MORSE DO Ot G47.33 OBSTRUCTIVE SLEEP APNEA (ADULT) (PEDIATR 03/23/2016 MARIA A MORSE DO Ot G47.33 OBSTRUCTIVE SLEEP APNEA (ADULT) (PEDIATR 03/24/2016 MARIA A MORSE DO Ot G47.33 OBSTRUCTIVE SLEEP APNEA (ADULT) (PEDIATR 04/01/2016 Ot 611.71 MASTODYNIA 04/01/2016 Ot 401.9 HYPERTENSION NOS 04/01/2016 Ot 786.09 RESPIRATORY ABNORM NEC 04/01/2016 Ot 786.50 CHEST PAIN NOS 04/01/2016 Ot 530.10 ESOPHAGITIS NOS 04/01/2016 Ot 530.3 ESOPHAGEAL STRICTURE 04/01/2016 Ot 553.3 DIAPHRAGMATIC HERNIA 04/01/2016 LAQUITA VARGHESE, MARK Tinoco Ot 433.10 CAROTID ARTERY OCCLUSION W O CEREBRAL IN 04/01/2016 MARK COELHO MD Ot V72.63 PRE-PROCEDURAL LABORATORY EXAMINATION 04/01/2016 MARK COELHO MD Ot V72.81 [id number] CARDIOVASCULAR 04/01/2016 MARK COELHO MD Ot V72.83 EXAM PRE-OPERATIVE NEC 04/01/2016 MARK COELHO MD Ot V74.8 SCREEN-BACTERIAL DIS NEC 04/01/2016 JOSE ANTONIO BRISENO GRIT BLASTER Ot 625.8 FEM GENITAL SYMPTOMS NEC 04/01/2016 JOSE ANTONIO BRISENO GRIT BLASTER Ot V70.0 ROUTINE MEDICAL EXAM 04/01/2016 JOSE ANTONIO BRISENO GRIT BLASTER Ot V72.31 ROUTINE GYNECOLOGICAL EXAMINATION 04/01/2016 JOSE ANTONIO BRISENO GRIT BLASTER Ot V76.12 OTH SCREEN MAMMO-MALIGN NEOPLASM OF [place] 04/01/2016 Ot 584.9 ACUTE RENAL FAILURE, UNSPECIFIED 04/01/2016 Ot 585.3 CHRONIC KIDNEY DISEASE, STAGE III (MODER 04/01/2016 JOSE ANTONIO BRISENO GRIT BLASTER Ot 805.4 FX LUMBAR VERTEBRA-CLOSE 04/01/2016 JOSE ANTONIO BRISENO GRIT BLASTER Ot E000.8 OTHER EXTERNAL CAUSE STATUS 04/01/2016 JOSE ANTONIO BRISENO GRIT BLASTER Ot E888.9 FALL NOS 04/01/2016 JUAN VARGHESE, ROBERTO Z Ot 733.13 PATHOLOGIC FRACTURE, VERTEBRAE 04/01/2016 JUAN VARGHESE, ROBERTO Z Ot 733.13 PATHOLOGIC FRACTURE, VERTEBRAE 04/01/2016 JUAN VARGHESE, ROBERTO Z Ot V72.63 PRE-PROCEDURAL LABORATORY EXAMINATION 04/01/2016 JUAN VARGHESE, ROBERTO Z Ot V74.8 SCREEN-BACTERIAL DIS NEC 04/01/2016 ROLF VARGHESE, SHOLA Lopes Ot 733.90 BONE CARTILAGE DIS NOS 04/01/2016 CORINE FREGOSO DO Ot 787.91 DIARRHEA 04/01/2016 CORINE FREGOSO DO Ot V72.84 EXAM PRE-OPERATIVE NOS 04/01/2016 CORINE FREGOSO DO Ot Z01.818 ENCOUNTER FOR OTHER PREPROCEDURAL EXAMIN 04/01/2016 CORINE FREGOSO DO Ot Z86.010 PERSONAL HISTORY OF COLONIC POLYPS 04/01/2016 MARIA A MORSE DO Ot E66.9 OBESITY, UNSPECIFIED 04/01/2016 MARIA A MORSE DO Ot I25.10 ATHSCL HEART DISEASE OF [place] CORONARY 04/01/2016 MARIA A MORSE DO Ot J30.2 OTHER SEASONAL ALLERGIC RHINITIS 04/01/2016 MARIA A MORSE DO Ot J44.9 CHRONIC OBSTRUCTIVE PULMONARY DISEASE, U 04/01/2016 MARIA A MORSE DO Ot R60.9 EDEMA, UNSPECIFIED 04/01/2016 MARIA A MORSE DO Ot E66.9 OBESITY, UNSPECIFIED 04/01/2016 MARIA A MORSE DO Ot I25.10 ATHSCL HEART DISEASE OF [place] CORONARY 04/01/2016 MARIA A MORSE DO Ot I51.7 CARDIOMEGALY 04/01/2016 MARIA A MORSE DO Ot J44.9 CHRONIC OBSTRUCTIVE PULMONARY DISEASE, U 04/01/2016 LUIS LOVELACE GRIT BLASTER Ot J98.4 OTHER DISORDERS OF LUNG 04/01/2016 LUIS LOVELACE GRIT BLASTER Ot R06.00 DYSPNEA, UNSPECIFIED 04/01/2016 ALBANIALUIS GOODMAN GRIT BLASTER Ot R91.8 OTHER NONSPECIFIC ABNORMAL FINDING OF [place] 04/05/2016 LUIS LOVELACE GRIT BLASTER Ot J98.4 OTHER DISORDERS OF LUNG 04/05/2016 LUIS LOVELACE GRIT BLASTER Ot R06.00 DYSPNEA, UNSPECIFIED 04/05/2016 NIRMAL LOVELACEINE Ziyad GRIT BLASTER Ot R91.8 OTHER NONSPECIFIC ABNORMAL FINDING OF [place] 04/22/2016 LUIS LOVELACE GRIT BLASTER Ot J98.4 OTHER DISORDERS OF LUNG 04/22/2016 LUIS LOVELACE GRIT BLASTER Ot R06.00 DYSPNEA, UNSPECIFIED 04/22/2016 NIRMAL LOVELACEINE Ziyad GRIT BLASTER Ot R91.8 OTHER NONSPECIFIC ABNORMAL FINDING OF [place] 05/04/2016 VIRGINIA VARGHESE FACC, FANTASMA FACP CCDS Ot E78.4 OTHER HYPERLIPIDEMIA 05/04/2016 VIRGINIA VARGHESE FACC, FANTASMA FACP CCDS Ot I25.10 ATHSCL HEART DISEASE OF [place] CORONARY 05/04/2016 VIRGINIA VARGHESE FACC, FANTASMA FACP CCDS Ot 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 05/04/2016 VIRGINIA VARGHESE FACC, ALI FACP CCDS Ot R06.02 SHORTNESS OF BREATH 05/10/2016 LUIS LOVELACE GRIT BLASTER Ot J98.4 OTHER DISORDERS OF LUNG 05/10/2016 LUIS LOVELACE GRIT BLASTER Ot R06.00 DYSPNEA, UNSPECIFIED 05/10/2016 LUIS LOVELACE GRIT BLASTER Ot R91.8 OTHER NONSPECIFIC ABNORMAL FINDING OF [place] 05/31/2016 VIRGINIA VARGHESE FACC, ALI FACP CCDS Ot E78.4 OTHER HYPERLIPIDEMIA 05/31/2016 VIRGINIA VARGHESE FAC, ALI FACP CCDS Ot I25.10 ATHSCL HEART DISEASE OF [place] CORONARY 05/31/2016 VIRGINIA VARGHESE FAC, ALI FACP CCDS Ot 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 05/31/2016 VIRGINIA VARGHESE [facility], ALI FACP CCDS Ot R06.02 SHORTNESS OF BREATH 06/07/2016 VIRGINIA VARGHESE [facility], ALI FACP CCDS Ot E78.4 OTHER HYPERLIPIDEMIA 06/07/2016 VIRGINIA VARGHESE [facility], ALI FACP CCDS Ot I25.10 ATHSCL HEART DISEASE OF [place] CORONARY 06/07/2016 VIRGINIA VARGHESE [facility], ALI FACP CCDS Ot 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 06/07/2016 VIRGINIA VARGHESE [facility], ALI FACP CCDS Ot R06.02 SHORTNESS OF BREATH 06/13/2016 Ot 611.71 MASTODYNIA 06/13/2016 Ot 401.9 HYPERTENSION NOS 06/13/2016 Ot 786.09 RESPIRATORY ABNORM NEC 06/13/2016 Ot 786.50 CHEST PAIN NOS 06/13/2016 Ot 530.10 ESOPHAGITIS NOS 06/13/2016 Ot 530.3 ESOPHAGEAL STRICTURE 06/13/2016 Ot 553.3 DIAPHRAGMATIC HERNIA 06/13/2016 MARK COELHO MD Ot 433.10 CAROTID ARTERY OCCLUSION W O CEREBRAL IN 06/13/2016 MARK COELHO MD Ot V72.63 PRE-PROCEDURAL LABORATORY EXAMINATION 06/13/2016 MARK COELHO MD Ot V72.81 [id number] CARDIOVASCULAR 06/13/2016 MARK COELHO MD Ot V72.83 EXAM PRE-OPERATIVE NEC 06/13/2016 MARK COELHO MD Ot V74.8 SCREEN-BACTERIAL DIS NEC 06/13/2016 SUZANNA, JOSE ANTONIO R GRIT BLASTER Ot 625.8 FEM GENITAL SYMPTOMS NEC 06/13/2016 JOSE ANTONIO BRISENO GRIT BLASTER Ot V70.0 ROUTINE MEDICAL EXAM 06/13/2016 JOSE ANTONIO BRISENO GRIT BLASTER Ot V72.31 ROUTINE GYNECOLOGICAL EXAMINATION 06/13/2016 JOSE ANTONIO BRISENO GRIT BLASTER Ot V76.12 OTH SCREEN MAMMO-MALIGN NEOPLASM OF [place] 06/13/2016 Ot 584.9 ACUTE RENAL FAILURE, UNSPECIFIED 06/13/2016 Ot 585.3 CHRONIC KIDNEY DISEASE, STAGE III (MODER 06/13/2016 JOSE ANTONIO BRISENO GRIT BLASTER Ot 805.4 FX LUMBAR VERTEBRA-CLOSE 06/13/2016 JOSE ANTONIO BRISENO GRIT BLASTER Ot E000.8 OTHER EXTERNAL CAUSE STATUS 06/13/2016 JOSE ANTONIO BRISENO GRIT BLASTER Ot E888.9 FALL NOS 06/13/2016 JUAN VARGHESE, ROBERTO Z Ot 733.13 PATHOLOGIC FRACTURE, VERTEBRAE 06/13/2016 JUAN VARGHESE, ROBERTO Z Ot 733.13 PATHOLOGIC FRACTURE, VERTEBRAE 06/13/2016 JUAN VARGHESE, ROBERTO Z Ot V72.63 PRE-PROCEDURAL LABORATORY EXAMINATION 06/13/2016 JUAN VARGHESE, ROBERTO Z Ot V74.8 SCREEN-BACTERIAL DIS NEC 06/13/2016 ROLF VARGHESE, SHOLA N Ot 733.90 BONE CARTILAGE DIS NOS 06/13/2016 CORINE FREGOSO DO Ot 787.91 DIARRHEA 06/13/2016 CORINE FREGOSO DO Ot V72.84 EXAM PRE-OPERATIVE NOS 06/13/2016 CORINE FREGOSO DO Ot Z01.818 ENCOUNTER FOR OTHER PREPROCEDURAL EXAMIN 06/13/2016 CORINE FREGOSO DO Ot Z86.010 PERSONAL HISTORY OF COLONIC POLYPS 06/13/2016 MARIA A MORSE DO Ot E66.9 OBESITY, UNSPECIFIED 06/13/2016 MARIA A MORSE DO Ot I25.10 ATHSCL HEART DISEASE OF [place] CORONARY 06/13/2016 MARIA A MORSE DO Ot J30.2 OTHER SEASONAL ALLERGIC RHINITIS 06/13/2016 MARIA A MORSE DO Ot J44.9 CHRONIC OBSTRUCTIVE PULMONARY DISEASE, U 06/13/2016 MARIA A MORSE DO Ot R60.9 EDEMA, UNSPECIFIED 06/13/2016 MARIA A MORSE DO Ot E66.9 OBESITY, UNSPECIFIED 06/13/2016 MARIA A MORSE DO Ot I25.10 ATHSCL HEART DISEASE OF [place] CORONARY 06/13/2016 MARIA A MORSE DO Ot I51.7 CARDIOMEGALY 06/13/2016 MARIA A MORSE DO Ot J44.9 CHRONIC OBSTRUCTIVE PULMONARY DISEASE, U 06/13/2016 LUIS LOVELACE GRIT BLASTER Ot J98.4 OTHER DISORDERS OF LUNG 06/13/2016 LUIS LOVELACE GRIT BLASTER Ot R06.00 DYSPNEA, UNSPECIFIED 06/13/2016 ALBANIALUIS GOODMAN E GRIT BLASTER Ot R91.8 OTHER NONSPECIFIC ABNORMAL FINDING OF [place] 06/13/2016 VIRGINIA VARGHESE FACC, ALI FACP CCDS Ot E78.4 OTHER HYPERLIPIDEMIA 06/13/2016 VIRGINIA VARGHESE FACC, ALI FACP CCDS Ot I25.10 ATHSCL HEART DISEASE OF [place] CORONARY 06/13/2016 VIRGINIA VARGHESE FACC, ALI FACP CCDS Ot 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 06/13/2016 VIRGINIA VARGHESE FACC, ALI FACP CCDS Ot R06.02 SHORTNESS OF BREATH 06/13/2016 ZAY ISAAC MD Ot I12.9 HYPERTENSIVE CHRONIC KIDNEY DISEASE W ST 06/13/2016 ZAY ISAAC MD Ot J44.9 CHRONIC OBSTRUCTIVE PULMONARY DISEASE, U 06/13/2016 ZAY ISAAC MD Ot M79.1 MYALGIA 06/13/2016 ZAY ISAAC MD Ot N18.4 CHRONIC KIDNEY DISEASE, STAGE 4 (SEVERE) 06/13/2016 ZAY ISAAC MD Ot Z79.899 OTHER [facility] (CURRENT) DRUG THERAPY 06/13/2016 ZAY ISAAC MD Ot Z95.1 PRESENCE OF AORTOCORONARY BYPASS GRAFT 06/14/2016 ZAY ISAAC MD Ot I12.9 HYPERTENSIVE CHRONIC KIDNEY DISEASE W ST 06/14/2016 ZAY ISAAC MD Ot J44.9 CHRONIC OBSTRUCTIVE PULMONARY DISEASE, U 06/14/2016 ZAY ISAAC MD Ot M79.1 MYALGIA 06/14/2016 ZAY ISAAC MD Ot N18.4 CHRONIC KIDNEY DISEASE, STAGE 4 (SEVERE) 06/14/2016 ZAY ISAAC MD T Ot Z79.899 OTHER HOSPITAL RECRUITER (CURRENT) DRUG THERAPY 06/14/2016 ZAY ISAAC MD T Ot Z95.1 PRESENCE OF AORTOCORONARY BYPASS GRAFT 06/15/2016 ZAY ISAAC MD T Ot I12.9 HYPERTENSIVE CHRONIC KIDNEY DISEASE W ST 06/15/2016 ZAY ISAAC MD T Ot J44.9 CHRONIC OBSTRUCTIVE PULMONARY DISEASE, U 06/15/2016 ZAY ISAAC MD T Ot M79.1 MYALGIA 06/15/2016 ZAY ISAAC MD T Ot N18.4 CHRONIC KIDNEY DISEASE, STAGE 4 (SEVERE) 06/15/2016 ZAY ISAAC MD T Ot Z79.899 OTHER [facility] (CURRENT) DRUG THERAPY 06/15/2016 ZAY ISAAC MD T Ot Z95.1 PRESENCE OF AORTOCORONARY BYPASS GRAFT 06/17/2016 ZAY ISAAC MD T Ot I12.9 HYPERTENSIVE CHRONIC KIDNEY DISEASE W ST 06/17/2016 ZAY ISAAC MD T Ot J44.9 CHRONIC OBSTRUCTIVE PULMONARY DISEASE, U 06/17/2016 ZAY ISAAC MD T Ot M79.1 MYALGIA 06/17/2016 ZAY ISAAC MD T Ot N18.4 CHRONIC KIDNEY DISEASE, STAGE 4 (SEVERE) 06/17/2016 ZAY ISAAC MD T Ot Z79.899 OTHER [facility] (CURRENT) DRUG THERAPY 06/17/2016 ZAY ISAAC MD T Ot Z95.1 PRESENCE OF AORTOCORONARY BYPASS GRAFT 06/28/2016 KARTIK BRANDT MD Ot I10 ESSENTIAL (PRIMARY) HYPERTENSION 06/28/2016 KARTIK BRANDT MD Ot J44.9 CHRONIC OBSTRUCTIVE PULMONARY DISEASE, U 06/28/2016 KARTIK BRANDT MD Ot M54.16 RADICULOPATHY, LUMBAR REGION 06/28/2016 KARTIK BRANDT MD Ot M79.652 PAIN IN LEFT THIGH 06/29/2016 KARTIK BRANDT MD Ot I10 ESSENTIAL (PRIMARY) HYPERTENSION 06/29/2016 KARLY VARGHESE, KARTIK Solis Ot J44.9 CHRONIC OBSTRUCTIVE PULMONARY DISEASE, U 06/29/2016 KARLY VARGHESE, KARTIK Solis Ot M54.16 RADICULOPATHY, LUMBAR REGION 06/29/2016 KARLY VARGHESE, KARTIK Solis Ot M79.652 PAIN IN LEFT THIGH 09/04/2016 Ot 530.10 ESOPHAGITIS NOS 09/04/2016 Ot 530.3 ESOPHAGEAL STRICTURE 09/04/2016 Ot 553.3 DIAPHRAGMATIC HERNIA 09/04/2016 LAQUITA VARGHESE, MARK Tinoco Ot 433.10 CAROTID ARTERY OCCLUSION W O CEREBRAL IN 09/04/2016 MARK COELHO MD Ot V72.63 PRE-PROCEDURAL LABORATORY EXAMINATION 09/04/2016 MARK COELHO MD Ot V72.81 [id number] CARDIOVASCULAR 09/04/2016 MARK COELHO MD Ot V72.83 EXAM PRE-OPERATIVE NEC 09/04/2016 MARK COELHO MD Ot V74.8 SCREEN-BACTERIAL DIS NEC 09/04/2016 JOSE ANTONIO BRISENO GRIT BLASTER Ot 625.8 FEM GENITAL SYMPTOMS NEC 09/04/2016 JOSE ANTONIO BRISENO APRN Ot V70.0 ROUTINE MEDICAL EXAM 09/04/2016 JOSE ANTONIO BRISENO APRN Ot V72.31 ROUTINE GYNECOLOGICAL EXAMINATION 09/04/2016 JOSE ANTONIO BRISENO APRN Ot V76.12 OTH SCREEN MAMMO-MALIGN NEOPLASM OF [place] 09/04/2016 Ot 584.9 ACUTE RENAL FAILURE, UNSPECIFIED 09/04/2016 Ot 585.3 CHRONIC KIDNEY DISEASE, STAGE III (MODER 09/04/2016 JOSE ANTONIO BRISENO GRIT BLASTER Ot 805.4 FX LUMBAR VERTEBRA-CLOSE 09/04/2016 JOSE ANTONIO BRISENO GRIT BLASTER Ot E000.8 OTHER EXTERNAL CAUSE STATUS 09/04/2016 JOSE ANTONIO BRISENO GRIT BLASTER Ot E888.9 FALL NOS 09/04/2016 JUAN VARGHESE, ROBERTO Z Ot 733.13 PATHOLOGIC FRACTURE, VERTEBRAE 09/04/2016 JUAN VARGHESE, ROBERTO Z Ot 733.13 PATHOLOGIC FRACTURE, VERTEBRAE 09/04/2016 JUAN VARGHESE, ROBERTO Z Ot V72.63 PRE-PROCEDURAL LABORATORY EXAMINATION 09/04/2016 JUAN VARGHESE, ROBERTO Z Ot V74.8 SCREEN-BACTERIAL DIS NEC 09/04/2016 ROLF VARGHESE, SHOLA Lopes Ot 733.90 BONE CARTILAGE DIS NOS 09/04/2016 ZENOBIA PEREZCORINE Ot 787.91 DIARRHEA 09/04/2016 CORINE FREGOSO DO Ot V72.84 EXAM PRE-OPERATIVE NOS 09/04/2016 ZENOBIA PEREZCORINE Ot Z01.818 ENCOUNTER FOR OTHER PREPROCEDURAL EXAMIN 09/04/2016 CORINE FREGOSO DO Ot Z86.010 PERSONAL HISTORY OF COLONIC POLYPS 09/04/2016 MARIA A MORSE DO Ot E66.9 OBESITY, UNSPECIFIED 09/04/2016 MARIA A MORSE DO Ot I25.10 ATHSCL HEART DISEASE OF [place] CORONARY 09/04/2016 MARIA A MORSE DO Ot J30.2 OTHER SEASONAL ALLERGIC RHINITIS 09/04/2016 MARIA A MORSE DO Ot J44.9 CHRONIC OBSTRUCTIVE PULMONARY DISEASE, U 09/04/2016 MARIA A MORSE DO Ot R60.9 EDEMA, UNSPECIFIED 09/04/2016 MARIA A MORSE DO Ot E66.9 OBESITY, UNSPECIFIED 09/04/2016 MARIA A MORSE DO Ot I25.10 ATHSCL HEART DISEASE OF [place] CORONARY 09/04/2016 MARIA A MORSE DO Ot I51.7 CARDIOMEGALY 09/04/2016 MARIA A MORSE DO Ot J44.9 CHRONIC OBSTRUCTIVE PULMONARY DISEASE, U 09/04/2016 LUIS LOVELACE APRN Ot J98.4 OTHER DISORDERS OF LUNG 09/04/2016 LUIS LOVELACE GRIT BLASTER Ot R06.00 DYSPNEA, UNSPECIFIED 09/04/2016 LUIS LOVELACE GRIT BLASTER Ot R91.8 OTHER NONSPECIFIC ABNORMAL FINDING OF [place] 09/04/2016 VIRGINIA VARGHESE FACC, ALI FACP CCDS Ot E78.4 OTHER HYPERLIPIDEMIA 09/04/2016 VIRGINIA VARGHESE FACC, ALI FACP CCDS Ot I25.10 ATHSCL HEART DISEASE OF [place] CORONARY 09/04/2016 VIRGINIA VARGHESE FACC, ALI FACP CCDS Ot 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 09/04/2016 VIRGINIA VARGHESE FACC, ALI FACP CCDS Ot R06.02 SHORTNESS OF BREATH 09/04/2016 KWADWO VARGHESE, IGNACIA Barrientos Ot I12.9 HYPERTENSIVE CHRONIC KIDNEY DISEASE W ST 09/04/2016 IGNACIA BURKETT MD Ot I25.10 ATHSCL HEART DISEASE OF [place] CORONARY 09/04/2016 IGNACIA BURKETT MD Ot J44.9 CHRONIC OBSTRUCTIVE PULMONARY DISEASE, U 09/04/2016 IGNACIA BURKETT MD Ot N18.9 CHRONIC KIDNEY DISEASE, UNSPECIFIED 09/04/2016 IGNACIA BURKETT MD Ot N30.00 ACUTE CYSTITIS WITHOUT HEMATURIA 09/04/2016 IGNACIA BURKETT MD Ot S29.9XXA UNSPECIFIED INJURY OF THORAX, INITIAL EN 09/04/2016 IGNACIA BURKETT MD Ot S49.92XA UNSP INJURY OF LEFT SHOULDER AND UPPER A 09/04/2016 IGNACIA BURKETT MD Ot S59.909A UNSPECIFIED INJURY OF UNSPECIFIED ELBOW, 09/04/2016 IGNACIA BURKETT MD Ot W01.0XXA FALL SAME LEV FROM SLIP/TRIP W/O STRIKE 09/04/2016 IGNACIA BURKETT MD Ot Y92.013 BEDROOM OF SINGLE-FAMILY (PRIVATE) HOUSE 09/04/2016 IGNACIA BURKETT MD Ot Y99.8 OTHER EXTERNAL CAUSE STATUS 09/04/2016 IGNACIA BURKETT MD Ot Z79.899 OTHER HOSPITAL RECRUITER (CURRENT) DRUG THERAPY 09/04/2016 IGNACIA BURKETT MD Ot Z95.1 PRESENCE OF AORTOCORONARY BYPASS GRAFT 09/07/2016 IGNACIA BURKETT MD Ot I12.9 HYPERTENSIVE CHRONIC KIDNEY DISEASE W ST 09/07/2016 IGNACIA BURKETT MD Ot I25.10 ATHSCL HEART DISEASE OF [place] CORONARY 09/07/2016 IGNACIA BURKETT MD, Ot J44.9 CHRONIC OBSTRUCTIVE PULMONARY DISEASE, U 09/07/2016 IGNACIA BURKETT MD Ot N18.9 CHRONIC KIDNEY DISEASE, UNSPECIFIED 09/07/2016 IGNACIA BURKETT MD Ot N30.00 ACUTE CYSTITIS WITHOUT HEMATURIA 09/07/2016 IGNACIA BURKETT MD Ot S29.9XXA UNSPECIFIED INJURY OF THORAX, INITIAL EN 09/07/2016 IGNACIA BURKETT MD Ot S49.92XA UNSP INJURY OF LEFT SHOULDER AND UPPER A 09/07/2016 IGNACIA BURKETT MD Ot S59.909A UNSPECIFIED INJURY OF UNSPECIFIED ELBOW, 09/07/2016 IGNACIA BURKETT MD Ot W01.0XXA FALL SAME LEV FROM SLIP/TRIP W/O STRIKE 09/07/2016 IGNACIA BURKETT MD Ot Y92.013 BEDROOM OF SINGLE-FAMILY (PRIVATE) HOUSE 09/07/2016 IGNACIA BURKETT MD Ot Y99.8 OTHER EXTERNAL CAUSE STATUS 09/07/2016 IGNACIA BURKETT MD Ot Z79.899 OTHER HOSPITAL RECRUITER (CURRENT) DRUG THERAPY 09/07/2016 IGNACIA BURKETT MD Ot Z95.1 PRESENCE OF AORTOCORONARY BYPASS GRAFT 09/13/2016 IGNACIA BURKETT MD Ot I12.9 HYPERTENSIVE CHRONIC KIDNEY DISEASE W ST 09/13/2016 IGNACIA BURKETT MD Ot I25.10 ATHSCL HEART DISEASE OF [place] CORONARY 09/13/2016 IGNAICA BURKETT MD, Ot J44.9 CHRONIC OBSTRUCTIVE PULMONARY DISEASE, U 09/13/2016 IGNACIA BURKETT MD Ot N18.9 CHRONIC KIDNEY DISEASE, UNSPECIFIED 09/13/2016 IGNACIA BURKETT MD Ot N30.00 ACUTE CYSTITIS WITHOUT HEMATURIA 09/13/2016 IGNACIA BURKETT MD Ot S29.9XXA UNSPECIFIED INJURY OF THORAX, INITIAL EN 09/13/2016 IGNACIA BURKETT MD Ot S49.92XA UNSP INJURY OF LEFT SHOULDER AND UPPER A 09/13/2016 IGNACIA BURKETT MD Ot S59.909A UNSPECIFIED INJURY OF UNSPECIFIED ELBOW, 09/13/2016 IGNACIA BURKETT MD Ot W01.0XXA FALL SAME LEV FROM SLIP/TRIP W/O STRIKE 09/13/2016 IGNACIA BURKETT MD Ot Y92.013 BEDROOM OF SINGLE-FAMILY (PRIVATE) HOUSE 09/13/2016 IGNACIA BURKETT MD Ot Y99.8 OTHER EXTERNAL CAUSE STATUS 09/13/2016 IGNACIA BURKETT MD Ot Z79.899 OTHER HOSPITAL RECRUITER (CURRENT) DRUG THERAPY 09/13/2016 IGNACIA BURKETT MD Ot Z95.1 PRESENCE OF AORTOCORONARY BYPASS GRAFT 12/29/2016 CHRISTIANE PORTILLO MD Ot K92.1 MELENA 12/29/2016 CHRISTIANE PORTILLO MD Ot R10.13 EPIGASTRIC PAIN 12/29/2016 CHRISTIANE PORTILLO MD Ot R11.0 NAUSEA 12/29/2016 CHRISTIANE PORTILLO MD Ot R19.7 DIARRHEA, UNSPECIFIED 12/29/2016 CHRISTIANE PORTILLO MD Ot Z01.818 ENCOUNTER FOR OTHER PREPROCEDURAL EXAMIN 01/25/2017 CHRISTIANE PORTILLO MD Ot K21.9 GASTRO-ESOPHAGEAL REFLUX DISEASE WITHOUT 01/25/2017 CHRISTIANE PORTILLO MD Ot K92.1 MELENA 01/25/2017 CHRISTIANE PORTILLO MD Ot R10.13 EPIGASTRIC PAIN 01/25/2017 CHRISTIANE PORTILLO MD Ot R11.0 NAUSEA 01/25/2017 CHRISTIANE PORTILLO MD Ot R19.7 DIARRHEA, UNSPECIFIED 01/25/2017 CHRISTIANE PORTILLO MD Ot Z01.818 ENCOUNTER FOR OTHER PREPROCEDURAL EXAMIN 01/25/2017 CHRISTIANE PORTILLO MD Ot K21.9 GASTRO-ESOPHAGEAL REFLUX DISEASE WITHOUT 01/25/2017 CHRISTIANE PORTILLO MD Ot K92.1 MELENA 01/25/2017 CHRISTIANE PORTILLO MD Ot R10.13 EPIGASTRIC PAIN 01/25/2017 CHRISTIANE PORTILLO MD Ot R11.0 NAUSEA 01/25/2017 CHRISTIANE PORTILLO MD Ot R19.7 DIARRHEA, UNSPECIFIED 01/25/2017 CHRISTIANE PORTILLO MD Ot Z01.818 ENCOUNTER FOR OTHER PREPROCEDURAL EXAMIN 01/30/2017 CHRISTIANE PORTILLO MD Ot I10 ESSENTIAL (PRIMARY) HYPERTENSION 01/30/2017 CHRISTIANE PORTILLO MD Ot I25.10 ATHSCL HEART DISEASE OF [place] CORONARY 01/30/2017 CHRISTIANE PORTILLO MD Ot I50.9 HEART FAILURE, UNSPECIFIED 01/30/2017 CHRISTIANE PORTILLO MD Ot J44.9 CHRONIC OBSTRUCTIVE PULMONARY DISEASE, U 01/30/2017 CHRISTIANE PORTILLO MD Ot K29.70 GASTRITIS, UNSPECIFIED, WITHOUT BLEEDING 01/30/2017 CHRISTIANE PORTILLO MD Ot K57.30 DVRTCLOS OF LG INT W/O PERFORATION OR AB 01/30/2017 CHRISTIANE PORTILLO MD Ot K64.8 OTHER HEMORRHOIDS 01/30/2017 PORTILLO MD, CHRISTIANE M Ot Z95.1 PRESENCE OF AORTOCORONARY BYPASS GRAFT 05/29/2017 ROLF VARGHESE, SHOLA Lopes Ot S09.90XA UNSPECIFIED INJURY OF HEAD, INITIAL ENCO 05/29/2017 ROLF VARGHESE, SHOLA Lopes Ot W19.XXXA UNSPECIFIED FALL, INITIAL ENCOUNTER 05/29/2017 SHOLA BANSAL MD Ot S09.90XA UNSPECIFIED INJURY OF HEAD, INITIAL ENCO 05/29/2017 ROLF VARGHESE, SHOLA Lopes Ot W19.XXXA UNSPECIFIED FALL, INITIAL ENCOUNTER 06/12/2017 SHOLA BANSAL MD Ot S09.90XA UNSPECIFIED INJURY OF HEAD, INITIAL ENCO 06/12/2017 ROLF VARGHESE, SHOLA Lopes Ot W19.XXXA UNSPECIFIED FALL, INITIAL ENCOUNTER 09/19/2017 LAQUITA VARGHESE, MARK Tinoco Ot 433.10 CAROTID ARTERY OCCLUSION W O CEREBRAL IN 09/19/2017 MARK COELHO MD Ot V72.63 PRE-PROCEDURAL LABORATORY EXAMINATION 09/19/2017 MARK COELHO MD Ot V72.81 [id number] CARDIOVASCULAR 09/19/2017 MARK COELHO MD Ot V72.83 EXAM PRE-OPERATIVE NEC 09/19/2017 MARK COELHO MD Ot V74.8 SCREEN-BACTERIAL DIS NEC 09/19/2017 JOSE ANTONIO BRISENO APRN Ot 625.8 FEM GENITAL SYMPTOMS NEC 09/19/2017 JOSE ANTONIO BRISENO APRN Ot V70.0 ROUTINE MEDICAL EXAM 09/19/2017 JOSE ANTONIO BRISENO APRN Ot V72.31 ROUTINE GYNECOLOGICAL EXAMINATION 09/19/2017 JOSE ANTONIO BRISENO APRN Ot V76.12 OTH SCREEN MAMMO-MALIGN NEOPLASM OF [place] 09/19/2017 Ot 584.9 ACUTE RENAL FAILURE, UNSPECIFIED 09/19/2017 Ot 585.3 CHRONIC KIDNEY DISEASE, STAGE III (MODER 09/19/2017 JOSE ANTONIO BRISENO APRN Ot 805.4 FX LUMBAR VERTEBRA-CLOSE 09/19/2017 JOSE ANTONIO BRISENO APRN Ot E000.8 OTHER EXTERNAL CAUSE STATUS 09/19/2017 JOSE ANTONIO BRISENO APRN Ot E888.9 FALL NOS 09/19/2017 JUAN VARGHESE, ROBERTO Z Ot 733.13 PATHOLOGIC FRACTURE, VERTEBRAE 09/19/2017 JUAN VARGHESE, ROBERTO Z Ot 733.13 PATHOLOGIC FRACTURE, VERTEBRAE 09/19/2017 JUAN VARGHESE, ROBERTO Z Ot V72.63 PRE-PROCEDURAL LABORATORY EXAMINATION 09/19/2017 JUAN VARGHESE, ROBERTO Z Ot V74.8 SCREEN-BACTERIAL DIS NEC 09/19/2017 ROLF VARGHESE, SHOLA Marianne Ot 733.90 BONE CARTILAGE DIS NOS 09/19/2017 CORINE FREGOSO DO Ot 787.91 DIARRHEA 09/19/2017 CORINE FREGOSO DO Ot V72.84 EXAM PRE-OPERATIVE NOS 09/19/2017 CORINE FREGOSO DO Ot Z01.818 ENCOUNTER FOR OTHER PREPROCEDURAL EXAMIN 09/19/2017 CORINE FREGOSO DO Ot Z86.010 PERSONAL HISTORY OF COLONIC POLYPS 09/19/2017 MARIA A MORSE DO Ot E66.9 OBESITY, UNSPECIFIED 09/19/2017 MARIA A MORSE DO Ot I25.10 ATHSCL HEART DISEASE OF [place] CORONARY 09/19/2017 MARIA A MORSE DO Ot J30.2 OTHER SEASONAL ALLERGIC RHINITIS 09/19/2017 MARIA A MORSE DO Ot J44.9 CHRONIC OBSTRUCTIVE PULMONARY DISEASE, U 09/19/2017 MARIA A MORSE DO Ot R60.9 EDEMA, UNSPECIFIED 09/19/2017 MARIA A MORSE DO Ot E66.9 OBESITY, UNSPECIFIED 09/19/2017 MARIA A MORSE DO Ot I25.10 ATHSCL HEART DISEASE OF [place] CORONARY 09/19/2017 MARIA A MORSE DO Ot I51.7 CARDIOMEGALY 09/19/2017 MARIA A MORSE DO Ot J44.9 CHRONIC OBSTRUCTIVE PULMONARY DISEASE, U 09/19/2017 LUIS LOVELACE APRN Ot J98.4 OTHER DISORDERS OF LUNG 09/19/2017 LUIS LOVELACE GRIT BLASTER Ot R06.00 DYSPNEA, UNSPECIFIED 09/19/2017 LUIS LOVELACE GRIT BLASTER Ot R91.8 OTHER NONSPECIFIC ABNORMAL FINDING OF [place] 09/19/2017 VIRGINIA VARGHESE FACC, ALI FACP CCDS Ot E78.4 OTHER HYPERLIPIDEMIA 09/19/2017 VIRGINIA VARGHESE FACC, ALI FACP CCDS Ot I25.10 ATHSCL HEART DISEASE OF [place] CORONARY 09/19/2017 VIRGINIA VARGHESE FACC, ALI FACP CCDS Ot 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 09/19/2017 VIR[place]IA PRIETOC, ALI FACP CCDS Ot R06.02 SHORTNESS OF BREATH 09/19/2017 SHOLA BANSAL MD Ot S09.90XA UNSPECIFIED INJURY OF HEAD, INITIAL ENCO 09/19/2017 SHOLA BANSAL MD Ot W19.XXXA UNSPECIFIED FALL, INITIAL ENCOUNTER 09/19/2017 VIRGINIA VARGHESE FACC, ALI FACP CCDS Ot I71.4 ABDOMINAL AORTIC ANEURYSM, WITHOUT RUPTU 09/20/2017 VIRGINIA VARGHESE FACC, ALI FACP CCDS Ot I71.4 ABDOMINAL AORTIC ANEURYSM, WITHOUT RUPTU 09/20/2017 VIRGINIA VARGHESE FACC, ALI FACP CCDS Ot I71.4 ABDOMINAL AORTIC ANEURYSM, WITHOUT RUPTU 09/25/2017 VIRGINIA VARGHESE FACC, ALI FACP CCDS Ot I71.4 ABDOMINAL AORTIC ANEURYSM, WITHOUT RUPTU 10/09/2017 VIRGINIA VARGHESE FACC, ALI FACP CCDS Ot E66.8 OTHER OBESITY 10/09/2017 VIRGINIA VARGHESE FACC, ALI FACP CCDS Ot I25.10 ATHSCL HEART DISEASE OF [place] CORONARY 10/09/2017 VIRGINIA VARGHESE FACC, ALI FACP CCDS Ot I77.89 OTHER SPECIFIED DISORDERS OF ARTERIES AN 10/09/2017 VIRGINIA VARGHESE FACC, ALI FACP CCDS Ot J44.9 CHRONIC OBSTRUCTIVE PULMONARY DISEASE, U 10/09/2017 VIRGINIA VARGHESE FACC, ALI FACP CCDS Ot N18.9 CHRONIC KIDNEY DISEASE, UNSPECIFIED 10/09/2017 [place] PRIETOC, ALI FACP CCDS Ot R09.02 HYPOXEMIA 10/09/2017 VIRGINIA VARGHESE FACC, ALI FACP CCDS Ot R60.9 EDEMA, UNSPECIFIED 10/12/2017 SHOLA BANSAL MD Ot Z12.31 ENCNTR SCREEN MAMMOGRAM FOR MALIGNANT NE 10/12/2017 [place] PRIETOC, ALI FACP CCDS Ot I71.4 ABDOMINAL AORTIC ANEURYSM, WITHOUT RUPTU 10/27/2017 VIRGINIA VARGHESE FACC, ALI FACP CCDS Ot E66.8 OTHER OBESITY 10/27/2017 VIRGINIA VARGHESE FACC, ALI FACP CCDS Ot I25.10 ATHSCL HEART DISEASE OF [place] CORONARY 10/27/2017 VIRGINIA VARGHESE FACC, ALI FACP CCDS Ot I77.89 OTHER SPECIFIED DISORDERS OF ARTERIES AN 10/27/2017 VIRGINIA VARGHESE FACC, ALI FACP CCDS Ot J44.9 CHRONIC OBSTRUCTIVE PULMONARY DISEASE, U 10/27/2017 VIRGINIA VARGHESE FACC, ALI FACP CCDS Ot N18.9 CHRONIC KIDNEY DISEASE, UNSPECIFIED 10/27/2017 VIRGINIA VARGHESE FACC, ALI FACP CCDS Ot R09.02 HYPOXEMIA 10/27/2017 VIRGINIA VARGHESE FACC, ALI FACP CCDS Ot R60.9 EDEMA, UNSPECIFIED 10/30/2017 VIRGINIA VARGHESE FACC, ALI FACP CCDS Ot I71.4 ABDOMINAL AORTIC ANEURYSM, WITHOUT RUPTU 11/28/2017 SHOLA BANSAL MD Ot I70.0 ATHEROSCLEROSIS OF AORTA 11/28/2017 SHOLA BANSAL MD Ot 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 11/28/2017 SHOLA BANSAL MD Ot K44.9 DIAPHRAGMATIC HERNIA WITHOUT OBSTRUCTION 11/28/2017 SHOLA BANSAL MD Ot K57.30 DVRTCLOS OF LG INT W/O PERFORATION OR AB 11/28/2017 SHOLA BANSAL MD Ot M87.851 OTHER OSTEONECROSIS, RIGHT FEMUR 11/28/2017 SHOLA BANSAL MD Ot Z12.31 ENCNTR SCREEN MAMMOGRAM FOR MALIGNANT NE 12/10/2017 MARK COELHO MD Ot 433.10 CAROTID ARTERY OCCLUSION W O CEREBRAL IN 12/10/2017 MARK COELHO MD Ot V72.63 PRE-PROCEDURAL LABORATORY EXAMINATION 12/10/2017 MARK COELHO MD Ot V72.81 [id number] CARDIOVASCULAR 12/10/2017 MARK COELHO MD Ot V72.83 EXAM PRE-OPERATIVE NEC 12/10/2017 MARK COELHO MD Ot V74.8 SCREEN-BACTERIAL DIS NEC 12/10/2017 JOSE ANTONIO BRISENO APRN Ot 625.8 FEM GENITAL SYMPTOMS NEC 12/10/2017 JOSE ANTONIO BRISENO APRN Ot V70.0 ROUTINE MEDICAL EXAM 12/10/2017 JOSE ANTONIO BRISENO APRN Ot V72.31 ROUTINE GYNECOLOGICAL EXAMINATION 12/10/2017 JOSE ANTONIO BRISENO APRN Ot V76.12 OTH SCREEN MAMMO-MALIGN NEOPLASM OF [place] 12/10/2017 Ot 584.9 ACUTE RENAL FAILURE, UNSPECIFIED 12/10/2017 Ot 585.3 CHRONIC KIDNEY DISEASE, STAGE III (MODER 12/10/2017 JOSE ANTONIO BRISENO GRIT BLASTER Ot 805.4 FX LUMBAR VERTEBRA-CLOSE 12/10/2017 JOSE ANTONIO BRISENO GRIT BLASTER Ot E000.8 OTHER EXTERNAL CAUSE STATUS 12/10/2017 JOSE ANTONIO BRISENO GRIT BLASTER Ot E888.9 FALL NOS 12/10/2017 JUAN VARGHESE, ROBERTO Z Ot 733.13 PATHOLOGIC FRACTURE, VERTEBRAE 12/10/2017 SUYASH VARGHESE, ROBERTO Z Ot 733.13 PATHOLOGIC FRACTURE, VERTEBRAE 12/10/2017 JUAN VARGHESE, ROBERTO Z Ot V72.63 PRE-PROCEDURAL LABORATORY EXAMINATION 12/10/2017 JUAN VARGHESE, ROBERTO Z Ot V74.8 SCREEN-BACTERIAL DIS NEC 12/10/2017 ROLF VARGHESE, SHOLA Lopes Ot 733.90 BONE CARTILAGE DIS NOS 12/10/2017 CORINE FREGOSO DO Ot 787.91 DIARRHEA 12/10/2017 CORINE FREGOSO DO Ot V72.84 EXAM PRE-OPERATIVE NOS 12/10/2017 CORINE FREGOSO DO Ot Z01.818 ENCOUNTER FOR OTHER PREPROCEDURAL EXAMIN 12/10/2017 CORINE FREGOSO DO Ot Z86.010 PERSONAL HISTORY OF COLONIC POLYPS 12/10/2017 MARIA A MORSE DO Ot E66.9 OBESITY, UNSPECIFIED 12/10/2017 MARIA A MORSE DO Ot I25.10 ATHSCL HEART DISEASE OF [place] CORONARY 12/10/2017 MARIA A MORSE DO Ot J30.2 OTHER SEASONAL ALLERGIC RHINITIS 12/10/2017 MARIA A MORSE DO Ot J44.9 CHRONIC OBSTRUCTIVE PULMONARY DISEASE, U 12/10/2017 MARIA A MORSE DO Ot R60.9 EDEMA, UNSPECIFIED 12/10/2017 MARIA A MORSE DO Ot E66.9 OBESITY, UNSPECIFIED 12/10/2017 MARIA A MORSE DO Ot I25.10 ATHSCL HEART DISEASE OF [place] CORONARY 12/10/2017 MARIA A MORSE DO Ot I51.7 CARDIOMEGALY 12/10/2017 MARIA A MORSE DO, Ot J44.9 CHRONIC OBSTRUCTIVE PULMONARY DISEASE, U 12/10/2017 LUIS LOVELACE APRN Ot J98.4 OTHER DISORDERS OF LUNG 12/10/2017 LUIS LOVELACE APRN Ot R06.00 DYSPNEA, UNSPECIFIED 12/10/2017 LUIS LOVELACE GRIT BLASTER Ot R91.8 OTHER NONSPECIFIC ABNORMAL FINDING OF [place] 12/10/2017 VIRGINIA VARGHESE FACC, ALI FACP CCDS Ot E78.4 OTHER HYPERLIPIDEMIA 12/10/2017 VIRGINIA VARGHESE FACC, ALI FACP CCDS Ot I25.10 ATHSCL HEART DISEASE OF [place] CORONARY 12/10/2017 VIRGINIA VARGHESE FACC, ALI FACP CCDS Ot 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 12/10/2017 VIRGINIA VARGHESE FACC, ALI FACP CCDS Ot R06.02 SHORTNESS OF BREATH 12/10/2017 SHOLA BANSAL MD Ot S09.90XA UNSPECIFIED INJURY OF HEAD, INITIAL ENCO 12/10/2017 SHOLA BANSAL MD Ot W19.XXXA UNSPECIFIED FALL, INITIAL ENCOUNTER 12/10/2017 VIRGINIA VARGHESE FACC, ALI FACP CCDS Ot E66.8 OTHER OBESITY 12/10/2017 VIRGINIA VARGHESE FACC, ALI FACP CCDS Ot I25.10 ATHSCL HEART DISEASE OF [place] CORONARY 12/10/2017 VIRGINIA VARGHESE FACC, ALI FACP CCDS Ot I77.89 OTHER SPECIFIED DISORDERS OF ARTERIES AN 12/10/2017 VIRGINIA VARGHESE FACC, ALI FACP CCDS Ot J44.9 CHRONIC OBSTRUCTIVE PULMONARY DISEASE, U 12/10/2017 VIRGINIA VARGHESE FACC, ALI FACP CCDS Ot N18.9 CHRONIC KIDNEY DISEASE, UNSPECIFIED 12/10/2017 VIRGINIA VARGHESE FACC, ALI FACP CCDS Ot R09.02 HYPOXEMIA 12/10/2017 VIRGINIA VARGHESE FACC, ALI FACP CCDS Ot R60.9 EDEMA, UNSPECIFIED 12/10/2017 VIRGINIA VARGHESE FACC, ALI FACP CCDS Ot I71.4 ABDOMINAL AORTIC ANEURYSM, WITHOUT RUPTU 12/10/2017 SHOLA BANSAL MD Ot I70.0 ATHEROSCLEROSIS OF AORTA 12/10/2017 SHOLA BANSAL MD Ot 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 12/10/2017 SHOLA BANSAL MD Ot K44.9 DIAPHRAGMATIC HERNIA WITHOUT OBSTRUCTION 12/10/2017 SHOLA BANSAL MD, Ot K57.30 DVRTCLOS OF LG INT W/O PERFORATION OR AB 12/10/2017 SHOLA BANSAL MD, Ot M87.851 OTHER OSTEONECROSIS, RIGHT FEMUR 12/10/2017 SHOLA BANSAL MD, Ot Z12.31 ENCNTR SCREEN MAMMOGRAM FOR MALIGNANT NE 12/10/2017 DRAKE ANTUNEZ DO Ot I11.0 HYPERTENSIVE HEART DISEASE WITH HEART FA 12/10/2017 DRAKE ANTUNEZ DO Ot I25.10 ATHSCL HEART DISEASE OF [place] CORONARY 12/10/2017 DRAKE ANTUNEZ DO Ot I50.9 HEART FAILURE, UNSPECIFIED 12/10/2017 DRAKE ANTUNEZ DO Ot J44.9 CHRONIC OBSTRUCTIVE PULMONARY DISEASE, U 12/10/2017 DRAKE ANTUNEZ DO Ot K21.9 GASTRO-ESOPHAGEAL REFLUX DISEASE WITHOUT 12/10/2017 DRAKE ANTUNEZ DO Ot K85.90 ACUTE PANCREATITIS WITHOUT NECROSIS OR I 12/10/2017 DRAKE ANTUNEZ DO Ot R10.84 GENERALIZED ABDOMINAL PAIN 12/10/2017 DRAKE ANTUNEZ DO, Ot R42 DIZZINESS AND GIDDINESS 12/10/2017 DRAKE ANTUNEZ DO, Ot Z82.49 FAMILY HX OF ISCHEM HEART DIS AND OTH DI 12/10/2017 DRAKE ANTUNEZ DO, Ot Z87.19 PERSONAL HISTORY OF OTHER DISEASES OF TH 12/10/2017 DRAKE ANTUNEZ DO, Ot Z88.2 ALLERGY STATUS TO SULFONAMIDES STATUS 12/10/2017 DRAKE ANTUNEZ DO, Ot Z88.8 ALLERGY STATUS TO OT DRUG/MEDS/BIOL SUB 12/10/2017 DRAKE ANTUNEZ DO Ot Z90.11 ACQUIRED ABSENCE OF RIGHT BREAST AND NIP 12/10/2017 DRAKE ANTUNEZ DO Ot Z90.710 ACQUIRED ABSENCE OF BOTH CERVIX AND UTER 12/10/2017 DRAKE ANTUNZE DO, Ot Z90.89 ACQUIRED ABSENCE OF OTHER ORGANS 12/10/2017 DRAKE ANTUNEZ DO Ot Z95.1 PRESENCE OF AORTOCORONARY BYPASS GRAFT 12/10/2017 DRAKE ANTUNEZ DO, Ot Z98.890 OTHER SPECIFIED POSTPROCEDURAL STATES 12/22/2017 ROLF VARGHESE, SHOLA Lopes Ot I70.0 ATHEROSCLEROSIS OF [place]ORTA 12/22/2017 SHOLA BANSAL MD Ot 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 12/22/2017 SHOLA BANSAL MD Ot K44.9 DIAPHRAGMATIC HERNIA WITHOUT OBSTRUCTION 12/22/2017 SHOLA BANSAL MD Ot K57.30 DVRTCLOS OF LG INT W/O PERFORATION OR AB 12/22/2017 SHOLA BANSAL MD Ot M87.851 OTHER OSTEONECROSIS, RIGHT FEMUR 12/22/2017 SHOLA BANSAL MD Ot Z12.31 ENCNTR SCREEN MAMMOGRAM FOR MALIGNANT NE 02/13/2018 SHOLA BANSAL MD Ot S09.90XA UNSPECIFIED INJURY OF HEAD, INITIAL ENCO 02/13/2018 SHOLA BANSAL MD Ot W19.XXXA UNSPECIFIED FALL, INITIAL ENCOUNTER 09/14/2018 JOSE ANTONIO BRISENO APRN Ot 625.8 FEM GENITAL SYMPTOMS NEC 09/14/2018 JOSE ANTONIO BRISENO APRN Ot V70.0 ROUTINE MEDICAL EXAM 09/14/2018 JOSE ANTONIO BRISENO APRN Ot V72.31 ROUTINE GYNECOLOGICAL EXAMINATION 09/14/2018 JOSE ANTONIO BRISENO APRN Ot V76.12 OTH SCREEN MAMMO-MALIGN NEOPLASM OF [place] 09/14/2018 Ot 584.9 ACUTE RENAL FAILURE, UNSPECIFIED 09/14/2018 Ot 585.3 CHRONIC KIDNEY DISEASE, STAGE III (MODER 09/14/2018 JOSE ANTONIO BRISEON APRN Ot 805.4 FX LUMBAR VERTEBRA-CLOSE 09/14/2018 JOSE ANTONIO BRISENO GRIT BLASTER Ot E000.8 OTHER EXTERNAL CAUSE STATUS 09/14/2018 JOSE ANTONIO BRISENO GRIT BLASTER Ot E888.9 FALL NOS 09/14/2018 JUAN VARGHESE, ROBERTO Z Ot 733.13 PATHOLOGIC FRACTURE, VERTEBRAE 09/14/2018 JUAN VARGHESE, ROBERTO Z Ot 733.13 PATHOLOGIC FRACTURE, VERTEBRAE 09/14/2018 JUAN VARGHESE, ROBERTO Z Ot V72.63 PRE-PROCEDURAL LABORATORY EXAMINATION 09/14/2018 JUAN VARGHESE, ROBERTO Z Ot V74.8 SCREEN-BACTERIAL DIS NEC 09/14/2018 SHOLA BANSAL MD Ot 733.90 BONE CARTILAGE DIS NOS 09/14/2018 CORINE FREGOSO DO Ot 787.91 DIARRHEA 09/14/2018 CORINE FREGOSO DO Irma Ot V72.84 EXAM PRE-OPERATIVE NOS 09/14/2018 CORINE FREGOSO DO Ot Z01.818 ENCOUNTER FOR OTHER PREPROCEDURAL EXAMIN 09/14/2018 CORINE FREGOSO DO Ot Z86.010 PERSONAL HISTORY OF COLONIC POLYPS 09/14/2018 MARIA A MORSE DO Ot E66.9 OBESITY, UNSPECIFIED 09/14/2018 MARIA A MORSE DO Ot I25.10 ATHSCL HEART DISEASE OF [place] CORONARY 09/14/2018 MARIA A MORSE DO Ot J30.2 OTHER SEASONAL ALLERGIC RHINITIS 09/14/2018 MARIA A MORSE DO Ot J44.9 CHRONIC OBSTRUCTIVE PULMONARY DISEASE, U 09/14/2018 MARIA A MORSE DO Ot R60.9 EDEMA, UNSPECIFIED 09/14/2018 MARIA A MORSE DO Ot E66.9 OBESITY, UNSPECIFIED 09/14/2018 MARIA A MORSE DO Ot I25.10 ATHSCL HEART DISEASE OF [place] CORONARY 09/14/2018 MARIA A MORSE DO Ot I51.7 CARDIOMEGALY 09/14/2018 MARIA A MORSE DO Ot J44.9 CHRONIC OBSTRUCTIVE PULMONARY DISEASE, U 09/14/2018 LUIS LOVELACE APRN Ot J98.4 OTHER DISORDERS OF LUNG 09/14/2018 LUIS LOVELACE APRN Ot R06.00 DYSPNEA, UNSPECIFIED 09/14/2018 LUIS LOVELACE GRIT BLASTER Ot R91.8 OTHER NONSPECIFIC ABNORMAL FINDING OF [place] 09/14/2018 VIRGINIA VARGHESE FACC, FANTASMA FACP CCDS Ot E78.4 OTHER HYPERLIPIDEMIA 09/14/2018 VIRGINIA VARGHESE FACC, ALI FACP CCDS Ot I25.10 ATHSCL HEART DISEASE OF [place] CORONARY 09/14/2018 VIRGINIA VARGHESE FACC, FANTASMA FACP CCDS Ot 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 09/14/2018 VIRGINIA VARGHESE FACC, FANTASMA FACP CCDS Ot R06.02 SHORTNESS OF BREATH 09/14/2018 SHOLA BANSAL MD Ot S09.90XA UNSPECIFIED INJURY OF HEAD, INITIAL ENCO 09/14/2018 SHOLA BANSAL MD Ot W19.XXXA UNSPECIFIED FALL, INITIAL ENCOUNTER 09/14/2018 VIRGINIA VARGHESE FACC, ALI FACP CCDS Ot E66.8 OTHER OBESITY 09/14/2018 VIRGINIA VARGHESE [facility], ALI FACP CCDS Ot I25.10 ATHSCL HEART DISEASE OF [place] CORONARY 09/14/2018 VIRGINIA VARGHESE [facility], ALI FACP CCDS Ot I77.89 OTHER SPECIFIED DISORDERS OF ARTERIES AN 09/14/2018 VIRGINIA VARGHESE [facility], ALI FACP CCDS Ot J44.9 CHRONIC OBSTRUCTIVE PULMONARY DISEASE, U 09/14/2018 VIRGINIA VARGHESE [facility], ALI FACP CCDS Ot N18.9 CHRONIC KIDNEY DISEASE, UNSPECIFIED 09/14/2018 VIRGINIA VARGHESE [facility], ALI FACP CCDS Ot R09.02 HYPOXEMIA 09/14/2018 VIRGINIA PRIETO, ALI FACP CCDS Ot R60.9 EDEMA, UNSPECIFIED 09/14/2018 VIRGINIA VARGHESE [facility], ALI FACP CCDS Ot I71.4 ABDOMINAL AORTIC ANEURYSM, WITHOUT RUPTU 09/14/2018 SHOLA BANSAL MD Ot I70.0 ATHEROSCLEROSIS OF [place]ORT[place] 09/14/2018 SHOLA BANSAL MD Ot 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 09/14/2018 SHOLA BANSAL MD Ot K44.9 DIAPHRAGMATIC HERNIA WITHOUT OBSTRUCTION 09/14/2018 SHOLA BANSAL MD Ot K57.30 DVRTCLOS OF LG INT W/O PERFORATION OR AB 09/14/2018 SHOLA BANSAL MD Ot M87.851 OTHER OSTEONECROSIS, RIGHT FEMUR 09/14/2018 SHOLA BANSAL MD Ot Z12.31 ENCNTR SCREEN MAMMOGRAM FOR MALIGNANT NE 09/23/2018 JIE PADILLA DO Ot N18.3 CHRONIC KIDNEY DISEASE, STAGE 3 (MODERAT 09/23/2018 JIE PADILLA DO Ot N28.1 CYST OF KIDNEY, ACQUIRED 10/15/2018 JIE PADILLA DO, Ot N18.3 CHRONIC KIDNEY DISEASE, STAGE 3 (MODERAT 10/15/2018 JIE PADILLA DO Ot N28.1 CYST OF KIDNEY, ACQUIRED 10/29/2018 CLEMENTE IBARRA MD Ot E78.2 MIXED HYPERLIPIDEMIA 10/29/2018 CLEMENTE IBARRA MD Ot I25.10 ATHSCL HEART DISEASE OF [place] CORONARY 10/29/2018 CLEMENTE IBARRA MD, Ot I77.89 OTHER SPECIFIED DISORDERS OF ARTERIES AN 10/29/2018 CLEMENTE IBARRA MD Ot R07.9 CHEST PAIN, UNSPECIFIED 10/29/2018 JIE PADILLA DO Ot N18.3 CHRONIC KIDNEY DISEASE, STAGE 3 (MODERAT 10/29/2018 JIE PADILLA DO, Ot N28.1 CYST OF KIDNEY, ACQUIRED Procedures Code Description Performed By Performed On 00.40 PROCEDURE ON SINGLE VESSEL 09/26/2012 38.12 HEAD NECK ENDARTER NEC 09/26/2012 50056 MAMMOGRAM, SCREENING 09/12/2013 94998 PAP SMEAR 09/12/2013 Q0091 PAP SMEAR OBTAIN SMEAR 09/12/2013 20605 HEMOCCULT 09/12/2013 41296 UA W/ CULTURE IF INDICATED 09/12/2013 67929 ROUTINE VENIPUNCTURE 09/17/2013 96133 CBC 09/17/2013 55601 CMP 09/17/2013 [id number] GFR CALC (RESULT ONLY) 09/17/2013 36377 LIPID PANEL 09/17/2013 48533 TSH 09/17/2013 Results Test Result Range Complete blood count (CBC) with automated white blood cell (WBC) differential - 06/13/16 13:25 Blood leukocytes automated count (number/volume) 5.7 10*3/uL 4.3-11.0 Blood erythrocytes automated count (number/volume) 4.56 10*6/uL 4.35-5.85 Venous blood hemoglobin measurement (mass/volume) 14.7 g/dL 11.5-16.0 Blood hematocrit (volume fraction) 44 % 35-52 Automated erythrocyte mean corpuscular volume 97 [foz_us] 80-99 Automated erythrocyte mean corpuscular hemoglobin (mass per erythrocyte) 32 pg 25-34 Automated erythrocyte mean corpuscular hemoglobin concentration measurement (mass/volume) 33 g/dL 32-36 Automated erythrocyte distribution width ratio 13.4 % 10.0- 14.5 Automated blood platelet count (count/volume) 275 10*3/uL 130-400 Automated blood platelet mean volume measurement 8.9 [foz_us] 7.4-10.4 Automated blood neutrophils/100 leukocytes 71 % 42-75 Automated blood lymphocytes/100 leukocytes 21 % 12-44 Blood monocytes/100 leukocytes 7 % 0-12 Automated blood eosinophils/100 leukocytes 1 % 0-10 Automated blood basophils/100 leukocytes 1 % 0-10 Blood neutrophils automated count (number/volume) 4.0 10*3 1.8-7.8 Blood lymphocytes automated count (number/volume) 1.2 10*3 1.0-4.0 Blood monocytes automated count (number/volume) 0.4 10*3 0.0- 1.0 Automated eosinophil count 0.1 10*3/uL 0.0-0.3 Automated blood basophil count (count/volume) 0.0 10*3/uL 0.0-0.1 Serum or plasma rheumatoid factor measurement (units/volume) - 06/13/16 13:25 Serum or plasma rheumatoid factor measurement (units/volume) NEGATIVE NEGATIVE Erythrocyte sedimentation rate by westergren method - 06/13/16 13:25 Erythrocyte sedimentation rate by westergren method 18 mm 0-30 Comprehensive metabolic panel - 06/13/16 13:25 Serum or plasma sodium measurement (moles/volume) 137 mmol/L 135-145 Serum or plasma potassium measurement (moles/volume) 4.2 mmol/L 3.6-5.0 Serum or plasma chloride measurement (moles/volume) 107 mmol/L 98-107 Carbon dioxide 19 mmol/L 21-32 Serum or plasma anion gap determination (moles/volume) 11 mmol/L 5-14 Serum or plasma urea nitrogen measurement (mass/volume) 16 mg/dL 7-18 Serum or plasma creatinine measurement (mass/volume) 1.10 mg/dL 0.60-1.30 Serum or plasma urea nitrogen/creatinine mass ratio 15 NRG Serum or plasma creatinine measurement with calculation of estimated glomerular filtration rate 49 NRG Serum or plasma glucose measurement (mass/volume) 110 mg/dL 70-105 Serum or plasma calcium measurement (mass/volume) 9.5 mg/dL 8.5-10.1 Serum or plasma total bilirubin measurement (mass/volume) 0.4 mg/dL 0.1-1.0 Serum or plasma alkaline phosphatase measurement (enzymatic activity/volume) 122 U/L 40-136 Serum or plasma aspartate aminotransferase measurement (enzymatic activity/volume) 17 U/L 5-34 Serum or plasma alanine aminotransferase measurement (enzymatic activity/volume) 17 U/L 0-55 Serum or plasma protein measurement (mass/volume) 7.2 g/dL 6.4-8.2 Serum or plasma albumin measurement (mass/volume) 3.6 g/dL 3.2-4.5 Serum or plasma creatine kinase measurement (enzymatic activity/volume) - 06/13/16 13:25 Serum or plasma creatine kinase measurement (enzymatic activity/volume) 8 U/L 29-168 Serum or plasma C reactive protein measurement (mass/volume) - 06/13/16 13:25 Serum or plasma C reactive protein measurement (mass/volume) 3.08 mg/dL 0.00-0.50 Complete urinalysis with reflex to culture - 09/04/16 13:50 Urine color determination YELLOW NRG Urine clarity determination SLIGHTLY CLOUDY NRG Urine pH measurement by test strip 6 5-9 Specific gravity of urine by test strip 1.015 1.016-1.022 Urine protein assay by test strip, semi-quantitative NEGATIVE NEGATIVE Urine glucose detection by automated test strip NEGATIVE NEGATIVE Erythrocytes detection in urine sediment by light microscopy 2+ NEGATIVE Urine ketones detection by automated test strip NEGATIVE NEGATIVE Urine nitrite detection by test strip NEGATIVE NEGATIVE Urine total bilirubin detection by test strip NEGATIVE NEGATIVE Urine urobilinogen measurement by automated test strip (mass/volume) NORMAL NORMAL Urine leukocyte esterase detection by dipstick 3+ NEGATIVE Automated urine sediment erythrocyte count by microscopy (number/high power field) NONE NRG Automated urine sediment leukocyte count by microscopy (number/high power field) [HPF] NRG Bacteria detection in urine sediment by light microscopy FEW NRG Squamous epithelial cells detection in urine sediment by light microscopy 25-50 NRG Crystals detection in urine sediment by light microscopy NONE NRG Casts detection in urine sediment by light microscopy NONE NRG Mucus detection in urine sediment by light microscopy NEGATIVE NRG Complete urinalysis with reflex to culture NO NRG Complete blood count (CBC) with automated white blood cell (WBC) differential - 09/04/16 14:03 Blood leukocytes automated count (number/volume) 6.7 10*3/uL 4.3-11.0 Blood erythrocytes automated count (number/volume) 3.89 10*6/uL 4.35-5.85 Venous blood hemoglobin measurement (mass/volume) 12.4 g/dL 11.5-16.0 Blood hematocrit (volume fraction) 39 % 35-52 Automated erythrocyte mean corpuscular volume 99 [foz_us] 80-99 Automated erythrocyte mean corpuscular hemoglobin (mass per erythrocyte) 32 pg 25-34 Automated erythrocyte mean corpuscular hemoglobin concentration measurement (mass/volume) 32 g/dL 32-36 Automated erythrocyte distribution width ratio 13.4 % 10.0- 14.5 Automated blood platelet count (count/volume) 276 10*3/uL 130-400 Automated blood platelet mean volume measurement 8.8 [foz_us] 7.4-10.4 Automated blood neutrophils/100 leukocytes 73 % 42-75 Automated blood lymphocytes/100 leukocytes 16 % 12-44 Blood monocytes/100 leukocytes 8 % 0-12 Automated blood eosinophils/100 leukocytes 2 % 0-10 Automated blood basophils/100 leukocytes 1 % 0-10 Blood neutrophils automated count (number/volume) 4.9 10*3 1.8-7.8 Blood lymphocytes automated count (number/volume) 1.1 10*3 1.0-4.0 Blood monocytes automated count (number/volume) 0.5 10*3 0.0- 1.0 Automated eosinophil count 0.2 10*3/uL 0.0-0.3 Automated blood basophil count (count/volume) 0.0 10*3/uL 0.0-0.1 Comprehensive metabolic panel - 09/04/16 14:03 Serum or plasma sodium measurement (moles/volume) 141 mmol/L 135-145 Serum or plasma potassium measurement (moles/volume) 3.7 mmol/L 3.6-5.0 Serum or plasma chloride measurement (moles/volume) 107 mmol/L 98-107 Carbon dioxide 25 mmol/L 21-32 Serum or plasma anion gap determination (moles/volume) 9 mmol/L 5-14 Serum or plasma urea nitrogen measurement (mass/volume) 19 mg/dL 7-18 Serum or plasma creatinine measurement (mass/volume) 0.93 mg/dL 0.60-1.30 Serum or plasma urea nitrogen/creatinine mass ratio 20 NRG Serum or plasma creatinine measurement with calculation of estimated glomerular filtration rate 60 NRG Serum or plasma glucose measurement (mass/volume) 102 mg/dL 70-105 Serum or plasma calcium measurement (mass/volume) 8.8 mg/dL 8.5-10.1 Serum or plasma total bilirubin measurement (mass/volume) 0.3 mg/dL 0.1-1.0 Serum or plasma alkaline phosphatase measurement (enzymatic activity/volume) 79 U/L 40-136 Serum or plasma aspartate aminotransferase measurement (enzymatic activity/volume) 10 U/L 5-34 Serum or plasma alanine aminotransferase measurement (enzymatic activity/volume) 13 U/L 0-55 Serum or plasma protein measurement (mass/volume) 6.4 g/dL 6.4-8.2 Serum or plasma albumin measurement (mass/volume) 3.1 g/dL 3.2-4.5 Complete blood count (CBC) with automated white blood cell (WBC) differential - 12/10/17 01:25 Blood leukocytes automated count (number/volume) 6.8 10*3/uL 4.3-11.0 Blood erythrocytes automated count (number/volume) 4.50 10*6/uL 4.35-5.85 Venous blood hemoglobin measurement (mass/volume) 14.4 g/dL 11.5-16.0 Blood hematocrit (volume fraction) 44 % 35-52 Automated erythrocyte mean corpuscular volume 98 [foz_us] 80-99 Automated erythrocyte mean corpuscular hemoglobin (mass per erythrocyte) 32 pg 25-34 Automated erythrocyte mean corpuscular hemoglobin concentration measurement (mass/volume) 33 g/dL 32-36 Automated erythrocyte distribution width ratio 13.9 % 10.0- 14.5 Automated blood platelet count (count/volume) 226 10*3/uL 130-400 Automated blood platelet mean volume measurement 8.9 [foz_us] 7.4-10.4 Automated blood neutrophils/100 leukocytes 68 % 42-75 Automated blood lymphocytes/100 leukocytes 22 % 12-44 Blood monocytes/100 leukocytes 9 % 0-12 Automated blood eosinophils/100 leukocytes 2 % 0-10 Automated blood basophils/100 leukocytes 1 % 0-10 Blood neutrophils automated count (number/volume) 4.6 10*3 1.8-7.8 Blood lymphocytes automated count (number/volume) 1.5 10*3 1.0-4.0 Blood monocytes automated count (number/volume) 0.6 10*3 0.0- 1.0 Automated eosinophil count 0.1 10*3/uL 0.0-0.3 Automated blood basophil count (count/volume) 0.0 10*3/uL 0.0-0.1 PT panel in platelet poor plasma by coagulation assay - 12/10/17 01:25 Prothrombin time (PT) in platelet poor plasma by coagulation assay 13.4 s 12.2-14.7 INR in platelet poor plasma or blood by coagulation assay 1.0 0.8-1.4 Activated partial thromboplastin time (aPTT) in platelet poor plasma bycoagulation assay - 12/10/17 01:25 Activated partial thromboplastin time (aPTT) in platelet poor plasma bycoagulation assay 26 s 24-35 Comprehensive metabolic panel - 12/10/17 01:25 Serum or plasma sodium measurement (moles/volume) 142 mmol/L 135-145 Serum or plasma potassium measurement (moles/volume) 3.9 mmol/L 3.6-5.0 Serum or plasma chloride measurement (moles/volume) 103 mmol/L 98-107 Carbon dioxide 27 mmol/L 21-32 Serum or plasma anion gap determination (moles/volume) 12 mmol/L 5-14 Serum or plasma urea nitrogen measurement (mass/volume) 21 mg/dL 7-18 Serum or plasma creatinine measurement (mass/volume) 1.30 mg/dL 0.60-1.30 Serum or plasma urea nitrogen/creatinine mass ratio 16 NRG Serum or plasma creatinine measurement with calculation of estimated glomerular filtration rate 40 NRG Serum or plasma glucose measurement (mass/volume) 110 mg/dL 70-105 Serum or plasma calcium measurement (mass/volume) 9.7 mg/dL 8.5-10.1 Serum or plasma total bilirubin measurement (mass/volume) 0.4 mg/dL 0.1-1.0 Serum or plasma alkaline phosphatase measurement (enzymatic activity/volume) 116 U/L 40-136 Serum or plasma aspartate aminotransferase measurement (enzymatic activity/volume) 14 U/L 5-34 Serum or plasma alanine aminotransferase measurement (enzymatic activity/volume) 15 U/L 0-55 Serum or plasma protein measurement (mass/volume) 7.5 g/dL 6.4-8.2 Serum or plasma albumin measurement (mass/volume) 4.1 g/dL 3.2-4.5 CALCIUM CORRECTED 9.6 mg/dL 8.5-10.1 Magnesium - 12/10/17 01:25 Magnesium 2.2 mg/dL 1.8-2.4 Serum or plasma creatine kinase measurement (enzymatic activity/volume) - 12/10/17 01:25 Serum or plasma creatine kinase measurement (enzymatic activity/volume) 9 U/L 29-168 Serum or plasma creatine kinase MB measurement (enzymatic activity/volume) - 12/10/17 01:25 Serum or plasma creatine kinase MB measurement (enzymatic activity/volume) 0.5 ng/mL <6.6 Serum or plasma troponin i.cardiac measurement (mass/volume) - 12/10/17 01:25 Serum or plasma troponin i.cardiac measurement (mass/volume) < ng/mL <0.30 Serum or plasma lithium measurement (moles/volume) - 12/10/17 01:25 BNP level 41.0 pg/mL <100.0 Myoglobin, serum - 12/10/17 01:25 Myoglobin, serum 34.6 ng/mL 10.0-92.0 Serum or plasma amylase measurement (enzymatic activity/volume) - 12/10/17 01:25 Serum or plasma amylase measurement (enzymatic activity/volume) 87 U/L 25-125 Lipase - 12/10/17 01:25 Lipase 147 U/L 8-78 Complete urinalysis with reflex to culture - 12/10/17 02:25 Urine color determination YELLOW NRG Urine clarity determination CLEAR NRG Urine pH measurement by test strip 7 5-9 Specific gravity of urine by test strip 1.010 1.016-1.022 Urine protein assay by test strip, semi-quantitative 1+ NEGATIVE Urine glucose detection by automated test strip NEGATIVE NEGATIVE Erythrocytes detection in urine sediment by light microscopy 2+ NEGATIVE Urine ketones detection by automated test strip NEGATIVE NEGATIVE Urine nitrite detection by test strip NEGATIVE NEGATIVE Urine total bilirubin detection by test strip NEGATIVE NEGATIVE Urine urobilinogen measurement by automated test strip (mass/volume) NORMAL NORMAL Urine leukocyte esterase detection by dipstick 2+ NEGATIVE Automated urine sediment erythrocyte count by microscopy (number/high power field) [HPF] NRG Automated urine sediment leukocyte count by microscopy (number/high power field) [HPF] NRG Bacteria detection in urine sediment by light microscopy TRACE NRG Squamous epithelial cells detection in urine sediment by light microscopy 5-10 NRG Crystals detection in urine sediment by light microscopy NONE NRG Casts detection in urine sediment by light microscopy NONE NRG Mucus detection in urine sediment by light microscopy SMALL NRG Complete urinalysis with reflex to culture NO NRG Encounters ACCT No. Visit Date/Time Discharge Status Pt. Type Provider Facility Loc./Unit Complaint [id number] 06/26/2014 10:06:00 06/26/2014 23:59:59 CLS Outpatient JOSE ANTONIO BRISENO APRN [id number] 06/12/2014 15:29:00 06/12/2014 23:59:59 CLS Outpatient SUZANNA JASMINE JOSE ANTONIO R [id number] 10/03/2013 15:22:00 10/03/2013 23:59:59 CLS Outpatient MARYAM BRISENO APRNKULWINDER Prince [id number] 09/17/2013 08:01:00 09/17/2013 23:59:59 CLS Outpatient SUZANNA JASMINE JOSE ANTONIO Prince [id number] 09/12/2013 09:41:00 09/12/2013 23:59:59 CLS Outpatient SUZANNA JASMINE JOSE ANTONIO R [id number] 05/20/2013 17:31:00 05/20/2013 23:59:59 CLS Outpatient HEATHER DEGROOT DO [place] [id number] 04/26/2013 09:27:00 04/26/2013 23:59:59 CLS Outpatient SUZANNA JASMINE JOSE ANTONIO Prince [id number] 02/08/2013 13:57:00 02/08/2013 23:59:59 CLS Outpatient HEATHER DEGROOT DO [id number] 11/09/2018 09:07:00 11/09/2018 23:59:59 CLS Outpatient STANLEY ALEXANDRA [facility] RAD CHEST X-RAY [id number] 11/09/2018 07:49:00 11/09/2018 23:59:59 CLS Preadmit STANLEY ALEXANDRA [facility] CARD DYSPNEA [id number] 10/02/2018 08:00:00 10/02/2018 23:59:59 CLS Outpatient CLEMENTE IBARRA MD [facility] CARD CAD,CHEST PAIN,HYPERLIPIDEMIA [id number] 09/14/2018 11:08:00 09/14/2018 23:59:59 CLS Outpatient JIE PADILLA DO [facility] RAD CKD STAGE 3 [id number] 08/09/2018 12:02:00 08/09/2018 23:59:59 CLS Preadmit CLEMENTE IBARRA MD [facility] CARD CAD,CHEST PAIN,HYPERLIPIDEMIA [id number] 12/10/2017 00:58:00 12/10/2017 03:38:00 DIS Emergency HARMONYDRAKE Ramey DO [facility] ER DIZZY,CP,LEFT ARM PAIN,NAUSEA,ABD PAIN(TUMORS) [id number] 10/09/2017 13:21:00 10/09/2017 23:59:59 CLS Outpatient SHOLA BANSAL MD [facility] 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 [id number] 10/06/2017 10:29:00 10/06/2017 23:59:59 CLS Outpatient VIRGINIA VARGHESE FACC, FANTASMA SOLIS CCDS [facility] CARD CAD,COPD,CAROTID ARTERIAL DISEASE [id number] 10/04/2017 13:42:00 10/04/2017 23:59:59 CLS Preadmit SHOLA BANSAL MD [facility] RAD BREAST CANCER SCREENING [id number] 09/19/2017 08:03:00 09/19/2017 23:59:59 CLS Outpatient VIRGINIA VARGHESE FACFANTASMA Steiner FACP CCDS [facility] RAD AAA [id number] 06/13/2017 12:17:00 06/13/2017 23:59:59 CLS Preadmit SHOLA BANSAL MD [facility] REHAB VERTIGO [id number] 05/26/2017 12:59:00 05/26/2017 23:59:59 CLS Outpatient SHOLA BANSAL MD [facility] RAD INJ OF HEAD INITIAL ENCOUNTER [id number] 01/30/2017 09:01:00 01/30/2017 16:05:00 DIS Outpatient CHRISTIANE PORTILLO MD [facility] ENDO CHRONIC DIARRHEA;HEMATOCHEGIA;REFLUX;NAUSEA [id number] 01/25/2017 05:34:00 01/25/2017 09:52:00 DIS Outpatient CHRISTIANE PORTILLO MD [facility] PREOP COLO/EGD [id number] 12/29/2016 13:09:00 12/29/2016 13:45:00 DIS Outpatient CHRISTIANE PORTILLO MD [facility] PREOP CHRONIC DIARRHEA;HEMATOCHEGIA;REFLUX;NAUSEA [id number] 09/04/2016 13:21:00 09/04/2016 15:44:00 DIS Emergency IGNACIA BURKETT MD [facility] ER FALL/L SIDE PAIN [id number] 06/27/2016 21:26:00 06/28/2016 00:55:00 DIS Emergency KARTIK BRANDT MD [facility] ER L LEG/GROIN PAIN [id number] 06/13/2016 12:42:00 06/13/2016 14:54:00 DIS Emergency MARLIN VARGHESE, ZAY Avendaño [facility] ER BODYACHES/NAUSEA POSS MED REACTION [id number] 05/03/2016 07:50:00 05/03/2016 23:59:59 CLS Outpatient VIRGINIA VARGHESE FACC, FANTASMA SOLIS CCDS [facility] CARD DYSPNEA,CAD [id number] 04/01/2016 08:05:00 04/01/2016 23:59:59 CLS Outpatient LUIS LOVELACE APRN [facility] RAD ABN CT OF LUNG [id number] 03/23/2016 07:45:00 03/23/2016 15:30:00 DIS Outpatient MARIA A MORSE DO [facility] SLEEP G47.33 [id number] 02/03/2016 16:07:00 02/03/2016 23:59:59 CLS Outpatient MARIA A MORSE DO [facility] RT COPD,CAD,OBESITY,EDEMA [id number] 01/26/2016 08:14:00 01/26/2016 12:25:00 DIS Outpatient CORINE FREGOSO DO [facility] HISTORY OF POLYPS [id number] 2016 12:52:00 2016 23:59:59 CLS Outpatient MARIA A MORSE DO [facility] RAD COPD,CAD,OBESITY [id number] 2016 05:42:00 2016 23:59:59 CLS Outpatient CORINE FREGOSO DO [facility] PREOP HISTORY OF POLYPS [id number] 12/09/2014 12:36:00 12/09/2014 15:35:00 DIS Outpatient CORINE FREGOSO DO [facility] MULTIPLE LOOSE STOOLS [id number] 12/04/2014 05:58:00 12/04/2014 23:59:59 CLS Outpatient CORINE FREGOSO DO Irma [facility] PREOP MULTIPLE LOOSE STOOLS [id number] 11/20/2014 09:00:00 11/20/2014 23:59:59 CLS Outpatient SHOLA BANSAL MD [facility] RAD LUMBAR COMPRESSIN FX [id number] 08/26/2014 10:50:00 08/26/2014 23:59:59 CLS Outpatient ROBERTO MARTINEZ MD [facility] SDC VERTEBRAL COMPRESSION FRACTURE [id number] 08/21/2014 09:51:00 08/21/2014 23:59:59 CLS Outpatient ROBERTO MARTINEZ MD [facility] PREOP VERTEBRAL COMPRESSION FRACTURE [id number] 08/19/2014 10:16:00 08/19/2014 23:59:59 CLS Outpatient JOSE ANTONIO BRISENO APRN [facility] RAD LUMBAR BACK PAIN [id number] 05/08/2014 23:57:00 05/09/2014 02:06:00 DIS Emergency EDUARDO PETERS DO [facility] ER SOB [id number] 02/09/2014 05:25:00 02/09/2014 06:44:00 DIS Emergency RODDY ARRIOLA MD [facility] ER L FOOT INJ [id number] 09/26/2013 22:13:00 09/27/2013 11:25:00 DIS Inpatient VIRGINIA VARGHESE FACCFANTASMA FACP CCDS [facility] 4TH CHEST PAIN,UTI,CHRONIC RI [id number] 09/24/2013 09:35:00 09/24/2013 23:59:59 CLS Outpatient JOSE ANTONIO BRISENO APRN [facility] RAD SCREENING [id number] 09/26/2012 06:01:00 09/27/2012 09:41:00 DIS Inpatient MARK COELHO MD [facility] ICU RIGHT CAROTIDSTENSIS [id number] 09/21/2012 08:17:00 09/21/2012 23:59:59 CLS Outpatient MARK COELHO MD [facility] PREOP RIGHT CAROTID STENOSIS [id number] 06/21/2014 08:09:00 Document Registration [id number] 06/20/2014 14:29:00 Document Registration [id number] 05/05/2014 13:49:00 Document Registration [id number] 02/03/2012 11:52:00 Document Registration [id number] 08/24/2011 09:09:00 Document Registration [id number] 06/01/2011 11:30:00 Document Registration [id number] 05/11/2011 11:21:00 Document Registration [id number] 03/18/2011 10:37:00 Document Registration [id number] 03/08/2011 15:30:00 Document Registration [id number] 02/14/2011 07:04:00 Document Registration [id number] 01/24/2011 09:02:00 Document Registration [id number] 12/10/2010 22:10:00 Document Registration [id number] 11/19/2009 09:18:00 Document Registration [id number] 10/22/2009 08:34:00 Document Registration [id number] 10/13/2009 08:00:00 Document Registration [id number] 10/06/2009 08:16:00 Document Registration [id number] 09/28/2009 01:30:00 Document Registration
[2018-11-13] MEDS ORDERED: NS IV 500 ML 500 ML IV ONE (09:32)
[2018-11-13] MEDS ORDERED: fentaNYL INJECTION 100 MCG/2 ML AMP IVP STA (09:44)
[2018-11-13 09:45] LABS: BASOPHILS # (AUTO) 0.1 10^3/uL (0.0-0.1); BASOPHILS % (AUTO) 1 % (0-10); EOSINOPHILS # (AUTO) 0.4 10^3/uL (0.0-0.3); EOSINOPHILS % (AUTO) 4 % (0-10); HEMATOCRIT 41 % (35-52); HEMOGLOBIN 13.4 G/DL (11.5-16.0); LYMPHOCYTES # (AUTO) 1.4 X 10^3 (1.0-4.0); LYMPHOCYTES % (AUTO) 17 % (12-44); MEAN CORPUSCULAR HEMOGLOBIN 33 PG (25-34); MEAN CORPUSCULAR HGB CONC 33 G/DL (32-36); MEAN CORPUSCULAR VOLUME 101 FL (80-99); MONOCYTES # (AUTO) 0.6 X 10^3 (0.0-1.0); MONOCYTES % (AUTO) 7 % (0-12); NEUTROPHILS # (AUTO) 6.2 X 10^3 (1.8-7.8); NEUTROPHILS % (AUTO) 72 % (42-75); PLATELET COUNT 199 10^3/uL (130-400); RED CELL DISTRIBUTION WIDTH 13.4 % (10.0-14.5); WHITE BLOOD COUNT 8.6 10^3/uL (4.3-11.0)
--- NOTE | 2018-11-13 09:46 | NUR ---
When taking pt's fluids to room, pt had right pant leg pulled up. Purple bruise and swelling noted to right knee. Pt now reports right knee pain and stated bruise happened during fall. Dr. Vazquez notified.
--- NOTE | 2018-11-13 09:51 | ED Fall/Injury ---
General Chief Complaint: Trauma-Non Activation Stated Complaint: FALL Source: patient Exam Limitations: no limitations History of Present Illness Date Seen by Provider: Nov 13, 2018 Time Seen by Provider: 09:26 Initial Comments Here with report of fall Monday afternoon. Apparently tripped and hit a doorway. Complains of pain to the right chest wall and upper abdomen. Denies hitting her head or loss of consciousness. She tried at home to get through this but the pain has worsened. Pain with deep breathing and moving. Denies nausea, vomiting or diarrhea. Also complains of right knee pain. Occurred: other (2 days ago) Severity: moderate Injuries/Pain Location: chest, abdomen, lower extremity Context: tripped Loss of Consciousness: no loss of consciousness Associated Symptoms (Fall): Abdominal Pain, Chest Pain; No Headache, No Nausea/Vomiting, No Neck Pain; Shortness of Air, Trouble Walking (due to right knee pain) Allergies and Home Medications Allergies Coded Allergies: Sulfa (Sulfonamide Antibiotics) (Verified Allergy, Intermediate, HIVES, 09/21/12) sulfamethoxazole (Unverified Allergy, Unknown, 02/09/14) trimethoprim (Unverified Allergy, Unknown, 02/09/14) yellow dye (Unverified Allergy, Unknown, 02/09/14) Home Medications Aspirin 81 Mg Tablet.dr, 81 MG PO DAILY, (Reported) Cephalexin 500 Mg Tablet, 500 MG PO BID Prescribed by: KARTIK BRANDT on 11/13/18 1104 Cholecalciferol (Vitamin D3) 2,000 Unit Tablet, 2,000 UNIT PO DAILY, (Reported) Cyclobenzaprine HCl 5 Mg Tablet, 5 MG PO TID PRN for MUSCLE SPASMS, (Reported) Docusate Sodium 100 Mg Capsule, 100 MG PO BID PRN for CONSTIPATION-1ST LINE, (Reported) Fluticasone/Salmeterol 1 Each Blst.w.dev, 1 EACH IH BID, (Reported) Hydrocodone Bit/Acetaminophen 1 Each Tablet, 1-2 EACH PO Q4H PRN for PAIN, (Reported) Hydrocodone Bit/Acetaminophen 1 Tab Tab, 1 EACH PO Q4H Prescribed by: DRAKE ANTUNEZ on 12/10/17 033 Hydroxyzine Pamoate 50 Mg Capsule, 50 MG PO Q6H Prescribed by: DRAKE ANTUNEZ on 12/10/17 0333 Hyoscyamine Sulfate 0.125 Mg Tab.subl, 1-2 TAB SL Q4H Prescribed by: DRAKE ANTUNEZ on 12/10/17332 Loratadine 10 Mg Tablet, 10 MG PO DAILY, (Reported) Metoprolol Succinate 25 Mg Tab.er.24h, 25 MG PO DAILY, (Reported) Ondansetron 4 Mg Tab.rapdis, 4 MG PO Q4H Prescribed by: DRAKE ANTUNEZ on 12/10/17332 Pantoprazole Sodium 40 Mg Tablet.dr, 40 MG PO DAILY, (Reported) Roflumilast 500 Mcg Tablet, 500 MCG PO DAILY, (Reported) Scopolamine 1 Each Patch.td72, 1 EACH TD Q72 HOURS Prescribed by: DRAKE ANTUNEZ on 12/10/17332 Tiotropium [place] 1 Inh Aerp, 1 CAP IH HS, (Reported) Tramadol HCl 50 Mg Tablet, 50 MG PO Q6H PRN for PAIN Prescribed by: KARTIK BRANDT on 11/13/18 1104 Patient Home Medication List Home Medication List Reviewed: Yes Review of Systems Review of Systems Constitutional: see HPI; No chills, No fever Eyes: No Symptoms Reported Ears, Nose, Mouth, Throat: no symptoms reported Respiratory: see HPI Cardiovascular: see HPI; No palpitations, No syncope Gastrointestinal: abdominal pain (RUQ); No constipation, No diarrhea; nausea; No vomiting Genitourinary: no symptoms reported Musculoskeletal: No back pain; joint pain, muscle pain, muscle stiffness; No neck pain Skin: change in color Psychiatric/Neurological: Denies Headache, Denies Weakness All Other Systems Reviewed Negative Unless Noted: Yes Past Egwqvih-Zltrai-Gqflwd Hx Past Med/Social Hx: Reviewed Nursing Past Med/Soc Hx Patient Social History Alcohol Use: Denies Use Recreational Drug Use: No 2nd Hand Smoke Exposure: No Recent Foreign Travel: No Contact w/Someone Who Travel: No Recent Hopitalizations: No Physical Abuse: No Sexual Abuse: No Immunizations Up To Date Tetanus Booster (TDap): Unknown PED Vaccines UTD: No Date of Pneumonia Vaccine: Jun 08, 2010 Date of Influenza Vaccine: Dec 29, 2016 Seasonal Allergies Seasonal Allergies: Yes Past Medical History Surgeries: Yes Adenoidectomy, Breast, Cardiac, CABG, Eye Surgery, Gallbladder, Hysterectomy, Tonsillectomy Respiratory: Yes (COPD) COPD Currently Using CPAP: No Currently Using BIPAP: No Cardiac: Yes (CHF) Coronary Artery Disease, Hypertension Neurological: No Reproductive Disorders: No Female Reproductive Disorders: Denies [employer] History: Hysterectomy, Menopausal Sexually Transmitted Disease: No HIV/AIDS: No Genitourinary: Yes (R kidney non-functional) Renal Failure Gastrointestinal: Yes (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) Gastroesophageal Reflux Musculoskeletal: Yes Back Injury, Chronic Back Pain Endocrine: No Cataract Loss of Vision: Denies Hearing Impairment: Denies Cancer: No Psychosocial: No Integumentary: No Blood Disorders: No Adverse Reaction/Blood Tranf: No Family Medical History Reviewed Nursing Family Hx Family history: Cardiovascular disease 19 MOTHER G8 BROTHER Family history: Diabetes mellitus 19 MOTHER Family history: Gastrointestinal disease 19 FATHER Family history: Hypertension 19 MOTHER G8 BROTHER Myocardial infarction 19 MOTHER Physical Exam Vital Signs Vital Signs - First Documented 11/13/18 11/13/18 09:09 09:55 Temp 97.4 Pulse 76 Resp 22 B/P (MAP) 168/89 (115) Pulse Ox 97 O2 Delivery Room Air O2 Flow Rate 2.00 Capillary Refill : Height, Weight, BMI Height: 5'1.00" Weight: 206lbs. 0.0oz. 93.155846xr; 37.2 BMI Method:Stated General Appearance: WD/WN, no apparent distress HEENT: PERRL/EOMI, TMs normal, pharynx normal Neck: non-tender, full range of motion, supple, normal inspection Cardiovascular: regular rate, rhythm, no murmur Respiratory: lungs clear, normal breath sounds, other (pain on the right side with deep breathing) Gastrointestinal: normal bowel sounds, soft; No guarding, No rebound; tenderness (right upper quadrant and lateral aspect) Back: normal inspection, no CVA tenderness, no vertebral tenderness Extremities: pelvis stable, swelling (right knee) Neurologic/Psychiatric: alert, oriented x 3 Skin: warm/dry, ecchymosis (right knee. No obvious ecchymosis or lesions to the anterior lateral chest/abdominal wall.) Darin Coma Score Best Eye Response: (4) Open Spontaneously Best Verbal Response: (5) Oriented Best Motor Response: (6) Obeys Commands Progress/Results/Core Measures Results/Orders Lab Results Laboratory Tests Test 11/13/18 09:35 11/13/18 10:37 Range/Units White Blood Count 8.6 4.3-11.0 10^3/uL Red Blood Count 4.07 L 4.35-5.85 10^6/uL Hemoglobin 13.4 11.5-16.0 G/DL Hematocrit 41 35-52 % Mean Corpuscular Volume 101 H 80-99 FL Mean Corpuscular Hemoglobin 33 25-34 PG Mean Corpuscular Hemoglobin Concent 33 32-36 G/DL Red Cell Distribution Width 13.4 10.0-14.5 % Platelet Count 199 130-400 10^3/uL Mean Platelet Volume 9.0 7.4-10.4 FL Neutrophils (%) (Auto) 72 42-75 % Lymphocytes (%) (Auto) 17 12-44 % Monocytes (%) (Auto) 7 0-12 % Eosinophils (%) (Auto) 4 0-10 % Basophils (%) (Auto) 1 0-10 % Neutrophils # (Auto) 6.2 1.8-7.8 X 10^3 Lymphocytes # (Auto) 1.4 1.0-4.0 X 10^3 Monocytes # (Auto) 0.6 0.0-1.0 X 10^3 Eosinophils # (Auto) 0.4 H 0.0-0.3 10^3/uL Basophils # (Auto) 0.1 0.0-0.1 10^3/uL Sodium Level 140 135-145 MMOL/L Potassium Level 4.5 3.6-5.0 MMOL/L Chloride Level 107 98-107 MMOL/L Carbon Dioxide Level 23 21-32 MMOL/L Anion Gap 10 5-14 MMOL/L Blood Urea Nitrogen 44 H 7-18 MG/DL Creatinine 2.15 H 0.60-1.30 MG/DL Estimat Glomerular Filtration Rate 23 BUN/Creatinine Ratio 20 Glucose Level 104 70-105 MG/DL Calcium Level 9.4 8.5-10.1 MG/DL Corrected Calcium 9.4 8.5-10.1 MG/DL Total Bilirubin 0.3 0.1-1.0 MG/DL Aspartate Amino Transf (AST/SGOT) 11 5-34 U/L Alanine Aminotransferase (ALT/SGPT) 13 0-55 U/L Alkaline Phosphatase 122 40-136 U/L Total Protein 7.2 6.4-8.2 GM/DL Albumin 4.0 3.2-4.5 GM/DL Lipase 128 H 8-78 U/L Urine Color YELLOW Urine Clarity SLIGHTLY CLOUDY Urine pH 5 5-9 Urine Specific [place] 1.020 1.016-1.022 Urine Protein 1+ H NEGATIVE Urine Glucose (UA) NEGATIVE NEGATIVE Urine Ketones NEGATIVE NEGATIVE Urine Nitrite NEGATIVE NEGATIVE Urine Bilirubin NEGATIVE NEGATIVE Urine Urobilinogen NORMAL NORMAL MG/DL Urine Leukocyte Esterase 3+ H NEGATIVE Urine RBC (Auto) 2+ H NEGATIVE Urine RBC 0-2 /HPF Urine WBC 5-10 H /HPF Urine Squamous Epithelial Cells 2-5 /HPF Urine Crystals NONE /LPF Urine Bacteria TRACE /HPF Urine Casts NONE /LPF Urine Mucus NEGATIVE /LPF Urine Culture Indicated YES My Orders Orders - KARTIK BRANDT MD Cbc With Automated Diff (11/13/18 09:32) Comprehensive Metabolic Panel (11/13/18 09:32) Lipase (11/13/18 09:32) Ua Culture If Indicated (11/13/18 09:32) Ed Iv/Invasive Line Start (11/13/18 09:32) Ns Iv 500 Ml (Sodium Chloride 0.9%) (11/13/18 09:32) Ct Chest/Abdomen/Pelvis Wo (11/13/18 09:32) Fentanyl Injection (Sublimaze Injection (11/13/18 09:44) Knee, Right, 3 Views (11/13/18 09:58) Urine Culture (11/13/18 10:37) Medications Given in ED Current Medications Medications Dose Ordered Sig/Patty Route Start Time Stop Time Status Last Admin Dose Admin Sodium Chloride 500 ml @ 0 mls/hr Q0M ONCE IV 11/13/18 09:32 11/13/18 09:34 DC 11/13/18 09:45 500 MLS/HR Vital Signs/I&O 11/13/18 11/13/18 09:09 09:55 Temp 97.4 Pulse 76 Resp 22 B/P (MAP) 168/89 (115) Pulse Ox 97 88 O2 Delivery Room Air Nasal Cannula O2 Flow Rate 2.00 Progress Progress Note : Progress Note Seen and evaluated. IV, labs, normal saline 500 mL bolus, fentanyl 50 g IV ordered. We will get CT chest, abdomen and pelvis without contrast due to history of one nonfunctioning kidney and report of chronic renal dysfunction of the other kidney although that is mild. Also get x-ray the right knee since she fell on that and there is bruising. Monitor patient. 1057: Pain somewhat improved. No acute fracture. Discussed outpatient therapy. Discharged home with return precautions. Patient verbalize understanding instructions and agreement with plan. Diagnostic Imaging Diagonstic Imaging: CT Plain Films/CT/US/NM/MRI: abdomen, pelvis Comments [facility] [place], [place] NAME: LA NENA JUSTICE [facility] REC#: [id number] PT STATUS: REG ER : 1945 PHYSICIAN: KARTIK BRANDT MD ADMIT DATE: 11/13/18/ER Draft Date of Exam:11/13/18 CT CHEST/ABDOMEN/PELVIS WO PROCEDURE: CT chest, abdomen, and pelvis without contrast. TECHNIQUE: Multiple contiguous axial images were obtained through the chest, abdomen, and pelvis without the use of intravenous contrast. Auto Exposure Controls were utilized during the CT exam to meet ALARA standards for radiation dose reduction. INDICATION: Chest pain and right flank pain after fall 2 days ago. COMPARISON: CT abdomen and pelvis of 12/10/2017 FINDINGS: CT CHEST: No endoluminal nodule within the trachea. No pulmonary mass, consolidation or nodule. No pleural effusion or pneumothorax. Visualized thyroid is normal. No supraclavicular or axillary lymphadenopathy. No mediastinal, discrete hilar or juxtaphrenic lymphadenopathy. Heart is mildly enlarged and status post CABG. No pericardial effusion. Normal caliber thoracic aorta. No features of mediastinal hemorrhage. No sternal fracture status post sternotomy. Clavicles are intact. No scapular fracture. No acute rib fracture on either side. Subacute to chronic fracture of the lateral right seventh rib. No compression or burst fracture in the thoracic spine. CT ABDOMEN AND PELVIS: No free intraperitoneal air or fluid. Assessment for solid visceral injury is limited without IV contrast. Allowing for this, the unenhanced liver, spleen and pancreas are grossly normal. Cholecystectomy. No adrenal mass. No perinephric fluid collection. No renal or ureteral calculi. Urinary bladder shows no features of rupture. Hysterectomy. Sigmoid colon diverticulosis without diverticulitis. Minimal nonspecific stranding within the mesenteric root is unchanged. No fracture within the proximal femurs or osseous pelvis. No acute compression fracture in the lumbar spine. Prior kyphoplasty of L1. IMPRESSION: CHEST: 1. No features of acute traumatic injury in the chest. 2. No acute fracture of the right ribs. Subacute to chronic fracture of the lateral right seventh rib. ABDOMEN AND PELVIS: 1. No features of acute traumatic injury in the abdomen or pelvis by noncontrast imaging. 2. No acute fracture in the lumbar spine or pelvis. Prior L1 kyphoplasty. Dictated on workstation # [id number] Dict: 11/13/18 1020 Trans: 11/13/18 1037 MEGAN [id number] Interpreted by: ANNA BELLE MD Electronically signed by: Corie Imaging: Xray Plain Films/CT/US/NM/MRI: knee Comments [facility] [place] [place] NAME: LA NENA JUSTICE [facility] REC#: [id number] PT STATUS: REG ER : 1945 PHYSICIAN: KARTIK BRANDT MD ADMIT DATE: 11/13/18/ER Draft Date of Exam:11/13/18 KNEE, RIGHT, 3 VIEWS INDICATION: 2 days post fall, pain and bruising. TECHNIQUE: 3 views of the right knee CORRELATION STUDY: None FINDINGS: The joint spaces are maintained. The articular surfaces are smooth and preserved. There is no acute bony abnormality. Mild diffuse bony demineralization. There is increased soft tissue density perhaps hematoma and edema about the anterior aspect of the knee and leg. No lipohemarthrosis. IMPRESSION: 1. Negative for acute bony abnormality of the knee. Anterior edema. Dictated on workstation # [id number] Dict: 11/13/18 1025 Trans: 11/13/18 1039 MEGAN [id number] Interpreted by: YADY VARGAS DO Electronically signed by: Departure Impression Primary Impression: Chest wall contusion Qualified Codes: S20.211A - Contusion of right front wall of thorax, initial encounter Additional Impressions: Abdominal wall contusion Qualified Codes: S30.1XXA - Contusion of abdominal wall, initial encounter Muscle strain Urinary tract infection Qualified Codes: N30.00 - Acute cystitis without hematuria Disposition: 01 HOME, SELF-CARE Condition: Improved Departure-Patient Inst. Decision time for Depature: 10:46 Referrals: GEORGIANA TATE MD (PCP/Family) Primary Care Physician Patient Instructions: Muscle Strain (DC), Concussion, Adult (DC), Urinary Tract Infection, Adult (DC) Add. Discharge Instructions: All discharge instructions reviewed with patient and/or family. Voiced under standing. Take medications as directed. You may take Tylenol/acetaminophen 1000 mg every 8 hours as needed for pain. Take other pain medications as prescribed. Follow-up with your Dr. in a few days for recheck. You may use ice packs over the bruised areas and areas of concern as needed. Return for worse pain, fever, vomiting, weakness, breathing problems or other concerns as needed. Scripts Tramadol HCl (Tramadol HCl) 50 Mg Tablet 50 MG PO Q6H PRN for PAIN for 3 Days, #12 TAB 0 Refills Prov: KARTIK BRANDT MD 11/13/18 Cephalexin (Cephalexin) 500 Mg Tablet 500 MG PO BID, #10 TAB 0 Refills Prov: KARTIK BRANDT MD 11/13/18 Copy Copies To 1: GEORGIANA TATE MD, TIMOTHY D MD Nov 13, 2018 09:51
--- NOTE | 2018-11-13 09:55 | NUR ---
Pt's O2 dropped to 88% after fentanyl administration. Pt put on 2 L NC at this time.
[2018-11-13 10:05] LABS: BILIRUBIN,TOTAL 0.3 MG/DL (0.1-1.0); CALCIUM 9.4 MG/DL (8.5-10.1); CREATININE SERUM 2.15 MG/DL (0.60-1.30); POTASSIUM 4.5 MMOL/L (3.6-5.0); TOTAL PROTEIN 7.2 GM/DL (6.4-8.2)
--- NOTE | 2018-11-13 10:37 | Diagnostic Imaging Report ---
PROCEDURE: CT chest, abdomen, and pelvis without contrast. TECHNIQUE: Multiple contiguous axial images were obtained through the chest, abdomen, and pelvis without the use of intravenous contrast. Auto Exposure Controls were utilized during the CT exam to meet ALARA standards for radiation dose reduction. INDICATION: Chest pain and right flank pain after fall 2 days ago. COMPARISON: CT abdomen and pelvis of 12/10/2017 FINDINGS: CT CHEST: No endoluminal nodule within the trachea. No pulmonary mass, consolidation or nodule. No pleural effusion or pneumothorax. Visualized thyroid is normal. No supraclavicular or axillary lymphadenopathy. No mediastinal, discrete hilar or juxtaphrenic lymphadenopathy. Heart is mildly enlarged and status post CABG. No pericardial effusion. Normal caliber thoracic aorta. No features of mediastinal hemorrhage. No sternal fracture status post sternotomy. Clavicles are intact. No scapular fracture. No acute rib fracture on either side. Subacute to chronic fracture of the lateral right seventh rib. No compression or burst fracture in the thoracic spine. CT ABDOMEN AND PELVIS: No free intraperitoneal air or fluid. Assessment for solid visceral injury is limited without IV contrast. Allowing for this, the unenhanced liver, spleen and pancreas are grossly normal. Cholecystectomy. No adrenal mass. No perinephric fluid collection. No renal or ureteral calculi. Urinary bladder shows no features of rupture. Hysterectomy. Sigmoid colon diverticulosis without diverticulitis. Minimal nonspecific stranding within the mesenteric root is unchanged. No fracture within the proximal femurs or osseous pelvis. No acute compression fracture in the lumbar spine. Prior kyphoplasty of L1. IMPRESSION: CHEST: 1. No features of acute traumatic injury in the chest. 2. No acute fracture of the right ribs. Subacute to chronic fracture of the lateral right seventh rib. ABDOMEN AND PELVIS: 1. No features of acute traumatic injury in the abdomen or pelvis by noncontrast imaging. 2. No acute fracture in the lumbar spine or pelvis. Prior L1 kyphoplasty. Dictated by: Dictated on workstation # [id number]
--- NOTE | 2018-11-13 10:40 | Diagnostic Imaging Report ---
INDICATION: 2 days post fall, pain and bruising. TECHNIQUE: 3 views of the right knee CORRELATION STUDY: None FINDINGS: The joint spaces are maintained. The articular surfaces are smooth and preserved. There is no acute bony abnormality. Mild diffuse bony demineralization. There is increased soft tissue density perhaps hematoma and edema about the anterior aspect of the knee and leg. No lipohemarthrosis. IMPRESSION: 1. Negative for acute bony abnormality of the knee. Anterior edema. Dictated by: Dictated on workstation # [id number]
[2018-11-13 10:47] LABS: BILIRUBIN,URINE NEGATIVE (NEGATIVE); CLARITY,URINE SLIGHTLY CLOUDY; COLOR,URINE YELLOW; GLUCOSE, URINE (UA) NEGATIVE (NEGATIVE); KETONES,URINE NEGATIVE (NEGATIVE); LEUKOCYTE ESTERASE ,URINE 3+ (NEGATIVE); NITRITE,URINE NEGATIVE (NEGATIVE); PH,URINE 5 (5-9); PROTEIN,URINE 1+ (NEGATIVE); UROBILINOGEN,URINE NORMAL (NORMAL)
[2018-11-13 10:55] LABS: BACTERIA,URINE TRACE /HPF; RBC,URINE 0-2 /HPF
[2018-11-13] MEDS ORDERED: CEPH500T PO (11:04)
[2018-11-13] MEDS ORDERED: TRAM50TA2 PO (11:04)
[2018-11-13 11:15] VITALS: BP 154/75
== END 2018-11-13 11:15 | disposition home or self-care (01) ==
LOC: EDUNIT# 09:09 → ER 09:10
DX: S20.211A Contusion of right front wall of thorax, initial encounter (principal); S30.1XXA Contusion of abdominal wall, initial encounter; T14.8XXA Other injury of unspecified body region, initial encounter; N39.0 Urinary tract infection, site not specified; I11.0 Hypertensive heart disease with heart failure; I50.9 Heart failure, unspecified; I25.10 Atherosclerotic heart disease of native coronary artery without angina pectoris; J44.9 Chronic obstructive pulmonary disease, unspecified; K21.9 Gastro-esophageal reflux disease without esophagitis; R40.2142 Coma scale, eyes open, spontaneous, at arrival to emergency department; R40.2252 Coma scale, best verbal response, oriented, at arrival to emergency department; R40.2362 Coma scale, best motor response, obeys commands, at arrival to emergency department; Z88.2 Allergy status to sulfonamides; Z88.1 Allergy status to other antibiotic agents; Z79.82 Long term (current) use of aspirin; Z79.51 Long term (current) use of inhaled steroids; Z90.89 Acquired absence of other organs; Z95.1 Presence of aortocoronary bypass graft; Z90.710 Acquired absence of both cervix and uterus; Z82.49 Family history of ischemic heart disease and other diseases of the circulatory system; W01.198A Fall on same level from slipping, tripping and stumbling with subsequent striking against other object, initial encounter
CPT/HCPCS: 36415; 71250; 73562; 74176; 80053; 81000; 83690; 85025; 87088; 96361; 96374

== ENCOUNTER → 2018-12-05 | Outpatient (CLI) | payer MEDICARE, OTHER ==
[~2018-12-05] VITALS: Ht 154.9 cm; Wt 95.3 kg
[~2018-12-05] MED LIST changes: +CEPH500T PO; +REGADENOSON 0.4 MG/5 ML SYR (LEXISCAN) IV ONE; +TRAM50TA2 PO
[2018-12-05] MEDS: CATHETER FLUSH 10 ML SYR IV PRN ×2 (10:11→10:57)
[2018-12-05 10:54] VITALS: BP 207/95
--- NOTE | 2018-12-05 19:31 | STRESS TEST ---
DATE OF SERVICE: 12/05/2018 LEXISCAN MYOVIEW STRESS TEST REFERRING PHYSICIAN: Dr. Hayden Molina. Baseline heart rate is 63. Baseline blood pressure 207/95. Baseline EKG is sinus rhythm with no ischemic changes. In summary, the patient was injected with 9.27 mCi of technetium-99 Myoview and the resting images were obtained. Then, the patient received 0.4 mg of Lexiscan followed by 27.0 mCi of technetium-99 Myoview. Throughout the test, there were no EKG changes. The resting and stress images were reviewed and compared in the short axis, horizontal long axis, and vertical long axis views. Review of the images showed breast attenuation with reversible ischemia involving the mid to apical inferior wall, inferolateral wall and anterolateral wall. SSS is 11, SDS 11, TID value 1.02. On the gated images, the left ventricle appeared to be normal size with normal contractility. Calculated ejection fraction 63%. CONCLUSION: 1. The patient tolerated Lexiscan well. 2. Breast attenuation with reversible ischemia involving the mid to apical inferior wall, inferolateral wall and anterolateral wall. 3. Normal left ventricular size with normal contractility. Calculated ejection fraction 63%. Job ID: [id number] DocumentID: [id number] Dictated Date: 12/05/2018 16:02:13 Gaming Worker Date: 12/05/2018 19:31:03 Dictated By: CLEMENTE IBARRA MD
== END ==
LOC: CARD 08:51
PROVIDERS: ATTEND Physician Assistant
DX: I25.10 Atherosclerotic heart disease of native coronary artery without angina pectoris (principal); I65.29 Occlusion and stenosis of unspecified carotid artery; I34.0 Nonrheumatic mitral (valve) insufficiency; E78.2 Mixed hyperlipidemia
CPT/HCPCS: 78452; 93017

== ENCOUNTER → 2018-12-11 | Outpatient (CLI) | payer MEDICARE, OTHER ==
[~2018-12-11] MED LIST changes: +ACET-2267 PO; +ERGO50006 PO; +FURO40TA4 PO; -REGADENOSON 0.4 MG/5 ML SYR (LEXISCAN) IV ONE; +ROSU10TA28 PO; +TICA90TA PO
--- NOTE | 2018-12-11 15:15 | Diagnostic Imaging Report ---
INDICATION: COPD,SEASONAL ALLERGIES, RESTRICTIVE LUNG DISEASE,DYSPNEA,LUNG NODULES COMPARISON: 11/09/2018. FINDINGS: Frontal and lateral views of the chest demonstrate normal heart size and pulmonary vascularity. The lungs are clear. There are no signs of infiltrate, pleural effusions or pneumothoraces. The visualized osseous structures show no acute abnormalities. Sternotomy wires are noted. IMPRESSION: 1. No acute process. No signs of infiltrates, effusions or pneumothoraces. Dictated by: Dictated on workstation # [id number]
== END ==
LOC: RAD 14:54
PROVIDERS: ATTEND Nurse Practitioner Family
DX: J44.9 Chronic obstructive pulmonary disease, unspecified (principal); J30.2 Other seasonal allergic rhinitis; J98.4 Other disorders of lung; G47.36 Sleep related hypoventilation in conditions classified elsewhere; R91.8 Other nonspecific abnormal finding of lung field; Z98.890 Other specified postprocedural states
CPT/HCPCS: 71046

== ENCOUNTER 2018-12-12 11:58 | Day surgery (SDC) | payer MEDICARE, OTHER ==
[2018-12-12] VITALS (11 sets, daily range): BP systolic 108–148; BP diastolic 59–90
[~2018-12-12] VITALS: Ht 154.9 cm; Wt 97.5 kg
[~2018-12-12 11:58] MED LIST changes: -ACET-2267 PO; -ERGO50006 PO; -FURO40TA4 PO; +LIDOCAINE 1% INJ 20 ML 20 ML VIAL ONE; +NS IV 1000 ML 1,000 ML ONE; -ROSU10TA28 PO; -TICA90TA PO
[2018-12-12] MEDS ORDERED: HEParin (CATH LAB) 2,000 ML IV ONE (11:59)
[2018-12-12] MEDS: NS IV 1000 ML 1,000 ML IV SCH ×4 (12:11→23:18)
--- NOTE | 2018-12-12 12:26 | Diagnostic Imaging Report ---
INDICATION: Pre-heart catheterization. TIME OF EXAM: 12:15 PM Correlation is made with prior study from one day earlier. FINDINGS: Changes of median sternotomy and CABG are noted. Lungs are clear. No infiltrate or failure is detected. No effusion or pneumothorax is seen. IMPRESSION: No acute cardiopulmonary process is detected. Dictated by: Dictated on workstation # [id number]
[2018-12-12] MEDS ORDERED: ERGO50006 PO (12:33)
[2018-12-12] MEDS ORDERED: ROSU10TA28 PO (12:33)
[2018-12-12 12:34] LABS: HEMOGLOBIN 13.2 G/DL (11.5-16.0); MEAN PLATELET VOLUME 9.2 FL (7.4-10.4); WHITE BLOOD COUNT 6.2 10^3/uL (4.3-11.0)
[2018-12-12] MEDS ORDERED: FURO40TA4 PO (12:37)
[2018-12-12] MEDS ORDERED: ACET-2267 PO (12:41)
[2018-12-12 12:42] LABS: BILIRUBIN,URINE NEGATIVE (NEGATIVE); CLARITY,URINE CLEAR; COLOR,URINE YELLOW; GLUCOSE, URINE (UA) NEGATIVE (NEGATIVE); KETONES,URINE NEGATIVE (NEGATIVE); LEUKOCYTE ESTERASE ,URINE 1+ (NEGATIVE); NITRITE,URINE NEGATIVE (NEGATIVE); PH,URINE 5 (5-9); PROTEIN,URINE 1+ (NEGATIVE); UROBILINOGEN,URINE NORMAL (NORMAL)
--- NOTE | 2018-12-12 12:42 | NUR ---
SPOKE WITH PT, SHE DID NOT HAVE HER BOTTLES- BUT WE WENT THRU THE EXT MED HISTORY AND THE MED LIST THAT WAS IN HER CHART TO COMPLETE THE MED REC. PT WAS ABLE TO TELL ME HOW/WHEN SHE TAKES HER MEDICATIONS. FUROSEMIDE 40MG: PATIENT SAYS SHE ONLY TAKES IF SHE IS SWELLING OR HAS SOB. OTC MEDS: ASPIRIN 81M DAILY ACETAMINOPHEN 500M TABS Q 8 H PRN
[2018-12-12] MEDS ORDERED: MIDAZOLAM 5 MG/5 ML (VERSED) VIAL ONE (12:43)
[2018-12-12] MEDS ORDERED: fentaNYL INJECTION 100 MCG/2 ML AMP ONE ×2 (12:44→14:34)
[2018-12-12 12:50] LABS: RBC,URINE 0-2 /HPF
[2018-12-12 12:51] LABS: BACTERIA,URINE TRACE /HPF
[2018-12-12 12:53] LABS: PROTHROMBIN TIME PATIENT 13.8 SEC (12.2-14.7)
[2018-12-12 13:03] LABS: BILIRUBIN,TOTAL 0.4 MG/DL (0.1-1.0); CALCIUM 9.2 MG/DL (8.5-10.1); CREATININE SERUM 1.86 MG/DL (0.60-1.30); POTASSIUM 4.6 MMOL/L (3.6-5.0); TOTAL PROTEIN 7.4 GM/DL (6.4-8.2)
[2018-12-12] MEDS ORDERED: HEParin 1000 UNIT/ML (10ML VIAL) FOR BOLUS ONE (13:27)
[2018-12-12] MEDS ORDERED: EPTIFIBATIDE BOLUS 20 ML IV ONE (13:31)
[2018-12-12] MEDS ORDERED: NITRO DRIP 25000 MCG/D5W 250 ML IV ONE (13:34)
[2018-12-12] MEDS ORDERED: ASPIRIN 325 MG (5 GR) TABLET ONE (13:55)
[2018-12-12] MEDS ORDERED: TICAGRELOR 90 MG TABLET (BRILINTA) PO ONE (13:55)
--- NOTE | 2018-12-12 14:11 | Cardiac Cath Report ---
Cardiac Cath Report Physician (s)/Investor Relations Specialist (s) Physician CLEMENTE IBARRA MD Pre-Procedure Diagnosis Pre-Procedure Diagnosis: chest pain coronary artery disease Post-Procedure Note Procedure Start Date: Dec 12, 2018 Name of Procedure: Coronary angiogram ALBA angiogram Stent to the right coronary artery Findings/Procedure Note PROCEDURE NOTE: 73 years old lady with history of coronary artery disease CABG, had an abnormal stress test, scheduled for cardiac catheterization possible PTCA. After explaining the procedure to the patient, all pros and cons were explained, all questions were answered. The patient signed the consent and then she was placed on the cardiac catheterization laboratory. Groin was prepped SL fashion local anesthesia was used. Sheath placed in the right femoral artery, Shavon left was advanced to the left carotid system and angiogram was done then Shavon right was advanced to the right coronary artery and angiogram was done then adv anced to the internal mammary artery and angiogram was done. Patient was noted to have severe ostial right coronary artery stenosis. 6000 units of heparin and double bolus Integrilin were given then FR guide with sidehole advised the right cornea artery BMW wire was parked in the distal right coronary artery then predilatation with balloon using 3.0 x 12 balloon was positioned carefully at the ostium, multiple inflation was done then I proceeded with deployment of Phuong drug-eluting stent 3.012 mm deployed under 16 brittany to 3.25 mm with excellent results. At the beginning of the procedure the first conus branch has severe ostial stenosis, had sluggish flow after the balloon angioplasty and sluggish flow after the stent deployment At the end of the procedure the sheath was removed. Closure device was deployed FINDINGS: Hemodynamics Aorta 147/66 mean of 80 ANATOMY: Left Main has mild disease nonobstructive disease Left Anterior Descending has severe ostial stenosis, ALBA to LAD is very tortuous but patent with good flow distally Left Circumflex has mild disease nonobstructive disease Right Coronory Artery is dominant artery with severe ostial stenosis 95 percent involving the ostium of a conus branch, successful balloon plasty then deployment of Phuong 3.012 mm expanded to 3.25 mm under 16 brittany with excellent results, the conus branch has sluggish flow after and before the stent deployment ALBA angiogram done showing spasm in the ALBA tortuous artery patent attached to the LAD with good flow in the LAD CONCLUSION: 1. Severe ostial right coronary artery involving the ostium of a conus branch, complex intervention with balloon predilatation then deployment of Phuong 3.012 mm expanded to 3.25 mm under 16 brittany with excellent results, mild disease at the mid right coronary artery, severe ostial disease at the conus branch with sluggish flow, did not improve post intervention 2. Heavily calcified ostial LAD with severe stenosis and patent ALBA to LAD, tortuous ALBA. 3. Mild disease in the circumflex artery DISCUSSION AND RECOMMENDATION: patient was started on aspirin and Brilinta, continue to maximize medical therapy. Monitor renal function closely. Anesthesia Type: Conscious Sedation Estimated blood loss (mL): 25 ml Contrast Amount: 46 ml Total Radiation Dose: 671 mGy Post-Procedure Diagnosis Post-operative diagnosis: Chest pain Coronary artery disease Hypertension Hyperlipidemia CLEMENTE BIARRA MD Dec 12, 2018 14:11
--- NOTE | 2018-12-12 14:12 | Cardiac Procedure Note-CS/ASA ---
Pre-Procedure Note Pre-Op Procedure Note H&P Reviewed The H&P was reviewed, patient examined and no changes noted. Date H&P Reviewed: Dec 12, 2018 Time H&P Reviewed: 13:00 Conscious Sedation Pre-Proced Time 13:00 ASA Score 3 For ASA 3 and 4: Consider anesthesia and medical clearance. Also, for patients with a history of failed moderate sedation consider anesthesia. Airway Lungs Heart ASA score ASA 1: a normal healthy patient ASA 2: a patient with a mild systemic disease (mid diabetes, controlled hypertension, obesity x ASA 3: a patient with a severe systemic disease that limits activity (angina, COPD, prior Myocardial infarction) ASA 4: a patient with an incapacitating disease that is a constant threat to life (CHF, renal failure) ASA 5: a moribund patient not expected to survive 24 hrs. (ruptured aneurysm) ASA 6: a declared brain- patient whose organs are being harvested. For emergent operations, add the letter E after the classification Mallampati Classification Grade 3 Sedation Plan Analgesia, Amnesia, Plan communicated to team members, Discussed options with patient/fam, Discussed risks with patient/fam The patient is an appropriate candidate to undergo the planned procedure, sedation, and anesthesia. The patient immediately re-assessed prior to indication. CLEMENTE IBARRA MD Dec 12, 2018 14:12
[2018-12-12] MEDS ORDERED: NON-FORMULARY MEDICATION 1 EA EA (Acetaminophen (Tylenol Extra Strength) 1,000 MG) PO PRN (14:15)
[2018-12-12] MEDS ORDERED: PATIENT MAY USE OWN MEDS, ALL PO SCH (14:15)
[2018-12-12] MEDS ORDERED: fentaNYL INJECTION 100 MCG/2 ML AMP IVP ONE (15:00)
[2018-12-12] MEDS ORDERED: ACETAMINOPHEN 500 MG TAB (TYLENOL) PO PRN (15:15)
[2018-12-12] MEDS: TICAGRELOR 90 MG TABLET (BRILINTA) PO SCH (20:39)
[2018-12-12] MEDS ORDERED: TIOTROPIUM BROMIDE (SPIRIVA) 5'S INHALER IH SCH (21:00)
[2018-12-12] MEDS ORDERED: NON-FORMULARY MEDICATION 1 EA EA (Fluticasone/Salmeterol (Advair 100-50 Diskus) 1 EACH) IH SCH (21:00)
[2018-12-12] MEDS: RT-ADVAIR HFA 45/21 MCG PER PUFF IH SCH (21:04)
[2018-12-13] VITALS: BP 114/54
[2018-12-13 03:35] LABS: HEMOGLOBIN 11.1 G/DL (11.5-16.0); MEAN PLATELET VOLUME 9.4 FL (7.4-10.4); RED CELL DISTRIBUTION WIDTH 12.9 % (10.0-14.5); WHITE BLOOD COUNT 7.2 10^3/uL (4.3-11.0)
[2018-12-13 03:47] VITALS: BP 110/91
[2018-12-13 03:58] LABS: CALCIUM 8.4 MG/DL (8.5-10.1); CREATININE SERUM 1.51 MG/DL (0.60-1.30); POTASSIUM 4.6 MMOL/L (3.6-5.0)
[2018-12-13 07:00] VITALS: BP 124/70
[2018-12-13] MEDS ORDERED: PANTOPRAZOLE 40 MG (PROTONIX) TAB PO SCH (07:00)
[2018-12-13] MEDS: NS IV 1000 ML 1,000 ML IV SCH (07:31)
[2018-12-13] MEDS: TICAGRELOR 90 MG TABLET (BRILINTA) PO SCH (07:56)
[2018-12-13 07:57] VITALS: BP 124/70
[2018-12-13] MEDS ORDERED: TICA90TA PO (07:59)
--- NOTE | 2018-12-13 07:59 | Discharge Inst-Post CATH ---
Discharge Inst-CATH/EP Problems Reviewed?: Yes Post Cardiac Cath/EP D/C Inst Follow Up/Plan Appointment with Dr. IBARRA's office in 2-4 weeks <b>CARDIAC CATH/EP PROCEDURE DISCHARGE INSTRUCTIONS</b> ACTIVITY * Go Home directly and rest. * Limit activity of the leg (or wrist if it was used) for 7 days including aerobics, swimming, jogging, bicycling, etc. * Restrict stair-climbing for 7 days if possible, if not, climb up with your non-cath leg, then bring together on the same step. * Avoid lifting, pushing, pulling or excessive movement of the affected extremity for 7 days. * Customary sexual activity may be resumed after 2 days-use caution not to use a position that strains or causes pain to the affected extremity. * No driving for 24 hours. * NO SMOKING. * Avoid straining for bowel movements for 7 days. * Gentle walking on level ground is allowed. * Returning to work will depend on the type of procedure and the results. Your doctor will discuss this with you. CALL YOUR DOCTOR FOR ANY OF THE FOLLOWING: *If bleeding from the puncture site occurs- Apply gentle pressure to site with clean cloth and call your doctor or EMS. * If a knot or lump forms under the skin, increases in size, or causes pain. * If bruising appears to be worsening or moving further down your leg instead of disappearing. * Temperature above 101 F. CARE OF YOUR GROIN INCISION; * Bruising or purple discoloration of the skin near the puncture site is common. * You may shower only, no bathtub bathing for 5 days. Be careful to avoid slipping as your leg may feel stiff. * If a closure device was used on your femoral artery, please see the attached guide regarding care of the device and your leg. * Leave dressing on FOR 24 hours. CARE OF YOUR WRIST INCISION; * Bruising or purple discoloration of the skin near the puncture site is common. * You may shower. * DO NOT submerge wrist. * Leave dressing on FOR 24 hours. CLEMENTE IBARRA MD Dec 13, 2018 07:59
[2018-12-13] MEDS ORDERED: UMECLIDINIUM BROMIDE (INCRUSE ELLIPTA) 7'S IH SCH (08:00)
[2018-12-13] MEDS ORDERED: TIOTROPIUM BROMIDE (SPIRIVA) 5'S INHALER IH SCH (08:00)
--- NOTE | 2018-12-13 08:01 | Cardiology Progress Note ---
Subjective Date Seen by Provider: Dec 13, 2018 Time Seen by Provider: 08:00 Subjective/Events-last exam Patient is laying down in bed, feeling well. Denied any chest pain, having some bruising on her right groin but no hematoma Review of Systems General: No Chills, No Night Sweats, No Fatigue, No Malaise, No Appetite, No Other HEENT: No Head Aches, No Visual Changes, No Eye Pain, No Ear Pain, No Dysphasia, No Sinus Congestion, No Post Nasal Drip, No Sore Throat, No Other Pulmonary: No Dyspnea, No Cough, No Pleuritic Chest Pain, No Other Cardiovascular: No: Chest Pain, Palpitations, Orthopnea, Paroxysmal Noc. Dyspnea, Edema, Lt Headedness, Other Objective-Cardiology Exam Last Set of Vital Signs Vital Signs 12/13/18 07:57 Temp 97.6 Pulse 71 Resp 13 B/P (MAP) 124/70 (88) Pulse Ox 98 O2 Delivery Room Air Capillary Refill : Less Than 3 Seconds I&O Intake and Output 12/13/18 00:00 Intake Total 1000 ml Balance 1000 ml IV Total 1000 ml # Voids 1 General: Alert, Oriented X3, Cooperative HEENT: Atraumatic, PERRLA Neck: Supple, No JVD, No Thyromegaly Lungs: Clear to Auscultation, Normal Air Movement Heart: Regular Rate, Normal S1, Normal S2, No Murmurs Abdomen: Normal Bowel Sounds, Soft, No Tenderness, No Hepatosplenomegaly, No Masses Extremities: No Clubbing, No Cyanosis, No Edema, Normal Pulses, No Tenderness/Swelling Skin: No Rashes, No Breakdown, No Significant Lesion Neuro: Normal Gait, Normal Speech, Strength at 5/5 X4 Ext, Normal Tone, Sensation Intact Psych/Mental Status: Mental Status NL, Mood NL Results Lab Laboratory Tests 12/12/18 12:25 12/13/18 03:23 A/P-Cardiology Admission Diagnosis Coronary artery disease Chest pain Hypertension Hyperlipidemia Assessment/Plan Coronary artery disease, status post complex stenting to the right coronary artery has described below 1. Severe ostial right coronary artery involving the ostium of a conus branch, complex intervention with balloon predilatation then deployment of Phuong 3.012 mm expanded to 3.25 mm under 16 brittany with excellent results, mild disease at the mid right coronary artery, severe ostial disease at the conus branch with sluggish flow, did not improve post intervention 2. Heavily calcified ostial LAD with severe stenosis and patent ALBA to LAD, tortuous ALBA. 3. Mild disease in the circumflex artery Hypertension, controlled continue current medication Hyperlipidemia, continue current medications. Chest pain reporting improvement CLEMENTE IBARRA MD Dec 13, 2018 08:01
[2018-12-13] MEDS: RT-ADVAIR HFA 45/21 MCG PER PUFF IH SCH (08:04)
[2018-12-13] MEDS ORDERED: LORATADINE (CLARITIN) 10 MG TAB PO SCH (09:00)
[2018-12-13] MEDS ORDERED: ROSUVASTATIN 10 MG (CRESTOR) TABLET PO SCH (09:00)
[2018-12-13] MEDS ORDERED: ROFLUMILAST 500 MCG TAB (DALIRESP) PO SCH (09:00)
[2018-12-13] MEDS ORDERED: ASPIRIN E.C. 81 MG (ECOTRIN) TAB PO SCH (09:00)
--- NOTE | 2018-12-13 09:25 | NUR ---
[employer] Alejandrina demonstrates understanding of discharge instructions and accurately returns instructions upon questioning. Copy of Post-Discharge Instructions and Medication Discharge Instructions given to PT. [employer] Alejandrina is able to manage continuing needs after discharge. Patients belongings returned to PT. Skin dry and intact; no breakdown noted. Patient discharged from [facility] on 12/13/18 at 0925. [employer] left floor via WC, accompanied by STAFF/FAMILY.
== END 2018-12-13 09:25 | disposition home or self-care (01) ==
LOC: CATH 11:58 → ICU 14:18 → CATH 12-13 09:25
PROVIDERS: ATTEND Internal Medicine Cardiovascular Disease
DX: R07.9 Chest pain, unspecified (principal); I25.10 Atherosclerotic heart disease of native coronary artery without angina pectoris; I73.9 Peripheral vascular disease, unspecified; I12.9 Hypertensive chronic kidney disease with stage 1 through stage 4 chronic kidney disease, or unspecified chronic kidney disease; I07.1 Rheumatic tricuspid insufficiency; I34.0 Nonrheumatic mitral (valve) insufficiency; J98.4 Other disorders of lung; R06.00 Dyspnea, unspecified; N18.9 Chronic kidney disease, unspecified; E78.2 Mixed hyperlipidemia; R73.9 Hyperglycemia, unspecified; I77.1 Stricture of artery; N32.81 Overactive bladder; J30.9 Allergic rhinitis, unspecified; R06.83 Snoring; Z88.2 Allergy status to sulfonamides; Z88.8 Allergy status to other drugs, medicaments and biological substances; Z88.1 Allergy status to other antibiotic agents; Z91.041 Radiographic dye allergy status; Z79.899 Other long term (current) drug therapy; Z79.82 Long term (current) use of aspirin; Z83.3 Family history of diabetes mellitus; Z82.49 Family history of ischemic heart disease and other diseases of the circulatory system; J44.9 Chronic obstructive pulmonary disease, unspecified
CPT/HCPCS: 36415; 71045; 80048; 80053; 80061; 81000; 85027; 85347; 85610; 85730; 87081; 93005; 93455; 94640

== ENCOUNTER → 2019-02-26 | Outpatient (CLI) | payer MEDICARE, OTHER ==
[~2019-02-26] MED LIST changes: +ACET-2267 PO; +CLOP75TA28 PO; +ERGO50006 PO; +FURO40TA4 PO; -LIDOCAINE 1% INJ 20 ML 20 ML VIAL ONE; -NS IV 1000 ML 1,000 ML ONE; +ONDA4TAB11 PO; +ROSU10TA28 PO; +ROSU5TAB13 PO; +TICA90TA PO
--- NOTE | 2019-02-26 13:14 | Diagnostic Imaging Report ---
INDICATION: Routine screening. COMPARISON: 11/08/2017 and 09/24/2013. TECHNIQUE: 2D and 3D bilateral screening mammography was performed with CAD. FINDINGS: Scattered fibroglandular densities are identified bilaterally. The benign lymph node in the outer left breast is stable. Extensive vascular and benign parenchymal calcifications are again noted. No spiculated mass or malignant appearing microcalcifications are seen. The axillae are unremarkable. IMPRESSION: No mammographic features suspicious for malignancy are identified. ACR BI-RADS Category 2: Benign findings. Result letter will be mailed to the patient. Note: At least 10% of breast cancer is not imaged by mammography. Dictated by: Dictated on workstation # [id number]
== END ==
LOC: RAD 10:53
PROVIDERS: ATTEND Pediatrics
DX: Z12.31 Encounter for screening mammogram for malignant neoplasm of breast (principal)
CPT/HCPCS: 77067

== ENCOUNTER → 2019-08-23 | Outpatient (CLI) | payer MEDICARE, OTHER ==
[~2019-08-23] MED LIST changes: -METO-387 PO; +MTP25TSR PO; -TRAM50TA2 PO
--- NOTE | 2019-08-23 14:43 | Diagnostic Imaging Report ---
PROCEDURE: CT abdomen and pelvis without contrast. TECHNIQUE: Multiple contiguous axial images were obtained through the abdomen and pelvis without the use of intravenous contrast. Auto Exposure Controls were utilized during the CT exam to meet ALARA standards for radiation dose reduction. INDICATION: Chronic right-sided abdominal pain. COMPARISON: Correlation is made with prior CT from 02/11/2019. FINDINGS: The lung bases are clear. There is a moderate-sized hiatal hernia. No discrete liver mass is detected. Gallbladder is surgically absent. No biliary ductal dilatation is identified. Pancreas and spleen are unremarkable. No adrenal mass is detected. There does appear to be some atrophic changes to the left kidney. Right kidney contains a cortical low density in the upper pole approximately 14 mm in size and consistent with a cyst. No calculi are seen. There is no hydronephrosis. The aorta and iliac vessels are heavily calcified but not aneurysmal. Minimal miky appearance to the central mesentery is noted but unchanged from prior exam. Small and large bowel loops are normal caliber. There is no obstruction. No free fluid or fluid collection is identified. Bladder is decompressed. Uterus appears to be surgically absent. No definite abdominal or pelvic lymphadenopathy is identified. There are some subchondral sclerotic changes identified in the right femoral head. This is consistent with osteonecrosis. This was present on exam from February. No definite volume loss or fragmentation of the femoral head is identified. IMPRESSION: 1. Overall stable CT of the abdomen and pelvis when compared with prior study from 02/11/2019. No acute features identified. Dictated by: Dictated on workstation # [id number]
== END ==
LOC: RAD 13:26
PROVIDERS: ATTEND Surgery
DX: R10.84 Generalized abdominal pain (principal); G89.29 Other chronic pain
CPT/HCPCS: 74176

== ENCOUNTER 2019-08-30 08:45 | Outpatient (RCR) | payer MEDICARE, OTHER ==
[~2019-08-30] VITALS: Ht 155 cm; Wt 93.6 kg
[~2019-08-30 08:45] MED LIST changes: +CYAN100088 PO; +METO50TA7 PO; +PROM25TA14 PO; +[UNRECOGNIZED DRUG - CODE] PO
== END 2019-08-30 14:43 | disposition home or self-care (01) ==
LOC: PREOP 08:45
PROVIDERS: ATTEND Surgery
DX: Z01.812 Encounter for preprocedural laboratory examination (principal); Z11.59 Encounter for screening for other viral diseases; Z86.010 Personal history of colon polyps
CPT/HCPCS: 87635

== ENCOUNTER 2019-10-07 05:35 | Outpatient (RCR) | payer MEDICARE, OTHER ==
[~2019-10-07] VITALS: Ht 154.9 cm; Wt 90.7 kg
[~2019-10-07 05:35] MED LIST changes: +DOXA2TAB2 PO
[2019-10-10] MEDS ORDERED: HYDR-4226 PO (10:22)
[2019-10-10] MEDS ORDERED: DOCU-143 PO (10:22)
== END 2019-10-07 09:53 | disposition home or self-care (01) ==
LOC: PREOP 05:35
PROVIDERS: ATTEND Surgery
DX: Z01.812 Encounter for preprocedural laboratory examination (principal); K43.2 Incisional hernia without obstruction or gangrene; Z20.828 Contact with and (suspected) exposure to other viral communicable diseases
CPT/HCPCS: 87635

== ENCOUNTER 2019-10-10 07:10 | Day surgery (SDC) | payer MEDICARE, OTHER ==
[2019-10-10] VITALS (11 sets, daily range): BP systolic 108–167; BP diastolic 49–77
[~2019-10-10] VITALS: Ht 154.9 cm; Wt 90.7 kg
[2019-10-10] MEDS ORDERED: ceFAZolin 2 GM IV Premixed 50 ML IV ONE (07:30)
[2019-10-10] MEDS: LACTATED RINGERS 1,000 ML IV PRN ×2 (07:38→10:00)
[2019-10-10] MEDS ORDERED: BUP/EPI 0.5% 1:200,000 (SENSORCAINE) 30 ML VIAL ONE (07:39)
[2019-10-10 07:45] LABS: BASOPHILS % (AUTO) 1 % (0-10); EOSINOPHILS # (AUTO) 0.2 10^3/uL (0.0-0.3); EOSINOPHILS % (AUTO) 3 % (0-10); HEMATOCRIT 33 % (35-52); HEMOGLOBIN 10.4 G/DL (11.5-16.0); LYMPHOCYTES # (AUTO) 1.3 X 10^3 (1.0-4.0); LYMPHOCYTES % (AUTO) 18 % (12-44); MEAN CORPUSCULAR HEMOGLOBIN 32 PG (25-34); MEAN CORPUSCULAR HGB CONC 32 G/DL (32-36); MEAN CORPUSCULAR VOLUME 101 FL (80-99); MEAN PLATELET VOLUME 9.6 FL (7.4-10.4); MONOCYTES # (AUTO) 0.6 X 10^3 (0.0-1.0); MONOCYTES % (AUTO) 8 % (0-12); NEUTROPHILS # (AUTO) 5.2 X 10^3 (1.8-7.8); NEUTROPHILS % (AUTO) 71 % (42-75); PLATELET COUNT 175 10^3/uL (130-400); RED CELL DISTRIBUTION WIDTH 13.1 % (10.0-14.5); WHITE BLOOD COUNT 7.3 10^3/uL (4.3-11.0)
[2019-10-10] MEDS ORDERED: CATHETER FLUSH 10 ML SYR IV PRN (07:45)
[2019-10-10] MEDS ORDERED: fentaNYL INJECTION 100 MCG/2 ML AMP ONE (07:50)
[2019-10-10] MEDS ORDERED: MIDAZOLAM 2 MG/2 ML (VERSED) VIAL ONE (07:50)
[2019-10-10] MEDS ORDERED: FAMOTIDINE 20MG/2ML IV (PEPCID) ONE (07:53)
[2019-10-10] MEDS ORDERED: ONDANSETRON 4 MG/2 ML (SDV) Z0FRAN ONE (08:00)
[2019-10-10] MEDS ORDERED: proPOfol 200 MG/20 ML (DIPRIVAN) VIAL IV ONE (08:00)
[2019-10-10] MEDS ORDERED: LIDOCAINE PF 2% 5 ML (XYLOCAINE) VIAL ONE (08:00)
[2019-10-10] MEDS ORDERED: FAMOTIDINE 20MG/2ML IV (PEPCID) IV ONE (08:00)
[2019-10-10] MEDS ORDERED: DEXAMETHASONE 10 MG/ML (DECADRON) 1 ML VIAL ONE (08:01)
[2019-10-10] MEDS ORDERED: SEVOFLURANE (ULTANE) 15 ML INHAL SOLN ONE ×5 (08:02→10:11)
--- NOTE | 2019-10-10 08:12 | Progress Note-Pre Operative ---
Pre-Operative Progress Note H&P Reviewed The H&P was reviewed, patient examined and no changes noted. Date Seen by Provider: Oct 10, 2019 Time Seen by Provider: 08:12 Date H&P Reviewed: Oct 10, 2019 Time H&P Reviewed: 08:12 Pre-Operative Diagnosis: incisional hernia CORINE FREGOSO DO Oct 10, 2019 08:12
[2019-10-10] MEDS ORDERED: NEOSTIGMINE 3 MG/3 ML VIAL ONE (10:11)
[2019-10-10] MEDS ORDERED: GLYCOPYRROLATE 0.2 MG/ML (ROBINUL) 2 ML VIAL ONE (10:11)
[2019-10-10] MEDS ORDERED: ROCURONIUM 10 MG/ML 5 ML SYRINGE IV ONE (10:14)
--- NOTE | 2019-10-10 10:20 | Progress Note-Post Operative ---
Post-Operative Progess Note Surgeon (s)/Skin Toggler (s) Surgeon CORINE FREGOSO DO Skin Toggler: Dr. Anguiano to assist in retratction dissection and closure. Pre-Operative Diagnosis incisional hernia Post-Operative Diagnosis incarcerated incisional hernia Procedure & Operative Findings Date of Procedure 10/10/19 Procedure Performed/Findings PROCEDURE: Laparoscopic incarcerated incisional hernia repair with mesh. COMPLICATIONS: None. INDICATIONS: The patient is a 74, female with an incisional hernia after open cholecystectomy and previous repair, which has continued to increase in size and cause discomfort. The patient was explained the risk and benefits of the procedure and wished to proceed with the procedure. Consent was signed on the chart. DESCRIPTION OF PROCEDURE: The patient was taken into the operating suite, prepped and draped in sterile fashion. Surgical pause was performed. Local anesthetic was infiltrated in left upper quadrant. A 15 blade scalpel was used to make a small skin incision. Cautery was used to dissect down to the fascia, which was then scored and divided the muscle, went through the posterior sheath and a balloon trocar was inserted into the abdomen. The abdomen was then insufflated. Significant adhesions had to be taken down with ligasure, then hernia defect found and contents mobilized and reduced. Previous mesh was above hernia defect and scarred in lateral aspect and was a very small piece. A 5 mm trocar was placed in the right lower quadrant and a 5 mm trocar was placed in left lower quadrant. The defect was then closed using 0 Vicryl with a Wes-Rodney. Echo Ventralight mesh was then inserted in the abdomen grabbed through the stab incision. The balloon was inflated on the mesh. Circumferential tacks were placed with a SecureStrap Tacker. The balloon was then removed and inner crown was created as well. The mesh was tacked with pressure being decreased. The 12 mm fascial defect was then closed using 0 Vicryl. The abdomen was then desufflated,the trocars were removed. The skin was then closed using 4-0 Monocryl in a running subcuticular fashion. The abdomen was washed and dried and Skin Affix was placed over the incisions. The patient tolerated procedure well without any complications. She was taken to recovery room in stable condition. Anesthesia Type general Estimated Blood Loss Estimated blood loss (mL): min Specimens/Packing Specimens Removed CORINE Gonzalez DO Oct 10, 2019 10:20
[2019-10-10] MEDS ORDERED: HYDR-4226 PO (10:22)
[2019-10-10] MEDS ORDERED: DOCU-143 PO (10:22)
--- NOTE | 2019-10-10 10:23 | Discharge Inst-Simple/Standard ---
Discharge Inst-Standard Discharge Medications New, Converted or Re-Newed RX: RX on Chart Patient Instructions/Follow Up Plan of Care/Instructions/FU: 2 weeks Dinah Activity as Tolerated: No Discharge Diet: Regular Diet Other Inst to Patient Follow up Appt: Make appointment for 2 week. Instructions: No lifting greater than 10 pounds. No strenuous activity. May shower in 24 hours, no tub bath or soaking. Use incentive spirometer at home as directed. No Smoking Hold plavix 2 days. Skin/Wound Care: You have special glue over your incision that will fall off on it's own. Symptoms to Report: Appetite Changes, Extremity Discoloration, Numbness/Tingling, Swelling Inc reased, Bleeding Excessive, Eyesight Changes, Pain Increased, Urine Color Change, Constipation(Persistent), Fever over 101 degree F, Pain/Pressure in chest, Urinating Difficulty, Cough Up/Vomit Blood, Heart Beat Irreg/Pounding, Pain/Pressure in jaw, Vaginal Bleeding Increase, Cramps in feet or legs, Lightheadedness, Pain/Pressure in shoulder, Diarrhea(Persistent), Memory Changes Suddenly, Questions/Concerns, Weight gain consecutive days, Dizziness/Fainting, Nausea/Vomiting, Shortness of Breath, Weight gain over 2 pounds If questions or concerns contact your physician Or seek help at emergency department. CORINE FREGOSO DO Oct 10, 2019 10:23
[2019-10-10] MEDS ORDERED: ONDANSETRON 4 MG/2 ML (SDV) Z0FRAN IVP PRN (10:45)
[2019-10-10] MEDS ORDERED: morphine INJ 10 MG/ML 1ML (SYR OR VIAL) IVP ONE (10:45)
[2019-10-10] MEDS ORDERED: HYDROcodone/APAP 5 MG/325 MG (LORTAB) TAB PO ONE (12:15)
[2019-10-10] MEDS ORDERED: HYDROcodone/APAP 5 MG/325 MG (LORTAB) TAB ONE (12:16)
--- NOTE | 2019-10-10 14:12 | Anesthesia-General Post-Op ---
General Patient Condition Mental Status/LOC: Same as Preop Cardiovascular: Satisfactory Nausea/Vomiting: Absent Respiratory: Satisfactory Pain: Controlled Complications: Absent Post Op Complications Complications None Follow Up Care/Instructions Patient Instructions None needed. Anesthesia/Patient Condition Patient Condition Patient was seen after the procedure and she was doing well, no complaints, stable vital signs, no apparent adverse anesthesia problems. NORMA BAE DO Oct 10, 2019 14:11
== END 2019-10-10 13:00 | disposition home or self-care (01) ==
LOC: SDC 07:10
PROVIDERS: ATTEND Surgery
DX: K43.0 Incisional hernia with obstruction, without gangrene (principal); J44.9 Chronic obstructive pulmonary disease, unspecified; I25.10 Atherosclerotic heart disease of native coronary artery without angina pectoris; E78.2 Mixed hyperlipidemia; I65.29 Occlusion and stenosis of unspecified carotid artery; I08.1 Rheumatic disorders of both mitral and tricuspid valves; K21.9 Gastro-esophageal reflux disease without esophagitis; I13.0 Hypertensive heart and chronic kidney disease with heart failure and stage 1 through stage 4 chronic kidney disease, or unspecified chronic kidney disease; N18.9 Chronic kidney disease, unspecified; I50.9 Heart failure, unspecified; E66.9 Obesity, unspecified; Z68.37 Body mass index [BMI] 37.0-37.9, adult; Z90.710 Acquired absence of both cervix and uterus; Z88.2 Allergy status to sulfonamides; Z88.1 Allergy status to other antibiotic agents; Z91.041 Radiographic dye allergy status; Z88.8 Allergy status to other drugs, medicaments and biological substances; Z79.82 Long term (current) use of aspirin; Z79.02 Long term (current) use of antithrombotics/antiplatelets; Z79.899 Other long term (current) drug therapy; Z88.3 Allergy status to other anti-infective agents; Z79.891 Long term (current) use of opiate analgesic; Z95.1 Presence of aortocoronary bypass graft; Z99.81 Dependence on supplemental oxygen
CPT/HCPCS: 49655; 85025; 87081; C1781; 36415

== ENCOUNTER 2020-06-15 18:57 | Observation (INO) | payer MEDICARE, OTHER ==
[~2020-06-15] VITALS: Ht 61 cm; Wt 90.0 kg
[~2020-06-15 18:57] MED LIST changes: +DOCU-143 PO; +HYDR-4226 PO; -PANT40TA3 PO; +PANT40TA52 PO
[2020-06-15] MEDS: OXYMETAZOLINE (AFRIN) 0.05% NA 30 ML BTL SCH (19:26)
[2020-06-15] MEDS ORDERED: TRANEXAMIC ACID 100 MG/ML 10 ML INJECTION ONE (19:30)
--- NOTE | 2020-06-15 19:43 | ED EENT ---
History of Present Illness General Chief Complaint: Nasal Problems Stated Complaint: NOSE BLEED Nursing Triage Note: Pt here with nosebleed since 1400 this afternoon. Pt does take blood thinners. Reports this has never happened before. Source: patient History of Present Illness Date Seen by Provider: Jun 15, 2020 Time Seen by Provider: 19:11 Initial Comments PT ARRIVES VIA POV FROM HOME C/O NOSEBLEED FROM LEFT NARE SINCE AROUND SINCE AROUND 1400 TODAY ( NOW HAVING "OVERFLOW" BLEEDING FROM RIGHT NARE WELL, BUT ONLY MILD BLEEDING) BEGAN WHILE SITTING DOWN NO RECENT TRAUMA, DENIES RUBBING, BLOWING OR TOUCHING/PICKING AT NOSE NO RECENT URI SYMPTOMS DOES WEAR HOME O2 FOR COPD--STATES SHE WEARS IT "SOMETIMES" AND STATES IT HAS BEEN A FEW WEEKS SINCE SHE HAS USED IT PT IS ON XARELTO NO PRIOR HISTORY OF NOSEBLEEDS OR NASAL PROBLEMS DOES HAVE CHRONIC ANEMIA AND TAKES IRON PILLS STATES HER BLOOD PRESSURE HAS BEEN UP LATELY--150'S/90'S AND HAS SEEN A MOTOR VEHICLE ASSEMBLER ABOUT IT. PCP: DR. TATE [place] [employer] LINE UP PERSON: DR. TALAMANTES AT [facility] Allergies and Home Medications Allergies Coded Allergies: Sulfa (Sulfonamide Antibiotics) (Verified Allergy, Intermediate, HIVES, 09/21/12) Iodine and Iodide Containing Produc (Verified Allergy, Unknown, 12/12/18) STATES NO REACTION, KIDNEY DOCTOR WANTS HER TO AVOID IF POSSIBLE DUE TO POOR KIDNEY FUNCTION sulfamethoxazole (Verified Allergy, Unknown, 02/11/19) trimethoprim (Verified Allergy, Unknown, 02/11/19) yellow dye (Verified Allergy, Unknown, 02/11/19) Home Medications Acetaminophen 500 Mg Tablet, 1,000 MG PO Q6H PRN for PAIN-MILD, (Reported) Cyanocobalamin (Vitamin B-12) 1,000 Mcg Tablet, 1,000 MCG PO DAILY, (Reported) Docusate Sodium 100 Mg Capsule, 200 MG PO DAILY, (Reported) take 2 (100mg) tabs Docusate Sodium 100 Mg Capsule, 100 MG PO BID Prescribed by: CORINE FREGOSO on 10/10/19 1022 Doxazosin Mesylate 2 Mg Tablet, 2 MG PO BID, (Reported) Ergocalciferol (Vitamin D2) 1,250 Mcg Capsule, 1,250 MCG PO Tu, (Reported) Fluticasone/Salmeterol 1 Each Blst.w.dev, 1 PUFF IH BID, (Reported) Hydrocodone/Acetaminophen 1 Each Tablet, 1 TAB PO Q4-6HR Prescribed by: CORINE FREGOSO on 10/10/19 1022 Loratadine 10 Mg Tablet, 10 MG PO DAILY, (Reported) Metoprolol Succinate 50 Mg Tab.er.24h, 50 MG PO DAILY, (Reported) Promethazine HCl 25 Mg Tablet, 25 MG PO Q6H PRN for NAUSEA/VOMITING, (Reported) Rabeprazole Sodium 5 Mg Cap.drWisamspr, 5 MG PO DAILY, (Reported) Roflumilast 500 Mcg Tablet, 500 MCG PO DAILY, (Reported) Rosuvastatin Calcium 5 Mg Tablet, 5 MG PO DAILY, (Reported) Tiotropium [place] 1 Inh Aerp, 1 CAP IH HS, (Reported) Patient Home Medication List Home Medication List Reviewed: Yes Review of Systems Review of Systems Constitutional: No dizziness Eyes: No Symptoms Reported Ears: No Symptoms Reported Nose: see HPI, epistaxis Mouth: no symptoms reported Throat: no symptoms reported Respiratory: no symptoms reported Cardiovascular: no symptoms reported Gastrointestinal: no symptoms reported Neurological: No Symptoms Reported Hematologic/Lymphatic: See HPI Past Fptufzd-Mnjlsd-Mthsmx Hx Past Med/Social Hx: Reviewed and Corrections made Patient Social History Alcohol Use: Denies Use Smoking Status: Current Everyday Smoker Type Used: Cigarettes 2nd Hand Smoke Exposure: Yes Recent Infectious Disease Expo: No Recent Hopitalizations: No Immunizations Up To Date Tetanus Booster (TDap): Unknown PED Vaccines UTD: No Date of Pneumonia Vaccine: Jul 09, 2018 Date of Influenza Vaccine: Jul 09, 2018 Seasonal Allergies Seasonal Allergies: Yes Past Medical History Surgeries: Yes (CEA;CATARACTS;LEFT FOOT HEEL SPUR;KYPHOPLASTY;BILAT KNEE SCOPE;R HIP REPL, ) Adenoidectomy, Breast, Cardiac, CABG, Coronary Stent, Eye Surgery, Gallbladder, Hysterectomy, Joint Replacement, Orthopedic, Tonsillectomy Respiratory: Yes (COPD,wears oxygen) COPD Currently Using CPAP: No Currently Using BIPAP: No Cardiac: Yes (CHF; CABG; STENT 2018) Coronary Artery Disease, High Cholesterol, Hypertension Neurological: No Reproductive Disorders: No Female Reproductive Disorders: Denies STAFF RN History: Hysterectomy, Menopausal Sexually Transmitted Disease: No HIV/AIDS: No Genitourinary: Yes (R kidney non-functional) Renal Failure Gastrointestinal: Yes (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) Gastroesophageal Reflux, Polyps, Hiatal Hernia, Gall Bladder Disease Musculoskeletal: Yes (ORTHO SURGERIES;RIGHT HIP REPLACEMENT 2019) Back Injury, Chronic Back Pain Endocrine: No HEENT: Yes (cataracts removed) Cataract Loss of Vision: Denies Hearing Impairment: Denies Cancer: No Psychosocial: No Integumentary: No Blood Disorders: No Adverse Reaction/Blood Tranf: No Family Medical History Family history: Cardiovascular disease 19 MOTHER G8 BROTHER Family history: Diabetes mellitus 19 MOTHER Family history: Gastrointestinal disease 19 FATHER Family history: Hypertension 19 MOTHER G8 BROTHER Myocardial infarction 19 MOTHER Physical Exam Vital Signs Vital Signs - First Documented 06/15/20 06/16/20 19:13 01:25 Temp 36.4 Pulse 96 Resp 20 B/P (MAP) 189/99 (129) Pulse Ox 98 O2 Delivery Room Air FiO2 100 Height, Weight, BMI Height: 5'1.00" Weight: 215lbs. 0.4oz. 97.440862lw; 241.00 BMI Method:Stated General Appearance: WD/WN, no apparent distress, other (ANXIOUS) Nose: other (CONTINUOUS OOZING OF BLOOD FROM LEFT NARE--SEEMS TO BE FROM ANTERIOR NASAL SEPTUM, WITH SOME "OVERFLOW" BLEEDING FROM RIGHT NARE. ) Mouth/Throat: other (CONSTANT SLOW BLEEDING FROM LEFT NARE--APPEARS TO BE ORIGINATING FROM SEPTUM, BUT UNABLE TO DETERMINE EXACT SITE. PT SMALL AMOUNT OF BLOOD IN POSTERIOR PHARYNX) Neck: normal inspection Cardiovascular: regular rate, rhythm Respiratory: normal breath sounds Neurologic/Psychiatric: no motor/sensory deficits, alert, oriented x 3 Skin: normal color, warm/dry Procedures/Interventions Nasal : Nasal Location: Left Clots Cleared from Nasal: Patient Blowing Nasal Drops Instilled: Afrin Inspection with: Otoscope Nasal Procedures: Rapid Rhino Progress RAPID RHINO 5.5 CM SATURATED WITH TXA PLACED IN LEFT NARE. PT HAD CONTINUED BLEEDING--ANTERIOR AND POSTERIORLY, SO RAPID RHINO WAS REMOVED AND PROCEDURE REPEATED WITH NEW RAPID RHINO 5.5 CM, ADDITIONAL AFRIN AND TXA ALSO INSTILLED. PT CONTINUES TO HAVE BLEEDING BOTH ANTERIOR AND POSTERIORLY, WITH MORE BLOOD IN POSTERIOR PHARYNX AT THIS TIME. Progress/Results/Core Measures Results/Orders Lab Results Laboratory Tests Test 06/15/20 19:20 06/16/20 00:05 Range/Units White Blood Count 7.6 4.3-11.0 10^3/uL Red Blood Count 3.18 L 3.80-5.11 10^6/uL Hemoglobin 10.5 L 11.5-16.0 g/dL Hematocrit 33 L 35-52 % Mean Corpuscular Volume 104 H 80-99 fL Mean Corpuscular Hemoglobin 33 25-34 pg Mean Corpuscular Hemoglobin Concent 32 32-36 g/dL Red Cell Distribution Width 12.1 10.0-14.5 % Platelet Count 216 130-400 10^3/uL Mean Platelet Volume 9.1 9.0-12.2 fL Prothrombin Time 23.2 H 12.2-14.7 SEC INR Comment 2.0 H 0.8-1.4 Activated Partial Thromboplast Time 40 H 24-35 SEC My Orders Orders - DRAKE ANTUNEZ DO Ed Iv/Invasive Line Start (06/15/20 19:16) Monitor-Rhythm Ecg Trace Only (06/15/20 19:16) Cbc No Diff (06/15/20 19:16) Protime With Inr (06/15/20 19:16) Partial Thromboplastin Time (06/15/20 19:16) Oxymetazoline 0.05% Nasal [place] (Afrin 0. (06/15/20 21:00) Tranexamic Acid Injection (Cyklokapron I (06/15/20 19:30) Diltiazem Injection (Cardizem Injection) (06/15/20 19:30) Diltiazem Injection (Cardizem Injection) (06/15/20 22:45) Medications Given in ED Vital Signs/I&O 06/15/20 06/16/20 06/16/20 06/16/20 23:32 00:33 00:33 00:40 Temp 36.1 Pulse 82 Resp 18 18 22 B/P (MAP) 135/90 178/88 (118) 183/87 (119) Pulse Ox 98 92 95 O2 Delivery Face Tent Face Tent Face Tent O2 Flow Rate 10 10 10 06/16/20 06/16/20 06/16/20 06/16/20 00:45 00:50 01:00 01:00 Resp 23 22 B/P (MAP) 175/92 (119) 174/89 (117) Pulse Ox 100 100 O2 Delivery Face Tent Face Tent Face Tent Face Tent O2 Flow Rate 10 10 10 10 06/16/20 06/16/20 06/16/20 06/16/20 01:10 01:10 01:20 01:25 Temp 36.1 36.1 Resp 24 22 22 B/P (MAP) 185/89 (121) 170/90 (116) 170/90 (116) Pulse Ox 100 100 100 O2 Delivery Face Tent Face Tent Face Tent Face Tent O2 Flow Rate 10 10 10 10 06/16/20 06/16/20 06/16/20 06/16/20 01:25 01:25 01:25 01:50 Temp 36.1 Pulse 79 Resp 18 B/P (MAP) 207/84 (125) Pulse Ox 100 98 O2 Delivery Face Tent Face Tent Face Tent Face Tent O2 Flow Rate 5.00 10 5.00 5.00 100.00 FiO2 100 40 06/16/20 06/16/20 06/16/20 03:59 07:36 08:28 Temp 35.9 36.5 Pulse 72 85 Resp 20 20 B/P (MAP) 167/74 (105) 176/74 (108) Pulse Ox 97 98 97 O2 Delivery Face Tent Face Tent Room Air O2 Flow Rate 5.00 5.00 40.00 FiO2 40 Blood Pressure Mean: 129 Progress Progress Note : Progress Note GIVEN CARDIZEM X 2 DOSES FOR ELEVATED BLOOD PRESSURE WITH BP DOWN NO DETERIORATION IN PT'S CONDITION DURING ER STAY Departure Communication (Admissions) 2113--CALLED DR. FRIEDMAN'S FERNANDO BRADY. SHE WILL BE IN TO SEE PT 2149--CAITLYN KING HERE TO SEE PT. 2234--CAITLYN HAS CAUTERIZED AND REPACKED THE NOSE AND IT IS STILL BLEEDING. SHE HAS DISCUSSED WITH DR. FRIEDMAN. HE WILL BE TAKING PT TO OR. 2319--DR. FRIEDMAN HERE TO SEE PT, PRIOR TO GOING TO OR. Impression Primary Impression: Left-sided epistaxis Additional Impressions: XARELTO THERAPY HTN (hypertension) Chronic anemia Disposition: ADMITTED INPATIENT (TO SURGERY) Condition: Stable Admissions Decision to Admit Reason: Admit from ER (General) (TO OR) Decision to Admit/Date: Jun 15, 2020 Time/Decision to Admit Time: 22:35 Departure-Patient Inst. Referrals: GEORGIANA TATE MD (PCP/Family) Primary Care Physician DRAKE ANTUNEZ DO Jun 15, 2020 19:43
[2020-06-15 20:03] LABS: HEMOGLOBIN 10.5 g/dL (11.5-16.0); MEAN PLATELET VOLUME 9.1 fL (9.0-12.2); WHITE BLOOD COUNT 7.6 10^3/uL (4.3-11.0)
[2020-06-15 20:08] LABS: PROTHROMBIN TIME PATIENT 23.2 SEC (12.2-14.7)
[2020-06-15] MEDS ORDERED: LIDOCAINE/EPI 1%-1:100,000 (XYLOCAINE) 50 ML ONE (22:56)
[2020-06-15] MEDS ORDERED: BSS 15 ML ONE (22:56)
[2020-06-15] MEDS ORDERED: MUPIROCIN 2% OINT 22 GM (BACTROBAN) TUBE ONE (22:56)
[2020-06-15] MEDS ORDERED: PHENYLEPHRINE 0.5% NASAL SPR (NEO-SYNEPHRINE) REG ONE (22:56)
[2020-06-15] MEDS ORDERED: COCAINE HCL 4% 2 ML SYR ONE (22:56)
[2020-06-15] MEDS ORDERED: MIDAZOLAM 2 MG/2 ML (VERSED) VIAL ONE (23:13)
--- NOTE | 2020-06-15 23:38 | Progress Note-Pre Operative ---
Pre-Operative Progress Note H&P Reviewed The H&P was reviewed, patient examined and no changes noted. Date Seen by Provider: Jun 15, 2020 Time Seen by Provider: 11:30 Date H&P Reviewed: Jun 15, 2020 Time H&P Reviewed: 11:30 Pre-Operative Diagnosis: Left Epistaxis BON FRIEDMAN MD Jun 15, 2020 23:38
--- NOTE | 2020-06-15 23:42 | Progress Note ---
Standard Progress Note Progress Notes/Assess & Plan Date Seen by a Provider: Jun 15, 2020 Time Seen by a Provider: 11:15 Progress/Assessment & Plan ENT-Millie cc: Left Epistaxis HPI: Patient presented to ER because of epistaxis. Had acute onset of epistaxis at 2pm and presented to the ER at 6pm. Packed times three with continued bleeding. Patient is on xarelto Lab: HGB-10.5 Exam: Nose-bleeding form left side of nose posterior greater than anterior IMP: Left Posterior Epistaxis Rec: 1. Unable to stop epistaxs in ER. Will take to OR when crew available for EUA and endoscopic control of epistaxis. Will observe post-operatively overnight Risks and benefits reviewed. Final Diagnosis Left Posterior Epistaxis BON FRIEDMAN MD Jun 15, 2020 23:42
--- NOTE | 2020-06-15 23:42 | Progress Note-Post Operative ---
Post-Operative Progess Note Surgeon (s)/Application Development Director (s) Surgeon BON FRIEDMAN MD Application Development Director n/a Pre-Operative Diagnosis Left Epistaxis Post-Operative Diagnosis same Post-Op Procedure Note Date of Procedure: Jun 15, 2020 Name of Procedure Performed: Endoscopic Repair of Left Posterior Epistaxis Description & Findings Description and Findings: n/a Anesthesia Type get Estimated Blood Loss minimal Packing none. Specimen(s) collected/removed none BON FRIEDMAN MD Jun 15, 2020 23:42
[2020-06-15] MEDS ORDERED: fentaNYL INJECTION 100 MCG/2 ML AMP IVP ONE (23:45)
[2020-06-15] MEDS ORDERED: MEPERIDINE (DEMEROL) INJ 50 MG/ML IVP ONE (23:45)
[2020-06-15] MEDS ORDERED: PHENYLEPHRINE 0.5% NASAL SPR (NEO-SYNEPHRINE) REG PRN (23:45)
[2020-06-15] MEDS ORDERED: LACTATED RINGERS 1,000 ML IV PRN (23:45)
[2020-06-15] MEDS ORDERED: morphine INJ 10 MG/ML 1ML (SYR OR VIAL) IVP ONE (23:45)
[2020-06-15] MEDS ORDERED: NS IV 1000 ML 1,000 ML IV SCH (23:45)
[2020-06-15] MEDS ORDERED: ceFAZolin INJECTION 1,000 MG ONE (23:45)
[2020-06-15] MEDS ORDERED: HYDROcodone/APAP 5 MG/325 MG (LORTAB) TAB PO PRN (23:45)
[2020-06-15] MEDS ORDERED: ACETAMINOPHEN 500 MG TAB (TYLENOL) PO PRN (23:45)
[2020-06-15] MEDS ORDERED: fentaNYL INJECTION 100 MCG/2 ML AMP ONE (23:46)
[2020-06-15] MEDS ORDERED: proPOfol 200 MG/20 ML (DIPRIVAN) VIAL IV ONE (23:50)
[2020-06-15] MEDS ORDERED: ONDANSETRON 4 MG/2 ML (SDV) Z0FRAN ONE (23:50)
[2020-06-15] MEDS ORDERED: SEVOFLURANE (ULTANE) 15 ML INHAL SOLN ONE (23:50)
[2020-06-15] MEDS ORDERED: SUCCINYLCHOLINE INJ 100 MG/5 ML SYR/VIAL ONE (23:50)
[2020-06-15] MEDS ORDERED: LIDOCAINE PF 2% 5 ML (XYLOCAINE) VIAL ONE (23:50)
[2020-06-16] VITALS (10 sets, daily range): BP systolic 167–207; BP diastolic 74–92
[2020-06-16] MEDS ORDERED: ONDANSETRON 4 MG/2 ML (SDV) Z0FRAN ONE ×2 (00:04→00:46)
[2020-06-16] MEDS ORDERED: morphine INJ 10 MG/ML 1ML (SYR OR VIAL) ONE (00:04)
[2020-06-16] MEDS ORDERED: ceFAZolin INJECTION 1,000 MG VIAL IV ONE (00:15)
[2020-06-16] MEDS ORDERED: SEVOFLURANE (ULTANE) 15 ML INHAL SOLN ONE ×3 (00:35)
[2020-06-16] MEDS: ONDANSETRON 4 MG/2 ML (SDV) Z0FRAN IVP PRN ×2 (00:45→00:51)
[2020-06-16] MEDS ORDERED: HYDROcodone/APAP 5 MG/325 MG (LORTAB) TAB ONE (01:36)
--- NOTE | 2020-06-16 07:47 | Anesthesia-General Post-Op ---
General Patient Condition Mental Status/LOC: Same as Preop Cardiovascular: Satisfactory Nausea/Vomiting: Absent Respiratory: Satisfactory Pain: Controlled Complications: Absent Post Op Complications Complications None Follow Up Care/Instructions Patient Instructions None needed. Anesthesia/Patient Condition Patient Condition Patient is doing well, no complaints, stable vital signs, no apparent adverse anesthesia problems. No complications reported per nursing. JAMARI RIVERA CRNA Jun 16, 2020 07:47
[2020-06-16] MEDS: OXYMETAZOLINE (AFRIN) 0.05% NA 30 ML BTL SCH (09:07)
== END 2020-06-17 09:00 | disposition home or self-care (01) ==
LOC: EDUNIT# 18:57 → ER 18:59 → SDC 22:43 → 4TH 06-16 01:53
PROVIDERS: ADMIT Otolaryngology Otolaryngology/Facial Plastic Surgery; ATTEND Otolaryngology Otolaryngology/Facial Plastic Surgery
DX: R04.0 Epistaxis (principal); J44.9 Chronic obstructive pulmonary disease, unspecified; E78.00 Pure hypercholesterolemia, unspecified; K21.9 Gastro-esophageal reflux disease without esophagitis; N18.9 Chronic kidney disease, unspecified; I12.9 Hypertensive chronic kidney disease with stage 1 through stage 4 chronic kidney disease, or unspecified chronic kidney disease; Z79.899 Other long term (current) drug therapy; F17.210 Nicotine dependence, cigarettes, uncomplicated; Z88.2 Allergy status to sulfonamides; Z91.041 Radiographic dye allergy status; Z91.010 Allergy to peanuts; Z88.1 Allergy status to other antibiotic agents; Z90.710 Acquired absence of both cervix and uterus; Z20.822 Contact with and (suspected) exposure to COVID-19
CPT/HCPCS: 31238; 85027; 85610; 85730; 93041; 94760; 96374; 96376; 99285; U0002; 36415; 87635

== ENCOUNTER 2021-11-26 13:08 | Outpatient (RCR) | payer MEDICARE, OTHER ==
[2021-11-17] MEDS: IRON SUCROSE 200 MG/10 ML (VENOFER) VIAL IV SCH (13:33)
[2021-11-17 13:40] VITALS: BP 168/65
[2021-11-19] MEDS: IRON SUCROSE 200 MG/10 ML (VENOFER) VIAL IV SCH (13:30)
[2021-11-19 14:00] VITALS: BP 149/65
[2021-11-22 13:10] VITALS: BP 175/75
[2021-11-22] MEDS: IRON SUCROSE 200 MG/10 ML (VENOFER) VIAL IV SCH (14:05)
[2021-11-24 13:30] VITALS: BP 149/73
[2021-11-24] MEDS: IRON SUCROSE 200 MG/10 ML (VENOFER) VIAL IV SCH (13:52)
[~2021-11-26] VITALS: Ht 154.9 cm; Wt 93.6 kg
[~2021-11-26 13:08] MED LIST changes: +ERGO1250 PO; +SCOP1PAT10 TD; -SCOP1PAT11 TD
[2021-11-26] MEDS ORDERED: IRON SUCROSE 200 MG/10 ML (VENOFER) VIAL IV NR (13:30)
[2021-11-26 13:39] VITALS: BP 141/74
== END 2021-12-08 | disposition home or self-care (01) ==
LOC: SDC 13:08
PROVIDERS: ATTEND Internal Medicine Nephrology
DX: Z01.89 Encounter for other specified special examinations (principal)
CPT/HCPCS: 96365

== ENCOUNTER 2022-01-20 08:18 | Outpatient (CLI) | payer MEDICARE, OTHER ==
[~2022-01-20] VITALS: Ht 154.9 cm; Wt 93.4 kg
[2022-01-20] MEDS ORDERED: CHOL10004 PO (10:31)
[2022-01-20] MEDS ORDERED: CLOP75TA28 PO (10:31)
[2022-01-20] MEDS ORDERED: ALLO100T PO (10:31)
[2022-01-20] MEDS ORDERED: AMLO-250 PO (10:31)
[2022-01-20] MEDS ORDERED: RIVA10TA PO (10:31)
[2022-01-20] MEDS ORDERED: TORS100T4 PO (10:31)
[2022-01-20] MEDS ORDERED: CYCL5TAB PO (10:31)
[2022-01-20] MEDS ORDERED: FLUT15.845 NS (10:31)
[2022-01-20] MEDS ORDERED: GABA-486 PO (10:31)
[2022-01-20] MEDS ORDERED: ASPI-1238 PO (10:31)
== END 2022-01-20 10:34 | disposition home or self-care (01) ==
LOC: PREOP 08:18
PROVIDERS: ATTEND Surgery
DX: Z01.818 Encounter for other preprocedural examination (principal)

== ENCOUNTER 2022-02-01 12:37 | Day surgery (SDC) | payer MEDICARE, OTHER ==
[~2022-02-01] VITALS: Ht 154.9 cm; Wt 93.4 kg
[~2022-02-01 12:37] MED LIST changes: +ALLO100T PO; +AMLO-250 PO; +ASPI-1238 PO; +CHOL10004 PO; +FLUT15.845 NS; +GABA-486 PO; +RIVA10TA PO; +TORS100T4 PO
[2022-02-01] MEDS ORDERED: LACTATED RINGERS 1,000 ML IV STA (12:43)
[2022-02-01] MEDS ORDERED: HURRICAINE EXT TUBE (BENZOCAINE) XX PRN (12:45)
[2022-02-01] MEDS ORDERED: NS IV 1000 ML 1,000 ML IV ONE (13:00)
[2022-02-01 13:37] VITALS: BP 152/75
[2022-02-01] MEDS ORDERED: MIDAZOLAM 2 MG/2 ML (VERSED) VIAL ONE (14:43)
[2022-02-01] MEDS ORDERED: PROPOFOL INJECTION 50 ML IV ONE (14:43)
--- NOTE | 2022-02-01 14:54 | Progress Note-Pre Operative ---
Pre-Operative Progress Note Date of Available H&P: Jan 19, 2022 Date H&P Reviewed: Feb 01, 2022 Time H&P Reviewed: 14:35 History & Physical: H&P Reviewed, Patient Examed Pre-Operative Diagnosis: GERD, Iron deficiency anemia CORINE FREGOSO DO Feb 01, 2022 14:54
[2022-02-01 15:30] VITALS: BP 147/62
--- NOTE | 2022-02-01 15:32 | Progress Note-Post Operative ---
Post-Operative Progess Note Surgeon (s)/Mental Health Clinician (s) Surgeon CORINE FREGOSO DO Mental Health Clinician: NA Pre-Operative Diagnosis GERD, Iron deficiency anemia Post-Operative Diagnosis Hiatal hernia, Colon polyps Procedure & Operative Findings Date of Procedure 02/01/22 Procedure Performed/Findings EGD with biopsies of antrum and GE junction Colonoscopy with snare polypectomy x2 Anesthesia Type per switchboard wirer Estimated Blood Loss Estimated blood loss (mL): None Specimens/Packing Specimens Removed EGD with biopsies Colonoscopy with snare polypectomy x2 CORINE FREGOSO DO Feb 01, 2022 15:32
--- NOTE | 2022-02-01 15:33 | Discharge Inst-Simple/Standard ---
Discharge Inst-Standard Reconcile Patient Problems Problems Reviewed?: Yes Patient Instructions/Follow Up Plan of Care/Instructions/FU: F/U with Dr. Nix in 2 weeks Activity as Tolerated: Yes Discharge Diet: Regular Diet CORINE NIX DO Feb 01, 2022 15:33
[2022-02-01 15:35] VITALS: BP_SYST 142; BP_SYST 148; BP_DIAS 65; BP_DIAS 69
[2022-02-01 16:00] VITALS: BP 178/78
[2022-02-01 16:10] VITALS: BP 178/78
--- NOTE | 2022-02-01 17:48 | Anesthesia-General Post-Op ---
MAC Patient Condition Mental Status/LOC: Same as Preop Cardiovascular: Satisfactory Nausea/Vomiting: Absent Respiratory: Satisfactory Pain: Controlled Complications: Absent Post Op Complications Complications None Follow Up Care/Instructions Patient Instructions None needed. Anesthesiology Discharge Order Discharge Order Patient is doing well, no complaints, stable vital signs, no apparent adverse anesthesia problems. No complications reported per nursing. KARAN HOUSE CRNA Feb 01, 2022 17:48
--- NOTE | 2022-02-01 23:57 | OPERATIVE REPORT ---
DATE OF SERVICE: 02/01/2022 PREOPERATIVE DIAGNOSES: Gastroesophageal reflux disease, iron deficiency anemia. POSTOPERATIVE DIAGNOSES: Hiatal hernia, colon polyps. PROCEDURES: EGD with biopsies of antrum and GE junction, colonoscopy with snare polypectomy x2. SURGEON: Corine Nix DO ANESTHESIA: Per ROTOR COIL TAPER. ESTIMATED BLOOD LOSS: None. COMPLICATIONS: None. INDICATIONS: The patient is a 77-year-old female with GERD symptoms and iron deficiency anemia. She understands risks and benefits of procedure and wishes to proceed. Consent was signed in the chart. DESCRIPTION OF PROCEDURE: The patient was taken to the endoscopy suite, placed in left lateral recumbent position. Timeout was performed. Scope was inserted in mouth, down the esophagus, stomach and into the duodenum without difficulty. No polyps, masses or ulcerations within the duodenum. Scope was slowly retracted back into stomach where it was further insufflated. No polyps, masses or ulcerations within the stomach. Biopsy of the antrum was obtained. Scope was retroflexed, noting a moderate-sized hiatal hernia, no other pathology noted. Scope was returned to its normal position, slowly withdrawn to distal esophagus. Biopsy of GE junction was obtained. No polyps, masses or ulcerations. Scope was slowly retracted back until completely removed. Digital rectal exam was performed. No palpable polyps, masses or ulcerations. Scope was inserted in the rectum and advanced all the way to cecum with minimal difficulty. Prep was adequate. Scope was slowly retracted back. No polyps, masses or ulcerations in the cecum. In the ascending colon, a larger polyp was present, which snare polypectomy was performed. This had to be retracted back all the way, which was obtained. Scope was reinserted in the rectum and advanced all the way to the cecum again and then slowly retracted back. No polyps, masses or ulcerations within the remainder of the ascending, transverse and descending colon. In the sigmoid colon, another small polyp was present, which snare polypectomy was performed. Scope was then continuously retracted back until in the rectum, it was also retroflexed noting no other pathology. Scope was returned to its normal position, slowly withdrawn until completely removed. The patient tolerated procedure well without any complications. She was taken to recovery room in stable condition. RECOMMENDATIONS: The patient will follow up in office in two weeks to discuss pathology results. We would likely just repeat colonoscopy on as needed basis due to age. We will await biopsy results for further recommendations. Job ID: [id number] DocumentID: [id number] Dictated Date: 02/01/2022 15:34:35 Supervisor [employer] Date: 02/01/2022 23:56:36 Dictated By: CORINE NIX DO
== END 2022-02-01 16:10 | disposition home or self-care (01) ==
LOC: ENDO 12:37
PROVIDERS: ATTEND Surgery
DX: D12.2 Benign neoplasm of ascending colon (principal); D12.5 Benign neoplasm of sigmoid colon; D50.9 Iron deficiency anemia, unspecified; K21.9 Gastro-esophageal reflux disease without esophagitis; E66.9 Obesity, unspecified; Z68.38 Body mass index [BMI] 38.0-38.9, adult; K44.9 Diaphragmatic hernia without obstruction or gangrene; Z28.310 Unvaccinated for COVID-19; Z95.1 Presence of aortocoronary bypass graft; Z79.01 Long term (current) use of anticoagulants; Z95.5 Presence of coronary angioplasty implant and graft

== ENCOUNTER 2022-10-15 14:21 | Emergency (ER) | payer MEDICARE, OTHER ==
[~2022-10-15] VITALS: Ht 154 cm; Wt 95.2 kg
[2022-10-15] MEDS ORDERED: TETANUS,DIPTH,PERTUSS P/F (BOOSTRIX) 0.5 ML VIAL IM ONE (15:30)
[2022-10-15] MEDS ORDERED: NS IV 500 ML 500 ML IV ONE (15:30)
[2022-10-15 15:42] LABS: BASOPHILS % (AUTO) 0 % (0-10); EOSINOPHILS # (AUTO) 0.2 10^3/uL (0.0-0.3); EOSINOPHILS % (AUTO) 2 % (0-10); HEMATOCRIT 31 % (35-52); HEMOGLOBIN 9.8 g/dL (11.5-16.0); LYMPHOCYTES # (AUTO) 1.4 X 10^3 (1.0-4.0); LYMPHOCYTES % (AUTO) 18 % (12-44); MEAN CORPUSCULAR HEMOGLOBIN 34 pg (25-34); MEAN CORPUSCULAR HGB CONC 32 g/dL (32-36); MEAN CORPUSCULAR VOLUME 106 fL (80-99); MEAN PLATELET VOLUME 9.7 fL (9.0-12.2); MONOCYTES # (AUTO) 0.6 X 10^3 (0.0-1.0); MONOCYTES % (AUTO) 8 % (0-12); NEUTROPHILS # (AUTO) 5.8 X 10^3 (1.8-7.8); NEUTROPHILS % (AUTO) 72 % (42-75); PLATELET COUNT 213 10^3/uL (130-400); WHITE BLOOD COUNT 8.1 10^3/uL (4.3-11.0)
[2022-10-15 15:54] LABS: ALBUMIN 3.4 GM/DL (3.2-4.5); POTASSIUM 5.2 MMOL/L (3.6-5.0)
[2022-10-15 15:55] LABS: CALCIUM 8.9 MG/DL (8.5-10.1)
[2022-10-15 15:57] LABS: TOTAL PROTEIN 7.3 GM/DL (6.4-8.2)
[2022-10-15 15:58] LABS: BILIRUBIN,TOTAL 0.4 MG/DL (0.1-1.0)
[2022-10-15 16:00] LABS: CREATININE SERUM 3.33 MG/DL (0.60-1.30)
--- NOTE | 2022-10-15 16:01 | Diagnostic Imaging Report ---
Indication: Pain and swelling to the right 4th finger. Time of Exam: 3:41 PM 3 views of the right hand demonstrate diffuse soft tissue swelling of the 4th finger. The phalanges appear to be intact. No fractures are seen. No definite radiopaque soft tissue foreign body is identified. Metacarpals are intact. IMPRESSION: Soft tissue swelling of the 4th finger. No acute bony abnormality is detected. Dictated by: Dictated on workstation # [id number]
--- NOTE | 2022-10-15 16:03 | Diagnostic Imaging Report ---
INDICATION: Hand pain. Time of Exam: 3:40 PM Comparison is made with prior chest from 12/12/2018. Heart is enlarged and stable. There are changes of median sternotomy. Lungs are clear. No infiltrates are seen. There is no effusion or pneumothorax. IMPRESSION: Cardiomegaly and status post CABG. No acute feature is detected. Dictated by: Dictated on workstation # [id number]
[2022-10-15 16:06] LABS: BILIRUBIN,URINE NEGATIVE (NEGATIVE); CLARITY,URINE CLEAR; COLOR,URINE YELLOW; GLUCOSE, URINE (UA) NEGATIVE (NEGATIVE); KETONES,URINE NEGATIVE (NEGATIVE); LEUKOCYTE ESTERASE ,URINE NEGATIVE (NEGATIVE); NITRITE,URINE NEGATIVE (NEGATIVE); PROTEIN,URINE 1+ (NEGATIVE)
[2022-10-15 16:13] LABS: BACTERIA,URINE TRACE /HPF; RBC,URINE 0-2 /HPF
--- NOTE | 2022-10-15 16:28 | ED Upper Extremity ---
General Chief Complaint: Upper Extremity Stated Complaint: PAIN RIGHT HAND Nursing Triage Note: PT PRESENTS TO ED VIA POV FROM HOME WITH COMPLAINTS OF R HAND AND RING FINGER SWELLING STARTING THIS AM. PT REPORTS SHE HAD A BLISTER ON RINGFINGER YESTERDAY NIGHT. History of Present Illness Date Seen by Provider: Oct 15, 2022 Time Seen by Provider: 14:45 Initial Comments 77 year old patient reports having a steam injury to the ulnar aspect of her right wrist yesterday. She then noted a blister to her right ring finger. This morning when she awoke she noted pain and swelling to her right ring finger. The blister had ruptured and she has been having clear drainage from the tip of her fourth finger. She reports significant swelling and pain with ecchymosis and erythema to the right fourth finger. She is unsure of her last tetanus vaccine, she is not diabetic. Chronic kidney disease, will start be starting dialysis. Onset: yesterday Pain/Injury Location: right hand, right 4th finger Method of Injury: burn Allergies and Home Medications Allergies Coded Allergies: cashew nut (Verified Allergy, Severe, Anaphylaxis, 06/16/20) Sulfa (Sulfonamide Antibiotics) (Verified Allergy, Intermediate, HIVES, 09/21/12) Iodine and Iodide Containing Produc (Verified Allergy, Unknown, 12/12/18) STATES NO REACTION, KIDNEY DOCTOR WANTS HER TO AVOID IF POSSIBLE DUE TO POOR KIDNEY FUNCTION sulfamethoxazole (Verified Allergy, Unknown, 02/11/19) trimethoprim (Verified Allergy, Unknown, 02/11/19) yellow dye (Verified Allergy, Unknown, 02/11/19) Patient Home Medication List Home Medication List Reviewed: Yes Allopurinol (Allopurinol) 100 Mg Tablet, 100 MG PO DAILY, (Reported) Entered as Reported by: SARA MARTE on 01/20/22 103 Amlodipine Besylate (Amlodipine Besylate) 5 Mg Tablet, 5 MG PO DAILY, (Reported) Entered as Reported by: SARA MARTE on 01/20/22 103 Aspirin (Aspirin EC) 81 Mg Tablet.dr, 81 MG PO DAILY, (Reported) Entered as Reported by: SARA MARTE on 01/20/22 1031 Cephalexin (Cephalexin) 500 Mg Tablet, 500 MG PO QID Prescribed by: NIDHI NARAYAN on 10/15/22 9268 Cholecalciferol (Vitamin D3) (Vitamin D3) 25 Mcg (1000 Unit) Tablet, 25 MCG PO DAILY, (Reported) Entered as Reported by: SARA MARTE on 01/20/22 1031 Clopidogrel Bisulfate (Clopidogrel) 75 Mg Tablet, 75 MG PO DAILY, (Reported) Entered as Reported by: SARA MARTE on 01/20/22 1031 Cyclobenzaprine HCl (Cyclobenzaprine HCl) 5 Mg Tablet, 5 MG PO DAILY, (Reported) Entered as Reported by: SARA MARTE on 01/20/22 103 Docusate Sodium (Docusate Sodium) 100 Mg Capsule, 200 MG PO DAILY, (Reported) Entered as Reported by: TUNDE CARRIZALES on 01/25/17 0951 Doxazosin Mesylate (Doxazosin Mesylate) 2 Mg Tablet, 2 MG PO BID, (Reported) Entered as Reported by: TUNDE CARRIZALES on 10/04/19 1128 Ergocalciferol (Vitamin D2) (Vitamin D2) 1,250 Mcg Capsule, 1,250 MCG PO Tu, (Reported) Entered as Reported by: TUNDE CARRIZALES on 08/29/19 0919 Fluticasone Propionate (Fluticasone Propionate) 50 Mcg/Actuation [place].susp, 15.8 ML NS DAILY, (Reported) Entered as Reported by: SARA MARTE on 01/20/22 103 Fluticasone/Salmeterol (Advair 100-50 Diskus) 1 Each Blst.w.dev, 1 PUFF IH BID, (Reported) Entered as Reported by: TUNDE CARRIZALES on 01/25/17 09 Gabapentin (Gabapentin) 100 Mg Capsule, 100 MG PO BID, (Reported) Entered as Reported by: SARA MARTE on 01/20/22 1031 Hydrocodone/Acetaminophen (Hydrocodone/Acetaminophen 5 MG/325 MG TAB) 1 Each Tablet, 1 TAB PO Q4-6HR Prescribed by: CORINE FREGOSO on 10/10/19 1022 Loratadine (Loratadine) 10 Mg Tablet, 10 MG PO DAILY, (Reported) Entered as Reported by: TUNDE CARRIZALES on 01/25/17 0951 Metoprolol Succinate (Metoprolol Succinate) 50 Mg Tab.er.24h, 50 MG PO DAILY, (Reported) Entered as Reported by: TUNDE CARRIZALES on 08/29/19918 Promethazine HCl (Promethazine Tablet) 25 Mg Tablet, 25 MG PO Q6H PRN for NAUSEA/VOMITING, (Reported) Entered as Reported by: TUNDE CARRIZALES on 08/29/19918 Rabeprazole Sodium (Aciphex Sprinkle) 5 Mg , 5 MG PO DAILY, (Reported) Entered as Reported by: TUNDE CARRIZALES on 08/29/19918 Rivaroxaban (Xarelto) 10 Mg Tablet, 10 MG PO DAILY, (Reported) Entered as Reported by: SARA MARTE on 01/20/22 103 Roflumilast (Daliresp) 500 Mcg Tablet, 500 MCG PO DAILY, (Reported) Entered as Reported by: TUNDE CARRIZALES on 01/25/17 09 Rosuvastatin Calcium (Rosuvastatin Calcium) 5 Mg Tablet, 5 MG PO DAILY, (Reported) Entered as Reported by: JUAN JOSE HARE on 02/11/19 1319 Tiotropium [place] (Spiriva) 1 Inh Aerp, 1 CAP IH HS, (Reported) Entered as Reported by: TUNDE CARRIZALES on 01/25/17 09 Torsemide (Torsemide) 100 Mg Tablet, 100 MG PO DAILY, (Reported) Entered as Reported by: SARA MARTE on 01/20/22 1031 Review of Systems Constitutional: no symptoms reported, see HPI Skin: see HPI, change in color (right 4th finger) All Other Systems Reviewed Negative Unless Noted: Yes Past Lddpfhy-Kgdkbn-Akegch Hx Patient Social History Tobacco Use?: No Substance use?: No Alcohol Use?: No Pt feels they are or have been: No Immunizations Up To Date Tetanus Booster (TDap): Unknown PED Vaccines UTD: No First/Initial COVID19 Vaccinat: NO Second COVID19 Vaccination [place]: NO Third COVID19 Vaccination Date: NO Seasonal Allergies Seasonal Allergies: Yes Past Medical History Surgery/Hospitalization HX: PMH: COPD, KIDNEY FAILURE- HAS FISTULA BUT HASNT STARTED DIALYSIS OF 10/15/22, HTN, HIGH CHOL. 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 Sexually Transmitted Disease: No HIV/AIDS: No Genitourinary: Yes (R kidney non-functional) Renal Failure Gastrointestinal: Yes (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) Gastroesophageal Reflux, Polyps, Hiatal Hernia, Gall Bladder Disease Musculoskeletal: Yes (ORTHO SURGERIES;RIGHT HIP REPLACEMENT 2019) Back Injury, Chronic Back Pain Endocrine: No HEENT: Yes (cataracts removed) Cataract Loss of Vision: Denies Hearing Impairment: Denies Cancer: No Psychosocial: No Integumentary: No Blood Disorders: No Adverse Reaction/Blood Tranf: No Family Medical History Reviewed Nursing Family Hx Family history: Cardiovascular disease 19 MOTHER G8 BROTHER Family history: Diabetes mellitus 19 MOTHER Family history: Gastrointestinal disease 19 FATHER Family history: Hypertension 19 MOTHER G8 BROTHER Myocardial infarction 19 MOTHER Physical Exam Vital Signs Vital Signs - First Documented 10/15/22 14:28 Temp 37.3 Pulse 88 Resp 16 B/P (MAP) 180/75 (110) Pulse Ox 96 Capillary Refill : Less Than 3 Seconds Height, Weight, BMI Height: 5'1.00" Weight: 215lbs. 0.4oz. 97.495019ou; 40.00 BMI Method:Stated General Appearance: WD/WN, no apparent distress Cardiovascular: normal peripheral pulses, regular rate, rhythm Respiratory: chest non-tender, lungs clear, normal breath sounds Gastrointestinal: normal bowel sounds, non tender Hand: Right, abrasions (distal aspect 4th finger, with clear darinage. ), ecchymosis, limited ROM, soft tissue tenderness, swelling Neurologic/Psychiatric: no motor/sensory deficits, alert, normal mood/affect, oriented x 3 Skin: normal color, warm/dry, ecchymosis (mild erythema and ecchymosis to right 4th finger. ) Progress/Results/Core Measures Results/Orders Lab Results Laboratory Tests Test 10/15/22 15:35 10/15/22 16:00 Range/Units White Blood Count 8.1 4.3-11.0 10^3/uL Red Blood Count 2.89 L 3.80-5.11 10^6/uL Hemoglobin 9.8 L 11.5-16.0 g/dL Hematocrit 31 L 35-52 % Mean Corpuscular Volume 106 H 80-99 fL Mean Corpuscular Hemoglobin 34 25-34 pg Mean Corpuscular Hemoglobin Concent 32 32-36 g/dL Red Cell Distribution Width 14.2 10.0-14.5 % Platelet Count 213 130-400 10^3/uL Mean Platelet Volume 9.7 9.0-12.2 fL Immature Granulocyte % (Auto) 0 % Neutrophils (%) (Auto) 72 42-75 % Lymphocytes (%) (Auto) 18 12-44 % Monocytes (%) (Auto) 8 0-12 % Eosinophils (%) (Auto) 2 0-10 % Basophils (%) (Auto) 0 0-10 % Neutrophils # (Auto) 5.8 1.8-7.8 X 10^3 Lymphocytes # (Auto) 1.4 1.0-4.0 X 10^3 Monocytes # (Auto) 0.6 0.0-1.0 X 10^3 Eosinophils # (Auto) 0.2 0.0-0.3 10^3/uL Basophils # (Auto) 0.0 0.0-0.1 10^3/uL Immature Granulocyte # (Auto) 0.0 0.0-0.1 10^3/uL Sodium Level 140 135-145 MMOL/L Potassium Level 5.2 H 3.6-5.0 MMOL/L Chloride Level 104 98-107 MMOL/L Carbon Dioxide Level 23 21-32 MMOL/L Anion Gap 13 5-14 MMOL/L Blood Urea Nitrogen 36 H 7-18 MG/DL Creatinine 3.33 H 0.60-1.30 MG/DL Estimat Glomerular Filtration Rate 14 BUN/Creatinine Ratio 11 Glucose Level 114 H 70-105 MG/DL Calcium Level 8.9 8.5-10.1 MG/DL Corrected Calcium 9.4 8.5-10.1 MG/DL Total Bilirubin 0.4 0.1-1.0 MG/DL Aspartate Amino Transf (AST/SGOT) 13 5-34 U/L Alanine Aminotransferase (ALT/SGPT) 8 0-55 U/L Alkaline Phosphatase 82 40-136 U/L C-Reactive Protein High Sensitivity 10.02 H 0.00-0.50 MG/DL B-Type Natriuretic Peptide 313.7 H <100.0 PG/ML Total Protein 7.3 6.4-8.2 GM/DL Albumin 3.4 3.2-4.5 GM/DL Urine Color YELLOW Urine Clarity CLEAR Urine pH 7.0 5-9 Urine Specific [place] 1.010 L 1.016-1.022 Urine Protein 1+ H NEGATIVE Urine Glucose (UA) NEGATIVE NEGATIVE Urine Ketones NEGATIVE NEGATIVE Urine Nitrite NEGATIVE NEGATIVE Urine Bilirubin NEGATIVE NEGATIVE Urine Urobilinogen 1.0 < = 1.0 MG/DL Urine Leukocyte Esterase NEGATIVE NEGATIVE Urine RBC (Auto) TRACE-I H NEGATIVE Urine RBC 0-2 /HPF Urine WBC NONE /HPF Urine Squamous Epithelial Cells 2-5 /HPF Urine Crystals NONE /LPF Urine Bacteria TRACE /HPF Urine Casts NONE /LPF Urine Mucus NEGATIVE /LPF Urine Culture Indicated NO My Orders Orders - NIDHI NARAYAN THERMAL ENGINEER [facility] [place] (10/15/22 15:21) Cbc With Automated Diff (10/15/22 15:21) Comprehensive Metabolic Panel (10/15/22 15:21) Ua Culture If Indicated (10/15/22 15:21) Hand, Right, 3 Views (10/15/22 15:21) Chest 1 View, Ap/Pa Only (10/15/22 15:21) Dipht,Pertuss(Acell),Tet Adult (Boostrix (10/15/22 15:30) Ed Iv/Invasive Line Start (10/15/22 15:21) Ns Iv 500 Ml (Sodium Chloride 0.9%) (10/15/22 15:30) Hs C Reactive Protein (10/15/22 15:21) Ceftriaxone Iv/Im (Rocephin Iv/Im) (10/15/22 16:45) Medications Given in ED Current Medications Medications Dose Ordered Sig/Patty Route Start Time Stop Time Status Last Admin Dose Admin Ceftriaxone Sodium 1000 mg/ Sodium Chloride 50 ml @ 100 mls/hr ONCE ONCE IV 10/15/22 16:45 10/15/22 17:14 DC 10/15/22 17:10 100 MLS/HR Diphtheria/ Tetanus/Acell Pertussis 0.5 ml ONCE ONCE IM 10/15/22 15:30 10/15/22 15:31 DC 10/15/22 15:42 0.5 ML Sodium Chloride 500 ml @ 0 mls/hr Q0M ONCE IV 10/15/22 15:30 10/15/22 15:31 DC 10/15/22 15:41 999 MLS/HR Vital Signs/I&O 10/15/22 10/15/22 14:28 17:42 Temp 37.3 37.3 Pulse 88 88 Resp 16 16 B/P (MAP) 180/75 (110) 180/75 Pulse Ox 96 96 Blood Pressure Mean: 110 Progress Progress Note : Time: 14:45 Progress Note patient assessed. Will obtain labs, x-ray and tetanus vaccine. NS 500 ml IV. 1540 x-rays show no soft tissue gas and no fx or acute findings. Labs essentially normal with exception of Creatinine 3.33; CRP 10.02 1645 antibiotics given IV. Patient reports less pain in right 4th finger. Discharge instructions and home precautions reviewed with the patient. Stressed the importance of taking all antibiotics. Diagnostic Imaging Diagonstic Imaging: Xray Plain Films/CT/US/NM/MRI: hand Comments NAME: LA NENA JUSTICE [facility] REC#: [id number] PT STATUS: REG ER : 1945 PHYSICIAN: NIDHI NARAYAN ADMIT DATE: 10/15/22/ER Draft Date of Exam:10/15/22 HAND, RIGHT, 3 VIEWS Indication: Pain and swelling to the right 4th finger. Time of Exam: 3:41 PM 3 views of the right hand demonstrate diffuse soft tissue swelling of the 4th finger. The phalanges appear to be intact. No fractures are seen. No definite radiopaque soft tissue foreign body is identified. Metacarpals are intact. IMPRESSION: Soft tissue swelling of the 4th finger. No acute bony abnormality is detected. Dictated on workstation # [id number] Dict: 10/15/22 1559 Trans: 10/15/22 1601 [facility] [phone] Interpreted by: LAINA BRENNER MD Electronically signed by: Departure Impression Primary Impression: Cellulitis of right hand Disposition: 01 HOME, SELF-CARE Condition: Stable Departure-Patient Inst. Decision time for Depature: 16:45 Referrals: RAQUEL MANCILLA MD (PCP/Family) Primary Care Physician Patient Instructions: Cellulitis (Skin Infection), Adult (DC) Add. Discharge Instructions: Take antibiotic as prescribed. Keep right hand elevated. Follow-up with your primary care provider in 2 to 3 days if symptoms or not improving sooner or return to the emergency department. You may take Tylenol 650 mg every 6-8 hours as needed for pain. Return to the emergency department for new, urgent healthcare problems. All discharge instructions reviewed with patient and/or family. Voiced understan susan. Scripts Cephalexin (Cephalexin) 500 Mg Tablet 500 MG PO QID, #20 TAB 0 Refills Prov: NIDHI NARAYAN 10/15/22 NIDHI NARAYAN Oct 15, 2022 16:28
[2022-10-15] MEDS ORDERED: cefTRIAXone IV/IM 1,000 MG in NS (IVPB) 50 ML IV ONE (16:45)
[2022-10-15] MEDS ORDERED: CEPH500T PO (17:18)
[2022-10-15 17:42] VITALS: BP 180/75
== END 2022-10-15 17:44 | disposition home or self-care (01) ==
LOC: EDUNIT# 14:21 → ER 14:24
DX: L03.011 Cellulitis of right finger (principal); S60.041A Contusion of right ring finger without damage to nail, initial encounter; J44.9 Chronic obstructive pulmonary disease, unspecified; Z99.81 Dependence on supplemental oxygen; Z88.2 Allergy status to sulfonamides; Z23 Encounter for immunization; Z28.310 Unvaccinated for COVID-19; X13.1XXA Other contact with steam and other hot vapors, initial encounter
CPT/HCPCS: 36415; 71045; 73130; 80053; 81000; 83880; 85025; 86141; 90715